=== PATIENT | male | born 1935 | race Hispanic/Latino ===

== ENCOUNTER 2016-12-17 20:24 | Inpatient (IN) | payer MEDICARE ==
[2016-12-17 20:24] VITALS: BMI 22.5
--- NOTE | 2016-12-17 21:39 | ED PDOC ---
Arrival/HPI - General Chief Complaint: Altered Mental Status Time Seen by Provider: 12/17/16 20:36 Historian: Patient - History of Present Illness Narrative History of Present Illness (Text): 12/17/16 21:37 Ronaldo Turpin is a 81 year old male, with a history of hypertension, CAD with 4 stents and hypothyroidism, presents to the emergency department complaining of 3 day duration of difficulty breathing and poor appetite. Sebastian any fever, chills, chest pain, nausea, vomiting, diarrhea, or any other complaints at this time. Time/Duration: < week (3 days ) Symptom Onset: Gradual Severity Level: Mild Activities at Onset: Light Past Medical History - Provider Review Nursing Documentation Reviewed: Yes - Infectious Disease Hx of Infectious Diseases: None - Tetanus Immunization Tetanus Immunization: Unknown, OTH - Cardiac Hx Cardiac Disorders: Yes ([place], CAD w/ stents) Hx Hypertension: Yes - Pulmonary Hx Chronic Obstructive Pulmonary Disease (COPD): Yes - Neurological Hx Neurological Disorder: No - HEENT Hx HEENT Disorder: Yes Hx Cataracts: Yes (R EYE) - Renal Hx Renal Disorder: No - Endocrine/Metabolic Hx Hypothyroidism: Yes - Hematological/Oncological Hx Blood Disorders: No - Integumentary Hx Dermatological Disorder: No - Musculoskeletal/Rheumatological Hx Falls: No - Gastrointestinal Hx Gastroesophageal Reflux: Yes - Genitourinary/Gynecological Hx Genitourinary Disorders: No - Psychiatric Hx Psychophysiologic Disorder: No Hx Substance Use: No - Past Surgical History Past Surgical History: No Previous - Surgical History Hx Cardiac Catheterization: Yes Hx Coronary Stent: Yes - Anesthesia Hx Anesthesia Reactions: No Hx Malignant Hyperthermia: No - Suicidal Assessment Feels Threatened In Home Enviroment: No Family/Social History - Physician Review Nursing Documentation Reviewed: Yes Family/Social History: No Known Family HX Smoking Status: Former Smoker Hx Alcohol Use: Yes Hx Substance Use: No Hx Substance Use Treatment: No Allergies/Home Meds Allergies/Adverse Reactions: Allergies No Known Allergies Allergy (Verified 08/26/15 14:43) Home Medications: Home Meds Medication Instructions Recorded Confirmed Unobtainable 12/18/16 12/18/16 Review of Systems - Physician Review All systems were reviewed & negative as marked: Yes - Review of Systems Constitutional: Normal. absent: Fatigue, Fevers Respiratory: SOB. absent: Cough, Sputum Cardiovascular: absent: Chest Pain, Palpitations Gastrointestinal: Appetite Changes (Poor appetite ). absent: Abdominal Pain, Diarrhea, Nausea, Vomiting Genitourinary Male: Normal Neurological: Normal. absent: Headache, Dizziness Psychiatric: Normal Physical Exam Vital Signs Reviewed: Yes Vital Signs Temp Pulse Resp BP Pulse Ox 12/18/16 00:48 79 24 139/58 L 97 12/18/16 00:25 86 30 H 108/57 L 92 L 12/18/16 00:08 88 22 102/57 L 88 L 12/17/16 23:52 81 23 108/57 L 88 L 12/17/16 23:37 69 30 H 102/67 92 L 12/17/16 23:22 66 34 H 93/56 L 92 L 12/17/16 23:07 65 34 H 112/63 96 12/17/16 22:57 67 30 H 115/61 95 12/17/16 22:48 65 28 H 100/50 L 96 12/17/16 21:48 83 24 122/79 91 L 12/17/16 20:48 98.1 F 82 18 129/58 L 99 Temperature: Afebrile Blood Pressure: Normal Pulse: Regular Respiratory Rate: Normal Appearance: Positive for: Well-Appearing, Non-Toxic, Comfortable Pain Distress: None Mental Status: Positive for: Alert and Oriented X 3 - Systems Exam Head: Present: Atraumatic, Normocephalic Pupils: Present: PERRL Extroacular Muscles: Present: EOMI Conjunctiva: Present: Normal Mouth: Present: Moist Mucous Membranes Respiratory/Chest: Present: Decreased Breath Sounds (Right lung ). No: Respiratory Distress, Accessory Muscle Use Cardiovascular: Present: Regular Rate and Rhythm, Normal S1, S2. No: Murmurs Abdomen: Present: Normal Bowel Sounds. No: Tenderness, Distention, Peritoneal Signs, Rebound, Guarding Upper Extremity: Present: Normal Inspection. No: Cyanosis, Edema Lower Extremity: Present: Normal Inspection. No: Edema Neurological: Present: GCS=15, CN II-XII Intact, Speech Normal, Motor Func Grossly Intact, Normal Sensory Function Skin: Present: Warm, Dry, Normal Color. No: Rashes Psychiatric: Present: Alert, Oriented x 3, Normal Insight, Normal Concentration Medical Decision Making ED Course and Treatment: 12/17/16 21:41 Impression: A 81 year old male who presents to the emergency department complaining of 3 day duration of shortness of breath and decreased appetite. Plan: -- EKG -- Labs, cardiac enzymes -- Chest X-ray -- Blood Culture -- Urine Culture -- Urinalysis -- Reassess and disposition Progress Notes: 12/17/16 22:05 Sinus Rhythm @ 67 bpm with AV dissociation and accelerated junctional rhythm. Septal infarct, age undetermined. PROCEDURE: INTUBATION Performed by the emergency provider Time: 23:00 Consent: Discussion of the risks, benefits, and alternatives to the procedure, along with informed consent was precluded by the urgency of the procedure and the patient condition. Indication: Hypercapnia; respiratory distress Medications: 10 mg Etomidate ETT Size: 8mm Confirmation: Cords directly visualized as tube passed, good bilateral breath sounds, positive CO2 detector color change, tube fogging, adequate chest rise, improving pulse oximetry reading, improved skin color, and absence of gastric sounds. ETT Secured: The cuff was inflated and the tube was secured appropriately at a distance of 23 cm at the lip. Post-Procedure: There were no immediate complications. CXR Confirmation: yes Chest X-ray post intubation shows ET tube above Sharon. 12/18/16 00:[address] 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 Accepts patient to ICU under hospitalist service. case d/w john for dr flores , case d/w center medical director 12/18/16 23:40 - Critical Care Critical Care Minutes: 45 minutes (management of respiratory failure) - Lab Interpretations Microbiology Results: Microbiology Results 12/17/16 22:30 Blood-Venous Blood Culture - Preliminary NO GROWTH AFTER 24 HOURS 12/17/16 21:52 Blood-Venous Blood Culture - Preliminary NO GROWTH AFTER 24 HOURS Lab Results: 12/17/16 21:52 12/17/16 21:52 Lab Results 12/17/16 23:29: pCO2 116 H*, pO2 91.0, HCO3 43.3 H*, ABG pH 7.18 L*, ABG Total CO2 46.9 H, ABG O2 Saturation 97.3, ABG O2 Content 17.4, ABG Base Excess 10.4 H , ABG Hemoglobin 13.1, ABG Carboxyhemoglobin 2.6 H, POC ABG HHb (Measured) 2.6, ABG Methemoglobin 0.9, ABG O2 Capacity 17.9, Hgb O2 Saturation 93.9 L, FiO2 35.0 12/17/16 21:52: Sodium 129 L, Chloride 76 L, Potassium 4.4, Carbon Dioxide 47 H D, Anion Gap 17, BUN 19, Creatinine 0.6, Est GFR ( Amer) > 60, Est GFR ( Non-Af Amer) > 60, Random Glucose 93, Calcium 8.7, Total Bilirubin 0.7, AST 20, ALT 26, Alkaline Phosphatase 66, Lactate Dehydrogenase 383, Total Creatine Kinase < 20 L, Troponin I 0.02 D, NT-Pro-B Natriuret Pep 3820 H, Total Protein 7.1, Albumin 3.4, Globulin 3.7, Albumin/Globulin Ratio 0.9 L 12/17/16 21:52: WBC 8.6, RBC 4.19, Hgb 13.5 L, Hct 42.2, MCV 100.7, MCH 32.2, MCHC 32.0, RDW 12.9, Plt Count 337, MPV 9.4, Gran % 84.0 H, Lymph % (Auto) 9.5 L , [place] % (Auto) 6.3 H, Eos % (Auto) 0.1 L, Baso % (Auto) 0.1, Gran # 7.18 H, Lymph # 0.8 L, [place] # 0.5, Eos # 0.0, Baso # 0.01 12/17/16 21:20: pCO2 96 H*, pO2 79.0 L, HCO3 47.2 H*, ABG pH 7.30 L, ABG Total CO2 50.1 H, ABG O2 Saturation 96.0, ABG Base Excess 15.9 H, ABG Potassium 3.4 L , Sodium 132.0, Chloride 88.0 L, Glucose 90, Lactate 0.7, FiO2 32.0, Arterial Blood Potassium 3.4 L I have reviewed the lab results: Yes - RAD Interpretation Radiology Orders: 12/17/16 20:58 CHEST PORTABLE [RAD] Stat 12/17/16 23:56 CHEST PORTABLE [RAD] Stat Parent Partner: ED Physician - EKG Interpretation Interpreted by ED Physician: Yes Type: 12 lead EKG - Medication Orders Current Medication Orders: Albuterol/Ipratropium (Duoneb 3 Mg/0.5 Mg (3 Ml) Ud) 3 ml IH Q2H PRN PRN Reason: Shortness of Breath Last Admin: 12/18/16 13:18 Dose: 3 ml Aspirin (Aspirin Chewable) 81 mg PO DAILY [facility] Last Admin: 12/18/16 11:50 Dose: Not Given Non-Admin Reason: NPO Atorvastatin Calcium (Lipitor) 40 mg PO DIN [facility] Last Admin: 12/18/16 18:49 Dose: 40 mg Clopidogrel Bisulfate (Plavix) 75 mg PO DAILY [facility] Last Admin: 12/18/16 11:51 Dose: Not Given Non-Admin Reason: NPO Heparin Sodium (Porcine) (Heparin) 5,000 units SC Q12 [facility] PRN Reason: Protocol Last Admin: 12/18/16 21:44 Dose: 5,000 units Ceftriaxone Sodium (Rocephin 1 Gram Ivpb) 1 gm in 100 mls @ 100 mls/hr IVPB DAILY [facility] PRN Reason: Protocol Last Admin: 12/18/16 11:49 Dose: 100 mls/hr Levofloxacin/Dextrose (Levaquin 750mg) 750 mg in 150 mls @ 100 mls/hr IVPB DAILY [facility] Last Admin: 12/18/16 11:48 Dose: 100 mls/hr Dexmedetomidine HCl (Precedex 4 Mcg/Ml (100 Ml)) 400 mcg in 100 mls @ 3.35 mls/ hr IV .Q24H PRN; Protocol; 0.2 MCG/KG/HR PRN Reason: Sedation Last Titration: 12/18/16 08:36 Dose: 0 mcg/kg/hr, 0 mls/hr Levothyroxine Sodium (Synthroid) 100 mcg IVP DAILY [facility] Last Admin: 12/18/16 11:48 Dose: 100 mcg Methylprednisolone (Solu-Medrol) 40 mg IVP Q8 [facility] Last Admin: 12/18/16 21:43 Dose: 40 mg Pantoprazole Sodium (Protonix Inj) 40 mg IVP DAILY [facility] Last Admin: 12/18/16 11:48 Dose: 40 mg Potassium Phos/Sodium Phos (Neutra-Phos) 2 pkt PO Q12 [facility] Last Admin: 12/18/16 21:44 Dose: 2 pkt Discontinued Medications Albuterol/Ipratropium (Duoneb 3 Mg/0.5 Mg (3 Ml) Ud) 3 ml IH Q15M [facility] Stop: 12/17/16 22:31 Last Admin: 12/17/16 22:30 Dose: 3 ml Etomidate (Amidate) Confirm Administered Dose 20 mg IV .STK-MED ONE Stop: 12/17/16 23:44 Last Admin: 12/18/16 00:13 Dose: Etomidate (Amidate) 10 mg IV STAT STA Stop: 12/18/16 00:06 Last Admin: 12/18/16 00:13 Dose: 10 mg Furosemide (Lasix) 20 mg IVP ONCE ONE Stop: 12/18/16 00:44 Furosemide (Lasix) 20 mg IVP STAT STA Stop: 12/18/16 01:08 Last Admin: 12/18/16 03:28 Dose: 20 mg Methylprednisolone (Solu-Medrol) 125 mg IVP ONCE ONE Stop: 12/17/16 22:00 Last Admin: 12/17/16 22:07 Dose: 125 mg - Scribe Statement The provider has reviewed the documentation as recorded by the Gustavo Huffman Provider Attestation: Provider Scribe Attestation: All medical record entries made by the Gustavo were at my direction and personally dictated by me. I have reviewed the chart and agree that the record accurately reflects my personal performance of the history, physical exam, medical decision making, and the department course for this patient. I have also personally directed, reviewed, and agree with the discharge instructions and disposition. Disposition/Present on Arrival - Present on Arrival Any Indicators Present on Arrival: No History of DVT/PE: No History of Uncontrolled Diabetes: No Urinary Catheter: No History of Decub. Ulcer: No History Surgical Site Infection Following: None - Disposition Have Diagnosis and Disposition been Completed?: Yes Diagnosis: Respiratory failure with hypercapnia Disposition: HOSPITALIZED Disposition Time: 00:55 Condition: SERIOUS
[2016-12-17 21:43] LABS: ARTERIAL BLOOD GAS PCO2 96 mm/Hg (35-45); ARTERIAL BLOOD GAS TCO2 50.1 mmol.L (22-28)
[2016-12-17 21:48] LABS: ARTERIAL BLOOD GAS HCO3 47.2 mmol/L (21-28)
[2016-12-17] MEDS: Albuterol-Ipratrop 3 mg / 0.5 (3 ml) UD IH SCH ×3 (22:09→22:30)
[2016-12-17 22:10] LABS: BASO # 0.01 K/mm3 (0.0-2.0); BASO % 0.1 % (0.0-3.0); EOS % 0.1 % (1.5-5.0); GRAN # 7.18 (1.4-6.5); HEMOGLOBIN 13.5 gm/dL (14.0-18.0); LYMPH # 0.8 (1.2-3.4); LYMPH % 9.5 % (22.0-35.0); MEAN CELL VOLUME 100.7 fL (80.0-105.0); MEAN CORPUSCULAR HEMOGLOBIN 32.2 pg (25.0-35.0); MEAN PLATELET VOLUME 9.4 fl (7.0-11.0); MONO # 0.5 (0.1-0.6); MONO % 6.3 % (1.0-6.0); PLATELET COUNT 337 10^3/uL (120.0-450.0); RBC 4.19 10^6/uL (3.5-6.1); RED CELL DISTRIBUTION WIDTH 12.9 % (11.5-14.5); WHITE BLOOD COUNT 8.6 10^3/ul (4.5-11.0)
[2016-12-17 22:26] LABS: ALB/GLOB RATIO 0.9 (1.1-1.8); ALBUMIN 3.4 g/dL (3.0-4.8); ALT/SGPT 26 U/L (7-56); AST/SGOT 20 U/L (15-59); BLOOD UREA NITROGEN 19 mg/dL (7-21); CALCIUM 8.7 mg/dL (8.4-10.5); GFR AFRICAN-AMERICAN > 60; GFR NON-AFRICAN AMERICAN > 60
[2016-12-17 22:34] LABS: B-TYPE NATRIURETIC PEPTIDE 3820 pg/mL (0-450); TROPONIN I 0.02 ng/mL
[2016-12-17 23:36] LABS: ARTERIAL BLOOD GAS HEMOGLOBIN 13.1 g/dL (11.7-17.4); ARTERIAL BLOOD GAS O2 CAPACITY 17.9 mL/dl (16-24); ARTERIAL BLOOD GAS O2 CONTENT 17.4 ML/dl (15-23); ARTERIAL BLOOD GAS O2 SAT 97.3 % (95-98); ARTERIAL BLOOD GAS TCO2 46.9 mmol.L (22-28)
[2016-12-17] MEDS ORDERED: Etomidate 20 mg/10ml Inj IV ONE (23:43)
[2016-12-17] MEDS ORDERED: Propofol 10 mg/ml 1,000 MG/100 ML VIAL IV PRN (23:58)
[2016-12-18] MEDS ORDERED: Etomidate 20 mg/10ml Inj IV STA (00:05)
[2016-12-18 00:14] LABS: ARTERIAL BLOOD GAS HCO3 43.3 mmol/L (21-28); ARTERIAL BLOOD GAS PCO2 116 mm/Hg (35-45); ARTERIAL BLOOD GAS PH 7.18 (7.35-7.45)
[2016-12-18] MEDS ORDERED: Dexmedetomidine HCl 4mcg/ml 400 MCG/100 ML BOTTLE IV PRN (00:43)
--- NOTE | 2016-12-18 01:05 | CP.PCM.CON ---
<David Guerrero - Last Filed: 12/18/16 00:59> History of Present Illness - History of Present Illness History of Present Illness: ICU Consult Note for Dr. Live 81 y/o M with PMH of CHF, CAD s/p stent placement on plavix, COPD, hypothyroidism, and HLD presents to the the ED on 12/17/16 for progressive SOB. Information gathered in HPI from prior medical charts as patient was intubated prior to exam. Pt arrived at ED complaining of 3 day history of shortness of breath and decreased appetite. Pt became progressively more short of breath in the emergency department was subsequently intubated to protect his airway. ROS unavailable at this time secondary to acuity of the patient's condition. PMH: CHF, CAD, COPD, hypothyroidism, HLD Surgical Hx: PCI with stent placement, thoracentesis Family Hx: HTN Social Hx: Chronic tobacco and alcohol use. No illicit drugs. Allergies: NKDA Medications: As per prior record, unable to verify at this time. Review of Systems - Review of Systems Systems not reviewed;Unavailable: Intubated Past Patient History - Infectious Disease Hx of Infectious Diseases: None - Tetanus Immunizations Tetanus Immunization: Unknown, OTH - Past Social History Smoking Status: Former Smoker - CARDIAC Hx Cardiac Disorders: Yes ([place], CAD w/ stents) Hx Hypertension: Yes - PULMONARY Hx Chronic Obstructive Pulmonary Disease (COPD): Yes - NEUROLOGICAL Hx Neurological Disorder: No - HEENT Hx HEENT Problems: Yes Hx Cataracts: Yes (R EYE) - RENAL Hx Chronic Kidney Disease: No - ENDOCRINE/METABOLIC Hx Hypothyroidism: Yes - HEMATOLOGICAL/ONCOLOGICAL Hx Blood Disorders: No - INTEGUMENTARY Hx Dermatological Problems: No - MUSCULOSKELETAL/RHEUMATOLOGICAL Hx Falls: No - GASTROINTESTINAL Hx Gastroesophageal Reflux: Yes - GENITOURINARY/GYNECOLOGICAL Hx Genitourinary Disorders: No - PSYCHIATRIC Hx Psychophysiologic Disorder: No Hx Substance Use: No - SURGICAL HISTORY Hx Cardiac Catheterization: Yes Hx Coronary Stent: Yes - ANESTHESIA Hx Anesthesia Reactions: No Hx Malignant Hyperthermia: No Meds Allergies/Adverse Reactions: Allergies Allergy/AdvReac Type Severity Reaction Status Date / Time No Known Allergies Allergy Verified 08/26/15 14:43 - Medications Medications: Current Medications Albuterol/Ipratropium (Duoneb 3 Mg/0.5 Mg (3 Ml) Ud) 3 ml IH Q2H PRN PRN Reason: Shortness of Breath Aspirin (Aspirin Chewable) 81 mg PO DAILY [facility] Atorvastatin Calcium (Lipitor) 40 mg PO DIN [facility] Clopidogrel Bisulfate (Plavix) 75 mg PO DAILY [facility] Furosemide (Lasix) 20 mg IVP ONCE ONE Stop: 12/18/16 00:44 Propofol (Diprivan) 1,000 mg in 100 mls @ 2.01 mls/hr IV .Q24H PRN; Protocol; 5 MCG/KG/MIN PRN Reason: TITRATE PER MD ORDER Dexmedetomidine HCl (Precedex 4 Mcg/Ml (100 Ml)) 400 mcg in 100 mls @ 3.35 mls/ hr IV .Q24H PRN; Protocol; 0.2 MCG/KG/HR PRN Reason: Sedation Levofloxacin/Dextrose (Levaquin 500mg) 500 mg in 100 mls @ 100 mls/hr IVPB DAILY [facility] Ceftriaxone Sodium (Rocephin 1 Gram Ivpb) 1 gm in 100 mls @ 100 mls/hr IVPB DAILY [facility] PRN Reason: Protocol Levothyroxine Sodium (Synthroid) 100 mcg IVP DAILY [facility] Methylprednisolone (Solu-Medrol) 40 mg IVP Q8 [facility] Physical Exam - Constitutional Appears: Toxic, In Acute Distress - Head Exam Head Exam: ATRAUMATIC, NORMAL INSPECTION, NORMOCEPHALIC - Eye Exam Eye Exam: PERRL - ENT Exam ENT Exam: Mucous Membranes Moist, Normal Exam - Neck Exam Neck exam: Positive for: Normal Inspection. Negative for: Lymphadenopathy - Respiratory Exam Respiratory Exam: Decreased Breath Sounds (b/l ), Rhonchi (B/l bases) Additional comments: Intubated - Cardiovascular Exam Cardiovascular Exam: Tachycardia, +S1, +S2 - GI/Abdominal Exam GI & Abdominal Exam: Normal Bowel Sounds, Soft. absent: Organomegaly, Tenderness - Extremities Exam Extremities exam: Positive for: pedal edema (+1 pitting edema b/l) - Neurological Exam Additional comments: Intubated, not sedated - Skin Skin Exam: Intact, Normal Color, Warm Results - Vital Signs Recent Vital Signs: Last Vital Signs Temp 98.1 F 12/17/16 20:48 Pulse 79 12/18/16 00:48 Resp 24 12/18/16 00:48 BP 139/58 L 12/18/16 00:48 Pulse Ox 97 12/18/16 00:48 - Labs Result Diagrams: 12/17/16 21:52 12/17/16 21:52 Labs: Laboratory Results - last 24 hr 12/17/16 12/17/16 12/17/16 21:20 21:52 21:52 WBC 8.6 RBC 4.19 Hgb 13.5 L Hct 42.2 MCV 100.7 MCH 32.2 MCHC 32.0 RDW 12.9 Plt Count 337 MPV 9.4 Gran % 84.0 H Lymph % (Auto) 9.5 L [place] % (Auto) 6.3 H Eos % (Auto) 0.1 L Baso % (Auto) 0.1 Gran # 7.18 H Lymph # 0.8 L [place] # 0.5 Eos # 0.0 Baso # 0.01 pCO2 96 H* pO2 79.0 L HCO3 47.2 H* ABG pH 7.30 L ABG Total CO2 50.1 H ABG O2 Saturation 96.0 ABG O2 Content ABG Base Excess 15.9 H ABG Hemoglobin ABG Carboxyhemoglobin POC ABG HHb (Measured) ABG Methemoglobin ABG O2 Capacity ABG Potassium 3.4 L Hgb O2 Saturation Sodium 132.0 129 L Chloride 88.0 L 76 L Glucose 90 Lactate 0.7 FiO2 32.0 Potassium 4.4 Carbon Dioxide 47 H D Anion Gap 17 BUN 19 Creatinine 0.6 Est GFR ( Amer) > 60 Est GFR (Non-Af Amer) > 60 Random Glucose 93 Calcium 8.7 Total Bilirubin 0.7 AST 20 ALT 26 Alkaline Phosphatase 66 Lactate Dehydrogenase 383 Total Creatine Kinase < 20 L Troponin I 0.02 D NT-Pro-B Natriuret Pep 3820 H Total Protein 7.1 Albumin 3.4 Globulin 3.7 Albumin/Globulin Ratio 0.9 L Arterial Blood Potassium 3.4 L 12/17/16 23:29 WBC RBC Hgb Hct MCV MCH MCHC RDW Plt Count MPV Gran % Lymph % (Auto) [place] % (Auto) Eos % (Auto) Baso % (Auto) Gran # Lymph # [place] # Eos # Baso # pCO2 116 H* pO2 91.0 HCO3 43.3 H* ABG pH 7.18 L* ABG Total CO2 46.9 H ABG O2 Saturation 97.3 ABG O2 Content 17.4 ABG Base Excess 10.4 H ABG Hemoglobin 13.1 ABG Carboxyhemoglobin 2.6 H POC ABG HHb (Measured) 2.6 ABG Methemoglobin 0.9 ABG O2 Capacity 17.9 ABG Potassium Hgb O2 Saturation 93.9 L Sodium Chloride Glucose Lactate FiO2 35.0 Potassium Carbon Dioxide Anion Gap BUN Creatinine Est GFR ( Amer) Est GFR (Non-Af Amer) Random Glucose Calcium Total Bilirubin AST ALT Alkaline Phosphatase Lactate Dehydrogenase Total Creatine Kinase Troponin I NT-Pro-B Natriuret Pep Total Protein Albumin Globulin Albumin/Globulin Ratio Arterial Blood Potassium Assessment & Plan - Assessment and Plan (Free Text) Plan: 81 y/o M with PMH of CHF with EF of 63% in 08/2015, CAD s/p stent placement on plavix, COPD, hypothyroidism, and HLD admitted for acute hypercapnic respiratory failure likely secondary to cardiogenic pulmonary edema. Patient will remain intubated in the ICU. Chest x-ray appears to show pulmonary edema along with right sided pleural effusion, which may be chronic. Will order a Chest CT to further evaluate effuision/infiltrate. In addition, patient will be given one dose of lasix and have BP reevaluated before continuing with further diuresis. He will also receive empiric treatment for CAP. We will monitor patient closely. Neuro: Intubated, sedated on Precedex Neurochecks q4h Cardio: Echocardiogram ordered Trend troponins Cardiology consulted, Dr. Sandoval Lasix 20 mg IV given once, will continue based upon BP Strict I's and O's Hemodynamically stable Maintain MAP > 65 Pulm: Intubated. PRVC - PEEP: 0, O2: 60%, TV: 450, R: [address] ordered ABG in AM Rocephin and Levaquin for CAP Solumedrol 40 mg IV q8h Maintain O2 sat > 90% GI: Protonix for PUD prophylaxis Endo: Maintain euglycemia TSH ordered Nephro: Maintain euvolemia Replenish electrolytes as needed [place] placed Heme/ID: Procalcitonin ordered Rocephin and Levaquin for CAP Maintain normothermia Seen, reviewed, and discussed with attending Yolanda, PGY-2 <Torito Live Q - Last Filed: 12/18/16 02:06> Meds - Medications Medications: Current Medications Albuterol/Ipratropium (Duoneb 3 Mg/0.5 Mg (3 Ml) Ud) 3 ml IH Q2H PRN PRN Reason: Shortness of Breath Aspirin (Aspirin Chewable) 81 mg PO DAILY [facility] Atorvastatin Calcium (Lipitor) 40 mg PO DIN [facility] Clopidogrel Bisulfate (Plavix) 75 mg PO DAILY [facility] Heparin Sodium (Porcine) (Heparin) 5,000 units SC Q12 [facility] PRN Reason: Protocol Ceftriaxone Sodium (Rocephin 1 Gram Ivpb) 1 gm in 100 mls @ 100 mls/hr IVPB DAILY [facility] PRN Reason: Protocol Levofloxacin/Dextrose (Levaquin 750mg) 750 mg in 150 mls @ 100 mls/hr IVPB DAILY [facility] Dexmedetomidine HCl (Precedex 4 Mcg/Ml (100 Ml)) 400 mcg in 100 mls @ 3.35 mls/ hr IV .Q24H PRN; Protocol; 0.2 MCG/KG/HR PRN Reason: Sedation Levothyroxine Sodium (Synthroid) 100 mcg IVP DAILY [facility] Methylprednisolone (Solu-Medrol) 40 mg IVP Q8 [facility] Pantoprazole Sodium (Protonix Inj) 40 mg IVP DAILY [facility] Results - Vital Signs Recent Vital Signs: Last Vital Signs Temp 98.1 F 12/17/16 20:48 Pulse 83 12/18/16 01:00 Resp 25 H 12/18/16 01:00 BP 93/73 L 12/18/16 01:00 Pulse Ox 96 12/18/16 01:00 - Labs Result Diagrams: 12/17/16 21:52 12/17/16 21:52 Attending/Attestation - Attestation I have personally seen and examined this patient.: Yes I have fully participated in the care of the patient.: Yes I have reviewed all pertinent clinical information: Yes Notes (Text): 12/18/16 01:55 I agree with the above mentioned note by the resident with the addition/ exception of the followin81 y/o male with PMHx known CAD s/p Stents, COPD, ?CHF, hypothyroid, anemia who presented with a 3 day history of worsening shortness of breath. Patient was treated in the ED with nebulizers and solumedrol with no improvement, subsequently even tried on Bipap and worsened so he was intubated in the ED. Patient was unable to provide any history so most was obtained through discussion with the ED staff and the medical record. Patient appears to show bilateral pulomary edema along with a chronic appearing right middle/lower lobe effusion. I'm unable to rule out a consolidative/infiltrative process under the effusion at this time, so he will undergo a noncontrast CT of the Chest to further evaluate his pulmonary disease process. He will be managed in the ICU for acute hypercapnic respiratory failure, acute systolic heart failure +/- Community Acquired Pneumonia. Case discussed in detail with Dr. Booth in the ED All labs and imaging available thus far has been reviewed personally total time of care: 45 mins
[2016-12-18 02:16] LABS: PH,URINE 6.5 (4.7-8.0); URINE BILIRUBIN NEGATIVE (NEGATIVE); URINE BLOOD TRACE-INTACT (NEGATIVE); URINE GLUCOSE (UA) NEGATIVE (NEGATIVE); URINE LEUKOCYTE ESTERASE NEGATIVE Leu/uL (NEGATIVE); URINE NITRATE NEGATIVE (NEGATIVE); URINE PROTEIN NEGATIVE mg/dL (<30 mg/dL)
[2016-12-18 02:17] LABS: URINE APPEARANCE SL CLOUDY (CLEAR); URINE COLOR YELLOW (YELLOW)
[2016-12-18 02:43] LABS: ARTERIAL BLOOD GAS HCO3 37.2 mmol/L (21-28); ARTERIAL BLOOD GAS HEMOGLOBIN 12.7 g/dL (11.7-17.4); ARTERIAL BLOOD GAS O2 CAPACITY 17.9 mL/dl (16-24); ARTERIAL BLOOD GAS O2 CONTENT 17.8 ML/dl (15-23); ARTERIAL BLOOD GAS O2 SAT 99.3 % (95-98); ARTERIAL BLOOD GAS PCO2 37 mm/Hg (35-45); ARTERIAL BLOOD GAS TCO2 38.3 mmol.L (22-28)
[2016-12-18] MEDS: Dexmedetomidine HCl 4mcg/ml 400 MCG/100 ML BOTTLE IV PRN ×2 (03:04→05:56)
[2016-12-18 03:10] LABS: ARTERIAL BLOOD GAS PH 7.61 (7.35-7.45)
[2016-12-18 03:28] LABS: URINE EPITHELIAL CELLS 0 - 2 /hpf (0-5); URINE HYALINE CAST 0 - 2 /hpf; URINE RBC 0 - 2 /hpf (0-2); URINE WBC 0 - 2 /hpf (0-6)
[2016-12-18 04:40] LABS: ALB/GLOB RATIO 0.9 (1.1-1.8); ALBUMIN 3.7 g/dL (3.0-4.8); ALT/SGPT 29 U/L (7-56); AST/SGOT 43 U/L (15-59); BLOOD UREA NITROGEN 20 mg/dL (7-21); CALCIUM 8.9 mg/dL (8.4-10.5); GFR AFRICAN-AMERICAN > 60; GFR NON-AFRICAN AMERICAN > 60; MAGNESIUM 1.7 mg/dL (1.7-2.2)
[2016-12-18 04:41] LABS: HEMOGLOBIN 14.2 gm/dL (14.0-18.0); MEAN CELL VOLUME 97.5 fL (80.0-105.0); MEAN CORPUSCULAR HEMOGLOBIN 32.3 pg (25.0-35.0); MEAN CORPUSCULAR HGB CONC 33.2 g/dl (31.0-37.0); MEAN PLATELET VOLUME 9.4 fl (7.0-11.0); RBC 4.39 10^6/uL (3.5-6.1); RED CELL DISTRIBUTION WIDTH 12.7 % (11.5-14.5); WHITE BLOOD COUNT 6.8 10^3/ul (4.5-11.0)
[2016-12-18 05:01] LABS: TROPONIN I 0.03 ng/mL
[2016-12-18] MEDS: MethylPREDNISolone 40 mg Vial IVP SCH ×3 (05:21→21:43)
[2016-12-18 06:17] LABS: ARTERIAL BLOOD GAS HEMOGLOBIN 14.2 g/dL (11.7-17.4); ARTERIAL BLOOD GAS O2 CAPACITY 19.5 mL/dl (16-24); ARTERIAL BLOOD GAS O2 CONTENT 19.4 ML/dl (15-23); ARTERIAL BLOOD GAS O2 SAT 99.3 % (95-98); ARTERIAL BLOOD GAS PCO2 44 mm/Hg (35-45); ARTERIAL BLOOD GAS TCO2 45.6 mmol.L (22-28)
[2016-12-18 07:08] LABS: ARTERIAL BLOOD GAS PH 7.61 (7.35-7.45)
[2016-12-18 07:09] LABS: ARTERIAL BLOOD GAS HCO3 44.2 mmol/L (21-28)
--- NOTE | 2016-12-18 07:43 | RAD ---
HISTORY: post intubation COMPARISON: 12/17/2016 FINDINGS: LUNGS: The bibasilar pleural-parenchymal opacity are similar appearing pleural-parenchymal thickening with with small pleural effusions. Bilateral hyperaeration -background COPD inferred. Probable cystic bilateral emphysematous changes mid lung zone. Interval insertion endotracheal tube- tip 3.5 cm from anderson. PLEURA: Small bilateral pleural effusions. No pneumothorax apparent. CARDIOVASCULAR: Normal. OSSEOUS STRUCTURES: Inferior thoraco lumbar spondylosis. Bilateral shoulder arthrosis VISUALIZED UPPER ABDOMEN: Normal. OTHER FINDINGS: None. IMPRESSION: Interval insertion of endotracheal tube tip satisfactory. Bilateral hyperaeration -background emphysema/ COPD inferred. The bilateral inferolateral pleural parenchymal opacities right greater than left are similar. Small bilateral pleural effusions with prior for carotic and/or discoid atelectatic -like bands projecting over small areas of the passive consolidation/atelectasis inferred. Follow up advised
[2016-12-18] MEDS: Albuterol-Ipratrop 3 mg / 0.5 (3 ml) UD IH PRN ×2 (08:04→13:18)
--- NOTE | 2016-12-18 08:11 | RAD ---
HISTORY: sob COMPARISON: 12/02/2015 FINDINGS: LUNGS: Bibasilar infero lateral pleural-parenchymal opacity with overlying thin stranding. At minimal inferolateral pleural thickening reaction with small right pleural effusion is inferred. Concomitant atelectatic a compressive atelectasis with or without patchy infiltrates at both bases (right greater than left is possible. The prior inferred small air-fluid levels small hydro thorax findings is less conspicuous cyst may be due to less upright positioning on the current exam under some partial resolution/partial clearing of fluid. Bilateral hyperaeration background COPD emphysema inferred. PLEURA: No pneumothorax apparent. Other findings as above CARDIOVASCULAR: Mild cardiomegaly OSSEOUS STRUCTURES: Generalized osteopenia, thoracic spondylosis and arthrosis-both shoulders VISUALIZED UPPER ABDOMEN: Normal. OTHER FINDINGS: None. IMPRESSION: Bibasilar inferolateral pleural parenchymal opacities. Small bi basilar pleural effusions - right greater than left. Bibasilar compressive atelectasis patchy infiltrates possible as before. Currently slightly less suggestion of air-fluid levels .
--- NOTE | 2016-12-18 08:54 | CT ---
PROCEDURE: CT Chest without contrast HISTORY: Evaluation of effusion/infiltrate COMPARISON: 08/22/2015 TECHNIQUE: Contiguous axial images were obtained through the chest without intravenous contrast enhancement. Sagittal and coronal reconstructions were performed. This CT exam was performed using one or more of the following dose reduction techniques: Automated exposure control, adjustment of the mA and/or kV according to patient size, and/or use of iterative reconstruction technique. FINDINGS: LUNGS: Bilateral dependent pleural effusions right greater than left with passive compressive atelectatic changes are similar appearing since 08/22/2015 These compressive atelectatic changes also have nodular morphology - nodular atelectasis nodular infiltrates are consistent with this. Neoplastic changes cannot be excluded: Nevertheless no change is appreciated. Prone and/or imaging may help clear this area and may not be possible in this patient. Bilateral lung hyperaeration consistent with COPD MEDIASTINUM: Unremarkable thoracic aorta. No aneurysm. Coronary artery calcifications Mild cardiomegaly. No pericardial effusion.Main pulmonary artery unremarkable. No vascular congestion. No lymphadenopathy. PLEURA: Bibasilar pleural effusions as detailed above. . The size of the right pleural effusion is slightly smaller than before. The small left pleural effusion is similar appear No pneumothorax. BONES: Thoracic spondylosis. No lytic lesions UPPER ABDOMEN: Large hiatal hernia re- suggested OTHER FINDINGS: Endotracheal tube approximately 3 cm from the anderson IMPRESSION: Bibasilar pleural effusions right slightly smaller than before. Dependent bibasilar passive compressive consolidation (atelectasis and/or infiltrates.) No interval change since 08/22/2015 here suggested. Given the nodularity to the consolidation, underlying neoplastic change cannot be entirely excluded. However this is believe dless likely given the stability suggested
[2016-12-18] MEDS ORDERED: levoFLOXacin 500 mg in D5W 500 MG/100 ML BAG IVPB SCH (10:00)
[2016-12-18] MEDS ORDERED: Potassium Chloride 40 mEq/30 ml LIQ UD PO SCH (10:15)
[2016-12-18 10:50] LABS: ALB/GLOB RATIO 0.9 (1.1-1.8); ALBUMIN 3.3 g/dL (3.0-4.8); ALT/SGPT 29 U/L (7-56); AST/SGOT 41 U/L (15-59); BLOOD UREA NITROGEN 22 mg/dL (7-21); CALCIUM 8.5 mg/dL (8.4-10.5); GFR AFRICAN-AMERICAN > 60; GFR NON-AFRICAN AMERICAN > 60
[2016-12-18 11:02] LABS: TROPONIN I 0.02 ng/mL
[2016-12-18] MEDS: Levothyroxine 100 mcg (0.1 mg) Inj IVP SCH (11:48)
[2016-12-18] MEDS: levoFLOXacin 750 mg in D5W 750 MG/150 ML BAG IVPB SCH (11:48)
[2016-12-18] MEDS: cefTRIAXone 1 gm 1 GM/100 ML BAG IVPB SCH (11:49)
[2016-12-18] MEDS: Potassium & Sodium Phosphate PO SCH ×2 (11:51→21:44)
--- NOTE | 2016-12-18 12:33 | CARD ---
APPROVED REPORT EKG Measurement Heart [id number] <Conclusion> Sinus rhythm significant artifacts Septal infarct, age undetermined Abnormal ECG
--- NOTE | 2016-12-18 13:18 | CP.PCM.PN ---
<PEDRO HERNADEZ - Last Filed: 12/18/16 15:04> Subjective - Date & Time of Evaluation Date of Evaluation: 12/18/16 Time of Evaluation: 10:30 - Subjective Subjective: PGY1 ICU Progress Note: Pt seen and examined at bedside. Pt admitted to ICU overnight for acute hypercapneic respiratory failure 2/2 likely cardiogenic pulmonary edema and COPD exacerbation. Pt intubated while examined this AM, but alert, awake, follows commands. Objective - Vital Signs/Intake and Output Vital Signs (last 24 hours): Temp Pulse Resp BP Pulse Ox 99 F 79 15 91/47 L 100 12/18/16 08:33 12/18/16 10:03 12/18/16 08:33 12/18/16 08:53 12/18/16 08:53 Intake and Output: 12/18/16 12/18/16 06:59 18:59 Intake Total 200 0 Output Total 1500 Balance -1300 0 - Medications Medications: Current Medications Albuterol/Ipratropium (Duoneb 3 Mg/0.5 Mg (3 Ml) Ud) 3 ml IH Q2H PRN PRN Reason: Shortness of Breath Last Admin: 12/18/16 08:04 Dose: 3 ml Aspirin (Aspirin Chewable) 81 mg PO DAILY [facility] Last Admin: 12/18/16 11:50 Dose: Not Given Atorvastatin Calcium (Lipitor) 40 mg PO DIN [facility] Clopidogrel Bisulfate (Plavix) 75 mg PO DAILY [facility] Last Admin: 12/18/16 11:51 Dose: Not Given Heparin Sodium (Porcine) (Heparin) 5,000 units SC Q12 [facility] PRN Reason: Protocol Last Admin: 12/18/16 11:51 Dose: 5,000 units Ceftriaxone Sodium (Rocephin 1 Gram Ivpb) 1 gm in 100 mls @ 100 mls/hr IVPB DAILY [facility] PRN Reason: Protocol Last Admin: 12/18/16 11:49 Dose: 100 mls/hr Levofloxacin/Dextrose (Levaquin 750mg) 750 mg in 150 mls @ 100 mls/hr IVPB DAILY [facility] Last Admin: 12/18/16 11:48 Dose: 100 mls/hr Dexmedetomidine HCl (Precedex 4 Mcg/Ml (100 Ml)) 400 mcg in 100 mls @ 3.35 mls/ hr IV .Q24H PRN; Protocol; 0.2 MCG/KG/HR PRN Reason: Sedation Last Titration: 12/18/16 08:36 Dose: 0 mcg/kg/hr, 0 mls/hr Levothyroxine Sodium (Synthroid) 100 mcg IVP DAILY [facility] Last Admin: 12/18/16 11:48 Dose: 100 mcg Methylprednisolone (Solu-Medrol) 40 mg IVP Q8 [facility] Last Admin: 12/18/16 05:21 Dose: 40 mg Pantoprazole Sodium (Protonix Inj) 40 mg IVP DAILY [facility] Last Admin: 12/18/16 11:48 Dose: 40 mg Potassium Phos/Sodium Phos (Neutra-Phos) 2 pkt PO Q12 [facility] Last Admin: 12/18/16 11:51 Dose: Not Given - Labs Labs: 12/18/16 04:15 12/18/16 10:38 - Constitutional Appears: No Acute Distress - Head Exam Head Exam: ATRAUMATIC, NORMOCEPHALIC - Eye Exam Eye Exam: PERRL - ENT Exam ENT Exam: Mucous Membranes Moist - Respiratory Exam Additional comments: Coarse breath sounds b/l. - Cardiovascular Exam Cardiovascular Exam: RRR, +S1, +S2. absent: Gallop, Rubs, Murmur - GI/Abdominal Exam GI & Abdominal Exam: Soft, Normal Bowel Sounds. absent: Distended, Tenderness - Extremities Exam Extremities Exam: absent: Calf Tenderness, Pedal Edema - Neurological Exam Neurological Exam: Alert, Awake - Skin Skin Exam: Dry, Intact, Normal Color, Warm Assessment and Plan - Assessment and Plan (Free Text) Assessment: 81M with PMH CHF with EF 60% (from echo 1 year ago), COPD, CAD, admitted to ICU for acute hypercapneic respiratory failure 2/2 cardiogenic pulmonary edema and COPD exacerbation. Pt intubated overnight, with improving hypercapnea, pt extubated to bipap this AM, s/p 40mg IV lasix, c/w methylprednisolone 40 q 8 and duonebs prn, c/w rocephin and levaquin for CAP coverage. Plan: Neuro: s/p intubation to bipap 10/5, 30% FiO2, RR12, TV 236, saturating well. off precedex and propofol. Pt alert, awake Neurochecks q4h Cont to monitor. Cardio: F/u Echocardiogram. Last echo 1 year ago shows EF60%. troponins neg x2. F/u Cardiology consult, Dr. Sandoval s/p Lasix 20 mg IV, will continue based upon BP Strict I's and O's Hemodynamically stable Maintain MAP > 65 Pulm: s/p extubation. on bipap 10/5, 30% fiO2, TV 236, Rate 12, saturating well, will wean off to NC Chest CT shows large left sided pleural effusion, some on the right as well. left sided infiltrate, nodularity seen as well - neoplastic? ABG in AM Rocephin and Levaquin D2 for CAP COPD exacerbation: Solumedrol 40 mg IV q8h, duonebs prn Maintain O2 sat > 88% GI: Protonix for PUD prophylaxis Pt on bipap. if weaned to NC, will do bedside swallow. Endo: Maintain euglycemia TSH ordered Nephro: Maintain euvolemia Replenish electrolytes as needed. Hyponatremia Na 127, will obtain hyponatremia workup: FeNa, urine lytes. [place] in place Heme/ID: Procalcitonin <0.05. CT chest shows L sided infiltrate. C/w Rocephin and Levaquin for CAP Maintain normothermia Seen, reviewed, and discussed with PGY2 and attending, Dr. Rodriguez. Pedro Hernadez, PGY1 <Jennifer RANDOLPH,[facility] - Last Filed: 12/18/16 15:23> Objective - Vital Signs/Intake and Output Vital Signs (last 24 hours): Temp Pulse Resp BP Pulse Ox 99 F 89 31 H 91/61 L 97 12/18/16 08:33 12/18/16 13:50 12/18/16 13:50 12/18/16 13:39 12/18/16 13:50 Intake and Output: 12/18/16 12/18/16 06:59 18:59 Intake Total 200 0 Output Total 1500 Balance -1300 0 - Medications Medications: Current Medications Albuterol/Ipratropium (Duoneb 3 Mg/0.5 Mg (3 Ml) Ud) 3 ml IH Q2H PRN PRN Reason: Shortness of Breath Last Admin: 12/18/16 13:18 Dose: 3 ml Aspirin (Aspirin Chewable) 81 mg PO DAILY [facility] Last Admin: 12/18/16 11:50 Dose: Not Given Atorvastatin Calcium (Lipitor) 40 mg PO DIN [facility] Clopidogrel Bisulfate (Plavix) 75 mg PO DAILY [facility] Last Admin: 12/18/16 11:51 Dose: Not Given Heparin Sodium (Porcine) (Heparin) 5,000 units SC Q12 [facility] PRN Reason: Protocol Last Admin: 12/18/16 11:51 Dose: 5,000 units Ceftriaxone Sodium (Rocephin 1 Gram Ivpb) 1 gm in 100 mls @ 100 mls/hr IVPB DAILY [facility] PRN Reason: Protocol Last Admin: 12/18/16 11:49 Dose: 100 mls/hr Levofloxacin/Dextrose (Levaquin 750mg) 750 mg in 150 mls @ 100 mls/hr IVPB DAILY [facility] Last Admin: 12/18/16 11:48 Dose: 100 mls/hr Dexmedetomidine HCl (Precedex 4 Mcg/Ml (100 Ml)) 400 mcg in 100 mls @ 3.35 mls/ hr IV .Q24H PRN; Protocol; 0.2 MCG/KG/HR PRN Reason: Sedation Last Titration: 12/18/16 08:36 Dose: 0 mcg/kg/hr, 0 mls/hr Levothyroxine Sodium (Synthroid) 100 mcg IVP DAILY [facility] Last Admin: 12/18/16 11:48 Dose: 100 mcg Methylprednisolone (Solu-Medrol) 40 mg IVP Q8 [facility] Last Admin: 12/18/16 05:21 Dose: 40 mg Pantoprazole Sodium (Protonix Inj) 40 mg IVP DAILY [facility] Last Admin: 12/18/16 11:48 Dose: 40 mg Potassium Phos/Sodium Phos (Neutra-Phos) 2 pkt PO Q12 [facility] Last Admin: 12/18/16 11:51 Dose: Not Given - Labs Labs: 12/18/16 04:15 12/18/16 10:38 Attending/Attestation - Attestation I have personally seen and examined this patient.: Yes I have fully participated in the care of the patient.: Yes I have reviewed all pertinent clinical information, including history, physical exam and plan: Yes Notes (Text): 12/18/16 15:20 81 y/o M w/ Hypercarbic Respiratory failure Intubated yesterday, passed SBT trial this a.m on Precedex. Extubated to BIPAP doing well. Lung exam WNL. No distress. Will transition to NC as tolerated to keep o2 sat > 88% Continue with Nebulizers, Solumedrol and chest PT Lasix given x1 yesterday 1500 cc urine output yesterday . PVC improved on CXR. ECHO ordered. dvt p heparin sq tid PPI cc time 65 min
--- NOTE | 2016-12-18 14:40 | CP.PCM.HP ---
Addendum entered and electronically signed by James Kirk DO 12/20/16 07:48: Patient was seen and examined and case was discussed at length with Dr. Mendoza. Patient under ICU management, intubated, PRVC, 400/15/5/35%. Acute on chronic respiratory acidosis. Discussed with ICU team. James Kirk D.O. PGY-2 Original Note: <CINDY MENDOZA - Last Filed: 12/18/16 14:33> History of Present Illness - History of Present Illness History of Present Illness: Cindy Mendoza DO PGY1 - Internal Medicine H&P - Dedousis/Adaniel Service CC: SOB HPI: 81 yo M with PMH of CHF, CAD s/p stents, COPD, hypothyroidism, and HLD presented [place] [facility] [place] for SOB and decreased appetite for the past three days. Information was gathered from prior medical charts and ED notes because patient was intubated prior to encounter. In the ED, he became hypercapneic and fell into respiratory distress. He was intubated and admitted to the ICU. ROS unavailable at this time. Patient remains intubated, but is arousable, responsive, and obeys commands. Spoke to patient's son over the phone, who said he would bring the list of medications he takes at home later in the day. PMH: CHF, COPD, CAD, HLD, hypothyroidism PSH: PCI with stenting, thoracentesis FHx: HTN Soc: Chronic tobacco and alcohol use. No illicits All: NKDA Meds: As per prior record, unable to verify at this time, patient's son bringing list today Present on Admission - Present on Admission Any Indicators Present on Admission: No Review of Systems - Review of Systems Systems not reviewed;Unavailable: Intubated Past Patient History - Infectious Disease Hx of Infectious Diseases: None - Tetanus Immunizations Tetanus Immunization: Unknown, OTH - Past Social History Smoking Status: Former Smoker - CARDIAC Hx Cardiac Disorders: Yes (ME, CAD w/ stents) Hx Hypertension: Yes - PULMONARY Hx Chronic Obstructive Pulmonary Disease (COPD): Yes - NEUROLOGICAL Hx Neurological Disorder: No - HEENT Hx HEENT Problems: Yes Hx Cataracts: Yes (R EYE) - RENAL Hx Chronic Kidney Disease: No - ENDOCRINE/METABOLIC Hx Hypothyroidism: Yes - HEMATOLOGICAL/ONCOLOGICAL Hx Blood Disorders: No - INTEGUMENTARY Hx Dermatological Problems: No - MUSCULOSKELETAL/RHEUMATOLOGICAL Hx Falls: No - GASTROINTESTINAL Hx Gastroesophageal Reflux: Yes - GENITOURINARY/GYNECOLOGICAL Hx Genitourinary Disorders: No - PSYCHIATRIC Hx Psychophysiologic Disorder: No - SURGICAL HISTORY Hx Surgeries: Yes Hx Cardiac Catheterization: Yes Hx Coronary Stent: Yes - ANESTHESIA Hx Anesthesia Reactions: No Hx Malignant Hyperthermia: No Meds Allergies/Adverse Reactions: Allergies Allergy/AdvReac Type Severity Reaction Status Date / Time No Known Allergies Allergy Verified 08/26/15 14:43 Physical Exam - Constitutional Appears: Non-toxic Additional comments: Intubated in the ICU, arousable on holding Precedex drip - Head Exam Head Exam: ATRAUMATIC, NORMOCEPHALIC - Eye Exam Eye Exam: EOMI, PERRL - Neck Exam Neck exam: Positive for: Normal Inspection - Respiratory Exam Respiratory Exam: Rhonchi (diffuse. On ventilator) - Cardiovascular Exam Cardiovascular Exam: RRR, +S1, +S2 - GI/Abdominal Exam GI & Abdominal Exam: Normal Bowel Sounds, Soft - Extremities Exam Extremities exam: Positive for: normal inspection. Negative for: pedal edema - Neurological Exam Additional comments: Arousable. PERRL. 5/5 muscle strength b/l UE and LE. Intact sensation throughout. - Psychiatric Exam Additional comments: Unable to assess - Skin Skin Exam: Dry, Intact Results - Vital Signs Recent Vital Signs: Last Vital Signs Temp 99 F 12/18/16 08:33 Pulse 89 12/18/16 13:50 Resp 31 H 12/18/16 13:50 BP 91/61 L 12/18/16 13:39 Pulse Ox 97 12/18/16 13:50 - Labs Result Diagrams: 12/18/16 04:15 12/18/16 10:38 Labs: Laboratory Results - last 24 hr 12/18/16 12/18/16 12/18/16 01:46 02:36 04:15 WBC RBC Hgb Hct MCV MCH MCHC RDW Plt Count MPV pCO2 37 pO2 241.0 H HCO3 37.2 H ABG pH 7.61 H* ABG Total CO2 38.3 H ABG O2 Saturation 99.3 H ABG O2 Content 17.8 ABG Base Excess 14.7 H ABG Hemoglobin 12.7 ABG Carboxyhemoglobin 1.5 POC ABG HHb (Measured) 0.7 ABG Methemoglobin 1.1 ABG O2 Capacity 17.9 Hgb O2 Saturation 96.8 FiO2 60.0 Sodium Potassium Chloride Carbon Dioxide Anion Gap BUN Creatinine Est GFR ( Amer) Est GFR (Non-Af Amer) Random Glucose Calcium Phosphorus Magnesium Total Bilirubin AST ALT Alkaline Phosphatase Troponin I Total Protein Albumin Globulin Albumin/Globulin Ratio Procalcitonin TSH 3rd Generation 0.21 L Urine Color Yellow Urine Appearance Sl cloudy Urine pH 6.5 Ur Specific [place] 1.015 Urine Protein Negative Urine Glucose (UA) Negative Urine Ketones Trace H Urine Blood Trace-intact H Urine Nitrate Negative Urine Bilirubin Negative Urine Urobilinogen 1.0 H Ur Leukocyte Esterase Negative Urine RBC 0 - 2 Urine WBC 0 - 2 Ur Epithelial Cells 0 - 2 Hyaline Casts 0 - 2 12/18/16 12/18/16 12/18/16 04:15 04:15 04:15 WBC 6.8 D RBC 4.39 Hgb 14.2 Hct 42.8 MCV 97.5 MCH 32.3 MCHC 33.2 RDW 12.7 Plt Count 294 MPV 9.4 pCO2 pO2 HCO3 ABG pH ABG Total CO2 ABG O2 Saturation ABG O2 Content ABG Base Excess ABG Hemoglobin ABG Carboxyhemoglobin POC ABG HHb (Measured) ABG Methemoglobin ABG O2 Capacity Hgb O2 Saturation FiO2 Sodium 127 L Potassium 3.2 L Chloride 78 L Carbon Dioxide 39 H Anion Gap 13 BUN 20 Creatinine 0.7 Est GFR ( Amer) > 60 Est GFR (Non-Af Amer) > 60 Random Glucose 116 H Calcium 8.9 Phosphorus 1.9 L Magnesium 1.7 Total Bilirubin 1.3 AST 43 ALT 29 Alkaline Phosphatase 75 Troponin I 0.03 D Total Protein 7.6 Albumin 3.7 Globulin 3.9 Albumin/Globulin Ratio 0.9 L Procalcitonin < 0.05 L TSH 3rd Generation Urine Color Urine Appearance Urine pH Ur Specific [place] Urine Protein Urine Glucose (UA) Urine Ketones Urine Blood Urine Nitrate Urine Bilirubin Urine Urobilinogen Ur Leukocyte Esterase Urine RBC Urine WBC Ur Epithelial Cells Hyaline Casts 12/18/16 12/18/16 06:12 10:38 WBC RBC Hgb Hct MCV MCH MCHC RDW Plt Count MPV pCO2 44 pO2 111.0 H HCO3 44.2 H* ABG pH 7.61 H* ABG Total CO2 45.6 H ABG O2 Saturation 99.3 H ABG O2 Content 19.4 ABG Base Excess 20.3 H ABG Hemoglobin 14.2 ABG Carboxyhemoglobin 1.8 H POC ABG HHb (Measured) 0.7 ABG Methemoglobin 1.0 ABG O2 Capacity 19.5 Hgb O2 Saturation 96.5 FiO2 35.0 Sodium 130 L Potassium 3.5 L Chloride 79 L Carbon Dioxide 46 H Anion Gap 9 L BUN 22 H Creatinine 0.8 Est GFR ( Amer) > 60 Est GFR (Non-Af Amer) > 60 Random Glucose 120 H Calcium 8.5 Phosphorus Magnesium Total Bilirubin 0.8 AST 41 ALT 29 Alkaline Phosphatase 62 Troponin I 0.02 D Total Protein 6.9 Albumin 3.3 Globulin 3.5 Albumin/Globulin Ratio 0.9 L Procalcitonin TSH 3rd Generation Urine Color Urine Appearance Urine pH Ur Specific [place] Urine Protein Urine Glucose (UA) Urine Ketones Urine Blood Urine Nitrate Urine Bilirubin Urine Urobilinogen Ur Leukocyte Esterase Urine RBC Urine WBC Ur Epithelial Cells Hyaline Casts Assessment & Plan - Assessment and Plan (Free Text) Assessment: 81 yo M with PMH of CAD s/p stents, CHF, COPD, hypothyroidism, and HLD, admitted to the ICU for hypercapneic respiratory failure, likely secondary to cardiogenic pulmonary edema vs COPD exacerbation vs CAP. Currently intubated. Plan: 1. 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 Chest CT significant for the same things, and appears relatively unchanged since chest CT on 08/22/2015. - Recieved Lasix in ED - Solumedrol 40mg IVP Q8 - Duoneb 3mg/0.5ml Q2 PRN - Levaquin 750 MG IV QD, Rocephin 1gm QD for empiric treatment of CAP - On Precedex 4 mcg/ml IV for sedation - Daily weaning trials - Under ICU care 2. Hypophosphatemia - Phosphate 1.9 this AM - Replete with Nutraphos 2 packets Q12, recheck in tomorrow AM 3. Hx of CAD s/p stents - Continue Plavix - Continue ASA 4. Hx of HLD - Continue Lipitor 40mg PD QD 5. Hypothyroidism - Continue Synthroid 100mcg daily GI/DVT Ppx - Protonix 40mg IV, Heparin 5,000U SQ Patient seen, discussed, and reviewed with senior resident and attending. <EvelynLeonard - Last Filed: 12/23/16 17:17> Results - Vital Signs Recent Vital Signs: Last Vital Signs Temp 97.9 F 12/23/16 12:00 Pulse 88 12/23/16 14:00 Resp 16 12/23/16 12:00 BP 114/63 12/23/16 13:30 Pulse Ox 96 12/23/16 00:01 - Labs Result Diagrams: 12/23/16 06:00 12/23/16 05:30 Labs: Laboratory Results - last 24 hr 12/23/16 12/23/16 05:30 06:00 WBC 10.6 RBC 3.84 Hgb 12.5 L Hct 39.6 L MCV 103.1 MCH 32.6 MCHC 31.6 RDW 13.5 Plt Count 260 MPV 9.9 Sodium 133 Potassium 5.2 H Chloride 84 L Carbon Dioxide 47 H Anion Gap 7 L BUN 34 H Creatinine 0.7 Est GFR ( Amer) > 60 Est GFR (Non-Af Amer) > 60 Random Glucose 113 H Calcium 8.4 Phosphorus 2.7 Magnesium 2.2 Total Bilirubin 0.6 AST 60 H ALT 91 H Alkaline Phosphatase 62 Total Protein 6.1 Albumin 2.9 L Globulin 3.2 Albumin/Globulin Ratio 0.9 L Attending/Attestation - Attestation I have personally seen and examined this patient.: Yes I have fully participated in the care of the patient.: Yes I have reviewed all pertinent clinical information: Yes Notes (Text): 12/23/16 17:17 Medical record note made by the resident after discussion with my direction and input after the patient was personally seen and examined by me. I have reviewed the chart and agree that the record accurately reflects by personal performance of the history, physical exam, data review, and medical decision-making, in the course for the patient. I have also personally directed the plan of care.
--- NOTE | 2016-12-18 16:54 | CARD ---
APPROVED REPORT EXAM: Two-dimensional and M-mode echocardiogram with Doppler and color Doppler. INDICATION LVFX 2D DIMENSIONS Left Atrium (2D)4.7 (1.6-4.0cm)IVSd0.9 (0.7-1.1cm) LVDd4.0 (3.9-5.9cm)PWd0.9 (0.7-1.1cm) LVDs2.9 (2.5-4.0cm)FS (%) 27.7 % LVEF (%)54.4 (>50%) M-Mode DIMENSIONS Aortic Root3.20 (2.2-3.7cm)Aortic Cusp Exc.1.50 (1.5-2.0cm) Aortic Valve AoV Peak Gijonnsm986.0cm/Myke Peak GR.11mmHgLVOT Peak Reajlouh279.0cm/s LVOT VTI19.50cm Mitral Valve MV E Acndtwdm87.7cm/sMV A Sobfnrlc69.0cm/sE/A ratio0.7 TDI Lateral E' Peak V8.58cm/sMedial E' Peak V4.58cm/sE/Lateral E'6.8 E/Medial E'12.8 Pulmonary Valve PV Peak Whgyivuu26.2cm/sPV Peak Grad.1mmHg Tricuspid Valve TR Peak Hfgvggfg494ym/sRAP [id number] Peak Gr.30mmHg [id number] LEFT VENTRICLE The left ventricle is normal size. There is normal left ventricular wall thickness. The left ventricular function is normal. The left ventricular ejection fraction is within the normal range. There is normal LV segmental wall motion. Transmitral Doppler flow pattern is Grade I-abnormal relaxation pattern. RIGHT VENTRICLE The right ventricle is normal size. There is normal right ventricular wall thickness. The right ventricular systolic function is normal. ATRIA The left atrium is mildly dilated. The right atrium is mildly dilated. AORTIC VALVE The aortic valve is moderately sclerotic. No aortic regurgitation is present. There is no aortic valvular stenosis. MITRAL VALVE The mitral valve is moderately thickened. Mitral regurgitation is mild. The mitral regurgitant jet is eccentrically directed. TRICUSPID VALVE There is mild tricuspid regurgitation. There is mild pulmonary hypertension. GREAT VESSELS The aortic root displays moderate sclerocalcific changes of the aortic root. The IVC is normal in size and collapses >50% with inspiration. PERICARDIAL EFFUSION There is no pericardial effusion. <Conclusion> The left ventricle is normal size. There is normal left ventricular wall thickness. The left ventricular function is normal. The left ventricular ejection fraction is within the normal range. There is normal LV segmental wall motion. Transmitral Doppler flow pattern is Grade I-abnormal relaxation pattern. Mitral regurgitation is mild. There is mild tricuspid regurgitation. There is mild pulmonary hypertension.
--- NOTE | 2016-12-19 00:09 | CON ---
PULMONARY CONSULTATION ICU Bed 5. HISTORY OF PRESENT ILLNESS: This 81-year-old gentleman was admitted to the emergency room with shortness of breath. On arrival to the emergency room, he was intubated to protect his airway and give him adequate ventilation and oxygenation. Past history includes congestive heart failure and coronary artery disease. He has had a cardiac stent placed in the past and he is on Plavix. He also has a past history of COPD. It is unknown if he is taking medications for this at this time. He has hypothyroidism as well. The patient is intubated in the intensive care unit, awaiting further evaluation and treatment. Further history includes a 3-day progressive shortness of breath with decreased appetite. He was intubated and now he is admitted to the CCU. PAST HISTORY: As above. 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 FAMILY HISTORY: Hypertension. SOCIAL HISTORY: Chronic tobacco use, chronic alcohol use, no illicit drugs. Travel history, unknown. ALLERGIES: NO KNOWN ALLERGIES. HOME MEDICATIONS: Unclear at this time. We will discuss with family and friends who are at the bedside to obtain further information. REVIEW OF SYSTEMS: Has been gleaned from the chart. The patient has been unable to answer any questions due to his intubated state. I am not aware of his mental status at all at this time, but gleaned from the chart shows a history of COPD, cardiac disease, FL, coronary artery disease, stent placement, history of hypertension, smoker, cataract surgery in the right eye, hypothyroidism, GERD. All other systems negative. MEDICATIONS: Include albuterol and ipratropium as necessary, aspirin, Lipitor, Plavix and Lasix. PHYSICAL EXAMINATION: GENERAL: The patient is in bed, in the intensive care unit, resting comfortably, in sink with the respirator. Discussed with outside solar sales consultant and respiratory therapist. They are contemplating extubation later today. VITAL SIGNS: Show pulse of 76, blood pressure of 91/47, O2 saturation of 100%. HEENT: Eyes PERRLA. EOMs full. RESP: Breath sounds decreased throughout. Scattered rales and wheezes. GI: Soft. Bowel sounds are normoactive without organomegaly. CARDIOVASCULAR: Regular rhythm. S1 and S2 without murmur, gallop or rub. EXTREMITIES: Revealed trace edema. No Hipolito sign. NEUROLOGICAL: No focal findings. SKIN: Intact. No rash or excoriations. Lymphadenopathy is not palpated in the supraclavicular notch nor in the cervical, inguinal, or axillary areas. LABORATORY STUDIES: Show a white count of 8,000, hemoglobin of 13, hematocrit 42, platelet count 337. Sodium of 129, potassium 4.4, BUN is 19, creatinine 0.6, blood sugar of 93. EKG: Sinus tachycardia, nonspecific ST T-wave changes. Arterial blood gas on admission, pH 7.18, PCO2 47, PO2 of 91. CLINICAL IMPRESSION: 1. Bilateral infiltrates. 2. Chronic obstructive pulmonary disease with atelectasis 3. Bilateral parenchymal masses. 4. Respiratory insufficiency. 5. Respiratory failure. 6. Smoking history. 7. Emphysema, cannot exclude underlying pulmonary infections. 8. Congestive heart failure/early pulmonary edema. PLAN: Continue bronchodilators, corticosteroids. The patient would benefit from anticholinergics. Once the patient is extubated, we will need to discuss with him the possibility of further diagnostic workup including thoracentesis, PET scan, possible biopsy of pleural based masses. He has pulmonary vascular congestion, which seems to be resolving with the use of Lasix. We will follow closely with you and decide on the need for further intervention based on his clinical status. Aaron Su MD MTDD
--- NOTE | 2016-12-19 02:03 | CON ---
CARDIOLOGY CONSULTATION DATE OF CONSULTATION: 12/18/2016 HISTORY OF PRESENT ILLNESS: The patient is an 81-year-old male who presented with respiratory failure. Patient was intubated, and family extubated this morning. PAST MEDICAL HISTORY: Notable for severe COPD. In addition, the patient has an old inferior wall myocardial infarction. Cardiac catheterization in 2012 revealed triple vessels disease with left main coronary artery disease. The patient never went for coronary artery bypass surgery. The patient currently states he has not smoked recently. His past medical history as well as medications is otherwise limited. PHYSICAL EXAMINATION: VITAL SIGNS: Blood pressure is 91/47 and heart rate is in the 80s. NECK: Negative JVD. LUNGS: Decreased breath sounds without rales. HEART: Regular S1 and S2. EXTREMITIES: Without edema. DIAGNOSTIC DATA: EKG shows nonspecific ST-T changes. LABORATORY DATA: The hemoglobin is 14.2. Chemistries and troponin are negative x3. The ProBNP was 3820. BUN is 22 and creatinine is 0.8. IMPRESSION: 1. Status post respiratory failure. 2. Exacerbation of chronic obstructive pulmonary disease. 3. No evidence of acute coronary syndrome. 4. History of an old inferior wall myocardial infraction. 5. History of triple vessels coronary artery disease as well as left main coronary artery disease. Given these findings, we will continue his routine post-extubation care. We will order an echocardiogram to reevaluate his LV function. Scottie Sandoval MD
[2016-12-19] MEDS: MethylPREDNISolone 40 mg Vial IVP SCH (05:26)
[2016-12-19 07:48] LABS: ALBUMIN 3.5 g/dL (3.0-4.8); ALT/SGPT 31 U/L (7-56); AST/SGOT 34 U/L (15-59); BLOOD UREA NITROGEN 25 mg/dL (7-21); CALCIUM 8.4 mg/dL (8.4-10.5); GFR AFRICAN-AMERICAN > 60; GFR NON-AFRICAN AMERICAN > 60
[2016-12-19] MEDS: Albuterol-Ipratrop 3 mg / 0.5 (3 ml) UD IH PRN (07:49)
[2016-12-19 08:13] LABS: HEMOGLOBIN 13.3 gm/dL (14.0-18.0); MEAN CELL VOLUME 100.5 fL (80.0-105.0); MEAN CORPUSCULAR HEMOGLOBIN 31.8 pg (25.0-35.0); MEAN CORPUSCULAR HGB CONC 31.7 g/dl (31.0-37.0); MEAN PLATELET VOLUME 9.5 fl (7.0-11.0); RBC 4.18 10^6/uL (3.5-6.1); RED CELL DISTRIBUTION WIDTH 12.9 % (11.5-14.5)
[2016-12-19] MEDS: levoFLOXacin 750 mg in D5W 750 MG/150 ML BAG IVPB SCH (09:01)
[2016-12-19] MEDS: cefTRIAXone 1 gm 1 GM/100 ML BAG IVPB SCH (09:02)
[2016-12-19] MEDS: Potassium & Sodium Phosphate PO SCH ×2 (09:02→21:56)
[2016-12-19] MEDS: Levothyroxine 100 mcg (0.1 mg) Inj IVP SCH (09:03)
[2016-12-19] MEDS ORDERED: Levalbuterol 0.63 MG/3 ML Inhal Soln UD IH PRN (10:49)
[2016-12-19] MEDS: Levalbuterol 0.63 MG/3 ML Inhal Soln UD IH SCH ×2 (11:10→20:05)
--- NOTE | 2016-12-19 12:13 | PN ---
DATE: 12/19/2016 SUBJECTIVE: The patient is sitting up in bed and his breathing is stable. No shortness of breath noted. No chest pain noted. PHYSICAL EXAMINATION VITAL SIGNS: Blood pressure 110/56, the heart rate is 100 to 110, sinus tachycardia. NECK: Negative JVD. LUNGS: Decreased breath sounds bilaterally. HEART: Reveals S1 and S2. EXTREMITIES: Without edema. LABORATORY DATA: The hemoglobin is 13.3. Chemistries; BUN and creatinine unremarkable. Troponins are negative x3. Echocardiogram reveals good LV function with mild pulmonary hypertension. IMPRESSION: 1. Status post respiratory failure. 2. Severe chronic obstructive pulmonary disease. 3. Mild pulmonary hypertension. 4. Persevered LV function. 5. History of multivessel PTCA and stent including a left main stenting. PLAN: Given these findings, the patient is hemodynamically doing well. His respiratory status is stable post extubation. I have discussed with the patient about the need for followup and not avoiding reevaluation for his cardiac status. Once his lungs are better, we will consider an outpatient stress test, which can be done as an outpatient. Scottie Sandoval MD
--- NOTE | 2016-12-19 14:18 | CP.PCM.PN ---
<MARICARMENMINOO GAMBOA - Last Filed: 12/19/16 14:15> Subjective - Date & Time of Evaluation Date of Evaluation: 12/19/16 Time of Evaluation: 09:30 - Subjective Subjective: ICU PGY1 Progress Note: Pt seen and examined at bedside. No events overnight. Pt saturated well on NC and tolerated liquid diet well. Denies sob, cp, cough, palpitations, h/a, n/v/d/ f/c. Objective - Vital Signs/Intake and Output Vital Signs (last 24 hours): Temp Pulse Resp BP Pulse Ox 97.8 F 81 20 92/47 L 97 12/19/16 12:02 12/19/16 12:02 12/19/16 12:02 12/19/16 12:02 12/19/16 12:02 Intake and Output: 12/19/16 12/19/16 06:59 18:59 Intake Total 150 640 Output Total 350 Balance -200 640 - Medications Medications: Current Medications Aspirin (Aspirin Chewable) 81 mg PO DAILY [facility] Last Admin: 12/19/16 09:01 Dose: 81 mg Atorvastatin Calcium (Lipitor) 40 mg PO DIN [facility] Last Admin: 12/18/16 18:49 Dose: 40 mg Clopidogrel Bisulfate (Plavix) 75 mg PO DAILY [facility] Last Admin: 12/19/16 09:02 Dose: 75 mg Heparin Sodium (Porcine) (Heparin) 5,000 units SC Q12 [facility] PRN Reason: Protocol Last Admin: 12/19/16 09:01 Dose: 5,000 units Ceftriaxone Sodium (Rocephin 1 Gram Ivpb) 1 gm in 100 mls @ 100 mls/hr IVPB DAILY [facility] PRN Reason: Protocol Last Admin: 12/19/16 09:02 Dose: 100 mls/hr Levofloxacin/Dextrose (Levaquin 750mg) 750 mg in 150 mls @ 100 mls/hr IVPB DAILY [facility] Last Admin: 12/19/16 09:01 Dose: 100 mls/hr Dexmedetomidine HCl (Precedex 4 Mcg/Ml (100 Ml)) 400 mcg in 100 mls @ 3.35 mls/ hr IV .Q24H PRN; Protocol; 0.2 MCG/KG/HR PRN Reason: Sedation Last Titration: 12/18/16 08:36 Dose: 0 mcg/kg/hr, 0 mls/hr Levalbuterol HCl (Xopenex) 0.63 mg IH Q3 PRN PRN Reason: Shortness of Breath Levalbuterol HCl (Xopenex) 0.63 mg IH Q6 [facility] Last Admin: 12/19/16 11:10 Dose: 0.63 mg Levothyroxine Sodium (Synthroid) 100 mcg IVP DAILY [facility] Last Admin: 12/19/16 09:03 Dose: 100 mcg Methylprednisolone (Solu-Medrol) 60 mg IVP Q8 [facility] Last Admin: 12/19/16 13:47 Dose: 60 mg Metoprolol Tartrate (Lopressor) 25 mg PO BID [facility] Last Admin: 12/19/16 10:39 Dose: 25 mg Pantoprazole Sodium (Protonix Inj) 40 mg IVP DAILY [facility] Last Admin: 12/19/16 09:02 Dose: 40 mg Potassium Phos/Sodium Phos (Neutra-Phos) 2 pkt PO Q12 [facility] Last Admin: 12/19/16 09:02 Dose: 2 pkt - Labs Labs: 12/19/16 07:30 12/19/16 07:30 - Constitutional Appears: No Acute Distress - Head Exam Head Exam: ATRAUMATIC, NORMOCEPHALIC - Eye Exam Eye Exam: PERRL - ENT Exam ENT Exam: Mucous Membranes Moist - Respiratory Exam Respiratory Exam: Clear to Ausculation Bilateral, NORMAL BREATHING PATTERN - Cardiovascular Exam Cardiovascular Exam: RRR, +S1, +S2. absent: Gallop, Rubs, Murmur - GI/Abdominal Exam GI & Abdominal Exam: Soft, Normal Bowel Sounds. absent: Distended, Tenderness - Extremities Exam Extremities Exam: absent: Calf Tenderness, Pedal Edema - Neurological Exam Neurological Exam: Alert, Awake, Oriented x3 - Psychiatric Exam Psychiatric exam: Normal Mood - Skin Skin Exam: Dry, Intact, Warm Assessment and Plan - Assessment and Plan (Free Text) Assessment: 81M with PMH CHF with EF 60% (from echo 1 year ago), COPD, CAD, admitted to ICU for acute hypercarbic respiratory failure 2/2 cardiogenic pulmonary edema and COPD exacerbation. Pt s/p extubation, on NC, receiving methylprednisolone 40 q 8 and duonebs prn, rocephin and levaquin for CAP coverage. Pt afebrile, mildly tachycardic, leukocytosis 14 today, will monitor. Restarted on anti-home HTN and home COPD meds. Will downgrade to tele. Plan: Neuro: s/p extubation to bipap to NC today, saturating well, no resp distress/ accessory muscle use. off precedex and propofol. Pt alert, awake. oriented x2 Cont to monitor. Cardio: Echocardiogram 12/18 shows EF 54%, no valvular dz. Last echo 1 year ago shows EF60%. troponins neg x2. F/u Cardiology consult, Dr. Sandoval s/p Lasix 40 mg IV on admission Strict I's and O's Hemodynamically stable Maintain MAP > 65 Pulm: s/p extubation. weaned off to NC Chest CT shows large left sided pleural effusion, some on the right as well. left sided infiltrate, nodularity seen as well - neoplastic? Rocephin and Levaquin D3 for CAP COPD exacerbation: Solumedrol 40 mg IV q8h, duonebs prn Maintain O2 sat > 88% GI: Protonix for PUD prophylaxis tolerating liquid diet well. Endo: Maintain euglycemia TSH 0.21 Nephro: Maintain euvolemia Replenish electrolytes as needed. FeNa 0%, likely prerenal - hypovolemia vs CHF. [place] in place Heme/ID: Procalcitonin <0.05. CT chest shows L sided infiltrate. C/w Rocephin and Levaquin for CAP Maintain normothermia Dispo: Downgrade to tele. Seen, reviewed, and discussed with PGY2 and attending, Dr. Rodriguez. Minoo Edwards, PGY1 <Jennifer RANDOLPH,[facility] - Last Filed: 12/19/16 16:55> Objective - Vital Signs/Intake and Output Vital Signs (last 24 hours): Temp Pulse Resp BP Pulse Ox 97.9 F 90 22 100/52 L 100 12/19/16 16:00 12/19/16 16:10 12/19/16 16:00 12/19/16 13:17 12/19/16 16:10 Intake and Output: 12/19/16 12/19/16 06:59 18:59 Intake Total 150 640 Output Total 350 Balance -200 640 - Medications Medications: Current Medications Arformoterol Tartrate (Brovana) 15 mcg IH [id number] [facility] Aspirin (Aspirin Chewable) 81 mg PO DAILY [facility] Last Admin: 12/19/16 09:01 Dose: 81 mg Atorvastatin Calcium (Lipitor) 40 mg PO DIN [facility] Last Admin: 12/18/16 18:49 Dose: 40 mg Budesonide (Pulmicort Respules) 0.5 mg IH [id number] [facility] Clopidogrel Bisulfate (Plavix) 75 mg PO DAILY [facility] Last Admin: 12/19/16 09:02 Dose: 75 mg Heparin Sodium (Porcine) (Heparin) 5,000 units SC Q12 [facility] PRN Reason: Protocol Last Admin: 12/19/16 09:01 Dose: 5,000 units Ceftriaxone Sodium (Rocephin 1 Gram Ivpb) 1 gm in 100 mls @ 100 mls/hr IVPB DAILY [facility] PRN Reason: Protocol Last Admin: 12/19/16 09:02 Dose: 100 mls/hr Levofloxacin/Dextrose (Levaquin 750mg) 750 mg in 150 mls @ 100 mls/hr IVPB DAILY [facility] Last Admin: 12/19/16 09:01 Dose: 100 mls/hr Levalbuterol HCl (Xopenex) 0.63 mg IH Q3 PRN PRN Reason: Shortness of Breath Levalbuterol HCl (Xopenex) 0.63 mg IH Q6 [facility] Last Admin: 12/19/16 11:10 Dose: 0.63 mg Levothyroxine Sodium (Synthroid) 100 mcg IVP DAILY [facility] Last Admin: 12/19/16 09:03 Dose: 100 mcg Methylprednisolone (Solu-Medrol) 60 mg IVP Q8 [facility] Last Admin: 12/19/16 13:47 Dose: 60 mg Metoprolol Tartrate (Lopressor) 25 mg PO BID [facility] Last Admin: 12/19/16 10:39 Dose: 25 mg Pantoprazole Sodium (Protonix Inj) 40 mg IVP DAILY [facility] Last Admin: 12/19/16 09:02 Dose: 40 mg Potassium Phos/Sodium Phos (Neutra-Phos) 2 pkt PO Q12 [facility] Last Admin: 12/19/16 09:02 Dose: 2 pkt - Labs Labs: 12/19/16 07:30 12/19/16 07:30 Attending/Attestation - Attestation I have personally seen and examined this patient.: Yes I have fully participated in the care of the patient.: Yes I have reviewed all pertinent clinical information, including history, physical exam and plan: Yes Notes (Text): 12/19/16 16:53 81 y/o M w/ Likely COPD exacerbation with mild PVC S/P Extubation and diuresis On COPD treatment w/ Steroids and B eta agonists prn. Oxygen to keep sat> 90% HTn medication to restart. Diet restarted. PT/OT needed DVT P heparin sq tid cc time 45 min
--- NOTE | 2016-12-19 17:50 | CP.PCM.PN ---
Subjective - Date & Time of Evaluation Date of Evaluation: 12/19/16 Time of Evaluation: 06:45 - Subjective Subjective: Cindy Mendoza DO PGY1 - Internal Medicine Progress Note - Adore/Evelyn Service Patient seen and examined at bedside in the ICU. Patient was comfortable on 2L O2 by nasal cannula. Patient reports that his SOB is somewhat improved, but that he is still fatigued. He denies any CP, cough, DUTTA, F/C, abdominal pain, dizziness, confusion. Objective - Vital Signs/Intake and Output Vital Signs (last 24 hours): Temp Pulse Resp BP Pulse Ox 97.9 F 93 H 22 106/59 L 100 12/19/16 16:00 12/19/16 17:04 12/19/16 16:00 12/19/16 17:04 12/19/16 16:10 Intake and Output: 12/19/16 12/19/16 06:59 18:59 Intake Total 150 640 Output Total 350 Balance -200 640 - Medications Medications: Current Medications Arformoterol Tartrate (Brovana) 15 mcg IH [id number] [facility] Aspirin (Aspirin Chewable) 81 mg PO DAILY [facility] Last Admin: 12/19/16 09:01 Dose: 81 mg Atorvastatin Calcium (Lipitor) 40 mg PO DIN [facility] Last Admin: 12/19/16 16:54 Dose: 40 mg Budesonide (Pulmicort Respules) 0.5 mg IH [id number] [facility] Clopidogrel Bisulfate (Plavix) 75 mg PO DAILY [facility] Last Admin: 12/19/16 09:02 Dose: 75 mg Heparin Sodium (Porcine) (Heparin) 5,000 units SC Q12 [facility] PRN Reason: Protocol Last Admin: 12/19/16 09:01 Dose: 5,000 units Ceftriaxone Sodium (Rocephin 1 Gram Ivpb) 1 gm in 100 mls @ 100 mls/hr IVPB DAILY [facility] PRN Reason: Protocol Last Admin: 12/19/16 09:02 Dose: 100 mls/hr Levofloxacin/Dextrose (Levaquin 750mg) 750 mg in 150 mls @ 100 mls/hr IVPB DAILY [facility] Last Admin: 12/19/16 09:01 Dose: 100 mls/hr Levalbuterol HCl (Xopenex) 0.63 mg IH Q3 PRN PRN Reason: Shortness of Breath Levalbuterol HCl (Xopenex) 0.63 mg IH Q6 [facility] Last Admin: 12/19/16 11:10 Dose: 0.63 mg Levothyroxine Sodium (Synthroid) 100 mcg IVP DAILY [facility] Last Admin: 12/19/16 09:03 Dose: 100 mcg Methylprednisolone (Solu-Medrol) 60 mg IVP Q8 [facility] Last Admin: 12/19/16 13:47 Dose: 60 mg Metoprolol Tartrate (Lopressor) 25 mg PO BID [facility] Last Admin: 12/19/16 17:04 Dose: 25 mg Pantoprazole Sodium (Protonix Inj) 40 mg IVP DAILY [facility] Last Admin: 12/19/16 09:02 Dose: 40 mg Potassium Phos/Sodium Phos (Neutra-Phos) 2 pkt PO Q12 [facility] Last Admin: 12/19/16 09:02 Dose: 2 pkt - Labs Labs: 12/19/16 07:30 12/19/16 07:30 - Constitutional Appears: Non-toxic, No Acute Distress, Chronically Ill - Head Exam Head Exam: ATRAUMATIC, NORMOCEPHALIC - Eye Exam Eye Exam: EOMI, Normal appearance - ENT Exam ENT Exam: Mucous Membranes Moist - Neck Exam Neck Exam: Normal Inspection - Respiratory Exam Respiratory Exam: absent: Accessory Muscle Use, Rhonchi Additional comments: Decreased breath sounds b/l lower lung fagan - Cardiovascular Exam Cardiovascular Exam: RRR, +S1, +S2 - GI/Abdominal Exam GI & Abdominal Exam: Soft. absent: Guarding, Rigid, Tenderness - Extremities Exam Extremities Exam: Normal Inspection. absent: Calf Tenderness, Pedal Edema - Neurological Exam Neurological Exam: Alert, Awake, Oriented x3 - Psychiatric Exam Psychiatric exam: Normal Affect, Normal Mood - Skin Skin Exam: Dry, Intact Assessment and Plan - Assessment and Plan (Free Text) Assessment: 81 yo M with PMH of CAD s/p stents, CHF, COPD, hypothyroidism, and HLD, admitted to the ICU for hypercapneic respiratory failure, likely secondary to cardiogenic pulmonary edema vs COPD exacerbation vs CAP. Plan: 1. Dyspnea, improving - 2/2 cardiogenic pulmonary edema vs COPD exacerbation vs CAP - Extubated yesterday, then weaned off BIPAP, now on 2L O2 by nasal cannula - On admission, CXR significant for bibasilar pleural effusions, patchy infiltrates, and compressive atalectasis. Chest CT significant for the same things, and appears relatively unchanged since chest CT on 08/22/2015. - Patient was tachycardic on exam, d/c duoneb, start Xopenex, start metoprolol, and increase solumedrol - Solumedrol increased to 60mg IVP Q8 - Xopenex q6 [facility], and q3 PRN - Metoprolol 25mg PO BID - Levaquin 750 MG IV QD, Rocephin 1gm QD for empiric treatment of CAP - Under ICU care, likely transfer to tele today 2. Hypophosphatemia - Phosphate 1.9 yesteday - Replete with Nutraphos 2 packets Q12, recheck in tomorrow AM 3. Hx of CAD s/p stents - Continue Plavix - Continue ASA 4. Hx of HLD - Continue Lipitor 40mg PD QD 5. Hypothyroidism - Continue Synthroid 100mcg daily GI/DVT Ppx - Protonix 40mg IV, Heparin 5,000U SQ Patient seen, discussed, and reviewed with senior resident and attending.
[2016-12-19] MEDS: Budesonide 0.5 mg/2 ml Inhal Susp UD IH SCH (20:00)
[2016-12-19] MEDS: Arformoterol 15 mcg/2 ml Inh Sol IH SCH (20:00)
[2016-12-20] MEDS: Levalbuterol 0.63 MG/3 ML Inhal Soln UD IH SCH ×4 (02:09→20:27)
[2016-12-20] MEDS: Levothyroxine 200 MCG TAB PO SCH (05:37)
[2016-12-20] MEDS: Pantoprazole 40 mg EC Tab PO SCH (05:37)
[2016-12-20 07:21] LABS: HEMOGLOBIN 12.6 gm/dL (14.0-18.0); MEAN CELL VOLUME 99.8 fL (80.0-105.0); MEAN CORPUSCULAR HEMOGLOBIN 31.4 pg (25.0-35.0); MEAN CORPUSCULAR HGB CONC 31.5 g/dl (31.0-37.0); MEAN PLATELET VOLUME 9.6 fl (7.0-11.0); RBC 4.01 10^6/uL (3.5-6.1); RED CELL DISTRIBUTION WIDTH 12.9 % (11.5-14.5); WHITE BLOOD COUNT 14.4 10^3/ul (4.5-11.0)
[2016-12-20] MEDS: Budesonide 0.5 mg/2 ml Inhal Susp UD IH SCH ×2 (07:43→20:27)
[2016-12-20] MEDS: Arformoterol 15 mcg/2 ml Inh Sol IH SCH ×2 (07:43→20:26)
[2016-12-20 07:47] LABS: ALBUMIN 3.2 g/dL (3.0-4.8); ALT/SGPT 40 U/L (7-56); AST/SGOT 45 U/L (15-59); BLOOD UREA NITROGEN 32 mg/dL (7-21); CALCIUM 8.4 mg/dL (8.4-10.5); GFR AFRICAN-AMERICAN > 60; GFR NON-AFRICAN AMERICAN > 60
--- NOTE | 2016-12-20 08:16 | PN ---
PULMONARY PROGRESS NOTE: DATE: 12/19/2016 SUBJECTIVE: The patient was seen and examined in intensive care unit. He is receiving inhalation therapy with DuoNeb and he is on nasal cannula extubated. He is on double antibiotics with Levaquin and Rocephin as well as Solu-Medrol. PHYSICAL EXAMINATION VITAL SIGNS: On today's examination; his temperature is 98, pulse is 110, respirations are 22, pulse oximetry is 97 on nasal cannula, and blood pressure is 110/56. NECK: Supple with no jugular vein distention. CHEST: Symmetrical. HEART: S1 and S2. No S3. Regular. LUNGS: Markedly diminished breath sounds at both lung bases with some dullness at both lung bases for percussion. GASTROINTESTINAL: Soft and nontender. No organomegaly. EXTREMITIES: Within normal limits SKIN: Dry; intact LABORATORY DATA: I reviewed his today's lab work; his WBC is elevated at 14.0 and hemoglobin of 13.3. Sodium 132, potassium 4.0, chloride is slightly low at 79. ASSESSMENT 1. Respiratory Failure 2. Hypoxia 3. COPD Exacerabation 4. Pneumonia PLAN: Continue with current treatment plan. Discussed patient's current condition with ICU team. Radiology and bloodwork as indicated. Patient's condition is guarded. Will continue to follow this patient closely. Josh Hernandez MD [facility]ENTER[facility]
[2016-12-20] MEDS: cefTRIAXone 1 gm 1 GM/100 ML BAG IVPB SCH (09:23)
[2016-12-20] MEDS: levoFLOXacin 750 mg in D5W 750 MG/150 ML BAG IVPB SCH (09:23)
[2016-12-20] MEDS: Potassium & Sodium Phosphate PO SCH (09:24)
--- NOTE | 2016-12-20 10:56 | PN ---
CARDIOLOGY FOLLOWUP DATE OF FOLLOWUP: 12/20/2016 SUBJECTIVE: The patient's breathing is much improved. PHYSICAL EXAMINATION: VITAL SIGNS: Blood pressure is 108/36 and the heart rate is approximately 100. NECK: Negative JVD. LUNGS: Without rales. HEART: With S1 and S2. EXTREMITIES: Without edema. LABORATORY DATA: Hemoglobin is 12.6 and a white count of 14.4. BUN and creatinine is 32 and 0.8. IMPRESSION: 1. Status post respiratory failure. 2. Exacerbation of chronic obstructive pulmonary disease. 3. Stable angina. 4. A multivessel percutaneous transluminal coronary angioplasty in the past including a left main stent. 5. Dyspnea, which is markedly improved. PLAN: Given these findings, the patient needs to remain on aspirin and Plavix. The patient can be transferred to telemetry. Scottie Sandoval MD
--- NOTE | 2016-12-20 14:53 | CP.PCM.PN ---
Addendum entered and electronically signed by James Kirk DO 12/23/16 13:21: Patient was seen and examined and case was discussed at length with Dr. Almonte. Patient symptomatically much better. Breathing improved on higher dose steroids. On abx. Likely downgrade today. James Kirk D.O. PGY-2 Original Note: <CINDY ALMONTE - Last Filed: 12/20/16 16:10> Subjective - Date & Time of Evaluation Date of Evaluation: 12/20/16 Time of Evaluation: 06:45 - Subjective Subjective: Cindy Almonte DO PGY1 - Internal Medicine Progress Note - Dedousis/Adaniel Service Patient seen and examined at bedside in the ICU. Patient was comfortable on 2L O2 by nasal cannula. He reports that his SOB is significantly improved. He denies any CP, cough, DUTTA, F/C, abdominal pain, dizziness, confusion. Objective - Vital Signs/Intake and Output Vital Signs (last 24 hours): Temp Pulse Resp BP Pulse Ox 97.7 F 116 H 22 113/65 98 12/20/16 00:01 12/20/16 09:25 12/20/16 05:50 12/20/16 09:25 12/20/16 05:50 Intake and Output: 12/20/16 12/20/16 06:59 18:59 Intake Total 200 Output Total 250 Balance -50 - Medications Medications: Current Medications Arformoterol Tartrate (Brovana) 15 mcg IH [id number] [facility] Last Admin: 12/20/16 07:43 Dose: 15 mcg Aspirin (Aspirin Chewable) 81 mg PO DAILY [facility] Last Admin: 12/20/16 09:22 Dose: 81 mg Atorvastatin Calcium (Lipitor) 40 mg PO DIN [facility] Last Admin: 12/19/16 16:54 Dose: 40 mg Budesonide (Pulmicort Respules) 0.5 mg IH [id number] [facility] Last Admin: 12/20/16 07:43 Dose: 0.5 mg Clopidogrel Bisulfate (Plavix) 75 mg PO DAILY [facility] Last Admin: 12/20/16 09:24 Dose: 75 mg Heparin Sodium (Porcine) (Heparin) 5,000 units SC Q12 [facility] PRN Reason: Protocol Last Admin: 12/20/16 09:22 Dose: 5,000 units Ceftriaxone Sodium (Rocephin 1 Gram Ivpb) 1 gm in 100 mls @ 100 mls/hr IVPB DAILY [facility] PRN Reason: Protocol Last Admin: 12/20/16 09:23 Dose: 100 mls/hr Levofloxacin/Dextrose (Levaquin 750mg) 750 mg in 150 mls @ 100 mls/hr IVPB DAILY [facility] Last Admin: 12/20/16 09:23 Dose: 100 mls/hr Levalbuterol HCl (Xopenex) 0.63 mg IH Q3 PRN PRN Reason: Shortness of Breath Levalbuterol HCl (Xopenex) 0.63 mg IH [id number] [facility] Last Admin: 12/20/16 13:06 Dose: 0.63 mg Levothyroxine Sodium (Synthroid) 200 mcg PO 0600 [facility] Last Admin: 12/20/16 05:37 Dose: 200 mcg Methylprednisolone (Solu-Medrol) 60 mg IVP Q8 [facility] Last Admin: 12/20/16 05:43 Dose: 60 mg Metoprolol Tartrate (Lopressor) 25 mg PO BID [facility] Last Admin: 12/20/16 09:25 Dose: 25 mg Pantoprazole Sodium (Protonix Ec Tab) 40 mg PO 0600 [facility] Last Admin: 12/20/16 05:37 Dose: 40 mg Potassium Phos/Sodium Phos (Neutra-Phos) 2 pkt PO Q12 [facility] Last Admin: 12/20/16 09:24 Dose: 2 pkt - Labs Labs: 12/20/16 05:30 12/20/16 05:20 - Constitutional Appears: Non-toxic, No Acute Distress, Chronically Ill - Head Exam Head Exam: ATRAUMATIC, NORMOCEPHALIC - Eye Exam Eye Exam: EOMI, Normal appearance - ENT Exam ENT Exam: Mucous Membranes Moist - Neck Exam Neck Exam: Normal Inspection. absent: Lymphadenopathy, Meningismus, Thyromegaly - Respiratory Exam Respiratory Exam: absent: Rales, Rhonchi, Wheezes Additional comments: Decreased breath sounds BL lower lobes, R>L - Cardiovascular Exam Cardiovascular Exam: RRR, +S1, +S2 - GI/Abdominal Exam GI & Abdominal Exam: Soft. absent: Tenderness - Extremities Exam Extremities Exam: Normal Inspection. absent: Calf Tenderness, Pedal Edema - Neurological Exam Neurological Exam: Alert, Awake, Oriented x3 Additional comments: Moving all extremities - Psychiatric Exam Psychiatric exam: Normal Affect, Normal Mood - Skin Skin Exam: Dry, Intact Assessment and Plan - Assessment and Plan (Free Text) Assessment: 81 yo M with PMH of CAD s/p stents, CHF, COPD, hypothyroidism, and HLD, admitted to the ICU for hypercapneic respiratory failure, likely secondary to cardiogenic pulmonary edema vs COPD exacerbation vs CAP. Plan: 1. Dyspnea, improving - 2/2 cardiogenic pulmonary edema vs COPD exacerbation vs CAP - On admission, CXR significant for bibasilar pleural effusions, patchy infiltrates, and compressive atalectasis. Chest CT significant for the same things, and appears relatively unchanged since chest CT on 08/22/2015. - Remains on 2L O2 by nasal cannula - Continue Xopenex, metoprolol, and solumedrol - Continue Levaquin 750 MG IV QD, Rocephin 1gm QD for empiric treatment of CAP - Remains under ICU care, likely transfer to tele today 2. Hypophosphatemia - Improved - Phosphate improved - Stop Nutraphos 3. Hx of CAD s/p stents - Continue Plavix - Continue ASA 4. Hx of HLD - Continue Lipitor 40mg PD QD 5. Hypothyroidism - Continue Synthroid 100mcg daily GI/DVT Ppx - Protonix 40mg IV, Heparin 5,000U SQ Patient seen, discussed, and reviewed with senior resident and attending. <Leonard Rivas - Last Filed: 12/23/16 17:33> Objective - Vital Signs/Intake and Output Vital Signs (last 24 hours): Temp Pulse Resp BP Pulse Ox 97.9 F 88 16 114/63 96 12/23/16 12:00 12/23/16 14:00 12/23/16 12:00 12/23/16 13:30 12/23/16 00:01 Intake and Output: 12/23/16 12/23/16 06:59 18:59 Intake Total 3580 956 Output Total 1440 650 Balance 2140 306 - Medications Medications: Current Medications Arformoterol Tartrate (Brovana) 15 mcg IH [id number] [facility] Last Admin: 12/23/16 08:16 Dose: 15 mcg Aspirin (Aspirin Chewable) 81 mg PO DAILY [facility] Last Admin: 12/23/16 09:22 Dose: 81 mg Atorvastatin Calcium (Lipitor) 40 mg PO DIN [facility] Last Admin: 07/23/17 18:29 Dose: 40 mg Budesonide (Pulmicort Respules) 0.5 mg IH [id number] [facility] Last Admin: 12/23/16 08:16 Dose: 0.5 mg Clopidogrel Bisulfate (Plavix) 75 mg PO DAILY [facility] Last Admin: 12/23/16 09:22 Dose: 75 mg Heparin Sodium (Porcine) (Heparin) 5,000 units SC Q12 [facility] PRN Reason: Protocol Last Admin: 12/23/16 09:22 Dose: 5,000 units Levofloxacin/Dextrose (Levaquin 750mg) 750 mg in 150 mls @ 100 mls/hr IVPB DAILY [facility] Last Admin: 12/23/16 09:23 Dose: 100 mls/hr Ipratropium [place] (Atrovent) 0.5 mg IH Q3H PRN PRN Reason: Shortness of Breath Ipratropium [place] (Atrovent) 0.5 mg IH [id number] [facility] Last Admin: 12/23/16 13:37 Dose: 0.5 mg Levalbuterol HCl (Xopenex) 0.63 mg IH [id number] PRN PRN Reason: Shortness of Breath Last Admin: 12/21/16 13:42 Dose: 0.63 mg Levothyroxine Sodium (Synthroid) 200 mcg PO 0600 [facility] Last Admin: 12/23/16 05:54 Dose: 200 mcg Methylprednisolone (Solu-Medrol) 40 mg IVP 0600,1800 [facility] Last Admin: 12/23/16 05:54 Dose: 40 mg Metoprolol Tartrate (Lopressor) 25 mg PO TID [facility] Last Admin: 12/23/16 13:30 Dose: 25 mg Mupirocin (Bactroban Ointment) 0 gm NS BID [facility] Stop: 12/27/16 18:01 Last Admin: 12/23/16 11:12 Dose: 1 applic Nystatin (Nystatin Oral Susp) 5 ml PO QID [facility] Last Admin: 12/23/16 13:30 Dose: 5 ml - Labs Labs: 12/23/16 06:00 12/23/16 05:30 Attending/Attestation - Attestation I have personally seen and examined this patient.: Yes I have fully participated in the care of the patient.: Yes I have reviewed all pertinent clinical information, including history, physical exam and plan: Yes Notes (Text): 12/23/16 17:33 Medical record note made by the resident after discussion with my direction and input after the patient was personally seen and examined by me. I have reviewed the chart and agree that the record accurately reflects by personal performance of the history, physical exam, data review, and medical decision-making, in the course for the patient. I have also personally directed the plan of care.
--- NOTE | 2016-12-20 15:47 | PN ---
DATE: 12/19/2016 SUBJECTIVE: The patient is doing markedly better since he was admitted to the hospital. He has since been extubated, placed on nasal cannula. He is still using inhaled bronchodilators and he is doing quite well. He is able to converse easily without any significant dyspnea. He is actually joking and feels markedly better. The patient has been slated to go to telemetry this morning, but there are no beds available. He is sitting patiently waiting in ICU. PHYSICAL EXAMINATION: GENERAL: The patient is awake and alert, resting on the chair. No complaints. VITAL SIGNS: Stable. HEENT: Normocephalic. PERRLA. EOM is full. CARDIOVASCULAR: Regular rhythm. S1 and S2 without murmur, gallop, or rub. LUNGS: Scattered rhonchi throughout both lung fagan. No wheezes are appreciated. ABDOMEN: Soft. Bowel sounds are normoactive without mass, guarding, rebound. EXTREMITIES: No clubbing, cyanosis, or edema. NEUROLOGIC: No focal findings. SKIN: Intact. LABORATORY DATA: New laboratory tests are not available. There has been no blood gas since extubation 2 days ago. The patient is doing better and should be repeated along with an x-ray prior to discharge. Complete review of the CT of the chest was done. There are bilateral pleural effusions with mass like densities noted at both bases, 2 or 3 on the right and 1 on the left. It is not clear whether this represents neoplasm or not when the patient has been fully diuresed. It would be important to repeat the CT of the chest and perhaps move on to a PET-CT and possible biopsy of these areas if they fail to resolve. Keep in mind, however, that there is a possibility that this represents pseudo-tumor from pulmonary effusion and congestive heart failure, which is present on the CAT scan of the chest. CLINICAL IMPRESSION: 1. Bilateral atelectasis, bilateral effusions, bilateral nodules and poor infiltrates. 2. Chronic obstructive pulmonary disease with atelectasis. 3. Possible parenchymal masses. 4. Respiratory insufficiency. 5. Status post respiratory failure. 6. Continued smoking history. 7. Chronic obstructive pulmonary disease with air trapping. 8. Congestive heart failure with cephalization of the blood vessels and Regulo B lines with the presence of bilateral pleural effusion. PLAN: The patient must be diuresed to the maximum. Once he is diuresed, ENGINEERING LABORATORY TECHNICIAN x-ray should be done to look for the presence of effusions and the pulmonary vascular congestion. If these continue to exist, cardiology will intervene further to see if further fluids can be removed. If pleural effusions are there solely then we can certainly offer a diagnostic and therapeutic thoracentesis to make sure that the fluid is removed for diagnostic tests as well as for therapeutic means by relieving the amount of subpleural atelectasis. We would continue his inhaled bronchodilators, corticosteroids and anticholinergics. Smoking cessation is [place] at this time, especially in view of his COPD and possible lung masses. When out of the ICU, we will try to institute additional therapy for him and attempt to make him understand the need for smoking cessation. We will follow him closely on the floor and we will probably need to do further invasive tests once followup treatment and scans are completed. Aaron Su MD
[2016-12-21] MEDS: Levothyroxine 200 MCG TAB PO SCH (05:54)
[2016-12-21] MEDS: Pantoprazole 40 mg EC Tab PO SCH (05:54)
[2016-12-21] MEDS: MethylPREDNISolone 40 mg Vial IVP SCH ×2 (05:54→17:14)
[2016-12-21 07:23] LABS: MEAN CELL VOLUME 103.2 fL (80.0-105.0); MEAN CORPUSCULAR HEMOGLOBIN 32.3 pg (25.0-35.0); MEAN CORPUSCULAR HGB CONC 31.3 g/dl (31.0-37.0); MEAN PLATELET VOLUME 9.5 fl (7.0-11.0); RBC 4.03 10^6/uL (3.5-6.1); RED CELL DISTRIBUTION WIDTH 12.9 % (11.5-14.5)
[2016-12-21] MEDS: Arformoterol 15 mcg/2 ml Inh Sol IH SCH ×2 (07:40→19:55)
[2016-12-21] MEDS: Budesonide 0.5 mg/2 ml Inhal Susp UD IH SCH ×2 (07:41→19:55)
[2016-12-21] MEDS: Levalbuterol 0.63 MG/3 ML Inhal Soln UD IH SCH (07:42)
[2016-12-21 08:08] LABS: ALB/GLOB RATIO 0.9 (1.1-1.8); ALBUMIN 3.1 g/dL (3.0-4.8); ALT/SGPT 46 U/L (7-56); AST/SGOT 44 U/L (15-59); BLOOD UREA NITROGEN 31 mg/dL (7-21); CALCIUM 8.6 mg/dL (8.4-10.5); GFR AFRICAN-AMERICAN > 60; GFR NON-AFRICAN AMERICAN > 60
[2016-12-21] MEDS ORDERED: Ipratropium 0.02% Inhal Soln (0.5 mg/2.5 ml) UD IH PRN (09:38)
[2016-12-21] MEDS: levoFLOXacin 750 mg in D5W 750 MG/150 ML BAG IVPB SCH (09:39)
--- NOTE | 2016-12-21 11:31 | CP.PCM.PN ---
<Zafar Raphael - Last Filed: 12/21/16 18:21> Subjective - Date & Time of Evaluation Date of Evaluation: 12/21/16 Time of Evaluation: 11:28 - Subjective Subjective: Medicine progress note for Dr. Avitia/Dr. Rivas service - Zafar Raphael PGY2 Patient seen and examined at bedside this morning. No acute overnight events reported however per nursing, he had 3 episodes of afib after 7am this morning. Call put out to cardiology, Dr. Cevallos who is covering for Dr. Sandoval today. He is aware and will provide further recs. Otherwise, patient was complaining of mild hand tremors that he reports weren't present when he was first admitted. He denies chest pain, palpitations and states that his breathing has improved since admission. Denies abdominal pain, nausea, vomiting. Objective - Vital Signs/Intake and Output Vital Signs (last 24 hours): Temp Pulse Resp BP Pulse Ox 97.6 F 80 20 109/62 95 12/21/16 06:00 12/21/16 10:00 12/21/16 06:00 12/21/16 09:41 12/21/16 06:00 Intake and Output: 12/21/16 12/21/16 06:59 18:59 Intake Total 30 Output Total 0 Balance 30 - Medications Medications: Current Medications Arformoterol Tartrate (Brovana) 15 mcg IH [id number] [facility] Last Admin: 12/21/16 07:40 Dose: 15 mcg Aspirin (Aspirin Chewable) 81 mg PO DAILY [facility] Last Admin: 12/21/16 09:39 Dose: 81 mg Atorvastatin Calcium (Lipitor) 40 mg PO DIN [facility] Last Admin: 12/20/16 17:18 Dose: 40 mg Budesonide (Pulmicort Respules) 0.5 mg IH [id number] [facility] Last Admin: 12/21/16 07:41 Dose: 0.5 mg Clopidogrel Bisulfate (Plavix) 75 mg PO DAILY [facility] Last Admin: 12/21/16 09:39 Dose: 75 mg Heparin Sodium (Porcine) (Heparin) 5,000 units SC Q12 [facility] PRN Reason: Protocol Last Admin: 12/21/16 09:40 Dose: 5,000 units Levofloxacin/Dextrose (Levaquin 750mg) 750 mg in 150 mls @ 100 mls/hr IVPB DAILY [facility] Last Admin: 12/21/16 09:39 Dose: 100 mls/hr Ipratropium [place] (Atrovent) 0.5 mg IH Q3H PRN PRN Reason: Shortness of Breath Ipratropium [place] (Atrovent) 0.5 mg IH [id number] [facility] Levalbuterol HCl (Xopenex) 0.63 mg IH Q3 PRN PRN Reason: Shortness of Breath Levalbuterol HCl (Xopenex) 0.63 mg IH [id number] [facility] Last Admin: 12/21/16 07:42 Dose: 0.63 mg Levothyroxine Sodium (Synthroid) 200 mcg PO 0600 [facility] Last Admin: 12/21/16 05:54 Dose: 200 mcg Methylprednisolone (Solu-Medrol) 40 mg IVP 0600,1800 [facility] Last Admin: 12/21/16 05:54 Dose: 40 mg Metoprolol Tartrate (Lopressor) 25 mg PO BID [facility] Last Admin: 12/21/16 09:41 Dose: 25 mg Pantoprazole Sodium (Protonix Ec Tab) 40 mg PO 0600 [facility] Last Admin: 12/21/16 05:54 Dose: 40 mg - Labs Labs: 12/21/16 07:12 12/21/16 07:12 - Constitutional Appears: No Acute Distress - Head Exam Head Exam: ATRAUMATIC, NORMAL INSPECTION, NORMOCEPHALIC - Eye Exam Eye Exam: EOMI, PERRL - ENT Exam ENT Exam: Mucous Membranes Moist - Neck Exam Neck Exam: Normal Inspection - Respiratory Exam Respiratory Exam: Wheezes. absent: Rales, Rhonchi - Cardiovascular Exam Cardiovascular Exam: +S1, +S2. absent: Gallop, Rubs - GI/Abdominal Exam GI & Abdominal Exam: Soft. absent: Distended, Firm, Guarding, Rigid, Tenderness , Rebound - Neurological Exam Neurological Exam: Alert, Awake, Oriented x3 - Psychiatric Exam Psychiatric exam: Normal Affect, Normal Mood - Skin Skin Exam: Dry, Intact, Normal Color, Warm Assessment and Plan - Assessment and Plan (Free Text) Plan: 81 yo M with PMH of CAD s/p stents, CHF (LVEF 54%), COPD, hypothyroidism and HLD admitted for hypercapneic respiratory failure likely secondary to COPD exacerbation 1. COPD exacerbation -O2 supplementation to maintain SaO2 ~90-92%; currently on 2LNC and tolerating well -Will continue with levaquin 750mg IV daily; discontinued rocephin -Continue with xopenex/atrovent PRN and ANAMARIA -Continue with pulmicort/brovana as ordered -Will continue to taper steroids as indicated; currently on solumedrol 40mg q12h -CXR reviewed; revealed bibasilar pleural effusions, patchy infiltrates, and compressive atalectasis -CT Chest reviewed; please refer to full report -Pulmonology consulted - Dr. Heaton/Dr. Su - recs appreciated; patient may require diagnostic/therapeutic thoracentesis for evaluation of pleural fluid -Cardiology consulted - Dr. Sandoval; recs appreciated -Echocardiogram reviewed; LVEF 54%, revealed pulmonary HTN, TR/MR -Blood culture/Urine culture negative -afebrile, leukocytosis of 14 however likely secondary to steroids 2. CAD -Continue ASA/Plavix/Lipitor -Metoprolol increased to 25mg PO TID due to 3 episodes of afib this morning per cardiology recommendations -Cardiology recs appreciated -Echo reviewed 3. Hyperlipidemia -Continue lipitor 4. Hypothyroidism -Continue synthroid 5. GI/DVT Prophylaxis -Protonix/Heparin SC Patient seen, discussed and reviewed with attending, Dr. Rivas <Leonard Rivas - Last Filed: 12/23/16 17:21> Objective - Vital Signs/Intake and Output Vital Signs (last 24 hours): Temp Pulse Resp BP Pulse Ox 97.9 F 88 16 114/63 96 12/23/16 12:00 12/23/16 14:00 12/23/16 12:00 12/23/16 13:30 12/23/16 00:01 Intake and Output: 12/23/16 12/23/16 06:59 18:59 Intake Total 3580 956 Output Total 1440 650 Balance 2140 306 - Medications Medications: Current Medications Arformoterol Tartrate (Brovana) 15 mcg IH [id number] [facility] Last Admin: 12/23/16 08:16 Dose: 15 mcg Aspirin (Aspirin Chewable) 81 mg PO DAILY [facility] Last Admin: 12/23/16 09:22 Dose: 81 mg Atorvastatin Calcium (Lipitor) 40 mg PO DIN [facility] Last Admin: 12/22/16 18:29 Dose: 40 mg Budesonide (Pulmicort Respules) 0.5 mg IH [id number] [facility] Last Admin: 12/23/16 08:16 Dose: 0.5 mg Clopidogrel Bisulfate (Plavix) 75 mg PO DAILY [facility] Last Admin: 12/23/16 09:22 Dose: 75 mg Heparin Sodium (Porcine) (Heparin) 5,000 units SC Q12 [facility] PRN Reason: Protocol Last Admin: 12/23/16 09:22 Dose: 5,000 units Levofloxacin/Dextrose (Levaquin 750mg) 750 mg in 150 mls @ 100 mls/hr IVPB DAILY [facility] Last Admin: 12/23/16 09:23 Dose: 100 mls/hr Ipratropium [place] (Atrovent) 0.5 mg IH Q3H PRN PRN Reason: Shortness of Breath Ipratropium [place] (Atrovent) 0.5 mg IH [id number] [facility] Last Admin: 12/23/16 13:37 Dose: 0.5 mg Levalbuterol HCl (Xopenex) 0.63 mg IH [id number] PRN PRN Reason: Shortness of Breath Last Admin: 12/21/16 13:42 Dose: 0.63 mg Levothyroxine Sodium (Synthroid) 200 mcg PO 0600 [facility] Last Admin: 12/23/16 05:54 Dose: 200 mcg Methylprednisolone (Solu-Medrol) 40 mg IVP 0600,1800 [facility] Last Admin: 12/23/16 05:54 Dose: 40 mg Metoprolol Tartrate (Lopressor) 25 mg PO TID [facility] Last Admin: 12/23/16 13:30 Dose: 25 mg Mupirocin (Bactroban Ointment) 0 gm NS BID [facility] Stop: 12/27/16 18:01 Last Admin: 12/23/16 11:12 Dose: 1 applic Nystatin (Nystatin Oral Susp) 5 ml PO QID [facility] Last Admin: 12/23/16 13:30 Dose: 5 ml - Labs Labs: 12/23/16 06:00 12/23/16 05:30 Attending/Attestation - Attestation I have personally seen and examined this patient.: Yes I have fully participated in the care of the patient.: Yes I have reviewed all pertinent clinical information, including history, physical exam and plan: Yes Notes (Text): 12/23/16 17:21 Medical record note made by the resident after discussion with my direction and input after the patient was personally seen and examined by me. I have reviewed the chart and agree that the record accurately reflects by personal performance of the history, physical exam, data review, and medical decision-making, in the course for the patient. I have also personally directed the plan of care.
[2016-12-21] MEDS ORDERED: Levalbuterol 0.63 MG/3 ML Inhal Soln UD IH PRN (11:40)
[2016-12-21] MEDS ORDERED: Sodium Chloride 0.9% 1,000 ML IV SCH (11:45)
[2016-12-21] MEDS: Ipratropium 0.02% Inhal Soln (0.5 mg/2.5 ml) UD IH SCH ×2 (13:42→19:55)
--- NOTE | 2016-12-21 13:44 | PN ---
DATE OF SERVICE: 12/21/2016 SUBJECTIVE: The patient was seen on examine at bedside. He is out of Intensive Care Unit. He is currently on telemetry. He is receiving inhalations with Brovana and added budesonide. He is on Solu-Medrol 40 mg every 12 hours. He also has Xopenex as an emergency inhalation. He continues on double antibiotics with Rocephin and Levaquin. PHYSICAL EXAMINATION GENERAL: He is awake and resting. VITAL SIGNS: Temperature is 97.6, pulse 86, respirations 20, pulse oximetry is 95 on nasal canula, and blood pressure 95/55. HEENT: Within normal limits. LUNGS: Scattered rales and rhonchi throughout the both lung fagan. No wheezing. CARDIOVASCULAR: Regular rhythm. S1 and S2. GASTROINTESTINAL: Abdomen is soft and nontender with no organomegaly. EXTREMITIES: No clubbing, cyanosis, or edema. NEUROLOGIC: No focal findings. SKIN: Intact. LABORATORY DATA: I reviewed today's laboratory data. His WBC is still elevated at 14.0, hemoglobin of 13. Sodium 133, potassium 4. IMAGING DATA: X-rays were reported as normal yesterday. CT chest was reviewed that showed bilateral pleural effusions, which has to both lung bases. This is unclear neoplasm of accumulation versus loculated effusion. After continued diuresis and treatment with antibiotic, CT will be repeated. ASSESSMENT: 1. Bilateral atelectasis with bilateral effusions and possible lung nodules. 2. Obstructive pulmonary disease. 3. Respiratory insufficiency. 4. Status post respiratory failure. 5. Continued smoking history. 6. Congestive heart failure. PLAN: The patient continued with double antibiotics. He is being on diuretics. The pleural effusion should be followed to resolution. Repeat assessment of pathology of both lung bases to rule out lung masses will be undertaken. Smoking cessation was discussed with the patient. Will continue to follow closely. Josh Hernandez MD MTDD
--- NOTE | 2016-12-21 15:32 | PN ---
DATE: 12/21/2016 COVERING DOCTOR: Scottie Sandoval MD REASON FOR CONSULTATION: History of coronary artery disease, multi-vessels PTCA in the past stent to left main status post respiratory failure status post intubated. SUBJECTIVE: The patient denied any chest pain or shortness of breath. OBJECTIVE GENERAL: The Patient is lying flat, not in any acute distress. VITAL SIGNS: Temperature afebrile, heart rate 84, blood pressure 109/62. HEENT: PERRLA intact. NECK: Supple. No carotid bruits. No thyromegaly. LUNGS: Chest clear to auscultation. HEART: S1 and S2 regular. ABDOMEN: Soft and nontender. Clubbing and cyanosis negative. LABORATORY DATA: Blood workup as follows: WBC 14, hemoglobin 13, hematocrit 41.6, platelet count 290. Chemistries show sodium 130, potassium 4.0, *------*, CO2 of 48, BUN 31, and creatinine 0.6. Troponin 0.02 negative. Telemetry shows normal sinus tach. The Patient had an echocardiography done on 12/18/2016 and that shows normal LV function, mild mitral regurgitation, mild tricuspid regurgitation, mild pulmonary hypertension. IMPRESSION: Paroxysmal atrial fibrillation status post respiratory failure, exacerbation, chronic obstructive pulmonary disease, status post extubated, coronary artery disease, multi-vessels percutaneous transluminal coronary angioplasty including stent, hypotension, tachycardia, intravascular volume depleted, hypochloremia, contraction alkalosis. RECOMMENDATION: We will hold Lasix now given IV fluid. DC Xopenex started with p.r.n. Increase metoprolol to 25 mg 3 times a day. Continue aspirin, Plavix. Transfer care to Dr. Sandoval on Friday. We will follow with you. Thank you Dr. Sandoval/ *------*for the opportunity of taking care of your patient Ronaldo Turpin. Gerald Cevallos MD
[2016-12-22] MEDS: Ipratropium 0.02% Inhal Soln (0.5 mg/2.5 ml) UD IH SCH ×4 (01:00→19:39)
[2016-12-22] MEDS: Pantoprazole 40 mg EC Tab PO SCH (05:46)
[2016-12-22] MEDS: MethylPREDNISolone 40 mg Vial IVP SCH ×2 (05:46→18:29)
[2016-12-22] MEDS: Levothyroxine 200 MCG TAB PO SCH (05:46)
[2016-12-22 07:22] LABS: HEMOGLOBIN 11.7 gm/dL (14.0-18.0); MEAN CORPUSCULAR HEMOGLOBIN 31.9 pg (25.0-35.0); MEAN PLATELET VOLUME 9.5 fl (7.0-11.0); RBC 3.67 10^6/uL (3.5-6.1); RED CELL DISTRIBUTION WIDTH 13.3 % (11.5-14.5); WHITE BLOOD COUNT 13.2 10^3/ul (4.5-11.0)
[2016-12-22] MEDS: Arformoterol 15 mcg/2 ml Inh Sol IH SCH ×2 (07:29→19:39)
[2016-12-22] MEDS: Budesonide 0.5 mg/2 ml Inhal Susp UD IH SCH ×2 (07:29→19:39)
[2016-12-22 07:43] LABS: ALB/GLOB RATIO 0.9 (1.1-1.8); ALBUMIN 2.7 g/dL (3.0-4.8); ALT/SGPT 58 U/L (7-56); AST/SGOT 40 U/L (15-59); BLOOD UREA NITROGEN 35 mg/dL (7-21); GFR AFRICAN-AMERICAN > 60; GFR NON-AFRICAN AMERICAN > 60
[2016-12-22 08:56] LABS: CALCIUM 8.2 mg/dL (8.4-10.5)
[2016-12-22] MEDS: levoFLOXacin 750 mg in D5W 750 MG/150 ML BAG IVPB SCH (10:03)
[2016-12-22] MEDS ORDERED: Sodium Chloride 0.9% 1,000 ML IV SCH (11:00)
--- NOTE | 2016-12-22 11:32 | CARD ---
APPROVED REPORT EKG Measurement Heart [id number] <Conclusion> Atrial fibrillation T wave abnormality, consider lateral ischemia or digitalis effect Abnormal ECG
--- NOTE | 2016-12-22 13:06 | PN ---
PULMONARY PROGRESS NOTE DATE: 12/22/2016 SUBJECTIVE: The patient was seen and examined at bedside. He is currently on nasal cannula. He is not in respiratory distress, speaking in full sentences and eating breakfast. He is receiving inhalation therapy with Brovana and budesonide. He is still on Solu-Medrol 40 mg twice a day as well as antibiotic coverage with Levaquin. PHYSICAL EXAMINATION: VITAL SIGNS: As follows: Temperature 98.1, pulse 88, respirations 18, pulse oximetry is 97% on nasal cannula, blood pressure is 107/63. HEENT: Within normal limits. NECK: Supple with no jugular vein distentions. CHEST: Symmetrical. CARDIOVASCULAR: S1 and S2. No S3. Irregular. PULMONARY: Diminished breath sounds at both bases, with crackles at both bases, and dullness to percussion. GI: Abdomen is soft and nontender. No organomegaly. SKIN: Clear with no cyanosis, no skin rashes. EXTREMITIES: No edema. NEUROLOGIC: No focal deficits. LABORATORY DATA: I reviewed today his lab work. His sodium is 132, potassium 4.7, chloride 85. Slightly elevated liver function test. WBC is slightly improved to 13.2, hemoglobin of 11.7. ASSESSMENT: 1. Status post respiratory failure. 2. Exacerbation of severe chronic obstructive pulmonary disease. 3. Bilateral pleural effusions. 4. Bilateral atelectasis. PLAN: We will continue his current administration of Brovana and budesonide. Duoneb will be given as an emergency p.r.n. inhalations. The steroids can start to be tapered. Antibiotic coverage would continue and mainstay in his diuretic therapy to try and reduce or eliminate the pleural effusions. Josh Hernandez MD MTDD
--- NOTE | 2016-12-22 13:15 | PN ---
DATE: 12/22/2016 COVERING DOCTOR: Scottie Sandoval MD REASON FOR CONSULTATION: History of coronary artery disease, multi-vessels PTCA in the past Including left main stent, respiratory failure, intubated, of paroxysmal atrial fibrillation. SUBJECTIVE: The patient denied any chest pain or shortness of breath, lying flat on the bed. OBJECTIVE ON PHYSICAL EXAMINATION VITAL SIGNS: Temperature afebrile, heart 87, blood pressure 107/63. HEENT: PERRLA. Extraocular muscles are intact. NECK: Supple. No carotid bruit. No thyromegaly. CHEST: Clear to auscultation. HEART: S1 and S2 regular. ABDOMEN: Soft. EXTREMITIES: Clubbing and cyanosis negative. LABORATORY DATA: Blood workup as follows: WBC 13.8, hemoglobin 8.7, hematocrit 37.8, platelet count of 253. Chemistry shows sodium 130, potassium 4.7, chloride 85 , carbon dioxide 47, anion gap of 5, BUN 35, creatinine is 0.6. Protein 5.7, albumin 2.7, albumin-globulin ratio 0.9. IMPRESSION: Protein-calorie malnutrition, was not present on admission, anemia, leukocytosis status post respiratory failure intubated, paroxysmal atrial fibrillation, fluid behind sinus tachycardia yesterday, contraction alkalosis, hypertension. tachycardic secondary to over diuresed, history of coronary artery disease with multi-vessels percutaneous transluminal coronary angioplasty including left main, hypotensive secondary to intravascular volume depleted, tachycardia secondary to intravascular volume depleted, contraction alkalosis. RECOMMENDATION: We will continue to hold Lasix, give gentle hydration, increase metoprolol to 25 mg t.i.d. Continue aspirin, Plavix. We will transfer care tomorrow to Dr. Scottie Sandoval. Thank you for providing me the opportunity in taking care of Dyana Higgins. We will follow with you. Increase nutrition support, we will put Ensure pudding. Gerald Cevallos MD
--- NOTE | 2016-12-22 14:40 | CP.PCM.PN ---
Addendum entered and electronically signed by Tien Klein DO 12/22/16 20:12: Patient seen and examined with Dr. Almonte. Agree with his exam and plan. 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 Original Note: <CINDY ALMONTE - Last Filed: 12/22/16 18:31> Subjective - Date & Time of Evaluation Date of Evaluation: 12/22/16 Time of Evaluation: 06:45 - Subjective Subjective: Cindy Almonte DO PGY1 - Internal Medicine Progress Note - Dedmaria teresa/Evelyn Service Patient seen and examined at bedside. Patient was comfortable on 2L O2 by nasal cannula. He reports that his SOB is significantly improved, tremor is improved since yesterday. He denies any CP, palpitations, cough, DUTTA, F/C, abdominal pain , dizziness, confusion. He is also complaining of a "fuzzy feeling" in his throat, but denies dysphagia, odynophagia, dysphonia, dyspnea. Objective - Vital Signs/Intake and Output Vital Signs (last 24 hours): Temp Pulse Resp BP Pulse Ox 99 F 88 20 89/64 L 96 12/22/16 12:00 12/22/16 14:20 12/22/16 12:00 12/22/16 14:20 12/22/16 10:35 Intake and Output: 12/22/16 12/22/16 06:59 18:59 Intake Total 150 Balance 150 - Medications Medications: Current Medications Arformoterol Tartrate (Brovana) 15 mcg IH [id number] [facility] Last Admin: 12/22/16 07:29 Dose: 15 mcg Aspirin (Aspirin Chewable) 81 mg PO DAILY [facility] Last Admin: 12/22/16 10:04 Dose: 81 mg Atorvastatin Calcium (Lipitor) 40 mg PO DIN [facility] Last Admin: 12/21/16 17:14 Dose: 40 mg Budesonide (Pulmicort Respules) 0.5 mg IH [id number] [facility] Last Admin: 12/22/16 07:29 Dose: 0.5 mg Clopidogrel Bisulfate (Plavix) 75 mg PO DAILY [facility] Last Admin: 12/22/16 10:04 Dose: 75 mg Heparin Sodium (Porcine) (Heparin) 5,000 units SC Q12 ANAMARIA PRN Reason: Protocol Last Admin: 12/22/16 10:03 Dose: 5,000 units Levofloxacin/Dextrose (Levaquin 750mg) 750 mg in 150 mls @ 100 mls/hr IVPB DAILY [facility] Last Admin: 12/22/16 10:03 Dose: 100 mls/hr Sodium Chloride (Sodium Chloride 0.9%) 1,000 mls @ 50 mls/hr IV .Q20H [facility] Stop: 12/22/16 20:00 Last Admin: 12/22/16 12:01 Dose: 50 mls/hr Ipratropium Cascade (Atrovent) 0.5 mg IH Q3H PRN PRN Reason: Shortness of Breath Ipratropium Cascade (Atrovent) 0.5 mg IH [id number] [facility] Last Admin: 12/22/16 13:26 Dose: 0.5 mg Levalbuterol HCl (Xopenex) 0.63 mg IH [id number] PRN PRN Reason: Shortness of Breath Last Admin: 12/21/16 13:42 Dose: 0.63 mg Levothyroxine Sodium (Synthroid) 200 mcg PO 0600 [facility] Last Admin: 12/22/16 05:46 Dose: 200 mcg Methylprednisolone (Solu-Medrol) 40 mg IVP 0600,1800 [facility] Last Admin: 12/22/16 05:46 Dose: 40 mg Metoprolol Tartrate (Lopressor) 25 mg PO TID [facility] Last Admin: 12/22/16 14:20 Dose: Not Given Pantoprazole Sodium (Protonix Ec Tab) 40 mg PO 0600 [facility] Last Admin: 12/22/16 05:46 Dose: 40 mg - Labs Labs: 12/22/16 07:00 12/22/16 07:00 - Constitutional Appears: Non-toxic, No Acute Distress - Head Exam Head Exam: ATRAUMATIC, NORMOCEPHALIC - Eye Exam Eye Exam: EOMI, Normal appearance - ENT Exam ENT Exam: Mucous Membranes Moist Additional comments: Oral leukoplakia. Cerumen impaction b/l - Neck Exam Neck Exam: absent: Lymphadenopathy, Thyromegaly - Respiratory Exam Respiratory Exam: Clear to Ausculation Bilateral. absent: Rales, Rhonchi, Wheezes Additional comments: Decreased breathing sounds b/l lower lung fagan - Cardiovascular Exam Cardiovascular Exam: RRR, +S1, +S2 - GI/Abdominal Exam GI & Abdominal Exam: Soft, Normal Bowel Sounds. absent: Tenderness - Extremities Exam Extremities Exam: Normal Inspection. absent: Calf Tenderness, Pedal Edema - Neurological Exam Neurological Exam: Alert, Awake, Oriented x3 - Psychiatric Exam Psychiatric exam: Normal Affect, Normal Mood - Skin Skin Exam: Dry, Intact Assessment and Plan - Assessment and Plan (Free Text) Assessment: 81 yo M with PMH of CAD s/p stents, CHF (LVEF 54%), COPD, hypothyroidism and HLD admitted for hypercapneic respiratory failure likely secondary to COPD exacerbation Plan: 1. COPD exacerbation - Previously dyspneic, now improved - O2 supplementation to maintain SaO2 ~90-92%; currently on 2LNC and tolerating well - Continue levaquin 750mg IV daily - Continue xopenex/atrovent PRN and ANAMARIA, and pulmicort/brovana as ordered - Continue solumedrol 40mg q12h - CXR reviewed; revealed bibasilar pleural effusions, patchy infiltrates, and compressive atalectasis - CT Chest reviewed; please refer to full report - Pulmonology consulted - Dr. Heaton/Dr. Su, all recs appreciated; patient may require diagnostic/therapeutic thoracentesis for evaluation of pleural fluid - Cardiology consulted (Jaime), all recs appreciated - Echocardiogram reviewed; LVEF 54%, revealed pulmonary HTN, TR/MR - Blood culture/Urine culture negative - Afebrile, leukocytosis of 13.2, decreasing, likely secondary to steroids 2. Hx of CAD - Continue ASA/Plavix/Lipitor - Continue metoprolol 25mg PO TID - Cardiology recs appreciated - Echo reviewed 3. Hyperlipidemia - Continue lipitor 4. Hypothyroidism - Continue synthroid 5. Globus - Likely 2/2 to oral candidiasis 2/2 high dose steroids - Throat culture ordered to r/o bacterial infection - Start Nystatin S/S after throat culture obtained GI/DVT Prophylaxis - Protonix/Heparin SC Patient seen, discussed and reviewed with attending, Dr. Rivas <Leonard Rivas - Last Filed: 12/23/16 17:26> Objective - Vital Signs/Intake and Output Vital Signs (last 24 hours): Temp Pulse Resp BP Pulse Ox 97.9 F 88 16 114/63 96 12/23/16 12:00 12/23/16 14:00 12/23/16 12:00 12/23/16 13:30 12/23/16 00:01 Intake and Output: 12/23/16 12/23/16 06:59 18:59 Intake Total 3580 956 Output Total 1440 650 Balance 2140 306 - Medications Medications: Current Medications Arformoterol Tartrate (Brovana) 15 mcg IH [id number] [facility] Last Admin: 12/23/16 08:16 Dose: 15 mcg Aspirin (Aspirin Chewable) 81 mg PO DAILY [facility] Last Admin: 12/23/16 09:22 Dose: 81 mg Atorvastatin Calcium (Lipitor) 40 mg PO DIN [facility] Last Admin: 12/22/16 18:29 Dose: 40 mg Budesonide (Pulmicort Respules) 0.5 mg IH [id number] [facility] Last Admin: 12/23/16 08:16 Dose: 0.5 mg Clopidogrel Bisulfate (Plavix) 75 mg PO DAILY [facility] Last Admin: 12/23/16 09:22 Dose: 75 mg Heparin Sodium (Porcine) (Heparin) 5,000 units SC Q12 [facility] PRN Reason: Protocol Last Admin: 12/23/16 09:22 Dose: 5,000 units Levofloxacin/Dextrose (Levaquin 750mg) 750 mg in 150 mls @ 100 mls/hr IVPB DAILY [facility] Last Admin: 12/23/16 09:23 Dose: 100 mls/hr Ipratropium Cascade (Atrovent) 0.5 mg IH Q3H PRN PRN Reason: Shortness of Breath Ipratropium Cascade (Atrovent) 0.5 mg IH [id number] [facility] Last Admin: 12/23/16 13:37 Dose: 0.5 mg Levalbuterol HCl (Xopenex) 0.63 mg IH [id number] PRN PRN Reason: Shortness of Breath Last Admin: 12/21/16 13:42 Dose: 0.63 mg Levothyroxine Sodium (Synthroid) 200 mcg PO 0600 [facility] Last Admin: 12/23/16 05:54 Dose: 200 mcg Methylprednisolone (Solu-Medrol) 40 mg IVP 0600,1800 [facility] Last Admin: 12/23/16 05:54 Dose: 40 mg Metoprolol Tartrate (Lopressor) 25 mg PO TID [facility] Last Admin: 12/23/16 13:30 Dose: 25 mg Mupirocin (Bactroban Ointment) 0 gm NS BID [facility] Stop: 12/27/16 18:01 Last Admin: 12/23/16 11:12 Dose: 1 applic Nystatin (Nystatin Oral Susp) 5 ml PO QID [facility] Last Admin: 12/23/16 13:30 Dose: 5 ml - Labs Labs: 12/23/16 06:00 12/23/16 05:30 Attending/Attestation - Attestation I have personally seen and examined this patient.: Yes I have fully participated in the care of the patient.: Yes I have reviewed all pertinent clinical information, including history, physical exam and plan: Yes Notes (Text): 12/23/16 17:26 Medical record note made by the resident after discussion with my direction and input after the patient was personally seen and examined by me. I have reviewed the chart and agree that the record accurately reflects by personal performance of the history, physical exam, data review, and medical decision-making, in the course for the patient. I have also personally directed the plan of care.
[2016-12-22] MEDS: Nystatin 100,000 Units/ml Oral Susp 5 ml UD PO SCH (21:03)
[2016-12-23] MEDS: Ipratropium 0.02% Inhal Soln (0.5 mg/2.5 ml) UD IH SCH ×3 (01:44→13:37)
[2016-12-23] MEDS: Pantoprazole 40 mg EC Tab PO SCH (05:53)
[2016-12-23] MEDS: Levothyroxine 200 MCG TAB PO SCH (05:54)
[2016-12-23] MEDS: MethylPREDNISolone 40 mg Vial IVP SCH ×2 (05:54→17:26)
[2016-12-23 06:44] LABS: ALB/GLOB RATIO 0.9 (1.1-1.8); ALBUMIN 2.9 g/dL (3.0-4.8); ALT/SGPT 91 U/L (7-56); AST/SGOT 60 U/L (15-59); BLOOD UREA NITROGEN 34 mg/dL (7-21); CALCIUM 8.4 mg/dL (8.4-10.5); GFR AFRICAN-AMERICAN > 60; GFR NON-AFRICAN AMERICAN > 60; MAGNESIUM 2.2 mg/dL (1.7-2.2)
[2016-12-23] MEDS: Budesonide 0.5 mg/2 ml Inhal Susp UD IH SCH (08:16)
[2016-12-23] MEDS: Arformoterol 15 mcg/2 ml Inh Sol IH SCH (08:16)
[2016-12-23] MEDS: levoFLOXacin 750 mg in D5W 750 MG/150 ML BAG IVPB SCH (09:23)
[2016-12-23] MEDS: Nystatin 100,000 Units/ml Oral Susp 5 ml UD PO SCH ×3 (09:26→17:26)
[2016-12-23 09:30] LABS: HEMOGLOBIN 12.5 gm/dL (14.0-18.0); MEAN CELL VOLUME 103.1 fL (80.0-105.0); MEAN CORPUSCULAR HEMOGLOBIN 32.6 pg (25.0-35.0); MEAN CORPUSCULAR HGB CONC 31.6 g/dl (31.0-37.0); MEAN PLATELET VOLUME 9.9 fl (7.0-11.0); RBC 3.84 10^6/uL (3.5-6.1); RED CELL DISTRIBUTION WIDTH 13.5 % (11.5-14.5); WHITE BLOOD COUNT 10.6 10^3/ul (4.5-11.0)
--- NOTE | 2016-12-23 10:04 | PN ---
CARDIOLOGY FOLLOWUP DATE: 12/23/2016 SUBJECTIVE: The patient's hypotension is now resolved. PHYSICAL EXAMINATION: VITAL SIGNS: Blood pressure is 120/82, heart rate is in the 90s. NECK: Negative JVD. LUNGS: Decreased breath sounds bilaterally. HEART: Reveal S1 and S2. EXTREMITIES: Without edema. LABORATORY DATA: Hemoglobin is 11.7. Chemistries: BUN and creatinine is 34 and 0.7 with a potassium of 5.2. IMPRESSION 1. Transient hypotension secondary to hypovolemia secondary to Lasix. 2. Multivessel coronary artery disease including left main with multivessel percutaneous transluminal coronary angioplasty and stent and left main stenting. 3. Exacerbation of chronic obstructive pulmonary disease. 4. Resolution of dyspnea. 5. Hypercholesterolemia. 6. Pulmonary retention ASSESSMENT AND PLAN: Given these findings, the patient has been working with physical therapy. The patient would benefit from a period of TCU physical therapy given his weakness and minimal ambulation. Scottie Sandoval MD
--- NOTE | 2016-12-23 11:13 | PN ---
DATE: 12/23/2016 SUBJECTIVE: The patient appears comfortable at rest. He is not short of breath. PHYSICAL EXAMINATION VITAL SIGNS: Temperature is 98.3, pulse is 92, respirations 18 to 20, blood pressure 109/64, oxygen saturation on room air is 96%. HEENT: Normocephalic, atraumatic. NECK: No JVD. CARDIOVASCULAR: Systolic ejection murmur at the lower left sternal border. No S3 gallop. LUNGS: Decreased breath sounds at the bases. Minimal rhonchi. No wheezing. EXTREMITIES: Mild edema. No cyanosis, no clubbing. Calves are nontender to palpation. GI: Abdomen is soft, nontender, nondistended. Bowel sounds are positive. SKIN: No acute rash. NEUROLOGIC: Limited at the present time. IMPRESSION: 1. Status post respiratory failure. 2. Advanced chronic obstructive pulmonary disease. 3. Chronic pleural effusions. 4. Bibasilar atelectasis. PLAN: The patient appears comfortable this morning. He is not short of breath at rest. He states, he is feeling much better overall. Oxygen saturation on room this morning is 96%. On physical exam, there is only mild bronchospasm noted. I will continue the current nebulizer treatments and low-dose intravenous steroids for now. The patient remains on antibiotic therapy. Input by cardiology is noted. Repeat a.m. labs are pending. Clinical status of the patient has significantly improved overall. I will discuss the above with the attending physician. Kris Heaton MD MTDD
--- NOTE | 2016-12-23 17:35 | CP.PCM.DIS ---
Provider - Provider Date of Admission: 12/18/16 00:05 Attending physician: Oswald Avitia MD Primary care physician: Oswald Avitia MD Consults: Cardio: Jaime Pulm: Florina Time Spent in preparation of Discharge (in minutes): 55 Diagnosis - Discharge Diagnosis (1) Respiratory failure with hypercapnia Status: Acute Priority: High (2) Dysphagia Status: Acute Priority: Medium (3) Pleural effusion Status: Chronic Priority: Medium Hospital Course - Lab Results Lab Results: Micro Results 12/22/16 18:30 Throat Group A Strep Throat Culture - Preliminary No growth. 12/18/16 02:30 Nose MRSA Culture (Admit) - Final MRSA DETECTED 12/18/16 01:44 Urine,Clean Catch Urine Culture - Final No Growth (<1,000 CFU/ML) Most Recent Lab Values WBC 10.6 10^3/ul (4.5-11.0) 12/23/16 06:00 RBC 3.84 10^6/uL (3.5-6.1) 12/23/16 06:00 Hgb 12.5 gm/dL (14.0-18.0) L 12/23/16 06:00 Hct 39.6 % (42.0-52.0) L 12/23/16 06:00 MCV 103.1 fL (80.0-105.0) 12/23/16 06:00 MCH 32.6 pg (25.0-35.0) 12/23/16 06:00 MCHC 31.6 g/dl (31.0-37.0) 12/23/16 06:00 RDW 13.5 % (11.5-14.5) 12/23/16 06:00 Plt Count 260 10^3/uL (120.0-450.0) 12/23/16 06:00 MPV 9.9 fl (7.0-11.0) 12/23/16 06:00 Gran % 84.0 % (50.0-68.0) H 12/17/16 21:52 Lymph % (Auto) 9.5 % (22.0-35.0) L 12/17/16 21:52 [place] % (Auto) 6.3 % (1.0-6.0) H 12/17/16 21:52 Eos % (Auto) 0.1 % (1.5-5.0) L 12/17/16 21:52 Baso % (Auto) 0.1 % (0.0-3.0) 12/17/16 21:52 Gran # 7.18 (1.4-6.5) H 12/17/16 21:52 Lymph # 0.8 (1.2-3.4) L 12/17/16 21:52 [place] # 0.5 (0.1-0.6) 12/17/16 21:52 Eos # 0.0 (0.0-0.7) 12/17/16 21:52 Baso # 0.01 K/mm3 (0.0-2.0) 12/17/16 21:52 pCO2 44 mm/Hg (35-45) 12/18/16 06:12 pO2 111.0 mm/Hg (80-100) H 12/18/16 06:12 HCO3 44.2 mmol/L (21-28) H* 12/18/16 06:12 ABG pH 7.61 (7.35-7.45) H* 12/18/16 06:12 ABG Total CO2 45.6 mmol.L (22-28) H 12/18/16 06:12 ABG O2 Saturation 99.3 % (95-98) H 12/18/16 06:12 ABG O2 Content 19.4 ML/dl (15-23) 12/18/16 06:12 ABG Base Excess 20.3 mmol/L (-2.0-3.0) H 12/18/16 06:12 ABG Hemoglobin 14.2 g/dL (11.7-17.4) 12/18/16 06:12 ABG Carboxyhemoglobin 1.8 % (0.5-1.5) H 12/18/16 06:12 POC ABG HHb (Measured) 0.7 % (0-5) 12/18/16 06:12 ABG Methemoglobin 1.0 % (0.0-3.0) 12/18/16 06:12 ABG O2 Capacity 19.5 mL/dl (16-24) 12/18/16 06:12 ABG Potassium 3.4 mmol/L (3.6-5.2) L 12/17/16 21:20 Hgb O2 Saturation 96.5 % (95.0-98.0) 12/18/16 06:12 Sodium 132.0 mmol/L (132-148) 12/17/16 21:20 Chloride 88.0 mmol/L (98-107) L 12/17/16 21:20 Glucose 90 mg/dl (75-110) 12/17/16 21:20 Lactate 0.7 mmol/L (0.7-2.1) 12/17/16 21:20 FiO2 35.0 % 12/18/16 06:12 Sodium 133 mmol/L (132-148) 12/23/16 05:30 Potassium 5.2 mmol/L (3.6-5.0) H 12/23/16 05:30 Chloride 84 mmol/L (98-107) L 12/23/16 05:30 Carbon Dioxide 47 mmol/L (21-33) H 12/23/16 05:30 Anion Gap 7 (10-20) L 12/23/16 05:30 BUN 34 mg/dL (7-21) H 12/23/16 05:30 Creatinine 0.7 mg/dL (0.5-1.4) 12/23/16 05:30 Est GFR ( Amer) > 60 12/23/16 05:30 Est GFR (Non-Af Amer) > 60 12/23/16 05:30 Random Glucose 113 mg/dL (70-110) H 12/23/16 05:30 Calcium 8.4 mg/dL (8.4-10.5) 12/23/16 05:30 Phosphorus 2.7 mg/dL (2.5-4.5) 12/23/16 05:30 Magnesium 2.2 mg/dL (1.7-2.2) 12/23/16 05:30 Total Bilirubin 0.6 mg/dL (0.2-1.3) 12/23/16 05:30 AST 60 U/L (15-59) H 12/23/16 05:30 ALT 91 U/L (7-56) H 12/23/16 05:30 Alkaline Phosphatase 62 U/L (38-133) 12/23/16 05:30 Lactate Dehydrogenase 383 U/L (333-699) 12/17/16 21:52 Total Creatine Kinase < 20 U/L (35-230) L 12/17/16 21:52 Troponin I 0.02 ng/mL D 12/18/16 10:38 NT-Pro-B Natriuret Pep 3820 pg/mL (0-450) H 12/17/16 21:52 Total Protein 6.1 g/dL (5.8-8.3) 12/23/16 05:30 Albumin 2.9 g/dL (3.0-4.8) L 12/23/16 05:30 Globulin 3.2 gm/dL 12/23/16 05:30 Albumin/Globulin Ratio 0.9 (1.1-1.8) L 12/23/16 05:30 Procalcitonin < 0.05 NG/ML (0.19-0.49) L 12/18/16 04:15 TSH 3rd Generation 0.21 mIU/mL (0.46-4.68) L 12/18/16 04:15 Arterial Blood Potassium 3.4 mmol/L (3.6-5.2) L 12/17/16 21:20 Urine Color Yellow (YELLOW) 12/18/16 01:46 Urine Appearance Sl cloudy (CLEAR) 12/18/16 01:46 Urine pH 6.5 (4.7-8.0) 12/18/16 01:46 Ur Specific [place] 1.015 (1.005-1.035) 12/18/16 01:46 Urine Protein Negative mg/dL (<30 mg/dL) 12/18/16 01:46 Urine Glucose (UA) Negative mg/dL (NEGATIVE) 12/18/16 01:46 Urine Ketones Trace mg/dL (NEGATIVE) H 12/18/16 01:46 Urine Blood Trace-intact (NEGATIVE) H 12/18/16 01:46 Urine Nitrate Negative (NEGATIVE) 12/18/16 01:46 Urine Bilirubin Negative (NEGATIVE) 12/18/16 01:46 Urine Urobilinogen 1.0 E.U./dL (<1 E.U./dL) H 12/18/16 01:46 Ur Leukocyte Esterase Negative Melissa/uL (NEGATIVE) 12/18/16 01:46 Urine RBC 0 - 2 /hpf (0-2) 12/18/16 01:46 Urine WBC 0 - 2 /hpf (0-6) 12/18/16 01:46 Ur Epithelial Cells 0 - 2 /hpf (0-5) 12/18/16 01:46 Hyaline Casts 0 - 2 /hpf 12/18/16 01:46 Ur Random Creatinine 107 mg/dL 12/18/16 17:00 Ur Random Sodium 6 meq/L 12/18/16 17:00 Ur Random Potassium 42.4 meq/L 12/18/16 17:00 - Hospital Course Hospital Course: 81YO M with PMH of CAD s/p stents, CHF (LVEF 54%), COPD, hypothyroidism and HLD initially presented to [facility] for SOB and decreased appetite and ultimately admitted for hypercapneic respiratory failure likely secondary to COPD exacerbation. He was admitted to ICU and intubated. The following day, his acid- base status improved, he was extubated and was maintained on BIPAP. On day 3, BIPAP was discontinued and he remained comfortable on 2L O2 by nasal cannula. He was also receiving inhaled and IV steroids, in addition to MORTEZA breathing treatments. He was tachycardic on exam, so Duonebs decreased and instead started on LABA and increased steroids. This improved his tachycardia, and he remained comfortable on O2 by nasal cannula, at which point he was downgraded to Tele/Obs. In order to avoid bronchospasm and hypotension, metoprolol was decreased. But the following morning, he had three episodes of afib, so metoprolol was increased to TID. On day 5, he was also complaining of increasing tremors in his hands, which was deemed due to the high dose steroids. His tremor improved after decreasing solumedrol to 40mg Q8 (from 60 Q8 ). Yesterday, his SOB and tremors continued to improve, but he was complaining of a "fuzzy" feeling in his throat, so a throat culture was ordered, and he was started on nystatin S/S for oral candidiasis, based on the symptoms and leukoplakia seen on exam, presumed 2/2 to high dose and inhaled steroids. Today, he is no longer complaining of SOB, though he was on RA and the nasal cannula was draped around his neck, rather than in his nares. He endorses a normal appetite, and denies CP, palpitations, F/C, N/V/D/C, abdominal pain, DUTTA, focal weakness or numbness. He generally feels somewhat weak. Cardiology and pulmonology were consulted early in his admission, and today recommended physical rehabilitation. Plan of care was discussed, and all questions were answered to patient's satisfaction, and he was discharged to TCU for rehabilitation of weakness and deconditioning. Discharge Exam - Head Exam Head Exam: ATRAUMATIC, NORMOCEPHALIC - Eye Exam Eye Exam: EOMI, Normal appearance - ENT Exam ENT Exam: Mucous Membranes Moist Additional comments: Leukoplakia, improving since yesterday - Respiratory Exam Respiratory Exam: NORMAL BREATHING PATTERN. absent: Rales, Rhonchi, Wheezes Additional comments: Mildly decreased breath sounds bibasilar - Cardiovascular Exam Cardiovascular Exam: RRR, +S1, +S2 - GI/Abdominal Exam GI & Abdominal Exam: Normal Bowel Sounds, Soft. absent: Tenderness - Extremities Exam Extremities exam: normal inspection - Neurological Exam Neurological exam: Alert, Oriented x3 - Psychiatric Exam Psychiatric exam: Normal Affect, Normal Mood - Skin Skin Exam: Dry, Intact Discharge Plan - Follow Up Plan Condition: SERIOUS Disposition: REHAB FACILITY/REHAB UNIT Instructions: Pleural Effusion (DC), Endotracheal Tube (GEN) Additional Instructions: 1. Follow up with rehab in TCU 2. Continue all medications as prescribed 3. Follow up with PCP after discharge from TCU Referrals: Oswald Avitia MD [Primary Care Provider] -
[2016-12-23 18:14] VITALS: BP 103/59; PULSE 89; RESP 17; TEMP 98.2; O2SAT 100
== END 2016-12-23 19:25 | DRG 208 ==
LOC: ED 20:24 → ERH 12-18 00:05 → CCU 12-18 02:30 → 2RNO 12-20 21:35
PROVIDERS: ADMIT Internal Medicine; ATTEND Internal Medicine
PROC: 5A1935Z Respiratory Ventilation, Less than 24 Consecutive Hours (ICD-10-PCS; principal; 2016-12-18)
PROC: 0BH17EZ Insertion of Endotracheal Airway into Trachea, Via Natural or Artificial Opening (ICD-10-PCS; 2016-12-18)
PROC: 5A09357 Assistance with Respiratory Ventilation, Less than 24 Consecutive Hours, Continuous Positive Airway Pressure (ICD-10-PCS; 2016-12-18)
PROC: 3E0F7GC Introduction of Other Therapeutic Substance into Respiratory Tract, Via Natural or Artificial Opening (ICD-10-PCS; 2016-12-18)
DX: J96.02 Acute respiratory failure with hypercapnia (principal); I50.21 Acute systolic (congestive) heart failure; J44.1 Chronic obstructive pulmonary disease with (acute) exacerbation; E87.3 Alkalosis; B37.0 Candidal stomatitis; I27.2 Other secondary pulmonary hypertension; I48.0 Paroxysmal atrial fibrillation; E86.1 Hypovolemia; J98.11 Atelectasis; E83.39 Other disorders of phosphorus metabolism; D64.9 Anemia, unspecified; I11.0 Hypertensive heart disease with heart failure; E03.9 Hypothyroidism, unspecified; I25.118 Atherosclerotic heart disease of native coronary artery with other forms of angina pectoris; E78.5 Hyperlipidemia, unspecified; K21.9 Gastro-esophageal reflux disease without esophagitis; F45.8 Other somatoform disorders; T38.0X5A Adverse effect of glucocorticoids and synthetic analogues, initial encounter; E78.00 Pure hypercholesterolemia, unspecified; T50.1X5A Adverse effect of loop [high-ceiling] diuretics, initial encounter; R13.10 Dysphagia, unspecified; F17.210 Nicotine dependence, cigarettes, uncomplicated; I25.2 Old myocardial infarction; Z79.02 Long term (current) use of antithrombotics/antiplatelets; Z95.5 Presence of coronary angioplasty implant and graft

== ENCOUNTER 2016-12-23 19:29 | Inpatient (IN) | payer OTHER, MEDICARE ==
[2016-12-23] MEDS ORDERED: Ipratropium 0.02% Inhal Soln (0.5 mg/2.5 ml) UD IH PRN (20:04)
[2016-12-23] MEDS ORDERED: Levalbuterol 0.63 MG/3 ML Inhal Soln UD IH PRN (20:20)
[2016-12-23] MEDS: Budesonide 0.5 mg/2 ml Inhal Susp UD IH SCH (20:31)
[2016-12-23] MEDS: Arformoterol 15 mcg/2 ml Inh Sol IH SCH (20:31)
[2016-12-23] MEDS: MethylPREDNISolone 40 mg Vial IVP SCH (21:43)
[2016-12-23] MEDS: Nystatin 100,000 Units/ml Oral Susp 5 ml UD PO SCH (21:43)
[2016-12-23] MEDS ORDERED: Pneumococcal 23-Valent Vaccine IM ONE (22:49)
[2016-12-24] MEDS: Ipratropium 0.02% Inhal Soln (0.5 mg/2.5 ml) UD IH SCH ×4 (01:57→20:35)
[2016-12-24] MEDS: MethylPREDNISolone 40 mg Vial IVP SCH ×3 (05:53→21:56)
[2016-12-24] MEDS: Levothyroxine 200 MCG TAB PO SCH (05:53)
[2016-12-24] MEDS: levoFLOXacin 750 mg in D5W 750 MG/150 ML BAG IVPB SCH (05:54)
[2016-12-24] MEDS ORDERED: levoFLOXacin 750 mg in D5W 150 ML BAG IVPB SCH (06:00)
[2016-12-24 07:30] LABS: GRAN # 8.81 (1.4-6.5); GRAN % 94.4 % (50.0-68.0); HEMOGLOBIN 11.8 gm/dL (14.0-18.0); LYMPH # 0.2 (1.2-3.4); LYMPH % 1.9 % (22.0-35.0); MEAN CELL VOLUME 102.1 fL (80.0-105.0); MEAN CORPUSCULAR HEMOGLOBIN 31.5 pg (25.0-35.0); MEAN CORPUSCULAR HGB CONC 30.8 g/dl (31.0-37.0); MEAN PLATELET VOLUME 9.7 fl (7.0-11.0); MONO # 0.4 (0.1-0.6); MONO % 3.7 % (1.0-6.0); PLATELET COUNT 225 10^3/uL (120.0-450.0); RBC 3.75 10^6/uL (3.5-6.1); RED CELL DISTRIBUTION WIDTH 13.4 % (11.5-14.5); WHITE BLOOD COUNT 9.3 10^3/ul (4.5-11.0)
[2016-12-24 07:46] LABS: ALB/GLOB RATIO 0.9 (1.1-1.8); ALBUMIN 2.6 g/dL (3.0-4.8); ALT/SGPT 88 U/L (7-56); AST/SGOT 45 U/L (15-59); BLOOD UREA NITROGEN 37 mg/dL (7-21); CALCIUM 7.8 mg/dL (8.4-10.5); GFR AFRICAN-AMERICAN > 60; GFR NON-AFRICAN AMERICAN > 60
[2016-12-24] MEDS: Arformoterol 15 mcg/2 ml Inh Sol IH SCH ×2 (08:26→20:35)
[2016-12-24] MEDS: Budesonide 0.5 mg/2 ml Inhal Susp UD IH SCH ×2 (08:27→20:35)
[2016-12-24] MEDS: Nystatin 100,000 Units/ml Oral Susp 5 ml UD PO SCH ×4 (10:00→21:56)
[2016-12-24] MEDS ORDERED: Sodium Chloride 0.9% 250 ML IV SCH (11:09)
--- NOTE | 2016-12-24 13:02 | PN ---
CARDIOLOGY FOLLOWUP DATE: 12/24/2016 SUBJECTIVE: The patient is in the TCU. His breathing is much better. His hypotension has resolved since we stopped the Lasix. PHYSICAL EXAMINATION: VITAL SIGNS: Blood pressure varies between 111 and 102 systolic, heart rate is in the 80s. NECK: Negative JVD. LUNGS: No rales noted. HEART: Reveal S1 and S2. EXTREMITIES: Without edema. LABORATORY DATA: Hemoglobin is 11.8. Chemistries: BUN is 37, creatinine is 0.6, potassium is 5.6. IMPRESSION 1. Status post exacerbation of chronic obstructive pulmonary disease. 2. Coronary artery disease. 3. Stable angina. 4. Status post dyspnea. 5. Hypercholesterolemia. PLAN: Given these findings, we will continue monitor his blood pressure. We will recheck his potassium in the morning. Scottie Sandoval MD
--- NOTE | 2016-12-24 13:13 | PN ---
DATE: 12/24/2016 SUBJECTIVE: The patient appears comfortable this morning. He is not short of breath at rest. PHYSICAL EXAMINATION: VITAL SIGNS: Temperature is 98.3, pulse is 68, respirations 18, blood pressure 111/69, oxygen saturation on nasal cannula is 100%. HEENT: Normocephalic, atraumatic. NECK: No JVD. CARDIOVASCULAR: Systolic ejection murmur at the lower left sternal border. No S3 gallop. LUNGS: Decreased breath sounds at the bases. Minimal/less rhonchi. No wheezing. EXTREMITIES: Mild edema. No cyanosis. No clubbing. Calves are nontender to palpation. GASTROINTESTINAL: Abdomen is soft, nontender, and nondistended. Bowel sounds are positive. SKIN: No acute rash. NEUROLOGIC: Limited at the present time. IMPRESSION: 1. Status post respiratory failure. 2. Advanced chronic obstructive pulmonary disease. 3. Chronic bilateral pleural effusions. 4. Bibasilar atelectasis. PLAN: The patient appears comfortable this morning. He is not short of breath at rest. He does state he is feeling much better overall. Oxygen saturation on nasal cannula is now 100%. On physical exam, there is less bronchospasm noted. I will continue the current nebulizer treatments and decrease the intravenous steroids this morning. The patient also remains on antibiotic therapy. The patient is now on the transitional unit, where he will participate with physical therapy. The patient's clinical status is certainly improved overall. However, his future prognosis does remain guarded. I will discuss the above Dr. Avitia. Kirs Heaton MD MTDBisi
[2016-12-24 16:17] LABS: BLOOD UREA NITROGEN 33 mg/dL (7-21); CALCIUM 7.9 mg/dL (8.4-10.5); GFR AFRICAN-AMERICAN > 60; GFR NON-AFRICAN AMERICAN > 60
--- NOTE | 2016-12-24 19:52 | CP.PCM.HP ---
History of Present Illness - History of Present Illness History of Present Illness: Cindy Mendoza DO PGY1 - Internal Medicine H&P - Adore/Evelyn Service CC: Deconditioning and weakness HPI: 81 yo M with a PMH of CAD s/p stents, CHF (LVEF 54%), COPD, hypothyroidism and HLD presents to the TCU for deconditioning and weakness after discharge from med/surg inpatient floors, where he was admitted for hypercapneic respiratory failure likely secondary to COPD exacerbation. Today, he denies SOB or CP. He continues to complain of a mild resting tremor, but it is improved since yesterday. Cardiology and pulmonology are already consulted and seeing him , all recs appreciated. PMH: CHF, COPD, CAD, HLD, hypothyroidism PSH: PCI with stenting, thoracentesis FHx: HTN Soc: Chronic tobacco and alcohol use. No illicits All: NKDA Meds: Please see MAR Present on Admission - Present on Admission Any Indicators Present on Admission: No Past Patient History - Infectious Disease Hx of Infectious Diseases: None - Tetanus Immunizations Tetanus Immunization: Unknown, OTH - Past Social History Smoking Status: Former Smoker - CARDIAC Hx Cardiac Disorders: Yes (M.I. with stents) Hx Hypertension: Yes - PULMONARY Hx Chronic Obstructive Pulmonary Disease (COPD): Yes - NEUROLOGICAL Hx Neurological Disorder: No - HEENT Hx HEENT Problems: Yes Hx Cataracts: Yes (R EYE) - RENAL Hx Chronic Kidney Disease: No - ENDOCRINE/METABOLIC Hx Hypothyroidism: Yes - HEMATOLOGICAL/ONCOLOGICAL Hx Blood Disorders: No - INTEGUMENTARY Hx Dermatological Problems: No - MUSCULOSKELETAL/RHEUMATOLOGICAL Hx Falls: Yes - GASTROINTESTINAL Hx Gastrointestinal Disorders: Yes (POOR APPETITE,H/O DYSPHAGIA DUE TO THRUSH) - GENITOURINARY/GYNECOLOGICAL Hx Genitourinary Disorders: No Hx Reproductive Disorders: No - PSYCHIATRIC Hx Psychophysiologic Disorder: No Hx Substance Use: No - SURGICAL HISTORY Hx Cardiac Catheterization: Yes Hx Coronary Stent: Yes - ANESTHESIA Hx Anesthesia Reactions: No Hx Malignant Hyperthermia: No Meds Allergies/Adverse Reactions: Allergies Allergy/AdvReac Type Severity Reaction Status Date / Time No Known Allergies Allergy Verified 12/23/16 20:24 Physical Exam - Constitutional Appears: Non-toxic, No Acute Distress, Chronically Ill - Head Exam Head Exam: ATRAUMATIC, NORMOCEPHALIC - Eye Exam Eye Exam: EOMI, Normal appearance Pupil Exam: PERRL - ENT Exam ENT Exam: Mucous Membranes Moist - Respiratory Exam Respiratory Exam: Clear to Auscultation Bilateral. absent: Rales, Rhonchi, Wheezes - Cardiovascular Exam Cardiovascular Exam: RRR, +S1, +S2 - GI/Abdominal Exam GI & Abdominal Exam: Normal Bowel Sounds, Soft. absent: Tenderness - Extremities Exam Extremities exam: Positive for: normal inspection. Negative for: calf tenderness, pedal edema Additional comments: Mild tremor at rest. - Neurological Exam Neurological exam: Alert, Oriented x3 Additional comments: Mild tremor in hands, forearms, and jaw at rest. Tremor dissapears with any intentional movements. - Psychiatric Exam Psychiatric exam: Normal Affect, Normal Mood - Skin Skin Exam: Dry, Intact Results - Vital Signs Recent Vital Signs: Last Vital Signs Temp 98.3 F 12/23/16 20:00 Pulse 72 12/24/16 13:31 Resp 20 12/24/16 10:19 BP 118/72 12/24/16 13:31 Pulse Ox 99 12/24/16 10:19 - Labs Result Diagrams: 12/24/16 07:00 12/24/16 15:50 Labs: Laboratory Results - last 24 hr 12/24/16 12/24/16 12/24/16 07:00 07:00 15:50 WBC 9.3 RBC 3.75 Hgb 11.8 L Hct 38.3 L MCV 102.1 MCH 31.5 MCHC 30.8 L RDW 13.4 Plt Count 225 MPV 9.7 Gran % 94.4 H Lymph % (Auto) 1.9 L Shoshone % (Auto) 3.7 Eos % (Auto) 0.0 L Baso % (Auto) 0.0 Gran # 8.81 H Lymph # 0.2 L Shoshone # 0.4 Eos # 0.0 Baso # 0.00 Sodium 132 129 L Potassium 5.6 H* 4.8 Chloride 85 L 83 L Carbon Dioxide 47 H 44 H Anion Gap 6 L 11 BUN 37 H 33 H Creatinine 0.6 0.7 Est GFR ( Amer) > 60 > 60 Est GFR (Non-Af Amer) > 60 > 60 Random Glucose 119 H 213 H Calcium 7.8 L 7.9 L Total Bilirubin 0.6 AST 45 ALT 88 H Alkaline Phosphatase 51 Total Protein 5.5 L Albumin 2.6 L Globulin 2.9 Albumin/Globulin Ratio 0.9 L Assessment & Plan - Assessment and Plan (Free Text) Assessment: 81 yo M with PMH of CAD s/p stents, CHF (LVEF 54%), COPD, hypothyroidism and HLD admitted for hypercapneic respiratory failure likely secondary to COPD exacerbation Plan: 1. Deconditioning and weakness - Daily physical therapy, strengthening exercises 2. COPD exacerbation - Previously dyspneic, now improved - O2 supplementation to maintain SaO2 ~90-92%; currently on 2LNC and tolerating well - Continue levaquin 750mg IV daily - Continue xopenex/atrovent PRN and ANAMARIA, and pulmicort/brovana as ordered - Decrease Solu-Medrol to 30mg IV Q12 - CXR reviewed; revealed bibasilar pleural effusions, patchy infiltrates, and compressive atalectasis - CT Chest reviewed; please refer to full report - Pulmonology consulted - Dr. Heaton/Dr. Su, all recs appreciated; patient may require diagnostic/therapeutic thoracentesis for evaluation of pleural fluid - Cardiology consulted (Jaime), all recs appreciated - Echocardiogram reviewed; LVEF 54%, revealed pulmonary HTN, TR/MR - Blood culture/Urine culture negative - Afebrile, leukocytosis of 13.2, decreasing, likely secondary to steroids 3. Hx of CAD - Continue ASA/Plavix/Lipitor - Continue metoprolol 25mg PO TID - Cardiology recs appreciated - Echo reviewed 4. Hyperlipidemia - Continue lipitor 5. Hypothyroidism - Continue synthroid 6. Globus - Likely 2/2 to oral candidiasis 2/2 high dose steroids - Throat culture pending - Continue Nystatin s/s GI/DVT Prophylaxis - Protonix/Heparin SC Patient seen, discussed and reviewed with attending
[2016-12-25] MEDS: levoFLOXacin 750 mg in D5W 750 MG/150 ML BAG IVPB SCH (05:55)
[2016-12-25] MEDS: Levothyroxine 200 MCG TAB PO SCH (05:56)
[2016-12-25] MEDS: Ipratropium 0.02% Inhal Soln (0.5 mg/2.5 ml) UD IH SCH ×4 (06:11→20:14)
[2016-12-25] MEDS: Arformoterol 15 mcg/2 ml Inh Sol IH SCH ×2 (07:19→20:15)
[2016-12-25] MEDS: Budesonide 0.5 mg/2 ml Inhal Susp UD IH SCH ×2 (07:20→20:15)
[2016-12-25 07:53] LABS: HEMOGLOBIN 11.5 gm/dL (14.0-18.0); MEAN CELL VOLUME 101.1 fL (80.0-105.0); MEAN CORPUSCULAR HGB CONC 30.7 g/dl (31.0-37.0); MEAN PLATELET VOLUME 9.7 fl (7.0-11.0); PLATELET COUNT 218 10^3/uL (120.0-450.0); RBC 3.71 10^6/uL (3.5-6.1); RED CELL DISTRIBUTION WIDTH 13.3 % (11.5-14.5); WHITE BLOOD COUNT 9.5 10^3/ul (4.5-11.0)
[2016-12-25 08:22] LABS: ALBUMIN 2.5 g/dL (3.0-4.8); ALT/SGPT 124 U/L (7-56); AST/SGOT 53 U/L (15-59); BLOOD UREA NITROGEN 31 mg/dL (7-21); GFR AFRICAN-AMERICAN > 60; GFR NON-AFRICAN AMERICAN > 60
--- NOTE | 2016-12-25 09:00 | PN ---
DATE: 12/25/2016 SUBJECTIVE: The patient appears comfortable this morning. He is not short of breath at rest. PHYSICAL EXAMINATION VITAL SIGNS: Temperature is 98.4, pulse is 88, respirations 18, blood pressure 123/65. Oxygen saturation on nasal cannula is 99%. HEENT: Normocephalic, atraumatic. NECK: No JVD. CARDIOVASCULAR: Systolic ejection murmur at the lower left sternal border. No S3 gallop. LUNGS: Decreased breath sounds at the bases. very minimal rhonchi. No wheezing. EXTREMITIES: Positive edema. No cyanosis, no clubbing. Calves are nontender to palpation. GASTROINTESTINAL: Abdomen is soft, nontender, nondistended. Bowel sounds are positive. SKIN: No acute rash. NEUROLOGIC: Limited at the present time. IMPRESSION: 1. Status post respiratory failure. 2. Advanced chronic obstructive pulmonary disease. 3. Chronic bilateral pleural effusions. 4. Bibasilar atelectasis. PLAN: The patient appears more comfortable this morning. He is not short of breath at rest. He states he is feeling much better overall. Oxygen saturation on nasal cannula is now 99%. On physical exam, no significant bronchospasm is noted. I will continue the current nebulizer treatments and decrease the intravenous steroids this morning. The patient is advised to increase his activity as tolerated. Clinical status of the patient is significantly improved. However, the overall status/prognosis for this elderly patient-- with multiple medical problems-- remains very guarded. All are aware. I will discuss the above with Dr. Avitia. Kris Heaton MD MTDBisi
[2016-12-25 09:08] LABS: EOSINOPHIL 1 % (0.0-3.0); LYMPHOCYTE 3 % (22.0-35.0); MONOCYTE 2 % (1.0-6.0); NEUTROPHIL 94 % (50.0-70.0); PLATELET ESTIMATE NORMAL (NORMAL)
[2016-12-25] MEDS: Nystatin 100,000 Units/ml Oral Susp 5 ml UD PO SCH ×4 (10:09→21:34)
[2016-12-25] MEDS: MethylPREDNISolone 40 mg Vial IVP SCH ×2 (10:10→21:35)
[2016-12-26] MEDS: Ipratropium 0.02% Inhal Soln (0.5 mg/2.5 ml) UD IH SCH ×4 (01:05→20:12)
[2016-12-26] MEDS: levoFLOXacin 750 mg in D5W 750 MG/150 ML BAG IVPB SCH (05:38)
[2016-12-26] MEDS: Levothyroxine 200 MCG TAB PO SCH (05:39)
[2016-12-26 05:55] LABS: GRAN # 11.76 (1.4-6.5); GRAN % 90.4 % (50.0-68.0); HEMOGLOBIN 10.3 gm/dL (14.0-18.0); LYMPH # 0.6 (1.2-3.4); LYMPH % 4.5 % (22.0-35.0); MEAN PLATELET VOLUME 9.8 fl (7.0-11.0); MONO # 0.7 (0.1-0.6); MONO % 5.1 % (1.0-6.0); PLATELET COUNT 245 10^3/uL (120.0-450.0); RBC 3.32 10^6/uL (3.5-6.1); RED CELL DISTRIBUTION WIDTH 13.4 % (11.5-14.5)
[2016-12-26 06:06] LABS: ALBUMIN 2.8 g/dL (3.0-4.8); ALT/SGPT 126 U/L (7-56); AST/SGOT 56 U/L (15-59); BLOOD UREA NITROGEN 63 mg/dL (7-21); CALCIUM 8.2 mg/dL (8.4-10.5); GFR AFRICAN-AMERICAN > 60; GFR NON-AFRICAN AMERICAN > 60
[2016-12-26 06:21] LABS: ALB/GLOB RATIO 1.1 (1.1-1.8)
[2016-12-26] MEDS: Arformoterol 15 mcg/2 ml Inh Sol IH SCH ×2 (07:17→20:09)
[2016-12-26] MEDS: Budesonide 0.5 mg/2 ml Inhal Susp UD IH SCH ×2 (07:18→20:10)
--- NOTE | 2016-12-26 07:29 | PN ---
SUBJECTIVE: The patient feels comfortable this morning. He is not short of breath at rest. PHYSICAL EXAMINATION VITAL SIGNS: Temperature is 97.6, pulse 95, respirations 18, blood pressure 121/75. Oxygen saturation on nasal cannula is 98%. HEENT: Normocephalic and atraumatic. No JVD. CARDIOVASCULAR: Systolic ejection murmur at the lower left sternal border. No S3 gallop. LUNGS: Decreased breath sounds at the bases. Minimal/less rhonchi. No wheezing. EXTREMITIES: Positive for edema. No cyanosis or clubbing. Calves are nontender to palpation. GASTROINTESTINAL: Abdomen is soft, nontender, and nondistended. Bowel sounds are positive. SKIN: No acute rash. NEUROLOGIC: Limited at the present time. IMPRESSION: 1. Status post respiratory failure. 2. Advanced chronic obstructive pulmonary disease. 3. Chronic bilateral pleural effusions. 4. Bibasilar atelectasis. PLAN: The patient appears very comfortable this morning. He is not short of breath at rest. He states he is feeling much better overall. Oxygen saturation on nasal cannula is 98%. On physical exam, his bronchospasm continues to slowly resolve. I will continue the current nebulizer treatments and low-dose intravenous steroids for now. Steroid dosage has been decreased the past few days. I would the continue with the Cardiology evaluation. Input by Dr. Sandoval as noted. Clinical status of the patient is certainly improved. However, the overall status/prognosis for this patient remains very guarded. All are aware. I will discuss the above with Dr. Avitia. Kris Heaton MD MTDD
[2016-12-26] MEDS ORDERED: Lidocaine 2% Jelly (Uro-Jet) TOP ONE (07:34)
[2016-12-26] MEDS ORDERED: Sodium Chloride 0.9% 250 ML IV SCH (09:26)
[2016-12-26] MEDS: Nystatin 100,000 Units/ml Oral Susp 5 ml UD PO SCH ×4 (09:51→21:54)
[2016-12-26] MEDS: MethylPREDNISolone 40 mg Vial IVP SCH ×2 (09:51→21:55)
[2016-12-26 10:02] LABS: ARTERIAL BLOOD GAS O2 CAPACITY 13.7 mL/dl (16-24); ARTERIAL BLOOD GAS O2 CONTENT 13.1 ML/dl (15-23); ARTERIAL BLOOD GAS O2 SAT 95.9 % (95-98); ARTERIAL BLOOD GAS PH 7.38 (7.35-7.45); ARTERIAL BLOOD GAS TCO2 46.7 mmol.L (22-28)
[2016-12-26 10:04] LABS: ARTERIAL BLOOD GAS PCO2 75 mm/Hg (35-45)
[2016-12-26 10:05] LABS: ARTERIAL BLOOD GAS HCO3 44.4 mmol/L (21-28)
[2016-12-26 10:28] LABS: % IRON SATURATION 77 % (20-55); IRON 139 ug/dL (45-180); TOTAL IRON BINDING CAPACITY 182 ug/dL (261-462)
--- NOTE | 2016-12-26 11:02 | CARD ---
APPROVED REPORT EKG Measurement Heart [id number] DC 110P3 [id number] <Conclusion> Sinus rhythm with sinus arrhythmia with short DC Possible Left atrial enlargement Nonspecific T wave abnormality Abnormal ECG
--- NOTE | 2016-12-26 13:12 | PN ---
DATE: 12/26/2016 SUBJECTIVE: The patient is comfortable, sitting in the chair. No shortness of breath noted. PHYSICAL EXAMINATION VITAL SIGNS: Blood pressure 121/65, heart rate is in the 90s. NECK: Negative JVD. LUNGS: Without rales. HEART: S1 and S2. EXTREMITIES: Without edema. LABORATORY DATA: His hemoglobin is 10.3. Chemistries; glucose is 119. IMPRESSION: 1. Status post respiratory failure. 2. Status post exacerbation of chronic obstructive pulmonary disease. 3. Coronary artery disease. 4. Stable angina. 5. Hypercholesteremia. PLAN: Given these findings, the patient is doing well. I agree with the trial of holding the nasal O2. We will off oxygen. Scottie Sandoval MD
[2016-12-26] MEDS: POLYETHYLENE GLYCOL 3350 17 GM/Dose PACKET PO SCH (14:26)
--- NOTE | 2016-12-26 16:21 | CP.PCM.PN ---
Subjective - Date & Time of Evaluation Date of Evaluation: 12/26/16 Time of Evaluation: 06:45 - Subjective Subjective: Cindy Mendoza DO PGY1 - Internal Medicine Progress Note - Adore/Evelyn Service Patient seen and examined at bedside. No acute events reported overnight. Patient no longer experiencing any shortness of breath while on 2L O2 by nasal cannula. Speaking and breathing comfortably. Is complaining of constipation. Feels as though he is benifitting from the daily PT and exercise. Denies any CP , palpitations, abdominal pain, N/V/D, fever or chills. Objective - Vital Signs/Intake and Output Vital Signs (last 24 hours): Temp Pulse Resp BP Pulse Ox 98.4 F 103 H 20 112/63 97 12/26/16 10:00 12/26/16 14:30 12/26/16 10:00 12/26/16 14:30 12/26/16 10:00 - Medications Medications: Current Medications Arformoterol Tartrate (Brovana) 15 mcg IH [id number] COUNT INCLUDES THE [facility] PRN Reason: Protocol Last Admin: 12/26/16 07:17 Dose: 15 mcg Aspirin (Aspirin Chewable) 81 mg PO 0800 COUNT INCLUDES THE [facility] Last Admin: 12/26/16 08:12 Dose: 81 mg Atorvastatin Calcium (Lipitor) 40 mg PO DIN COUNT INCLUDES THE [facility] Last Admin: 12/25/16 17:12 Dose: 40 mg Budesonide (Pulmicort Respules) 0.5 mg IH [id number] COUNT INCLUDES THE [facility] Last Admin: 12/26/16 07:18 Dose: 0.5 mg Clopidogrel Bisulfate (Plavix) 75 mg PO 0800 COUNT INCLUDES THE [facility] Last Admin: 12/26/16 08:12 Dose: 75 mg Heparin Sodium (Porcine) (Heparin) 5,000 units SC 0600,1800 COUNT INCLUDES THE [facility] PRN Reason: Protocol Last Admin: 12/26/16 05:38 Dose: 5,000 units Levofloxacin/Dextrose (Levaquin 750mg) 750 mg in 150 mls @ 300 mls/hr IVPB 0600 COUNT INCLUDES THE [facility] Last Admin: 12/26/16 05:38 Dose: 300 mls/hr Sodium Chloride (Sodium Chloride 0.9%) 250 mls @ 100 mls/hr IV .Q2H30M COUNT INCLUDES THE [facility] Ipratropium Cropsey (Atrovent) 0.5 mg IH Q3 PRN PRN Reason: Shortness of Breath Ipratropium Cropsey (Atrovent) 0.5 mg IH [id number] COUNT INCLUDES THE [facility] Last Admin: 12/26/16 13:01 Dose: 0.5 mg Levalbuterol HCl (Xopenex) 0.63 mg IH [id number] PRN PRN Reason: Shortness of Breath Levothyroxine Sodium (Synthroid) 200 mcg PO 0600 COUNT INCLUDES THE [facility] Last Admin: 12/26/16 05:39 Dose: 200 mcg Methylprednisolone (Solu-Medrol) 20 mg IVP Q12 COUNT INCLUDES THE [facility] Last Admin: 12/26/16 09:51 Dose: 20 mg Metoprolol Tartrate (Lopressor) 25 mg PO 0600,1400,2200 COUNT INCLUDES THE [facility] Last Admin: 12/26/16 14:30 Dose: 25 mg Mupirocin (Bactroban Ointment) 0 gm TOP BID COUNT INCLUDES THE [facility] Last Admin: 12/26/16 11:33 Dose: 1 applic Nystatin (Nystatin Oral Susp) 5 ml PO QID COUNT INCLUDES THE [facility] Last Admin: 12/26/16 14:26 Dose: 5 ml Polyethylene Glycol (Miralax) 17 gm PO DAILY COUNT INCLUDES THE [facility] Last Admin: 12/26/16 14:26 Dose: 17 gm - Labs Labs: 12/26/16 05:25 12/26/16 05:25 - Constitutional Appears: Non-toxic, No Acute Distress, Chronically Ill - Head Exam Head Exam: ATRAUMATIC, NORMOCEPHALIC - Eye Exam Eye Exam: EOMI, Normal appearance, PERRL - ENT Exam ENT Exam: Mucous Membranes Moist - Respiratory Exam Respiratory Exam: Decreased Breath Sounds, Clear to Ausculation Bilateral - Cardiovascular Exam Cardiovascular Exam: RRR, +S1, +S2 - GI/Abdominal Exam GI & Abdominal Exam: Soft, Normal Bowel Sounds. absent: Tenderness - Extremities Exam Extremities Exam: Normal Inspection. absent: Calf Tenderness, Pedal Edema - Neurological Exam Neurological Exam: Alert, Awake, Oriented x3 - Psychiatric Exam Psychiatric exam: Normal Affect, Normal Mood - Skin Skin Exam: Dry, Intact Assessment and Plan - Assessment and Plan (Free Text) Assessment: 81 yo M with PMH of CAD s/p stents, CHF (LVEF 54%), COPD, hypothyroidism and HLD admitted for hypercapneic respiratory failure likely secondary to COPD exacerbation Plan: 1. Deconditioning and weakness - Continue daily physical therapy, strengthening exercises 2. COPD exacerbation - Previously dyspneic, now improved - O2 supplementation to maintain SaO2 ~90-92%; currently on 2LNC and tolerating well - Continue levaquin 750mg IV daily - Continue xopenex/atrovent PRN and ANAMARIA, and pulmicort/brovana as ordered - Decrease Solu-Medrol to 20mg IV Q12 - Pulmonology consulted - Dr. Heaton/Dr. Su, all recs appreciated - Cardiology consulted (Jaime), all recs appreciated - Echocardiogram reviewed; LVEF 54%, revealed pulmonary HTN, TR/MR - Blood culture/Urine culture negative - Afebrile, vital signs stable, but leukocytosis of 13, increased again today, possibly secondary to steroids vs worsening infection. Will continue to monitor clinically and recheck CBC tomorrow - Repeat ABG on RA show respiratory acidosis with appropriate and adequate compensatory metabolic alkalosis 3. Anemia - Patient has baseline low Hgb, but today dropped from 11.5 to 10.3 - Workup started including iron studies, folate, B12, and stool for occult blood - Recheck CBC tomorrow 4. Hyperkalemia - Had a transient episode of hyperkalemia 2 days ago, which improved after a 250ml NS bolus, increased again today to 5.7 - EKG shows NSR with sinus arrhythmia, short VT, and nonspecific T-wave abnormality - Given 250ml NS bolus. Will continue to monitor and recheck CMP in AM 5. Constipation - Patient is having difficulty moving his bowels for the past few days - Start Miralax daily 6. Hx of CAD - Continue ASA/Plavix/Lipitor - Continue metoprolol 25mg PO TID - Cardiology recs appreciated - Echo reviewed 7. Hyperlipidemia - Continue lipitor 8. Hypothyroidism - Continue synthroid 9. Globus - Likely 2/2 to oral candidiasis 2/2 high dose steroids - Throat culture pending - Continue Nystatin s/s GI/DVT Prophylaxis - Protonix/Heparin SC Patient seen, discussed and reviewed with senior resident and attending
[2016-12-27 06:12] LABS: HEMOGLOBIN 9.1 gm/dL (14.0-18.0); MEAN CORPUSCULAR HGB CONC 31.3 g/dl (31.0-37.0); MEAN PLATELET VOLUME 9.7 fl (7.0-11.0); PLATELET COUNT 218 10^3/uL (120.0-450.0); RBC 2.94 10^6/uL (3.5-6.1); RED CELL DISTRIBUTION WIDTH 13.6 % (11.5-14.5); WHITE BLOOD COUNT 11.2 10^3/ul (4.5-11.0)
[2016-12-27 06:27] LABS: ALB/GLOB RATIO 1.1 (1.1-1.8); ALBUMIN 2.7 g/dL (3.0-4.8); ALT/SGPT 110 U/L (7-56); AST/SGOT 39 U/L (15-59); BLOOD UREA NITROGEN 41 mg/dL (7-21); GFR AFRICAN-AMERICAN > 60; GFR NON-AFRICAN AMERICAN > 60
[2016-12-27] MEDS: levoFLOXacin 750 mg in D5W 750 MG/150 ML BAG IVPB SCH (06:32)
[2016-12-27] MEDS: Levothyroxine 200 MCG TAB PO SCH (06:34)
--- NOTE | 2016-12-27 07:13 | PN ---
DATE: 12/27/2016 SUBJECTIVE: The patient appears very comfortable at rest. He is not short of breath. PHYSICAL EXAMINATION: VITAL SIGNS: Temperature is 98.0, pulse 98, respirations 18/20, blood pressure 110/53. Oxygen saturation on nasal cannula is 99%. HEENT: Normocephalic and atraumatic. NECK: No JVD. CARDIOVASCULAR: Systolic ejection murmur at the low left sternal border. No S3 gallop. LUNGS: Decreased breath sounds at the bases. Less rhonchi. No wheezing. EXTREMITIES: Positive for edema. No cyanosis, no clubbing. Calves are nontender to palpation. GI: Abdomen is soft, nontender, nondistended. Bowel sounds are positive. SKIN: No acute rash. NEUROLOGIC: Limited at the present time. IMPRESSION: 1. Status post respiratory failure. 2. Advanced chronic obstructive pulmonary disease. 3. Chronic bilateral pleural effusions. 4. Bibasilar atelectasis. PLAN: The patient appears very comfortable this morning. He is not short of breath at rest. He does state to feeling much better overall. Oxygen saturation on nasal cannula is now 99%. On physical exam, his bronchospasm continues to slowly resolve. I will continue with the current nebulizer treatments and change to oral steroids this morning. I would continue with the cardiology evaluation as per Dr. Sandoval. His input is noted. Clinical status of the patient has certainly improved, compared to the initial hospital status. However, again, the overall status/prognosis for this patient remains very guarded. All are aware. I will discuss the above with Dr. Avitia. Kris Heaton MD MTDD
[2016-12-27] MEDS: Ipratropium 0.02% Inhal Soln (0.5 mg/2.5 ml) UD IH SCH ×3 (07:15→20:08)
[2016-12-27] MEDS: Arformoterol 15 mcg/2 ml Inh Sol IH SCH ×2 (07:16→20:08)
[2016-12-27] MEDS: Budesonide 0.5 mg/2 ml Inhal Susp UD IH SCH ×2 (07:16→20:08)
[2016-12-27 07:52] LABS: LYMPHOCYTE 3 % (22.0-35.0); MONOCYTE 7 % (1.0-6.0); NEUTROPHIL 90 % (50.0-70.0); PLATELET ESTIMATE NORMAL (NORMAL)
[2016-12-27] MEDS: Nystatin 100,000 Units/ml Oral Susp 5 ml UD PO SCH ×4 (10:42→21:30)
[2016-12-27] MEDS: POLYETHYLENE GLYCOL 3350 17 GM/Dose PACKET PO SCH (10:43)
--- NOTE | 2016-12-27 16:05 | PN ---
DATE: 12/27/2016 SUBJECTIVE: The patient is in the TCU without shortness of breath. PHYSICAL EXAMINATION VITAL SIGNS: Blood pressure is 109/60, pulse oximetry is 99% on nasal O2, heart rate is in the 90s. NECK: Negative JVD. CARDIOPULMONARY: S1 and S2. LUNGS: Without rales. EXTREMITIES: Without edema. LABORATORY DATA: BUN and creatinine is 41 and 0.6. Hemoglobin is 9.1. IMPRESSION: 1. Exacerbation of chronic obstructive pulmonary disease. 2. Stable angina. 3. Coronary artery disease. 4. Prerenal azotemia. 5. Dyspnea, which has now resolved. PLAN: Given these findings, the patient is doing well. We will continue physical therapy. We will give a trial and re-measure pulse oximetry on room air. Scottie Sandoval MD
[2016-12-28] MEDS: Ipratropium 0.02% Inhal Soln (0.5 mg/2.5 ml) UD IH SCH ×4 (01:38→19:30)
[2016-12-28] MEDS: levoFLOXacin 750 mg in D5W 750 MG/150 ML BAG IVPB SCH (06:07)
[2016-12-28] MEDS: Levothyroxine 200 MCG TAB PO SCH (06:10)
[2016-12-28] MEDS: Budesonide 0.5 mg/2 ml Inhal Susp UD IH SCH ×2 (07:17→19:30)
[2016-12-28] MEDS: Arformoterol 15 mcg/2 ml Inh Sol IH SCH ×2 (07:17→19:30)
[2016-12-28 07:38] LABS: EOS % 0.1 % (1.5-5.0); GRAN # 8.91 (1.4-6.5); GRAN % 87.2 % (50.0-68.0); HEMOGLOBIN 8.1 gm/dL (14.0-18.0); LYMPH # 0.7 (1.2-3.4); MEAN CELL VOLUME 98.8 fL (80.0-105.0); MEAN CORPUSCULAR HEMOGLOBIN 31.4 pg (25.0-35.0); MEAN CORPUSCULAR HGB CONC 31.8 g/dl (31.0-37.0); MEAN PLATELET VOLUME 9.5 fl (7.0-11.0); MONO # 0.6 (0.1-0.6); MONO % 5.7 % (1.0-6.0); PLATELET COUNT 189 10^3/uL (120.0-450.0); RBC 2.58 10^6/uL (3.5-6.1); RED CELL DISTRIBUTION WIDTH 13.8 % (11.5-14.5); WHITE BLOOD COUNT 10.2 10^3/ul (4.5-11.0)
[2016-12-28 07:54] LABS: ALB/GLOB RATIO 1.1 (1.1-1.8); ALBUMIN 2.5 g/dL (3.0-4.8); ALT/SGPT 103 U/L (7-56); AST/SGOT 82 U/L (15-59); BLOOD UREA NITROGEN 29 mg/dL (7-21); CALCIUM 7.8 mg/dL (8.4-10.5); GFR AFRICAN-AMERICAN > 60; GFR NON-AFRICAN AMERICAN > 60
--- NOTE | 2016-12-28 09:52 | RAD ---
HISTORY: Short of breath COMPARISON: Portable chest 12/18/2016. TECHNIQUE: Chest PA and lateral FINDINGS: LUNGS: Patient appears to and extubated. Small right pleural effusion persist. None is seen the left. Bilateral basilar atelectasis or infiltrates are again identified greater the right than left. Air-fluid level from hiatal hernia is appreciated the midline to the left mediastinum. No pneumothorax. PLEURA: As per above CARDIOVASCULAR: Cardiac silhouette appears stable in size. No pulmonary vascular derangement. OSSEOUS STRUCTURES: Syndesmophytic thoracic spinal changes suggestive of possible ankylosing spondylitis VISUALIZED UPPER ABDOMEN: Normal. OTHER FINDINGS: None. IMPRESSION: Persistent bilateral basilar atelectasis or infiltrates with stable mild right pleural effusion. Resolution of left pleural effusion. Patient now extubated apparently.
[2016-12-28] MEDS: Nystatin 100,000 Units/ml Oral Susp 5 ml UD PO SCH ×4 (10:18→21:09)
[2016-12-28] MEDS: POLYETHYLENE GLYCOL 3350 17 GM/Dose PACKET PO SCH ×2 (10:19→17:10)
[2016-12-28 11:37] LABS: PH,URINE 7.5 (4.7-8.0); URINE BILIRUBIN NEGATIVE (NEGATIVE); URINE BLOOD NEGATIVE (NEGATIVE); URINE GLUCOSE (UA) NEGATIVE (NEGATIVE); URINE LEUKOCYTE ESTERASE NEGATIVE Leu/uL (NEGATIVE); URINE NITRATE NEGATIVE (NEGATIVE); URINE PROTEIN NEGATIVE mg/dL (<30 mg/dL)
[2016-12-28 11:39] LABS: URINE APPEARANCE CLEAR (CLEAR); URINE COLOR YELLOW (YELLOW)
--- NOTE | 2016-12-28 13:16 | CP.PCM.PN ---
<CINDY ALMONTE - Last Filed: 12/28/16 13:12> Subjective - Date & Time of Evaluation Date of Evaluation: 12/28/16 Time of Evaluation: 06:45 - Subjective Subjective: Cindy Almonte DO PGY1 - Internal Medicine Progress Note - Adore/Evelyn Service Patient seen and examined at bedside. No acute events reported overnight. Patient admits to some SOB while walking, especially when off O2. Based on ABG and H&P, patient was offered BiPAP, but he was not tolerating it and repeatedly refused. Still complaining of constipation. Feels as though he is benifitting from the daily PT and exercise. Denies any CP, palpitations, abdominal pain, N/V /D, fever or chills. Objective - Vital Signs/Intake and Output Vital Signs (last 24 hours): Temp Pulse Resp BP Pulse Ox 98.0 F 97 H 18 142/60 96 12/28/16 06:00 12/28/16 06:11 12/28/16 06:00 12/28/16 06:11 12/28/16 06:00 Intake and Output: 12/28/16 12/28/16 06:59 18:59 Intake Total 480 Output Total 600 Balance -120 - Medications Medications: Current Medications Arformoterol Tartrate (Brovana) 15 mcg IH [id number] [facility] PRN Reason: Protocol Last Admin: 12/28/16 07:17 Dose: 15 mcg Aspirin (Aspirin Chewable) 81 mg PO 0800 [facility] Last Admin: 12/28/16 08:17 Dose: 81 mg Atorvastatin Calcium (Lipitor) 40 mg PO DIN [facility] Last Admin: 12/27/16 17:41 Dose: 40 mg Budesonide (Pulmicort Respules) 0.5 mg IH [id number] [facility] Last Admin: 12/28/16 07:17 Dose: 0.5 mg Clopidogrel Bisulfate (Plavix) 75 mg PO 0800 [facility] Last Admin: 12/28/16 08:17 Dose: 75 mg Docusate Sodium (Colace) 100 mg PO BID [facility] Last Admin: 12/28/16 10:22 Dose: 100 mg Heparin Sodium (Porcine) (Heparin) 5,000 units SC 0600,1800 [facility] PRN Reason: Protocol Last Admin: 12/28/16 06:07 Dose: 5,000 units Levofloxacin/Dextrose (Levaquin 750mg) 750 mg in 150 mls @ 300 mls/hr IVPB 0600 [facility] Last Admin: 12/28/16 06:07 Dose: 300 mls/hr Sodium Chloride (Sodium Chloride 0.9%) 250 mls @ 100 mls/hr IV .Q2H30M [facility] Ipratropium [place] (Atrovent) 0.5 mg IH Q3 PRN PRN Reason: Shortness of Breath Ipratropium [place] (Atrovent) 0.5 mg IH [id number] [facility] Last Admin: 12/28/16 07:17 Dose: 0.5 mg Levalbuterol HCl (Xopenex) 0.63 mg IH [id number] PRN PRN Reason: Shortness of Breath Levothyroxine Sodium (Synthroid) 200 mcg PO 0600 [facility] Last Admin: 12/28/16 06:10 Dose: 200 mcg Metoprolol Tartrate (Lopressor) 25 mg PO 0600,1400,2200 [facility] Last Admin: 12/28/16 06:11 Dose: 25 mg Mupirocin (Bactroban Ointment) 0 gm TOP BID [facility] Last Admin: 12/28/16 10:32 Dose: 1 applic Nystatin (Nystatin Oral Susp) 5 ml PO QID [facility] Last Admin: 12/28/16 10:18 Dose: 5 ml Polyethylene Glycol (Miralax) 17 gm PO DAILY [facility] Last Admin: 12/28/16 10:19 Dose: 17 gm Prednisone (Prednisone Tab) 30 mg PO DAILY [facility] Last Admin: 12/28/16 10:18 Dose: 30 mg - Labs Labs: 12/28/16 07:00 12/28/16 07:00 - Constitutional Appears: Non-toxic, No Acute Distress, Chronically Ill - Head Exam Head Exam: ATRAUMATIC, NORMOCEPHALIC - Eye Exam Eye Exam: EOMI, Normal appearance Pupil Exam: PERRL - ENT Exam ENT Exam: Mucous Membranes Moist Additional comments: Poor dentition. Mostly edentulous. - Respiratory Exam Additional comments: Diffusely decreased breath sounds, virtually absent over RLL. Mild rales diffusely. Prolonged expiratory phase, and short inspiratory phase. On 2L O2 by nasal cannula - Cardiovascular Exam Cardiovascular Exam: RRR, +S1, +S2 - GI/Abdominal Exam GI & Abdominal Exam: Soft, Normal Bowel Sounds. absent: Tenderness - Rectal Exam Additional comments: Small stool on rectal exam. No deb blood. No hemorrhoids. Stool is brown. - Extremities Exam Extremities Exam: Pedal Edema Additional comments: 2+ pitting edema to upper tibia - Neurological Exam Neurological Exam: Alert, Awake, Oriented x3 - Psychiatric Exam Psychiatric exam: Normal Affect, Normal Mood Assessment and Plan - Assessment and Plan (Free Text) Assessment: 81 yo M with PMH of CAD s/p stents, CHF (LVEF 54%), COPD, hypothyroidism and HLD admitted for hypercapneic respiratory failure likely secondary to COPD exacerbation Plan: 1. Deconditioning and weakness - Continue daily physical therapy, strengthening exercises 2. COPD exacerbation - Previously dyspneic, now improved - Ronaldo has Chronic Respiratory Failure due to severe COPD. Patient has been having trouble tolerating the BiPAP and complains of symptoms parallel to breath stacking. Plan is to discontinue the use of the BiPAP as it has been proven insufficient, and instead order non-invasive ventilation to target volume control and reduce the elevated PCO2 levels that the patient has experienced on BiPAP, Without non-invasive ventilation, patient might endure additional hospital admissions or even a life threatening event. This plan has been discussed with the patient. - O2 supplementation to maintain SaO2 ~90-92%; currently on 2LNC - Continue levaquin 750mg IV daily - Continue xopenex/atrovent PRN and ANAMARIA, and pulmicort/brovana as ordered - Stopped Solu-Medrol - Continue prednisone 30mg daily per pulm - Pulmonology consulted - Dr. Heaton/Dr. Su, all recs appreciated - Cardiology consulted (Jaime), all recs appreciated - Blood culture/Urine culture negative - Afebrile, vital signs stable, leukocytosis resolved. - Repeat ABG on RA show respiratory acidosis with appropriate and adequate compensatory metabolic alkalosis 3. Anemia - Patient has baseline low Hgb, but today dropped to 8.1, has been dropping approximately 1 point per day for the past 4 days. - Iron studies indicate mixed acute iron deficiency and anemia of chronic disease. Folate and B12 WNL. Stool for occult blood negative. - Holding PO iron for now due to constipation - Ordered serum and urine immunofixation to rule out malignancy - Ordered Kennedi to rule out hemolysis - Ordered type and screen for possible transfusion if H/H continues to downtrend - Recheck CBC tomorrow 4. Hyperkalemia - improved - Improved after 5. Constipation - Patient is having difficulty moving his bowels for the past few days - Continue miralax BID daily, continue colace BID - Attempted manual disimpaction today, without success. Given glycerin suppository. - If still no BM tomorrow, will consider Mag Citrate 6. Hx of CAD - Continue ASA/Plavix/Lipitor - Continue metoprolol 25mg PO TID - Cardiology recs appreciated - Echo reviewed 7. Hyperlipidemia - Continue lipitor 8. Hypothyroidism - Continue synthroid GI/DVT Prophylaxis - Protonix/Heparin SC Patient seen, discussed and reviewed with and attending <Sylvester Moore - Last Filed: 12/28/16 16:05> Objective - Vital Signs/Intake and Output Vital Signs (last 24 hours): Temp Pulse Resp BP Pulse Ox 98.0 F 90 18 98/60 L 96 12/28/16 06:00 12/28/16 13:28 12/28/16 06:00 12/28/16 13:28 12/28/16 06:00 Intake and Output: 12/28/16 12/28/16 06:59 18:59 Intake Total 480 Output Total 600 Balance -120 - Medications Medications: Current Medications Arformoterol Tartrate (Brovana) 15 mcg IH [id number] [facility] PRN Reason: Protocol Last Admin: 12/28/16 07:17 Dose: 15 mcg Aspirin (Aspirin Chewable) 81 mg PO 0800 [facility] Last Admin: 12/28/16 08:17 Dose: 81 mg Atorvastatin Calcium (Lipitor) 40 mg PO DIN [facility] Last Admin: 12/27/16 17:41 Dose: 40 mg Budesonide (Pulmicort Respules) 0.5 mg IH [id number] [facility] Last Admin: 12/28/16 07:17 Dose: 0.5 mg Clopidogrel Bisulfate (Plavix) 75 mg PO 0800 [facility] Last Admin: 12/28/16 08:17 Dose: 75 mg Docusate Sodium (Colace) 100 mg PO BID [facility] Last Admin: 12/28/16 10:22 Dose: 100 mg Heparin Sodium (Porcine) (Heparin) 5,000 units SC 0600,1800 [facility] PRN Reason: Protocol Last Admin: 12/28/16 06:07 Dose: 5,000 units Levofloxacin/Dextrose (Levaquin 750mg) 750 mg in 150 mls @ 300 mls/hr IVPB 0600 [facility] Last Admin: 12/28/16 06:07 Dose: 300 mls/hr Sodium Chloride (Sodium Chloride 0.9%) 250 mls @ 100 mls/hr IV .Q2H30M [facility] Ipratropium [place] (Atrovent) 0.5 mg IH Q3 PRN PRN Reason: Shortness of Breath Ipratropium [place] (Atrovent) 0.5 mg IH [id number] [facility] Last Admin: 12/28/16 13:25 Dose: 0.5 mg Levalbuterol HCl (Xopenex) 0.63 mg IH [id number] PRN PRN Reason: Shortness of Breath Levothyroxine Sodium (Synthroid) 200 mcg PO 0600 [facility] Last Admin: 12/28/16 06:10 Dose: 200 mcg Metoprolol Tartrate (Lopressor) 25 mg PO 0600,1400,2200 [facility] Last Admin: 12/28/16 13:28 Dose: Not Given Mupirocin (Bactroban Ointment) 0 gm TOP BID [facility] Last Admin: 12/28/16 10:32 Dose: 1 applic Nystatin (Nystatin Oral Susp) 5 ml PO QID [facility] Last Admin: 12/28/16 13:29 Dose: 5 ml Polyethylene Glycol (Miralax) 17 gm PO BID [facility] Prednisone (Prednisone Tab) 30 mg PO DAILY [facility] Last Admin: 12/28/16 10:18 Dose: 30 mg - Labs Labs: 12/28/16 07:00 12/28/16 07:00 Assessment and Plan - Assessment and Plan (Free Text) Plan: went over labd\s meds orders discussed w/ nurse and resident cont w/ pt encouragement checking labs
[2016-12-29] MEDS: Ipratropium 0.02% Inhal Soln (0.5 mg/2.5 ml) UD IH SCH ×4 (02:07→19:27)
[2016-12-29] MEDS: Levothyroxine 200 MCG TAB PO SCH (05:56)
[2016-12-29] MEDS: levoFLOXacin 750 mg in D5W 750 MG/150 ML BAG IVPB SCH (05:57)
[2016-12-29 07:04] LABS: ALBUMIN 2.5 g/dL (3.0-4.8); ALT/SGPT 92 U/L (7-56); AST/SGOT 45 U/L (15-59); BILIRUBIN,DIRECT 0.2 mg/dL (0.0-0.4); BLOOD UREA NITROGEN 28 mg/dL (7-21); CALCIUM 7.8 mg/dL (8.4-10.5); GFR AFRICAN-AMERICAN > 60; GFR NON-AFRICAN AMERICAN > 60
[2016-12-29 07:11] LABS: EOS % 0.3 % (1.5-5.0); GRAN # 10.48 (1.4-6.5); GRAN % 88.6 % (50.0-68.0); LYMPH # 0.5 (1.2-3.4); LYMPH % 4.4 % (22.0-35.0); MEAN CELL VOLUME 97.6 fL (80.0-105.0); MEAN CORPUSCULAR HGB CONC 32.8 g/dl (31.0-37.0); MEAN PLATELET VOLUME 9.5 fl (7.0-11.0); MONO # 0.8 (0.1-0.6); MONO % 6.7 % (1.0-6.0); PLATELET COUNT 204 10^3/uL (120.0-450.0); RBC 2.47 10^6/uL (3.5-6.1); RED CELL DISTRIBUTION WIDTH 13.8 % (11.5-14.5); WHITE BLOOD COUNT 11.8 10^3/ul (4.5-11.0)
[2016-12-29 07:13] LABS: INR 1.1 (0.93-1.08); PARTIAL THROMBOPLASTIN TIME 37.1 Seconds (23.7-30.8); PROTHROMBIN TIME 11.9 Seconds (9.9-11.8)
[2016-12-29] MEDS: Budesonide 0.5 mg/2 ml Inhal Susp UD IH SCH ×2 (07:21→19:27)
[2016-12-29] MEDS: Arformoterol 15 mcg/2 ml Inh Sol IH SCH ×2 (07:21→19:27)
[2016-12-29 07:30] LABS: HEMOGLOBIN 7.9 gm/dL (14.0-18.0)
[2016-12-29] MEDS: Nystatin 100,000 Units/ml Oral Susp 5 ml UD PO SCH ×4 (11:19→21:10)
[2016-12-29] MEDS: Benzocaine 20% Cream(7 gm) MT PRN ×3 (11:55→22:43)
[2016-12-29] MEDS: POLYETHYLENE GLYCOL 3350 17 GM/Dose PACKET PO SCH ×2 (11:55→17:10)
--- NOTE | 2016-12-29 14:04 | PN ---
DATE: 12/29/2016 SUBJECTIVE: I saw him in the TCU for Dr. He is uncomfortable in bed. His teeth are very bad. He is looking for something for his gums and teeth is painful. He is also quite weak. Does not feeling well overall in general. He is trying to eat, but it is difficult. PHYSICAL EXAMINATION: VITAL SIGNS: 98 temperature, 97 pulse, 142/60 blood pressure, 18 respirations, 96% O2 sat on 2 liters nasal cannula. HEENT: Atraumatic and normocephalic. He has got bad teeth, gums are inflamed. I will get some Orgel, he like that idea. HEART: Regular rate. LUNGS: Decreased breath sounds, but clear to auscultation. ABDOMEN: Soft. EXTREMITIES: No edema, there are problems though. LABORATORY DATA: He has a negative stool for occult blood. I am going to redo another one of those. His white count is 7.8, his hemoglobin dropped to 7.9 and it was as high as 11.5, I am going to transfuse him 2 units packed red blood cells, hematocrit is 24.1, platelets of 204. He has a 130 sodium, potassium 4.4, BUN is 28, creatinine is 0.6, GFR is greater than 60, sugar is 91, calcium 7.8. Total bilirubin is 0.6, AST is 45, ALT is 92, alkaline phosphatase 66, total protein is 4.9. Urine is fairly clear. The occult blood for stool is negative. We are going to repeat another one. MEDICATIONS: Aspirin, Atrovent, Bactroban cream, Brovana, Colace, heparin subcutaneous, Lovenox, Levaquin IV, Lipitor, Lopressor, Miralax, Nystatin, Orajel, Plavix, prednisone, Pulmicort, IV fluids, Synthroid, and Xopenex. IMPRESSION: He has got consults with Cardiology, Pulmonary. Also there is one for GI for the hemoglobin being so low. I am going to transfuse him 2 units, check his labs tomorrow, encouragement with physical therapy, and diet and is here for chronic obstructive pulmonary disease, deconditioning, anemia. He will be transfused 2 units today. Sylvester Moore DO MTDD
--- NOTE | 2016-12-29 18:14 | CP.PCM.CON ---
<Miranda Delgado V - Last Filed: 12/29/16 18:15> History of Present Illness - History of Present Illness History of Present Illness: This 81-year-old patient with a possible medical history of coronary artery disease status post PCI CHF COPD hypothyroidism dyslipidemia was initially admitted to the medical surgical floor with respiratory failure secondary to COPD exacerbations patient today and admitted to TCU for deconditioning. Patient complaining of constipation did not move his bowels for the past 4 days sitter. Patient to denies any vomiting or abdominal pain GI consult was requested to evaluate Patient also found to be anemic with a slow drop in her hemoglobin it is now 7.9 mg on 12/25 it was 11.5 nearly 4 g drop in blood count. No obvious GI bleeding or melena Review of Systems - Review of Systems All systems: reviewed and no additional remarkable complaints except - Constitutional Constitutional: As Per HPI - EENT Eyes: As Per HPI Nose/Mouth/Throat: absent: Nasal Discharge, Hoarsness - Cardiovascular Cardiovascular: absent: Chest Pain, Palpitations - Respiratory Respiratory: absent: Cough, Hemoptysis - Gastrointestinal Gastrointestinal: absent: Abdominal Pain, Dysphagia, Nausea - Musculoskeletal Musculoskeletal: As Per HPI - Neurological Neurological: As Per HPI - Hematologic/Lymphatic Hematologic: absent: Easy Bleeding, Lymphadenopathy Past Patient History - Infectious Disease Hx of Infectious Diseases: None - Tetanus Immunizations Tetanus Immunization: Unknown, OTH - Past Social History Smoking Status: Former Smoker - CARDIAC Hx Cardiac Disorders: Yes (CAD; [place]; stent) Hx Congestive Heart Failure: Yes - PULMONARY Hx Chronic Obstructive Pulmonary Disease (COPD): Yes - NEUROLOGICAL Hx Neurological Disorder: No - HEENT Hx HEENT Problems: Yes Hx Cataracts: Yes (R EYE) - RENAL Hx Chronic Kidney Disease: No - ENDOCRINE/METABOLIC Hx Hypothyroidism: Yes - HEMATOLOGICAL/ONCOLOGICAL Hx Blood Disorders: No - INTEGUMENTARY Hx Dermatological Problems: No - MUSCULOSKELETAL/RHEUMATOLOGICAL Hx Falls: Yes - GASTROINTESTINAL Hx Gastrointestinal Disorders: Yes (POOR APPETITE,H/O DYSPHAGIA DUE TO THRUSH) - GENITOURINARY/GYNECOLOGICAL Hx Genitourinary Disorders: No Hx Reproductive Disorders: No - PSYCHIATRIC Hx Psychophysiologic Disorder: No Hx Substance Use: No - SURGICAL HISTORY Hx Cardiac Catheterization: Yes Hx Coronary Stent: Yes - ANESTHESIA Hx Anesthesia Reactions: No Hx Malignant Hyperthermia: No Meds Allergies/Adverse Reactions: Allergies Allergy/AdvReac Type Severity Reaction Status Date / Time No Known Allergies Allergy Verified 12/23/16 20:24 - Medications Medications: Current Medications Arformoterol Tartrate (Brovana) 15 mcg IH [id number] [facility] PRN Reason: Protocol Last Admin: 12/29/16 07:21 Dose: 15 mcg Aspirin (Aspirin Chewable) 81 mg PO 0800 [facility] Last Admin: 12/29/16 08:09 Dose: 81 mg Atorvastatin Calcium (Lipitor) 40 mg PO DIN [facility] Last Admin: 12/29/16 17:10 Dose: 40 mg Benzocaine (Orajel Pm Maximum Strength) 0 gm MT QID PRN PRN Reason: Pain, moderate (4-7) Last Admin: 12/29/16 17:11 Dose: 1 appl Budesonide (Pulmicort Respules) 0.5 mg IH [id number] [facility] Last Admin: 12/29/16 07:21 Dose: 0.5 mg Clopidogrel Bisulfate (Plavix) 75 mg PO 0800 [facility] Last Admin: 12/29/16 08:09 Dose: 75 mg Docusate Sodium (Colace) 100 mg PO BID [facility] Last Admin: 12/29/16 17:10 Dose: 100 mg Heparin Sodium (Porcine) (Heparin) 5,000 units SC 0600,1800 [facility] PRN Reason: Protocol Last Admin: 12/29/16 05:57 Dose: 5,000 units Levofloxacin/Dextrose (Levaquin 750mg) 750 mg in 150 mls @ 300 mls/hr IVPB 0600 [facility] Last Admin: 12/29/16 05:57 Dose: 300 mls/hr Sodium Chloride (Sodium Chloride 0.9%) 250 mls @ 100 mls/hr IV .Q2H30M [facility] Ipratropium [place] (Atrovent) 0.5 mg IH Q3 PRN PRN Reason: Shortness of Breath Ipratropium [place] (Atrovent) 0.5 mg IH [id number] [facility] Last Admin: 12/29/16 13:46 Dose: 0.5 mg Levalbuterol HCl (Xopenex) 0.63 mg IH [id number] PRN PRN Reason: Shortness of Breath Levothyroxine Sodium (Synthroid) 200 mcg PO 0600 [facility] Last Admin: 12/29/16 05:56 Dose: Not Given Metoprolol Tartrate (Lopressor) 25 mg PO 0600,1400,2200 [facility] Last Admin: 12/29/16 13:51 Dose: 25 mg Mupirocin (Bactroban Ointment) 0 gm TOP BID [facility] Last Admin: 12/29/16 17:11 Dose: 1 applic Nystatin (Nystatin Oral Susp) 5 ml PO QID [facility] Stop: 01/04/17 18:00 Last Admin: 12/29/16 17:09 Dose: 5 ml Polyethylene Glycol (Miralax) 17 gm PO BID [facility] Last Admin: 12/29/16 17:10 Dose: 17 gm Prednisone (Prednisone Tab) 30 mg PO DAILY [facility] Last Admin: 12/29/16 11:20 Dose: 30 mg Physical Exam - Constitutional Appears: No Acute Distress - Head Exam Head Exam: ATRAUMATIC, NORMOCEPHALIC - Eye Exam Eye Exam: EOMI, PERRL. absent: Scleral icterus - ENT Exam ENT Exam: Mucous Membranes Moist - Neck Exam Neck exam: Positive for: Normal Inspection. Negative for: Lymphadenopathy - Respiratory Exam Respiratory Exam: Clear to Auscultation Bilateral - Cardiovascular Exam Cardiovascular Exam: +S1, +S2. absent: JVD - GI/Abdominal Exam GI & Abdominal Exam: Normal Bowel Sounds, Soft. absent: Mass, Tenderness - Extremities Exam Extremities exam: Positive for: normal inspection. Negative for: calf tenderness - Neurological Exam Neurological exam: Alert, Oriented x3 Results - Vital Signs Recent Vital Signs: Last Vital Signs Temp 97.3 F L 12/29/16 15:28 Pulse 98 H 12/29/16 15:28 Resp 18 12/29/16 15:28 BP 110/64 12/29/16 15:28 Pulse Ox 96 12/28/16 06:00 - Labs Result Diagrams: 12/29/16 06:00 12/29/16 06:00 Labs: Laboratory Results - last 24 hr 12/28/16 12/29/16 12/29/16 12:30 06:00 06:00 WBC 11.8 H RBC 2.47 L Hgb 7.9 L Hct 24.1 L MCV 97.6 MCH 32.0 MCHC 32.8 RDW 13.8 Plt Count 204 MPV 9.5 Gran % 88.6 H Lymph % (Auto) 4.4 L [place] % (Auto) 6.7 H Eos % (Auto) 0.3 L Baso % (Auto) 0.0 Gran # 10.48 H Lymph # 0.5 L [place] # 0.8 H Eos # 0.0 Baso # 0.00 PT INR APTT Sodium 130 L Potassium 4.4 Chloride 87 L Carbon Dioxide 39 H Anion Gap 8 L BUN 28 H Creatinine 0.6 Est GFR ( Amer) > 60 Est GFR (Non-Af Amer) > 60 Random Glucose 91 Calcium 7.8 L Total Bilirubin 0.6 Direct Bilirubin 0.2 AST 45 ALT 92 H Alkaline Phosphatase 66 Total Protein 4.9 L Albumin 2.5 L Globulin 2.4 Albumin/Globulin Ratio 1.0 L Blood Type O POSITIVE Antibody Screen Negative NABILA, Poly Interpret Negative Crossmatch See Detail BBK History Checked No verified bt 12/29/16 06:00 WBC RBC Hgb Hct MCV MCH MCHC RDW Plt Count MPV Gran % Lymph % (Auto) [place] % (Auto) Eos % (Auto) Baso % (Auto) Gran # Lymph # [place] # Eos # Baso # PT 11.9 H INR 1.10 H APTT 37.1 H Sodium Potassium Chloride Carbon Dioxide Anion Gap BUN Creatinine Est GFR ( Amer) Est GFR (Non-Af Amer) Random Glucose Calcium Total Bilirubin Direct Bilirubin AST ALT Alkaline Phosphatase Total Protein Albumin Globulin Albumin/Globulin Ratio Blood Type Antibody Screen NABILA, Poly Interpret Crossmatch BBK History Checked Assessment & Plan - Assessment and Plan (Free Text) Assessment: This 81-year-old patient with a past medical history of coronary artery disease CHF COPD hypothyroidism, dyslipidemia admitted initially with hypercapnic respiratory failure secondary [facility] for deconditioning. 1.Constipation for 4 days rectal examination revealed a soft fecal impaction. Patient's been started on MiraLAX 2.History of anemia hemoglobin decreased to 7.9 it was 8.1. When the patient was hospitalized was 11.5. No obvious bright red blood per rectum or melena the differential diagnoses should include a occult GI blood loss. Patient has been on aspirin and Plavix and also on heparin Patient had iron studies done on 12/26 And the iron saturation was 77% B12 and folate levels are normal. Patient is also macrocytes taken anemia Would recommend repeat IN studies, reticulocyte count and consider hematology evaluation Would also request stool for occult blood, Would also request CT of the abdomen and pelvis with by mouth contrast Plan: 1. Close follow-up of the hemoglobin and hematocrit 2. Iron studies B12 and folate 3. Stool for occult blood 4. Empiric therapy with the PPI 5. CT of the abdomen and pelvis with by mouth contrast 6. Will increase her MiraLAX to 2-3 times a day still has good bowel movements will continue down to than once a day Thank you very much for allowing us to participate in the care of the patient will continue to closely follow up with his care and suggest further management based on the clinical course - Date & Time Date: 12/29/16 Time: 14:15 <Chelle Dodson - Last Filed: 01/03/17 11:46> Results - Vital Signs Recent Vital Signs: Last Vital Signs Temp 97.5 F L 01/02/17 06:00 Pulse 101 H 01/02/17 06:00 Resp 22 01/02/17 06:00 BP 132/72 01/02/17 06:00 Pulse Ox 98 01/02/17 06:00 - Labs Result Diagrams: 01/01/17 06:30 01/01/17 06:30 Labs: Laboratory Results - last 24 hr 01/01/17 01/01/17 01/01/17 06:21 11:40 16:07 POC Glucose (mg/dL) 96 108 85 01/01/17 21:29 POC Glucose (mg/dL) 159 H
[2016-12-30] MEDS: levoFLOXacin 750 mg in D5W 750 MG/150 ML BAG IVPB SCH (05:35)
[2016-12-30] MEDS: Levothyroxine 200 MCG TAB PO SCH (05:37)
[2016-12-30 07:07] LABS: EOS % 0.2 % (1.5-5.0); GRAN % 89.7 % (50.0-68.0); LYMPH # 0.4 (1.2-3.4); LYMPH % 3.5 % (22.0-35.0); MEAN CELL VOLUME 98.3 fL (80.0-105.0); MEAN CORPUSCULAR HGB CONC 32.6 g/dl (31.0-37.0); MEAN PLATELET VOLUME 9.6 fl (7.0-11.0); MONO # 0.8 (0.1-0.6); MONO % 6.6 % (1.0-6.0); PLATELET COUNT 205 10^3/uL (120.0-450.0); RBC 2.31 10^6/uL (3.5-6.1); RED CELL DISTRIBUTION WIDTH 14.3 % (11.5-14.5); WHITE BLOOD COUNT 11.9 10^3/ul (4.5-11.0)
[2016-12-30] MEDS: Budesonide 0.5 mg/2 ml Inhal Susp UD IH SCH ×2 (07:17→20:42)
[2016-12-30] MEDS: Arformoterol 15 mcg/2 ml Inh Sol IH SCH ×2 (07:17→20:42)
[2016-12-30] MEDS: Ipratropium 0.02% Inhal Soln (0.5 mg/2.5 ml) UD IH SCH ×3 (07:17→20:42)
[2016-12-30 07:20] LABS: % IRON SATURATION 18 % (20-55); IRON 35 ug/dL (45-180); TOTAL IRON BINDING CAPACITY 194 ug/dL (261-462)
[2016-12-30 07:22] LABS: ALBUMIN 2.5 g/dL (3.0-4.8); ALT/SGPT 76 U/L (7-56); AST/SGOT 33 U/L (15-59); BLOOD UREA NITROGEN 31 mg/dL (7-21); CALCIUM 7.9 mg/dL (8.4-10.5); GFR AFRICAN-AMERICAN > 60; GFR NON-AFRICAN AMERICAN > 60
[2016-12-30 07:33] LABS: HEMOGLOBIN 7.4 gm/dL (14.0-18.0)
[2016-12-30] MEDS: Benzocaine 20% Cream(7 gm) MT PRN (08:08)
--- NOTE | 2016-12-30 08:44 | PN ---
DATE: 12/30/2016 SUBJECTIVE: The patient appears comfortable this morning. He is not short of breath at rest. PHYSICAL EXAMINATION VITAL SIGNS: Temperature 97.3, pulse is 71, respirations 18, blood pressure 107/64. Oxygen saturation on nasal cannula is 96%. HEENT: Normocephalic, atraumatic. NECK: No JVD. CARDIOVASCULAR: Systolic ejection murmur at the lower left sternal border. No S3 gallop. LUNGS: Decreased breath sounds at the bases. minimal rhonchi. No wheezing. EXTREMITIES: Positive for edema. No cyanosis, no clubbing. Calves are nontender to palpation. GASTROINTESTINAL: Abdomen is soft, nontender, nondistended. Bowel sounds are positive. SKIN: No acute rash. NEUROLOGIC: Exam is limited at the present time. CURRENT LABORATORY DATA: Chest x-ray was done on 12/28/2016. The most recent film is improved, with resolution of the left pleural effusion. IMPRESSION: 1. Status post respiratory failure. 2. Advanced chronic obstructive pulmonary disease. 3. Chronic bilateral pleural effusions, 4. Bibasilar atelectasis. PLAN: The patient appears comfortable this morning. He is not short of breath at rest. He does state that he is feeling better overall. Oxygen saturation on nasal cannula is 96%. On physical exam, less bronchospasm is noted. I will continue the current nebulizer treatments and decrease the oral steroids this morning. I would continue the GI and cardiology evaluations. Inputs are noted. Clinical status of the patient is definitely improved, compare to the initial presentation. However, again, the overall status/prognosis for this elderly patient remains very guarded. I will discuss the above with Dr. Avitia. Kris Heaton MD MTDD
[2016-12-30] MEDS: POLYETHYLENE GLYCOL 3350 17 GM/Dose PACKET PO SCH ×2 (09:45→18:00)
[2016-12-30] MEDS: Nystatin 100,000 Units/ml Oral Susp 5 ml UD PO SCH ×4 (09:45→21:11)
[2016-12-30 12:40] LABS: FOLATE > 20.0 ng/mL
--- NOTE | 2016-12-30 13:07 | PN ---
ADDENDUM DATE: 12/30/2016 The patient has chronic respiratory failure due to severe chronic obstructive pulmonary disease. The patient has been having trouble tolerating the BiPAP and complaints of symptoms probable to breath stacking. PLAN: To discontinue the use of the BiPAP as it has proven insufficient and start noninvasive ventilation to target volume control and reduce the elevated pCO2 levels that the patient has been experiencing on BiPAP. Without noninvasive ventilation, the patient might endure additional hospital admissions or even a life threatening event. Plan has been discussed with the patient. Kris Heaton MD MTDD
--- NOTE | 2016-12-30 17:39 | CP.PCM.PN ---
Subjective - Date & Time of Evaluation Date of Evaluation: 12/30/16 Time of Evaluation: 09:00 - Subjective Subjective: Pt s/e bedside. No new complaints, denies f/ch/ortiz/dizziness/cp/n/v/d/abd pain. Pt states that he is no longer constipated. Pt does state that he is still sob. Objective - Vital Signs/Intake and Output Vital Signs (last 24 hours): Temp Pulse Resp BP Pulse Ox 98.5 F 98 H 20 113/60 98 12/30/16 10:00 12/30/16 14:26 12/30/16 10:00 12/30/16 14:26 12/30/16 10:00 Intake and Output: 12/30/16 12/30/16 06:59 18:59 Intake Total 0 Balance 0 - Medications Medications: Current Medications Arformoterol Tartrate (Brovana) 15 mcg IH [id number] [facility] PRN Reason: Protocol Last Admin: 12/30/16 07:17 Dose: 15 mcg Aspirin (Aspirin Chewable) 81 mg PO 0800 [facility] Last Admin: 12/30/16 08:08 Dose: Not Given Atorvastatin Calcium (Lipitor) 40 mg PO DIN [facility] Last Admin: 12/29/16 17:10 Dose: 40 mg Benzocaine (Orajel Pm Maximum Strength) 0 gm MT QID PRN PRN Reason: Pain, moderate (4-7) Last Admin: 12/30/16 08:08 Dose: 1 appl Budesonide (Pulmicort Respules) 0.5 mg IH [id number] [facility] Last Admin: 12/30/16 07:17 Dose: 0.5 mg Clopidogrel Bisulfate (Plavix) 75 mg PO 0800 [facility] Last Admin: 12/30/16 08:08 Dose: Not Given Docusate Sodium (Colace) 100 mg PO BID [facility] Last Admin: 12/30/16 09:45 Dose: 100 mg Famotidine (Pepcid) 40 mg PO HS [facility] Heparin Sodium (Porcine) (Heparin) 5,000 units SC 0600,1800 [facility] PRN Reason: Protocol Last Admin: 12/30/16 06:45 Dose: 5,000 units Sodium Chloride (Sodium Chloride 0.9%) 250 mls @ 100 mls/hr IV .Q2H30M [facility] Ipratropium [place] (Atrovent) 0.5 mg IH Q3 PRN PRN Reason: Shortness of Breath Ipratropium [place] (Atrovent) 0.5 mg IH [id number] [facility] Last Admin: 12/30/16 13:07 Dose: 0.5 mg Levalbuterol HCl (Xopenex) 0.63 mg IH [id number] PRN PRN Reason: Shortness of Breath Levothyroxine Sodium (Synthroid) 200 mcg PO 0600 [facility] Last Admin: 12/30/16 05:37 Dose: 200 mcg Metoprolol Tartrate (Lopressor) 25 mg PO 0600,1400,2200 [facility] Last Admin: 12/30/16 14:26 Dose: 25 mg Mupirocin (Bactroban Ointment) 0 gm TOP BID [facility] Last Admin: 12/30/16 09:45 Dose: Not Given Nystatin (Nystatin Oral Susp) 5 ml PO QID [facility] Stop: 01/04/17 18:00 Last Admin: 12/30/16 14:27 Dose: 5 ml Polyethylene Glycol (Miralax) 17 gm PO BID [facility] Last Admin: 12/30/16 09:45 Dose: 17 gm Prednisone (Prednisone Tab) 20 mg PO DAILY [facility] Last Admin: 12/30/16 09:46 Dose: 20 mg - Labs Labs: 12/30/16 06:45 12/30/16 06:45 PT 11.9 Seconds (9.9-11.8) H 12/29/16 06:00 INR 1.10 (0.93-1.08) H 12/29/16 06:00 APTT 37.1 Seconds (23.7-30.8) H 12/29/16 06:00 - Additional Findings Additional findings: Phys Exam: VS as below Constitutional: a&o x 4, nad Head and Neck: neck supple, no jvd, trachea midline, carotid midline, no cervical/head mass Eyes: ernie, nonicteric sclera, eom intact ENT: auditory acuity grossly intact, throat not congested, no nasal deformity Cardio: rrr, no m/r/g, no carotid bruit, nml s1, s2 Pulm: +decreased breath sounds on right; on oxygen; no accessory muscle use, ctab Abd: s/nt/nd, nbs x 4 q, no palpable masses Derm: no rashes, no ulcers, no lesions Extr: no edema, no cyanosis, no calf tenderness, no lesions, no varicosities Neuro: cn II-XII grossly intact, ue and le 5/5 muscle strength bilaterally, no los ue, le bilaterally and core Assessment and Plan - Assessment and Plan (Free Text) Assessment: 1. Deconditioning and weakness - Continue daily physical therapy, strengthening exercises 2. COPD exacerbation - Previously dyspneic, now improved History: - Ronaldo has Chronic Respiratory Failure due to severe COPD. Patient has been having trouble tolerating the BiPAP and complains of symptoms parallel to breath stacking. Plan is to discontinue the use of the BiPAP as it has been proven insufficient, and instead order non-invasive ventilation to target volume control and reduce the elevated PCO2 levels that the patient has experienced on BiPAP, Without non-invasive ventilation, patient might endure additional hospital admissions or even a life threatening event. This plan has been discussed with the patient. - Pulmonology consulted - Dr. Heaton/Dr. Su: May need thoracentesis - Cardiology consulted: Pt doing well - Afebrile, vital signs stable, leukocytosis resolved. - Blood culture/Urine culture negative - Repeat ABG on RA show respiratory acidosis with appropriate and adequate compensatory metabolic alkalosis - CXR: resolved L Pleural Effusion Current: - O2 supplementation to maintain SaO2 ~90-92%; currently on 2LNC - Continue levaquin 750mg IV daily - Continue xopenex/atrovent PRN and ANAMARIA, and pulmicort/brovana as ordered - Stopped Solu-Medrol - Continue prednisone 30mg daily per pulm 3. Anemia Current: - Clinical picture does not match anemia labs - Patient has baseline low Hgb, but today dropped to 7.4, has been dropping approximately 1 point per day for the past 4 days - 2 units of PRBC's ordered, 1 unit has been given. Awaiting second unit. - Iron studies indicate mixed acute iron deficiency and anemia of chronic disease. Folate and B12 WNL. Stool for occult blood negative 12/28, positive - Constipation resolved - may resume iron 12/30 - Kennedi to rule out hemolysis resulted - 12/30 - Type and Screen resulted - 12/30 - 2 U PRBC's ordered, 1 given, awaiting second - 12/30 - Ordered serum and urine immunofixation to rule out malignancy - f/u 4. Hyperkalemia - Resolved 5. Constipation - Resolved 6. Hx of CAD History: - Cardiology recs appreciated - Echo reviewed Current: - Continue ASA/Plavix/Lipitor - Continue metoprolol 25mg PO TID 7. Hyperlipidemia - Continue lipitor 8. Hypothyroidism - Continue synthroid GI/DVT Prophylaxis - Protonix/Heparin SC Fab Dodd DO, PGY-1 Reviewed case in detail with Dr. Rivas
--- NOTE | 2016-12-30 17:51 | PN ---
SUBJECTIVE: Seen and examined at the bedside. This morning, he is drinking the first bottle of oral contrast. No complaint of nausea, vomiting, or abdominal pain. He did have a bowl movement. Does report having bowel movement yesterday. No reports of any bleeding or discomfort. PHYSICAL EXAMINATION VITAL SIGNS: Temperature 98.5, blood pressure 81/46, pulse 84, respirations 20 and 98% on nasal canula. HEENT: Sclerae are anicteric. NECK: Supple. CARDIAC: S1 and S2. LUNGS: With decreased breath sounds. No rales or wheeze. ABDOMEN: With bowel sounds, soft. No tenderness on palpation. No rebound or guarding. ASSESSMENT: This is an 81-year-old male with a past medical history of congestive heart failure, chronic obstructive pulmonary disease, hypothyroidism, coronary artery disease, initially came with respiratory failure secondary to exacerbation of chronic obstructive pulmonary disease. The patient has constipation, found to have soft fecal impaction. He did have bowel movement yesterday. He was given MiraLax. The patient also with anemia. He is noted to have some iron deficiency, rule out any gastrointestinal bleed. The patient is on aspirin and Plavix as well as heparin. No active gastrointestinal bleed. The patient did have repeat iron studies this morning and the iron is 35,TIBC 194 and percent saturation is 18. B12 is okay at 880 and the folate is pending as well. PLAN: Follow up the patient's CT scan of abdomen and pelvis. The patient would benefit from an endoscopy. We will plan for this, spoke to regarding endoscopy. Transfuse as needed. We will put the patient on GI prophylaxis. He is on aspirin and Plavix, on stool softeners as well as MiraLax. He is also on heparin and prednisone. They will continue to follow closely. Monitor for any overt GI bleed. The patient was seen and case discussed with Dr. Delgado. IMANI Gutierrez
[2016-12-31] MEDS: Levothyroxine 200 MCG TAB PO SCH (05:23)
[2016-12-31] MEDS: Arformoterol 15 mcg/2 ml Inh Sol IH SCH ×2 (07:15→19:54)
[2016-12-31] MEDS: Ipratropium 0.02% Inhal Soln (0.5 mg/2.5 ml) UD IH SCH ×3 (07:15→19:54)
[2016-12-31] MEDS: Budesonide 0.5 mg/2 ml Inhal Susp UD IH SCH ×2 (07:16→19:54)
[2016-12-31] MEDS: Benzocaine 20% Cream(7 gm) MT PRN ×4 (08:14→22:04)
[2016-12-31 08:59] LABS: BASO # 0.01 K/mm3 (0.0-2.0); BASO % 0.1 % (0.0-3.0); EOS % 0.3 % (1.5-5.0); GRAN % 90.4 % (50.0-68.0); LYMPH # 0.5 (1.2-3.4); LYMPH % 4.8 % (22.0-35.0); MEAN CELL VOLUME 96.5 fL (80.0-105.0); MEAN CORPUSCULAR HEMOGLOBIN 30.9 pg (25.0-35.0); MEAN PLATELET VOLUME 9.6 fl (7.0-11.0); MONO # 0.5 (0.1-0.6); MONO % 4.4 % (1.0-6.0); PLATELET COUNT 183 10^3/uL (120.0-450.0); RBC 3.11 10^6/uL (3.5-6.1); RED CELL DISTRIBUTION WIDTH 15.9 % (11.5-14.5); WHITE BLOOD COUNT 11.1 10^3/ul (4.5-11.0)
[2016-12-31 09:01] LABS: HEMOGLOBIN 9.6 gm/dL (14.0-18.0)
[2016-12-31] MEDS: Iron Complex Polysacch 150mg Cap PO SCH (09:07)
[2016-12-31] MEDS: Nystatin 100,000 Units/ml Oral Susp 5 ml UD PO SCH ×4 (09:09→21:53)
[2016-12-31] MEDS: POLYETHYLENE GLYCOL 3350 17 GM/Dose PACKET PO SCH ×2 (09:09→17:02)
[2016-12-31 09:11] LABS: ALB/GLOB RATIO 1.1 (1.1-1.8); ALBUMIN 2.7 g/dL (3.0-4.8); ALT/SGPT 75 U/L (7-56); AST/SGOT 37 U/L (15-59); BLOOD UREA NITROGEN 23 mg/dL (7-21); GFR AFRICAN-AMERICAN > 60; GFR NON-AFRICAN AMERICAN > 60
--- NOTE | 2016-12-31 13:01 | CP.PCM.PN ---
Subjective - Date & Time of Evaluation Date of Evaluation: 12/31/16 Time of Evaluation: 09:45 - Subjective Subjective: S&E at bedside, had ct scan yesterday, report bilateral pleural effusion and severe constipation, the patient reports BM yesterday, no reports of overt GI bleed. Objective - Vital Signs/Intake and Output Vital Signs (last 24 hours): Temp Pulse Resp BP Pulse Ox 98.4 F 93 H 18 96/52 L 894 H 12/31/16 10:13 12/31/16 10:13 12/31/16 10:13 12/31/16 10:13 12/31/16 10:13 - Medications Medications: Current Medications Arformoterol Tartrate (Brovana) 15 mcg IH [id number] [facility] PRN Reason: Protocol Last Admin: 12/31/16 07:15 Dose: 15 mcg Aspirin (Aspirin Chewable) 81 mg PO 0800 [facility] Last Admin: 12/31/16 08:15 Dose: 81 mg Atorvastatin Calcium (Lipitor) 40 mg PO DIN [facility] Last Admin: 12/30/16 17:59 Dose: 40 mg Benzocaine (Orajel Pm Maximum Strength) 0 gm MT QID PRN PRN Reason: Pain, moderate (4-7) Last Admin: 12/31/16 12:27 Dose: 1 appl Budesonide (Pulmicort Respules) 0.5 mg IH [id number] [facility] Last Admin: 12/31/16 07:16 Dose: 0.5 mg Clopidogrel Bisulfate (Plavix) 75 mg PO 0800 [facility] Last Admin: 12/31/16 08:15 Dose: 75 mg Docusate Sodium (Colace) 100 mg PO BID [facility] Last Admin: 12/31/16 09:06 Dose: 100 mg Famotidine (Pepcid) 40 mg PO HS [facility] Last Admin: 12/30/16 21:11 Dose: 40 mg Heparin Sodium (Porcine) (Heparin) 5,000 units SC 0600,1800 [facility] PRN Reason: Protocol Last Admin: 12/31/16 05:22 Dose: 5,000 units Sodium Chloride (Sodium Chloride 0.9%) 250 mls @ 100 mls/hr IV .Q2H30M [facility] Ipratropium [place] (Atrovent) 0.5 mg IH Q3 PRN PRN Reason: Shortness of Breath Ipratropium [place] (Atrovent) 0.5 mg IH [id number] [facility] Last Admin: 12/31/16 07:15 Dose: 0.5 mg Levalbuterol HCl (Xopenex) 0.63 mg IH [id number] PRN PRN Reason: Shortness of Breath Levothyroxine Sodium (Synthroid) 200 mcg PO 0600 [facility] Last Admin: 12/31/16 05:23 Dose: 200 mcg Metoprolol Tartrate (Lopressor) 25 mg PO 0600,1400,2200 [facility] Last Admin: 12/31/16 05:26 Dose: Not Given Mupirocin (Bactroban Ointment) 0 gm TOP BID [facility] Last Admin: 12/31/16 09:06 Dose: 1 applic Nystatin (Nystatin Oral Susp) 5 ml PO QID [facility] Stop: 01/04/17 18:00 Last Admin: 12/31/16 09:09 Dose: 5 ml Polyethylene Glycol (Miralax) 17 gm PO BID [facility] Last Admin: 12/31/16 09:09 Dose: 17 gm Polysaccharide [place] Complex (Ferrex-150) 150 mg PO DAILY [facility] Last Admin: 12/31/16 09:07 Dose: 150 mg Prednisone (Prednisone Tab) 20 mg PO DAILY [facility] Last Admin: 12/31/16 09:09 Dose: 20 mg - Labs Labs: 12/31/16 08:30 12/31/16 08:30 PT 11.9 Seconds (9.9-11.8) H 12/29/16 06:00 INR 1.10 (0.93-1.08) H 12/29/16 06:00 APTT 37.1 Seconds (23.7-30.8) H 12/29/16 06:00 - Constitutional Appears: No Acute Distress - Head Exam Head Exam: NORMOCEPHALIC - Eye Exam Eye Exam: absent: Scleral icterus - ENT Exam ENT Exam: Mucous Membranes Moist - Neck Exam Neck Exam: Normal Inspection - Respiratory Exam Respiratory Exam: NORMAL BREATHING PATTERN. absent: Respiratory Distress - Cardiovascular Exam Cardiovascular Exam: +S1, +S2 - GI/Abdominal Exam GI & Abdominal Exam: Soft, Normal Bowel Sounds. absent: Guarding, Tenderness, Rebound - Extremities Exam Extremities Exam: absent: Calf Tenderness, Pedal Edema - Neurological Exam Neurological Exam: Alert, Awake, Oriented x3 - Skin Skin Exam: Dry, Warm Assessment and Plan - Assessment and Plan (Free Text) Assessment: ASSESSMENT: Anemia Constipation/fecal impaction Pleural Effusion Exacerbation COPD CAD Hypothyroidism PLAN: continue GI prophylaxsis monitor H/H and overt GI bleeding on Plavix, ASA, Heparin SQ on Prednisone had discussion with the son, who is also POA, Oswald Turpin ([phone]) regarding EGD , he states that he does not want any invasive procedures to be done. previous diet resumed The patient was seen and case discussed with Dr. Delgado. ADDENDUM: detail discussion with patient and son Oswald, daughter Marcia on the phone in the presence or the patient who is A/A/Ox3 regarding egd/colon for eval of anemia, fully explained purpose, risk,benefit and alternatives, they all agree to have procedure done with clear understanding of the risks. Consents obtained by Dr. Delgado. Witnessed by ANA Pacheco.
[2016-12-31] MEDS ORDERED: Peg-Electrolyte Oral Soln 4L (Golytely) PO ONE (16:00)
--- NOTE | 2016-12-31 20:42 | CP.PCM.PN ---
Subjective - Date & Time of Evaluation Date of Evaluation: 12/31/16 Time of Evaluation: 07:00 - Subjective Subjective: Mr. Turpin was s/e at bedside. No new complaints. He was amenable to get a colonoscopy to identify source of bleed. He tolerated the transfusion yesterday well. Patient has no further complaints today. Possible d/c tomorrow. Objective - Vital Signs/Intake and Output Vital Signs (last 24 hours): Temp Pulse Resp BP Pulse Ox 98.5 F 67 18 93/53 L 97 12/31/16 16:03 12/31/16 16:03 12/31/16 16:03 12/31/16 16:03 12/31/16 16:03 - Medications Medications: Current Medications Arformoterol Tartrate (Brovana) 15 mcg IH [id number] [facility] PRN Reason: Protocol Last Admin: 12/31/16 19:54 Dose: 15 mcg Aspirin (Aspirin Chewable) 81 mg PO 0800 [facility] Last Admin: 12/31/16 08:15 Dose: 81 mg Atorvastatin Calcium (Lipitor) 40 mg PO DIN [facility] Last Admin: 12/31/16 17:01 Dose: 40 mg Benzocaine (Orajel Pm Maximum Strength) 0 gm MT QID PRN PRN Reason: Pain, moderate (4-7) Last Admin: 12/31/16 16:54 Dose: 1 appl Budesonide (Pulmicort Respules) 0.5 mg IH [id number] [facility] Last Admin: 12/31/16 19:54 Dose: 0.5 mg Clopidogrel Bisulfate (Plavix) 75 mg PO 0800 [facility] Last Admin: 12/31/16 08:15 Dose: 75 mg Docusate Sodium (Colace) 100 mg PO BID [facility] Last Admin: 12/31/16 17:01 Dose: 100 mg Famotidine (Pepcid) 40 mg PO HS [facility] Last Admin: 12/30/16 21:11 Dose: 40 mg Heparin Sodium (Porcine) (Heparin) 5,000 units SC 0600,1800 [facility] PRN Reason: Protocol Last Admin: 12/31/16 17:08 Dose: 5,000 units Sodium Chloride (Sodium Chloride 0.9%) 250 mls @ 100 mls/hr IV .Q2H30M [facility] Ipratropium [place] (Atrovent) 0.5 mg IH Q3 PRN PRN Reason: Shortness of Breath Ipratropium [place] (Atrovent) 0.5 mg IH [id number] [facility] Last Admin: 12/31/16 19:54 Dose: 0.5 mg Levalbuterol HCl (Xopenex) 0.63 mg IH [id number] PRN PRN Reason: Shortness of Breath Levothyroxine Sodium (Synthroid) 200 mcg PO 0600 [facility] Last Admin: 12/31/16 05:23 Dose: 200 mcg Metoprolol Tartrate (Lopressor) 25 mg PO 0600,1400,2200 [facility] Last Admin: 12/31/16 13:33 Dose: Not Given Mupirocin (Bactroban Ointment) 0 gm TOP BID [facility] Last Admin: 12/31/16 17:01 Dose: 1 applic Nystatin (Nystatin Oral Susp) 5 ml PO QID [facility] Stop: 01/04/17 18:00 Last Admin: 12/31/16 17:02 Dose: 5 ml Polyethylene Glycol (Miralax) 17 gm PO BID [facility] Last Admin: 12/31/16 17:02 Dose: 17 gm Polysaccharide Iron Complex (Ferrex-150) 150 mg PO DAILY [facility] Last Admin: 12/31/16 09:07 Dose: 150 mg Prednisone (Prednisone Tab) 20 mg PO DAILY [facility] Last Admin: 12/31/16 09:09 Dose: 20 mg - Labs Labs: 12/31/16 08:30 12/31/16 08:30 PT 11.9 Seconds (9.9-11.8) H 12/29/16 06:00 INR 1.10 (0.93-1.08) H 12/29/16 06:00 APTT 32.7 Seconds (23.7-30.8) H 12/31/16 16:00 - Additional Findings Additional findings: Phys Exam: VS as below Constitutional: a&o x 4, nad Head and Neck: neck supple, no jvd, trachea midline, carotid midline, no cervical/head mass Eyes: ernie, nonicteric sclera, eom intact ENT: auditory acuity grossly intact, throat not congested, no nasal deformity Cardio: rrr, no m/r/g, no carotid bruit, nml s1, s2 Pulm: +decreased breath sounds on right; on oxygen; no accessory muscle use, ctab Abd: s/nt/nd, nbs x 4 q, no palpable masses Derm: no rashes, no ulcers, no lesions Extr: no edema, no cyanosis, no calf tenderness, no lesions, no varicosities Neuro: cn II-XII grossly intact, ue and le 5/5 muscle strength bilaterally, no los ue, le bilaterally and core Assessment and Plan - Assessment and Plan (Free Text) Assessment: 81 y/o M presented with COPD exacerbation, now discharged to TCU. 1. Deconditioning and weakness - Continue daily physical therapy, strengthening exercises 2. COPD exacerbation - Previously dyspneic, now improved History: - Patient has been having trouble tolerating the BiPAP and complains of symptoms parallel to breath stacking. Plan is to discontinue the use of the BiPAP as it has been proven insufficient, and instead order non-invasive ventilation to target volume control and reduce the elevated PCO2 levels that the patient has experienced on BiPAP, Without non-invasive ventilation, patient might endure additional hospital admissions or even a life threatening event. This plan has been discussed with the patient. - Pulmonology consulted - Dr. Heaton/Dr. Su: May need thoracentesis - Cardiology consulted: Pt doing well - Afebrile, vital signs stable, leukocytosis resolved. - Blood culture/Urine culture negative - Repeat ABG on RA show respiratory acidosis with appropriate and adequate compensatory metabolic alkalosis - CXR: resolved L Pleural Effusion Current: - O2 supplementation to maintain SaO2 ~90-92%; currently on 2LNC - Continue levaquin 750mg IV daily - Continue xopenex/atrovent PRN and ANAMARIA, and pulmicort/brovana as ordered - Stopped Solu-Medrol - Continue prednisone 30mg daily per pulm 3. Anemia History: - Clinical picture does not match anemia labs - Pt baseline low Hgb, but today dropped to 7.4, has been dropping approximately 1 point per day for the past 4 days - 2 units of PRBC's ordered, both units given. - Iron studies indicate mixed acute iron deficiency and anemia of chronic disease. Folate and B12 WNL. Stool for occult blood negative 12/28, positive - Constipation resolved - may resume iron 12/30 - Kennedi to rule out hemolysis resulted - 12/30 - Type and Screen resulted - 12/30 - 2 U PRBC's ordered, 1 given, awaiting second - 12/30 Current: - CT Abd to obtain source of bleed was negative - 12/31 - Ordered serum and urine immunofixation to rule out malignancy - f/u - GI c/s: Going to perform colonoscopy tomorrow, 01/01, to find source of bleed 4. Hyperkalemia - Resolved 5. Constipation - Resolved 6. Hx of CAD History: - Cardiology recs appreciated - Echo reviewed Current: - Continue ASA/Plavix/Lipitor - Continue metoprolol 25mg PO TID 7. Hyperlipidemia - Continue lipitor 8. Hypothyroidism - Continue synthroid GI/DVT Prophylaxis - Protonix/Heparin SC Fab Dodd DO, PGY-1 Reviewed case in detail with Dr. Avitia
[2017-01-01] MEDS: Ipratropium 0.02% Inhal Soln (0.5 mg/2.5 ml) UD IH SCH ×4 (02:25→20:44)
[2017-01-01] MEDS: Levothyroxine 200 MCG TAB PO SCH (05:11)
[2017-01-01] MEDS: Benzocaine 20% Cream(7 gm) MT PRN ×2 (05:16→17:10)
[2017-01-01] MEDS ORDERED: Levalbuterol 0.63 MG/3 ML Inhal Soln UD IH PRN (06:53)
[2017-01-01 07:03] LABS: BASO # 0.01 K/mm3 (0.0-2.0); BASO % 0.1 % (0.0-3.0); EOS # 0.1 (0.0-0.7); EOS % 0.8 % (1.5-5.0); GRAN # 7.08 (1.4-6.5); GRAN % 89.2 % (50.0-68.0); HEMOGLOBIN 8.6 gm/dL (14.0-18.0); LYMPH # 0.4 (1.2-3.4); LYMPH % 5.2 % (22.0-35.0); MEAN CELL VOLUME 97.1 fL (80.0-105.0); MEAN CORPUSCULAR HEMOGLOBIN 30.9 pg (25.0-35.0); MEAN CORPUSCULAR HGB CONC 31.9 g/dl (31.0-37.0); MEAN PLATELET VOLUME 9.1 fl (7.0-11.0); MONO # 0.4 (0.1-0.6); MONO % 4.7 % (1.0-6.0); PLATELET COUNT 186 10^3/uL (120.0-450.0); RBC 2.78 10^6/uL (3.5-6.1); RED CELL DISTRIBUTION WIDTH 15.7 % (11.5-14.5); WHITE BLOOD COUNT 7.9 10^3/ul (4.5-11.0)
[2017-01-01 07:04] LABS: INR 1.06 (0.93-1.08); PROTHROMBIN TIME 11.4 Seconds (9.9-11.8)
[2017-01-01 07:12] LABS: ALB/GLOB RATIO 0.9 (1.1-1.8); ALBUMIN 2.3 g/dL (3.0-4.8); ALT/SGPT 60 U/L (7-56); AST/SGOT 37 U/L (15-59); BLOOD UREA NITROGEN 18 mg/dL (7-21); CALCIUM 7.7 mg/dL (8.4-10.5); GFR AFRICAN-AMERICAN > 60; GFR NON-AFRICAN AMERICAN > 60
[2017-01-01] MEDS: Levalbuterol 0.63 MG/3 ML Inhal Soln UD IH SCH ×3 (07:30→20:44)
[2017-01-01] MEDS: Budesonide 0.5 mg/2 ml Inhal Susp UD IH SCH ×2 (07:30→20:44)
[2017-01-01] MEDS: Arformoterol 15 mcg/2 ml Inh Sol IH SCH ×2 (07:30→20:44)
--- NOTE | 2017-01-01 08:04 | PN ---
DATE: 01/01/2017 SUBJECTIVE: The patient appears comfortable this morning. He is not short of breath at rest. PHYSICAL EXAMINATION VITAL SIGNS: Temperature 98.2, pulse 80, respirations 18/20, blood pressure 93/58. Oxygen saturation on nasal cannula is 98%. HEENT: Normocephalic, atraumatic. NECK: No JVD. CARDIOVASCULAR: Systolic ejection murmur at the lower left sternal border. No S3 gallop. LUNGS: Decreased breath sounds at the bases. Minimal rhonchi. No wheezing. EXTREMITIES: Less edema. No cyanosis, no clubbing. Calves are nontender to palpation. GASTROINTESTINAL: Abdomen is soft, nontender, nondistended. Bowel sounds are positive. SKIN: No acute rash. NEUROLOGIC: Exam is limited at the present time. IMPRESSION: 1. Status post respiratory failure. 2. Advanced chronic obstructive pulmonary disease. 3. Chronic bilateral pleural effusions. 4. Bibasilar atelectasis. PLAN: The patient appears comfortable this morning. He is not short of breath at rest. He does complain of constipation. He also states he is feeling better overall. On physical exam, his bronchospasm is less. In addition, the oxygen saturation on nasal cannula is now 98%. I will continue with the current nebulizer treatments and current oral steroids for now. Inputs by cardiology and GI are noted. Clinical status of the patient is certainly improved-compared to the initial presentation. However, again, the patient's overall status/prognosis remains very guarded. All are aware. I will discuss the above with Dr. Avitia. Kris Heaton MD [email or web address]
[2017-01-01] MEDS: Iron Complex Polysacch 150mg Cap PO SCH (10:19)
[2017-01-01] MEDS: POLYETHYLENE GLYCOL 3350 17 GM/Dose PACKET PO SCH ×2 (10:20→17:08)
[2017-01-01] MEDS: Nystatin 100,000 Units/ml Oral Susp 5 ml UD PO SCH ×4 (10:20→21:41)
--- NOTE | 2017-01-01 12:20 | CP.PCM.PN ---
Subjective - Date & Time of Evaluation Date of Evaluation: 01/01/17 Time of Evaluation: 09:30 - Subjective Subjective: S&E at beside, no acute overnight events reported, Took some of Golytely but BM is still dark even after enema. Patient denies SOB, CP, N/V or abdominal pain. Objective - Vital Signs/Intake and Output Vital Signs (last 24 hours): Temp Pulse Resp BP Pulse Ox 98.4 F 79 20 88/53 L 98 01/01/17 10:00 01/01/17 10:00 01/01/17 10:00 01/01/17 10:00 01/01/17 10:00 Intake and Output: 01/01/17 01/01/17 06:59 18:59 Intake Total 0 Output Total 300 Balance -300 - Medications Medications: Current Medications Arformoterol Tartrate (Brovana) 15 mcg [facility] [id number] [facility] PRN Reason: Protocol Last Admin: 01/01/17 07:30 Dose: 15 mcg Aspirin (Aspirin Chewable) 81 mg PO 0800 [facility] Last Admin: 01/01/17 08:22 Dose: Not Given Atorvastatin Calcium (Lipitor) 40 mg PO DIN [facility] Last Admin: 12/31/16 17:01 Dose: 40 mg Benzocaine (Orajel Pm Maximum Strength) 0 gm MT QID PRN PRN Reason: Pain, moderate (4-7) Last Admin: 01/01/17 05:16 Dose: 1 appl Bisacodyl (Dulcolax) 10 mg PO ONCE ONE Stop: 01/01/17 17:01 Budesonide (Pulmicort Respules) 0.5 mg [facility] [id number] [facility] Last Admin: 01/01/17 07:30 Dose: 0.5 mg Clopidogrel Bisulfate (Plavix) 75 mg PO 0800 [facility] Last Admin: 01/01/17 08:22 Dose: Not Given Docusate Sodium (Colace) 100 mg PO BID [facility] Last Admin: 01/01/17 10:19 Dose: Not Given Famotidine (Pepcid) 40 mg PO HS [facility] Last Admin: 12/31/16 21:53 Dose: 40 mg Sodium Chloride (Sodium Chloride 0.9%) 250 mls @ 100 mls/hr IV .Q2H30M [facility] Ipratropium Potosi (Atrovent) 0.5 mg IH Q3 PRN PRN Reason: Shortness of Breath Ipratropium [place] (Atrovent) 0.5 mg IH [id number] [facility] Last Admin: 01/01/17 07:31 Dose: 0.5 mg Levalbuterol HCl (Xopenex) 0.63 mg IH [id number] [facility] Last Admin: 01/01/17 07:30 Dose: 0.63 mg Levalbuterol HCl (Xopenex) 0.63 mg IH Q2 PRN PRN Reason: Shortness of Breath Levothyroxine Sodium (Synthroid) 200 mcg PO 0600 [facility] Last Admin: 01/01/17 05:11 Dose: 200 mcg Magnesium Citrate (Citrate Of Mag) 300 ml PO ONCE ONE Stop: 01/01/17 14:01 Metoprolol Tartrate (Lopressor) 25 mg PO 0600,1400,2200 [facility] Last Admin: 01/01/17 05:11 Dose: 25 mg Mupirocin (Bactroban Ointment) 0 gm TOP BID [facility] Last Admin: 12/31/16 17:01 Dose: 1 applic Nystatin (Nystatin Oral Susp) 5 ml PO QID [facility] Stop: 01/04/17 18:00 Last Admin: 01/01/17 10:20 Dose: Not Given Polyethylene Glycol (Miralax) 17 gm PO BID [facility] Last Admin: 01/01/17 10:20 Dose: Not Given Polysaccharide Iron Complex (Ferrex-150) 150 mg PO DAILY [facility] Last Admin: 01/01/17 10:19 Dose: Not Given Prednisone (Prednisone Tab) 20 mg PO DAILY [facility] Last Admin: 01/01/17 10:20 Dose: Not Given - Labs Labs: 01/01/17 06:30 01/01/17 06:30 PT 11.4 Seconds (9.9-11.8) 01/01/17 06:30 INR 1.06 (0.93-1.08) 01/01/17 06:30 APTT 32.7 Seconds (23.7-30.8) H 12/31/16 16:00 - Constitutional Appears: No Acute Distress - Head Exam Head Exam: NORMOCEPHALIC - Eye Exam Eye Exam: Normal appearance. absent: Scleral icterus - ENT Exam ENT Exam: Mucous Membranes Moist - Neck Exam Neck Exam: Normal Inspection - Respiratory Exam Respiratory Exam: Decreased Breath Sounds, Rhonchi, NORMAL BREATHING PATTERN. absent: Wheezes, Respiratory Distress - Cardiovascular Exam Cardiovascular Exam: +S1, +S2 - GI/Abdominal Exam GI & Abdominal Exam: Soft, Normal Bowel Sounds. absent: Guarding, Tenderness, Rebound - Extremities Exam Extremities Exam: absent: Calf Tenderness, Pedal Edema - Neurological Exam Neurological Exam: Alert, Awake, Oriented x3 Assessment and Plan - Assessment and Plan (Free Text) Assessment: ASSESSMENT: Anemia Constipation/fecal impaction Pleural Effusion Exacerbation COPD CAD Hypothyroidism PLAN: will continue to prep pt for colonoscopy , reschedule for 01/02/17. resume clear liquid and give MG citrate and dulcolax tab, see orders NPO 12 midnight for procedure: egd/colon labs in am : bmp/cbc give am dose of aspirin today, hold plavix continue GI prophylaxsis monitor H/H and overt GI bleeding on Prednisone discuss with nursing staff and patient. The patient was seen and case discussed with Dr. Delgado.
[2017-01-01] MEDS ORDERED: Magnesium Citrate Oral SOL (300 ml) PO ONE (14:00)
[2017-01-01] MEDS ORDERED: Bisacodyl 5mg EC Tab PO ONE (17:00)
[2017-01-01] MEDS ORDERED: Bisacodyl 5mg EC Tab PO STA (21:37)
[2017-01-01] MEDS ORDERED: Magnesium Citrate Oral SOL (300 ml) PO STA (21:37)
[2017-01-02] MEDS: Ipratropium 0.02% Inhal Soln (0.5 mg/2.5 ml) UD IH SCH ×2 (01:08→07:33)
[2017-01-02] MEDS: Levalbuterol 0.63 MG/3 ML Inhal Soln UD IH SCH (01:09)
[2017-01-02] MEDS: Levothyroxine 200 MCG TAB PO SCH (05:18)
[2017-01-02 05:21] VITALS: BP 132/72; PULSE 101
[2017-01-02 06:04] VITALS: RESP 22; TEMP 97.5; O2SAT 98
[2017-01-02] MEDS: Arformoterol 15 mcg/2 ml Inh Sol IH SCH (07:34)
[2017-01-02] MEDS: Budesonide 0.5 mg/2 ml Inhal Susp UD IH SCH (07:34)
--- NOTE | 2017-01-02 09:19 | PN ---
DATE: 01/02/2017 SUBJECTIVE: The patient appears comfortable this morning. He is not short of breath at rest. PHYSICAL EXAMINATION: VITAL SIGNS: Temperature 97.5, pulse 88, respirations 18/20, blood pressure 132/72. Oxygen saturation on nasal cannula is 98%. HEENT: Normocephalic, atraumatic. NECK: No JVD. CARDIOVASCULAR: Systolic ejection murmur at the lower left sternal border. No S3 gallop. LUNGS: Decreased breath sounds at the bases. Less rhonchi. No wheezing. EXTREMITIES: Less edema. No cyanosis, no clubbing. Calves are nontender to palpation. GASTROINTESTINAL: Abdomen is soft, nontender, nondistended. Bowel sounds are positive. SKIN: No acute rash. NEUROLOGIC: Limited at the present time. IMPRESSION: 1. Status post respiratory failure. 2. Advanced chronic obstructive pulmonary disease. 3. Chronic bilateral pleural effusions. 4. Bibasilar atelectasis. PLAN: The patient appears comfortable this morning. He is not short of breath at rest. He does state to feeling better overall. On physical exam, there is only minimal bronchospasm noted. I will continue with the current nebulizer treatments and low-dose oral steroids for now. Input by GI is noted. The patient is for possible colonoscopy later today. Clinical status of the patient is certainly improved compared to last week. However, again, the overall status/prognosis for this elderly patient remains very guarded. All are aware. I will discuss the above with Dr. Avitia. Kris Heaton MD MTDD
[2017-01-02] MEDS ORDERED: Propofol 10 mg/ml Inj (20 ML) ONE (09:37)
[2017-01-02] MEDS ORDERED: ePHEDrine 50 mg/ml Inj ONE ×2 (10:01→10:37)
[2017-01-02] MEDS ORDERED: Sodium Chloride 0.9% 1,000 ML IV SCH (10:45)
[2017-01-02] MEDS ORDERED: Pantoprazole 40mg/100ml IVPB 40 MG/100 ML BAG IVPB SCH (10:45)
--- NOTE | 2017-01-02 11:43 | CP.PCM.PCO ---
Physician Communication Note - Physician Communication Note Physician Communication Note: s/p endo,see report, spoke to son Oswald and aware of findings and transfer .
== END 2017-01-02 08:40 | disposition short-term general hospital (02) | DRG 945 ==
LOC: TRCU 19:29
PROVIDERS: ADMIT Internal Medicine; ATTEND Internal Medicine
PROC: 3E0F7GC Introduction of Other Therapeutic Substance into Respiratory Tract, Via Natural or Artificial Opening (ICD-10-PCS; 2016-12-23)
PROC: F07Z9FZ Gait Training/Functional Ambulation Treatment using Assistive, Adaptive, Supportive or Protective Equipment (ICD-10-PCS; principal; 2016-12-24)
PROC: F08Z4FZ Home Management Treatment using Assistive, Adaptive, Supportive or Protective Equipment (ICD-10-PCS; 2016-12-25)
DX: R53.1 Weakness (principal); J44.1 Chronic obstructive pulmonary disease with (acute) exacerbation; J96.10 Chronic respiratory failure, unspecified whether with hypoxia or hypercapnia; B37.0 Candidal stomatitis; I50.9 Heart failure, unspecified; I11.0 Hypertensive heart disease with heart failure; E87.5 Hyperkalemia; J98.11 Atelectasis; E78.5 Hyperlipidemia, unspecified; E03.9 Hypothyroidism, unspecified; I25.118 Atherosclerotic heart disease of native coronary artery with other forms of angina pectoris; E78.00 Pure hypercholesterolemia, unspecified; D63.8 Anemia in other chronic diseases classified elsewhere; D50.9 Iron deficiency anemia, unspecified; K56.41 Fecal impaction; Z95.5 Presence of coronary angioplasty implant and graft; Z87.891 Personal history of nicotine dependence; Z79.02 Long term (current) use of antithrombotics/antiplatelets; Z79.82 Long term (current) use of aspirin

== ENCOUNTER 2017-01-02 08:40 | Inpatient (IN) | payer MEDICARE ==
[2017-01-01 08:26] VITALS: BMI 21.6
[2017-01-02] MEDS ORDERED: Sodium Chloride 0.9% 1,000 ML IV SCH (11:00)
--- NOTE | 2017-01-02 14:03 | CP.PCM.CON ---
History of Present Illness - History of Present Illness History of Present Illness: 81 y/o M who was seen while at his stay in TCU to have a drop in HGB with melena for a couple of days. The patient was transfused 1 unit of PRBC and was evaluated by GI via EGD today and found to have a large Esophageal ulcerations with bleeding that had to be controlled. The patient post op was stable in the PACU and without any distress. He is currently hemodynamically stable and will be transfered to the ICU for further monitoring. Review of Systems - Constitutional Constitutional: absent: As Per HPI, Anorexia, Chills, Daytime Sleepiness, Excessive Sweating, Fatigue, Fever, Frequent Falls, Headache, Increased Appetite , Lethargy, Malaise, Night Sweats, Snoring, Sleep Apnea, Weight Gain, Weight Loss, Weakness, Other - EENT Eyes: absent: As Per HPI, Blind Spots, Blurred Vision, Change in Vision, Decreased Night Vision, Diplopia, Discharge, Dry Eye, Exophthalmos, Floaters, Irritation, Itchy Eyes, Loss of Peripheral Vision, Pain, Photophobia, Requires Corrective Lenses, Sees Flashes, Spots in Vision, Tunnel Vision, Other Visual Disturbances, Loss of Vision, Other Ears: absent: As Per HPI, Decreased Hearing, Ear Discharge, Ear Pain, Tinnitus, Abnormal Hearing, Disequilibrium, Dizziness, Other Nose/Mouth/Throat: absent: As Per HPI, Epistaxis, Nasal Congestion, Nasal Discharge, Nasal Obstruction, Nasal Trauma, Nose Pain, Post Nasal Drip, Sinus Pain, Sinus Pressure, Bleeding Gums, Change in Voice, Dental Pain, Dry Mouth, Dysphagia, Halitosis, Hoarsness, Lip Swelling, Mouth Lesions, Mouth Pain, Odynophagia, Sore Throat, Throat Swelling, Tongue Swelling, Facial Pain, Neck Pain, Neck Mass, Other - Cardiovascular Cardiovascular: absent: As Per HPI, Acrocyanosis, Chest Pain, Chest Pain at Rest , Chest Pain with Activity, Claudication, Diaphoresis, Dyspnea, Dyspnea on Exertion, Edema, Irregular Heart Rhythm, Pain Radiating to Arm/Neck/Jaw, Leg Edema, Leg Ulcers, Lightheadedness, Orthopnea, Palpitations, Paroxysmal Nocturnal Dyspnea, Pedal Edema, Radiating Pain, Rapid Heart Rate, Slow Heart Rate, Syncope, Other - Respiratory Respiratory: absent: As Per HPI, Cough, Dyspnea, Hemoptysis, Dyspnea on Exertion , Wheezing, Snoring, Stridor, Pain on Inspiration, Chest Congestion, Excessive Mucous Production, Change in Mucous Color, Pain with Coughing, Other - Gastrointestinal Gastrointestinal: absent: As Per HPI, Abdominal Pain, Belching, Bloating, Change in Bowel Habits, Change in Stool Character, Coffee Ground Emesis, Constipation, Cramping, Diarrhea, Dyspepsia, Dysphagia, Early Satiety, Excessive Flatus, Fecal Incontinence, Heartburn, Hematemesis, Hematochezia, Loose Stools, Melena, Nausea, Odynophagia, Temesmus, Vomiting, Other - Genitourinary Genitourinary: absent: As Per HPI, Change in Urinary Stream, Difficulty Urinating, Dysuria, Flank Pain, Hematuria, Pyuria, Nocturia, Urinary Incontinence, Urinary Frequency, Urinary Hesitance, Urinary Urgency, Voiding Freq/Small Amts, Freq UTI, Hx Renal/Bladder Calculi, Hx /Renal Surgery, Bladder Distension, Other - Integumentary Integumentary: absent: As Per HPI, Acne, Alopecia, Bleeding Lesions, Change in Hair, Change in Nails, Change in Pigmentation, Changing Lesions, Dry Skin, Erythema, Furuncle, Hirsutism, Lesions, New Lesions, Non-Healing Lesions, Photosensitivity, Pruritus, Rash, Skin Pain, Skin Ulcer, Sores, Striae, Swelling , Unusual Bruising, Wounds, Jaundice, Other - Neurological Neurological: absent: As Per HPI, Abnormal Gait, Abnormal Hearing, Abnormal Movements, Abnormal Speech, Behavioral Changes, Burning Sensations, Confusion, Convulsions, Disequilibrium, Dizziness, Numbness, Focal Weakness, Frequent Falls , Headaches, Lack of Coordination, Loss of Vision, Memory Loss, Paresthesias, Radicular Pain, Restless Legs, Sensory Deficit, Syncope, Tingling, Tremor, Vertigo, Weakness, Other Visual Disturbances, Other Past Patient History - Infectious Disease Hx of Infectious Diseases: None - Tetanus Immunizations Tetanus Immunization: Unknown, OTH - Past Social History Smoking Status: Former Smoker - CARDIAC Hx Cardiac Disorders: Yes (cad,mi) Hx Congestive Heart Failure: Yes Hx Hypercholesterolemia: Yes Hx Hypertension: Yes Hx Pacemaker: No Hx Peripheral Edema: Yes (ble +1) Hx Peripheral Vascular Disease: Yes (cold feet) Other/Comment: cardiac rehab - PULMONARY Hx Respiratory Disorders: (resp failure) Hx Chronic Obstructive Pulmonary Disease (COPD): Yes Hx Pneumonia: Yes - NEUROLOGICAL Hx Neurological Disorder: No - HEENT Hx HEENT Problems: Yes Hx Cataracts: Yes (R EYE) Hx Difficulty Chewing: Yes (missing teeth) Other/Comment: left eye catarast extraction with lens replacement - RENAL Hx Chronic Kidney Disease: No - ENDOCRINE/METABOLIC Hx Hypothyroidism: Yes Other/Comment: thyroidectomy - HEMATOLOGICAL/ONCOLOGICAL Hx Blood Disorders: Yes (hepatitis 1963 pt doesn't know what kind) Hx Anemia: Yes (blood transfusion) - INTEGUMENTARY Hx Dermatological Problems: Yes Other/Comment: slight redness to both knees, 1cm round callous to right great toe, r great toenail small area black, eccymosis to r ihp, multiple puncture sites to lower abd from "blood thinner" injections, left hand eccymotis, right hand and lower arm eccymotic areas, red groin rash - MUSCULOSKELETAL/RHEUMATOLOGICAL Hx Musculoskeletal Disorders: Yes Hx Arthritis: Yes (knees and back) Hx Falls: Yes Hx Unsteady Gait: Yes (cane walker) - GASTROINTESTINAL Hx Gastrointestinal Disorders: Yes (POOR APPETITE,H/O DYSPHAGIA DUE TO THRUSH) HX Swallowing Problems: Yes Other/Comment: engo 09/04/15 dx esophagitis, hiatal hernia, yu lesions, gastric erosion. egd and colonoscopy 01/02/17 dx esophageal ulcerations with active bleeding, hiatal hernia, sigmoid polyp, redundant colon, diverticulosis, gi bleed - GENITOURINARY/GYNECOLOGICAL Hx Genitourinary Disorders: No - PSYCHIATRIC Hx Emotional Abuse: No Hx Physical Abuse: No - SURGICAL HISTORY Hx Surgeries: Yes (thoracentesis) Hx Cardiac Catheterization: Yes (ptca/stents) Hx Coronary Stent: Yes Hx Orthopedic Surgery: Yes (left knee) - ANESTHESIA Hx Anesthesia Reactions: No Hx Malignant Hyperthermia: No Meds Allergies/Adverse Reactions: Allergies Allergy/AdvReac Type Severity Reaction Status Date / Time No Known Allergies Allergy Verified 12/23/16 20:24 - Medications Medications: Current Medications Pantoprazole Sodium (Protonix Inj) 40 mg IVP DAILY ANAMARIA Physical Exam - Constitutional Appears: Well - Head Exam Head Exam: ATRAUMATIC - Eye Exam Eye Exam: EOMI, Normal appearance Pupil Exam: NORMAL ACCOMODATION - ENT Exam ENT Exam: Mucous Membranes Moist - Neck Exam Neck exam: Positive for: Normal Inspection - Respiratory Exam Respiratory Exam: Clear to Auscultation Bilateral, NORMAL BREATHING PATTERN - Cardiovascular Exam Cardiovascular Exam: REGULAR RHYTHM - GI/Abdominal Exam GI & Abdominal Exam: Normal Bowel Sounds, Soft - Extremities Exam Extremities exam: Positive for: normal inspection - Back Exam Back exam: NORMAL INSPECTION - Neurological Exam Neurological exam: Alert, CN II-XII Intact, Oriented x3 Results - Vital Signs Recent Vital Signs: Last Vital Signs Temp 98 F 01/02/17 11:40 Pulse 77 01/02/17 13:41 Resp 29 H 01/02/17 13:41 BP 94/49 L 01/02/17 13:33 Pulse Ox 88 L 01/02/17 13:33 Assessment & Plan - Assessment and Plan (Free Text) Assessment: 81 y/o M with new UGI Bleed s/p EGD and esophageal ulcerations . Hemostasis was achieved and extubated safely . Vitals are WNL. Was previously on Plavix which may have contributed to the bleed further with concern for possible food bolus. Placed on PPI, NPO. HGB to be drawn along with other labs.Monitor electrolytes . Hold all anticoagulation and SCD for DVT P. COPD HX , B-Agonist and Oxygen as needed to keep o2 sat > 88%. F/U w/ GI and monitor for further blood loss. cc time 45 min
[2017-01-02] MEDS ORDERED: Benzocaine 20% Cream(7 gm) MT PRN (14:16)
[2017-01-02] MEDS ORDERED: Levalbuterol 0.63 MG/3 ML Inhal Soln UD IH PRN (14:16)
[2017-01-02] MEDS ORDERED: Pneumococcal 23-Valent Vaccine IM ONE (14:20)
[2017-01-02 14:22] LABS: EOS % 0.5 % (1.5-5.0); GRAN # 6.72 (1.4-6.5); GRAN % 89.4 % (50.0-68.0); HEMOGLOBIN 9.7 gm/dL (14.0-18.0); LYMPH # 0.4 (1.2-3.4); LYMPH % 5.2 % (22.0-35.0); MEAN CORPUSCULAR HEMOGLOBIN 31.2 pg (25.0-35.0); MEAN CORPUSCULAR HGB CONC 31.2 g/dl (31.0-37.0); MEAN PLATELET VOLUME 9.1 fl (7.0-11.0); MONO # 0.4 (0.1-0.6); MONO % 4.9 % (1.0-6.0); PLATELET COUNT 185 10^3/uL (120.0-450.0); RBC 3.11 10^6/uL (3.5-6.1); RED CELL DISTRIBUTION WIDTH 15.4 % (11.5-14.5); WHITE BLOOD COUNT 7.5 10^3/ul (4.5-11.0)
[2017-01-02] MEDS: Ipratropium 0.02% Inhal Soln (0.5 mg/2.5 ml) UD IH SCH ×2 (14:25→20:05)
[2017-01-02 14:27] LABS: INR 1.02 (0.93-1.08)
[2017-01-02 14:28] LABS: ALBUMIN 2.6 g/dL (3.0-4.8); ALT/SGPT 60 U/L (7-56); AST/SGOT 37 U/L (15-59); BLOOD UREA NITROGEN 17 mg/dL (7-21); CALCIUM 7.3 mg/dL (8.4-10.5); GFR AFRICAN-AMERICAN > 60; GFR NON-AFRICAN AMERICAN > 60; MAGNESIUM 3.8 mg/dL (1.7-2.2)
--- NOTE | 2017-01-02 14:52 | RAD ---
HISTORY: Rhonchi on exam COMPARISON: 12/28/2016 FINDINGS: LUNGS: Right pleural effusion unchanged from prior examination. Opacity at right base may be due to dependent pleural fluid but cannot rule out infiltrate. No evidence of left pleural effusion. No pneumothorax. Previously evident hiatal hernia not clearly demonstrated. PLEURA: See above CARDIOVASCULAR: Normal. OSSEOUS STRUCTURES: No significant abnormalities. VISUALIZED UPPER ABDOMEN: Normal. OTHER FINDINGS: None. IMPRESSION: Right pleural effusion, unchanged. Cannot rule out right basilar infiltrate. Otherwise unremarkable.
[2017-01-02] MEDS: Dextrose 5%/0.45% NS 1,000 ML IV SCH ×2 (15:24→23:00)
[2017-01-02] MEDS ORDERED: Sodium Chloride 0.9% 1,000 ML IV STA (16:27)
[2017-01-02] MEDS: Arformoterol 15 mcg/2 ml Inh Sol IH SCH (20:04)
[2017-01-02] MEDS: Budesonide 0.5 mg/2 ml Inhal Susp UD IH SCH (20:05)
[2017-01-02 20:31] LABS: HEMOGLOBIN 8.7 gm/dL (14.0-18.0); MEAN CELL VOLUME 101.1 fL (80.0-105.0); MEAN CORPUSCULAR HEMOGLOBIN 31.4 pg (25.0-35.0); MEAN CORPUSCULAR HGB CONC 31.1 g/dl (31.0-37.0); MEAN PLATELET VOLUME 9.1 fl (7.0-11.0); RBC 2.77 10^6/uL (3.5-6.1); RED CELL DISTRIBUTION WIDTH 15.4 % (11.5-14.5); WHITE BLOOD COUNT 6.9 10^3/ul (4.5-11.0)
--- NOTE | 2017-01-02 22:09 | CP.PCM.HP ---
History of Present Illness - History of Present Illness History of Present Illness: 81 y/o M w/ a PMHx significant for COPD presented with a c/o upper GIB. Patient had been deconditioning in the TCU at [facility] [place], where his Hgb/HCT were found to decline and fall into critical ranges. Patient was transfused 2 units of blood on 12/31/16, and was then scheduled for an EGD and Colonoscopy for . EGD revealed bleeding ulcerations. Patient was then d/c'd from TCU and was admitted to the ICU. PMH: CHF, COPD, CAD, HLD, hypothyroidism PSH: PCI with stenting, thoracentesis FHx: HTN Soc: Chronic tobacco and alcohol use. No illicits All: NKDA Meds: Please see MAR Present on Admission - Present on Admission Any Indicators Present on Admission: No Review of Systems - Hematologic/Lymphatic Additional comments: ROS: Constitutional: pt denies fever, chills, generalized weakness ENT: pt denies dysphagia, otalgia, hearing deficit, rhinorrhea Eyes: pt denies sudden loss of vision, diplopia, blurred vision MSK: pt denies muscle stiffness, joint pain, extremity cramping Cardio: pt denies sob, heart murmur, cp Pulm: pt denies cough, hemoptysis, wheeze GI: pt denies loss of appetite, abdominal pain, constipation, melena, n/v/d : pt denies burning on urination, urinary frequency, hematuria, urinary urgency Neuro: pt denies paresis, paresthesia, dizziness, ortiz, numbness, tingling Derm: pt denies skin changes, lesions, nail changes Endo: pt denies intolerance to heat/cold, diaphoresis, night sweats, polydipsia Psych: pt denies anxiety, depression, mood changes Past Patient History - Infectious Disease Hx of Infectious Diseases: None - Tetanus Immunizations Tetanus Immunization: Unknown, OTH - Past Social History Smoking Status: Former Smoker - CARDIAC Hx Cardiac Disorders: Yes (cad,mi) Hx Congestive Heart Failure: Yes Hx Hypercholesterolemia: Yes Hx Hypertension: Yes Hx Pacemaker: No Hx Peripheral Edema: Yes (ble +1) Hx Peripheral Vascular Disease: Yes (cold feet) Other/Comment: cardiac rehab - PULMONARY Hx Respiratory Disorders: (resp failure) Hx Chronic Obstructive Pulmonary Disease (COPD): Yes Hx Pneumonia: Yes - NEUROLOGICAL Hx Neurological Disorder: No - HEENT Hx HEENT Problems: Yes Hx Cataracts: Yes (R EYE) Hx Difficulty Chewing: Yes (missing teeth) Other/Comment: left eye catarast extraction with lens replacement - RENAL Hx Chronic Kidney Disease: No - ENDOCRINE/METABOLIC Hx Hypothyroidism: Yes Other/Comment: thyroidectomy - HEMATOLOGICAL/ONCOLOGICAL Hx Blood Disorders: Yes (hepatitis 1963 pt doesn't know what kind) Hx Anemia: Yes (blood transfusion) - INTEGUMENTARY Hx Dermatological Problems: Yes Other/Comment: slight redness to both knees, 1cm round callous to right great toe, r great toenail small area black, eccymosis to r ihp, multiple puncture sites to lower abd from "blood thinner" injections, left hand eccymotis, right hand and lower arm eccymotic areas, red groin rash - MUSCULOSKELETAL/RHEUMATOLOGICAL Hx Musculoskeletal Disorders: Yes Hx Arthritis: Yes (knees and back) Hx Falls: Yes Hx Unsteady Gait: Yes (cane walker) - GASTROINTESTINAL Hx Gastrointestinal Disorders: Yes (POOR APPETITE,H/O DYSPHAGIA DUE TO THRUSH) HX Swallowing Problems: Yes Other/Comment: [place] 09/04/15 dx esophagitis, hiatal hernia, yu lesions, gastric erosion. egd and colonoscopy 01/02/17 dx esophageal ulcerations with active bleeding, hiatal hernia, sigmoid polyp, redundant colon, diverticulosis, gi bleed - GENITOURINARY/GYNECOLOGICAL Hx Genitourinary Disorders: No - PSYCHIATRIC Hx Emotional Abuse: No Hx Physical Abuse: No - SURGICAL HISTORY Hx Surgeries: Yes (thoracentesis) Hx Cardiac Catheterization: Yes (ptca/stents) Hx Coronary Stent: Yes Hx Orthopedic Surgery: Yes (left knee) - ANESTHESIA Hx Anesthesia Reactions: No Hx Malignant Hyperthermia: No Meds Allergies/Adverse Reactions: Allergies Allergy/AdvReac Type Severity Reaction Status Date / Time No Known Allergies Allergy Verified 12/23/16 20:24 Physical Exam - Additional Findings Additional findings: Phys Exam: VS as above Constitutional: a&o x 4, nad Head and Neck: neck supple, no jvd, trachea midline, carotid midline, no cervical/head mass Eyes: ernie, nonicteric sclera, eom intact ENT: auditory acuity grossly intact, throat not congested, no nasal deformity Cardio: rrr, no m/r/g, no carotid bruit, nml s1, s2 Pulm: +decreased breath sounds on right; on oxygen; no accessory muscle use, ctab Abd: s/nt/nd, nbs x 4 q, no palpable masses Derm: no rashes, no ulcers, no lesions Extr: no edema, no cyanosis, no calf tenderness, no lesions, no varicosities Neuro: cn II-XII grossly intact, ue and le 5/5 muscle strength bilaterally, no los ue, le bilaterally and core Results - Vital Signs Recent Vital Signs: Last Vital Signs Temp 98 F 01/02/17 13:55 Pulse 80 01/02/17 20:35 Resp 24 01/02/17 20:10 BP 88/53 L 01/02/17 20:03 Pulse Ox 88 L 01/02/17 20:20 - Labs Result Diagrams: 01/02/17 20:27 01/02/17 14:14 Labs: Laboratory Results - last 24 hr 01/02/17 01/02/17 01/02/17 14:14 14:14 14:14 WBC 7.5 RBC 3.11 L Hgb 9.7 L Hct 31.1 L MCV 100.0 MCH 31.2 MCHC 31.2 RDW 15.4 H Plt Count 185 MPV 9.1 Gran % 89.4 H Lymph % (Auto) 5.2 L Hitchcock % (Auto) 4.9 Eos % (Auto) 0.5 L Baso % (Auto) 0.0 Gran # 6.72 H Lymph # 0.4 L Hitchcock # 0.4 Eos # 0.0 Baso # 0.00 PT 11.0 INR 1.02 Sodium 136 Potassium 4.6 Chloride 86 L Carbon Dioxide 48 H Anion Gap 7 L BUN 17 Creatinine 0.6 Est GFR ( Amer) > 60 Est GFR (Non-Af Amer) > 60 Random Glucose 108 Calcium 7.3 L Magnesium 3.8 H Total Bilirubin 0.6 AST 37 ALT 60 H Alkaline Phosphatase 53 Total Protein 5.2 L Albumin 2.6 L Globulin 2.6 Albumin/Globulin Ratio 1.0 L 01/02/17 20:27 WBC 6.9 RBC 2.77 L Hgb 8.7 L Hct 28.0 L MCV 101.1 MCH 31.4 MCHC 31.1 RDW 15.4 H Plt Count 163 MPV 9.1 Gran % Lymph % (Auto) Hitchcock % (Auto) Eos % (Auto) Baso % (Auto) Gran # Lymph # Hitchcock # Eos # Baso # PT INR Sodium Potassium Chloride Carbon Dioxide Anion Gap BUN Creatinine Est GFR ( Amer) Est GFR (Non-Af Amer) Random Glucose Calcium Magnesium Total Bilirubin AST ALT Alkaline Phosphatase Total Protein Albumin Globulin Albumin/Globulin Ratio Assessment & Plan - Assessment and Plan (Free Text) Assessment: 81 M c/o decreasing hbg and hct 2/2 upper GIB - endoscopy showed bleeding esophageal ulcer Plan: 1.) Anemia 2/2 Upper GIB - 1 U PRBC's administered - Transfer to ICU for monitoring - Monitor CBC 2. Hx COPD - O2 supplementation to maintain SaO2 ~90-92%; currently on 2LNC - Xopenex/atrovent PRN and ANAMARIA, and pulmicort/brovana prn 3. Constipation - Dulcolax 4. Hx of CAD - Hold anticoagulation 2/2 bleed - Hold Lipitor 2/2 NPO - Hold metoprolol 25mg PO TID 2/2 NPO 5. Hyperlipidemia - Hold Lipitor 2/2 NPO 8. Hypothyroidism - Hold Synthroid 2/2 NPO GI/DVT Prophylaxis - Protonix/Heparin SC Fab Dodd DO, PGY-1 Reviewed case in detail with Dr. Avitia
[2017-01-03] MEDS: Ipratropium 0.02% Inhal Soln (0.5 mg/2.5 ml) UD IH SCH ×4 (03:58→20:16)
[2017-01-03] MEDS: Levothyroxine 175 MCG TAB PO SCH (05:50)
[2017-01-03] MEDS ORDERED: Levothyroxine 200 MCG TAB PO SCH (06:00)
[2017-01-03 06:51] LABS: EOS # 0.2 (0.0-0.7); EOS % 2.4 % (1.5-5.0); GRAN # 6.66 (1.4-6.5); GRAN % 87.4 % (50.0-68.0); HEMOGLOBIN 9.3 gm/dL (14.0-18.0); LYMPH # 0.4 (1.2-3.4); LYMPH % 4.9 % (22.0-35.0); MEAN CELL VOLUME 102.7 fL (80.0-105.0); MEAN CORPUSCULAR HEMOGLOBIN 31.1 pg (25.0-35.0); MEAN CORPUSCULAR HGB CONC 30.3 g/dl (31.0-37.0); MEAN PLATELET VOLUME 9.2 fl (7.0-11.0); MONO # 0.4 (0.1-0.6); MONO % 5.3 % (1.0-6.0); PLATELET COUNT 191 10^3/uL (120.0-450.0); RBC 2.99 10^6/uL (3.5-6.1); RED CELL DISTRIBUTION WIDTH 15.5 % (11.5-14.5); WHITE BLOOD COUNT 7.6 10^3/ul (4.5-11.0)
[2017-01-03 06:53] LABS: INR 1.03 (0.93-1.08); PROTHROMBIN TIME 11.1 Seconds (9.9-11.8)
[2017-01-03] MEDS: Arformoterol 15 mcg/2 ml Inh Sol IH SCH ×2 (07:25→20:17)
[2017-01-03] MEDS: Budesonide 0.5 mg/2 ml Inhal Susp UD IH SCH (07:26)
[2017-01-03 07:33] LABS: ALB/GLOB RATIO 1.1 (1.1-1.8); ALBUMIN 2.4 g/dL (3.0-4.8); ALT/SGPT 44 U/L (7-56); AST/SGOT 26 U/L (15-59); BLOOD UREA NITROGEN 13 mg/dL (7-21); CALCIUM 7.2 mg/dL (8.4-10.5); GFR AFRICAN-AMERICAN > 60; GFR NON-AFRICAN AMERICAN > 60
[2017-01-03] MEDS: Dextrose 5%/0.45% NS 1,000 ML IV SCH ×2 (09:10→18:35)
[2017-01-03] MEDS ORDERED: Non Formulary Medication (Simvastatin [Simvastatin] 40 MG) PO SCH (10:00)
--- NOTE | 2017-01-03 11:56 | CP.PCM.CON ---
<Chelle Dodson - Last Filed: 01/03/17 11:48> History of Present Illness - History of Present Illness History of Present Illness: patient was seen and examined at the bedside, the chart was reviewed. Request for consult is for anemia/GI bleed. HPI: This is an 81-year-old male with a past medical history of coronary artery disease on anticoagulant, anemia,originally consulted for constipation/fecal impaction. The patient hemoglobin was slowly declining and was on anticoagulant therapy. He underwent endoscopy for further evaluation of anemia and found to have multiple ulcers in the esophagus that were noted to be bleeding. He was transferred from TCU to ICU for further monitoring. He denies any nausea, vomiting, or abdominal pain. Been tolerating the clear liquid diet. No reports of any melena or bright red blood per rectum. He also underwent a colonoscopy and found to have a colon polyp but not removed as he was on anticoagulant. PMH: CHF, COPD, CAD, HLD, hypothyroidism PSH: PCI with stenting, thoracentesis FHx: HTN Soc: Chronic tobacco and alcohol use. No illicits All: NKDA Meds: reviewed as per nav CHAVES off plavix and asa ROS: systems reviewed with positive findings see HPI Past Patient History - Infectious Disease Hx of Infectious Diseases: None - Tetanus Immunizations Tetanus Immunization: Unknown, OTH - Past Social History Smoking Status: Former Smoker - CARDIAC Hx Cardiac Disorders: Yes (cad,mi) Hx Congestive Heart Failure: Yes Hx Hypercholesterolemia: Yes Hx Hypertension: Yes Hx Pacemaker: No Hx Peripheral Edema: Yes (ble +1) Hx Peripheral Vascular Disease: Yes (cold feet) Other/Comment: cardiac rehab - PULMONARY Hx Respiratory Disorders: (resp failure) Hx Chronic Obstructive Pulmonary Disease (COPD): Yes Hx Pneumonia: Yes - NEUROLOGICAL Hx Neurological Disorder: No - HEENT Hx HEENT Problems: Yes Hx Cataracts: Yes (R EYE) Hx Difficulty Chewing: Yes (missing teeth) Other/Comment: left eye catarast extraction with lens replacement - RENAL Hx Chronic Kidney Disease: No - ENDOCRINE/METABOLIC Hx Hypothyroidism: Yes Other/Comment: thyroidectomy - HEMATOLOGICAL/ONCOLOGICAL Hx Blood Disorders: Yes (hepatitis 1963 pt doesn't know what kind) Hx Anemia: Yes (blood transfusion) - INTEGUMENTARY Hx Dermatological Problems: Yes Other/Comment: slight redness to both knees, 1cm round callous to right great toe, r great toenail small area black, eccymosis to r ihp, multiple puncture sites to lower abd from "blood thinner" injections, left hand eccymotis, right hand and lower arm eccymotic areas, red groin rash - MUSCULOSKELETAL/RHEUMATOLOGICAL Hx Musculoskeletal Disorders: Yes Hx Arthritis: Yes (knees and back) Hx Falls: Yes Hx Unsteady Gait: Yes (cane walker) - GASTROINTESTINAL Hx Gastrointestinal Disorders: Yes (POOR APPETITE,H/O DYSPHAGIA DUE TO THRUSH) HX Swallowing Problems: Yes Other/Comment: [place] 09/04/15 dx esophagitis, hiatal hernia, yu lesions, gastric erosion. egd and colonoscopy 01/02/17 dx esophageal ulcerations with active bleeding, hiatal hernia, sigmoid polyp, redundant colon, diverticulosis, gi bleed - GENITOURINARY/GYNECOLOGICAL Hx Genitourinary Disorders: No - PSYCHIATRIC Hx Emotional Abuse: No Hx Physical Abuse: No - SURGICAL HISTORY Hx Surgeries: Yes (thoracentesis) Hx Cardiac Catheterization: Yes (ptca/stents) Hx Coronary Stent: Yes Hx Orthopedic Surgery: Yes (left knee) - ANESTHESIA Hx Anesthesia Reactions: No Hx Malignant Hyperthermia: No Meds Allergies/Adverse Reactions: Allergies Allergy/AdvReac Type Severity Reaction Status Date / Time No Known Allergies Allergy Verified 12/23/16 20:24 - Medications Medications: Current Medications Arformoterol Tartrate (Brovana) 15 mcg IH [id number] [facility] Last Admin: 01/03/17 07:25 Dose: 15 mcg Atorvastatin Calcium (Lipitor) 20 mg PO DIN [facility] Last Admin: 01/02/17 16:11 Dose: 20 mg Benzocaine (Orajel Pm Maximum Strength) 0 gm MT QID PRN PRN Reason: pain Last Admin: 01/02/17 15:25 Dose: 1 applic Budesonide (Pulmicort Respules) 0.5 mg IH [id number] [facility] Last Admin: 01/03/17 07:26 Dose: 0.5 mg Dextrose/Sodium Chloride (Dextrose 5%/0.45% Ns 1000 Ml) 1,000 mls @ 125 mls/hr IV .Q8H [facility] Last Admin: 01/03/17 09:10 Dose: 125 mls/hr Ipratropium [place] (Atrovent) 0.5 mg IH [id number] [facility] Last Admin: 01/03/17 07:25 Dose: 0.5 mg Levalbuterol HCl (Xopenex) 0.63 mg IH [id number] PRN PRN Reason: Shortness of Breath Levothyroxine Sodium (Synthroid) 175 mcg PO 0600 [facility] Last Admin: 01/03/17 05:50 Dose: 175 mcg Pantoprazole Sodium (Protonix Inj) 40 mg IVP Q12 [facility] Last Admin: 01/03/17 09:10 Dose: 40 mg Physical Exam - Constitutional Appears: No Acute Distress - Head Exam Head Exam: NORMOCEPHALIC - Eye Exam Eye Exam: Normal appearance. absent: Scleral icterus - ENT Exam ENT Exam: Mucous Membranes Moist - Neck Exam Neck exam: Positive for: Normal Inspection - Respiratory Exam Respiratory Exam: Rhonchi, NORMAL BREATHING PATTERN. absent: Wheezes, Respiratory Distress - Cardiovascular Exam Cardiovascular Exam: +S1, +S2 - GI/Abdominal Exam GI & Abdominal Exam: Normal Bowel Sounds, Soft. absent: Distended, Guarding, Rebound, Tenderness - Extremities Exam Extremities exam: Negative for: calf tenderness (scd), pedal edema - Neurological Exam Neurological exam: Alert, Oriented x3 - Skin Skin Exam: Dry, Warm Results - Vital Signs Recent Vital Signs: Last Vital Signs Temp 98.1 F 01/03/17 08:00 Pulse 107 H 01/03/17 09:20 Resp 34 H 01/03/17 09:20 BP 104/47 L 01/03/17 08:03 Pulse Ox 78 L 01/03/17 09:20 - Labs Result Diagrams: 01/03/17 05:35 01/03/17 05:35 Labs: Laboratory Results - last 24 hr 01/02/17 01/02/17 01/02/17 14:14 14:14 14:14 WBC 7.5 RBC 3.11 L Hgb 9.7 L Hct 31.1 L MCV 100.0 MCH 31.2 MCHC 31.2 RDW 15.4 H Plt Count 185 MPV 9.1 Gran % 89.4 H Lymph % (Auto) 5.2 L [place] % (Auto) 4.9 Eos % (Auto) 0.5 L Baso % (Auto) 0.0 Gran # 6.72 H Lymph # 0.4 L [place] # 0.4 Eos # 0.0 Baso # 0.00 PT 11.0 INR 1.02 APTT Sodium 136 Potassium 4.6 Chloride 86 L Carbon Dioxide 48 H Anion Gap 7 L BUN 17 Creatinine 0.6 Est GFR ( Amer) > 60 Est GFR (Non-Af Amer) > 60 Random Glucose 108 Calcium 7.3 L Magnesium 3.8 H Total Bilirubin 0.6 AST 37 ALT 60 H Alkaline Phosphatase 53 Total Protein 5.2 L Albumin 2.6 L Globulin 2.6 Albumin/Globulin Ratio 1.0 L 01/02/17 01/03/17 01/03/17 20:27 05:35 05:35 WBC 6.9 7.6 RBC 2.77 L 2.99 L Hgb 8.7 L 9.3 L Hct 28.0 L 30.7 L MCV 101.1 102.7 MCH 31.4 31.1 MCHC 31.1 30.3 L RDW 15.4 H 15.5 H Plt Count 163 191 MPV 9.1 9.2 Gran % 87.4 H Lymph % (Auto) 4.9 L [place] % (Auto) 5.3 Eos % (Auto) 2.4 Baso % (Auto) 0.0 Gran # 6.66 H Lymph # 0.4 L [place] # 0.4 Eos # 0.2 Baso # 0.00 PT 11.1 INR 1.03 APTT 32.0 H Sodium Potassium Chloride Carbon Dioxide Anion Gap BUN Creatinine Est GFR ( Amer) Est GFR (Non-Af Amer) Random Glucose Calcium Magnesium Total Bilirubin AST ALT Alkaline Phosphatase Total Protein Albumin Globulin Albumin/Globulin Ratio 01/03/17 05:35 WBC RBC Hgb Hct MCV MCH MCHC RDW Plt Count MPV Gran % Lymph % (Auto) [place] % (Auto) Eos % (Auto) Baso % (Auto) Gran # Lymph # [place] # Eos # Baso # PT INR APTT Sodium 134 Potassium 4.0 Chloride 88 L Carbon Dioxide 46 H Anion Gap 4 L BUN 13 Creatinine 0.5 Est GFR ( Amer) > 60 Est GFR (Non-Af Amer) > 60 Random Glucose 137 H Calcium 7.2 L Magnesium Total Bilirubin 0.5 AST 26 ALT 44 Alkaline Phosphatase 48 Total Protein 4.6 L Albumin 2.4 L Globulin 2.2 Albumin/Globulin Ratio 1.1 Assessment & Plan - Assessment and Plan (Free Text) Assessment: Assessment: Anemia Status post EGD/colon: Found esophageal ulcerations with bleeding, colon polyp not removed on anticoagulant COPD Coronary artery disease Status post fecal impaction Plan: Continue Protonix 40 every 12 Start Carafate liquid BIDadvance slowly Continue clear liquid diet, Continue to trend H and H and monitor for overt GI bleed Plavix and aspirin on hold SCD boots for DVT prophylaxis Will need repeat EGD to follow-up healing of ulcers 2 weeks' time Thank you for this consult and for allowing us to participate in patient's care , we will make further recommendation based on patient's clinical course. Seen and discussed with Dr. Delgado. <Miranda Delgado V - Last Filed: 01/03/17 23:38> Meds - Medications Medications: Current Medications Arformoterol Tartrate (Brovana) 15 mcg IH [id number] [facility] Last Admin: 01/03/17 20:17 Dose: Not Given Atorvastatin Calcium (Lipitor) 20 mg PO DIN [facility] Last Admin: 01/03/17 17:29 Dose: 20 mg Benzocaine (Orajel Pm Maximum Strength) 0 gm MT QID PRN PRN Reason: pain Last Admin: 01/02/17 15:25 Dose: 1 applic Budesonide (Pulmicort Respules) 0.5 mg IH [id number] [facility] Last Admin: 01/03/17 07:26 Dose: 0.5 mg Dextrose/Sodium Chloride (Dextrose 5%/0.45% Ns 1000 Ml) 1,000 mls @ 125 mls/hr IV .Q8H [facility] Last Admin: 01/03/17 18:35 Dose: 125 mls/hr Ipratropium [place] (Atrovent) 0.5 mg IH [id number] [facility] Last Admin: 01/03/17 20:16 Dose: Not Given Levalbuterol HCl (Xopenex) 0.63 mg IH [id number] PRN PRN Reason: Shortness of Breath Levothyroxine Sodium (Synthroid) 175 mcg PO 0600 [facility] Last Admin: 01/03/17 05:50 Dose: 175 mcg Pantoprazole Sodium (Protonix Inj) 40 mg IVP Q12 [facility] Last Admin: 01/03/17 21:36 Dose: 40 mg Sucralfate (Carafate Oral Susp) 1 gm PO 0600,1600 [facility] Last Admin: 01/03/17 17:29 Dose: 1 gm Results - Vital Signs Recent Vital Signs: Last Vital Signs Temp 98.1 F 01/03/17 08:00 Pulse 79 01/03/17 22:00 Resp 26 H 01/03/17 18:10 BP 97/55 L 01/03/17 18:03 Pulse Ox 85 L 01/03/17 18:10 - Labs Result Diagrams: 01/03/17 05:35 01/03/17 05:35 Labs: Laboratory Results - last 24 hr 01/03/17 01/03/17 01/03/17 05:35 05:35 05:35 WBC 7.6 RBC 2.99 L Hgb 9.3 L Hct 30.7 L MCV 102.7 MCH 31.1 MCHC 30.3 L RDW 15.5 H Plt Count 191 MPV 9.2 Gran % 87.4 H Lymph % (Auto) 4.9 L [place] % (Auto) 5.3 Eos % (Auto) 2.4 Baso % (Auto) 0.0 Gran # 6.66 H Lymph # 0.4 L [place] # 0.4 Eos # 0.2 Baso # 0.00 PT 11.1 INR 1.03 APTT 32.0 H Sodium 134 Potassium 4.0 Chloride 88 L Carbon Dioxide 46 H Anion Gap 4 L BUN 13 Creatinine 0.5 Est GFR ( Amer) > 60 Est GFR (Non-Af Amer) > 60 Random Glucose 137 H Calcium 7.2 L Total Bilirubin 0.5 AST 26 ALT 44 Alkaline Phosphatase 48 Total Protein 4.6 L Albumin 2.4 L Globulin 2.2 Albumin/Globulin Ratio 1.1 Attending/Attestation - Attestation I have personally seen and examined this patient.: Yes I have fully participated in the care of the patient.: Yes I have reviewed all pertinent clinical information: Yes Notes (Text): p
--- NOTE | 2017-01-03 15:29 | CP.PCM.PN ---
Subjective - Date & Time of Evaluation Date of Evaluation: 01/03/17 Time of Evaluation: 07:00 - Subjective Subjective: Pt s/e bedside. No new complaints - patient is feeling better than yesterday, but would like to go home. Pt denies fatigue, dizziness, sob, n/v/d, melena. Objective - Vital Signs/Intake and Output Vital Signs (last 24 hours): Temp Pulse Resp BP Pulse Ox 98.1 F 85 30 H 115/53 L 73 L 01/03/17 08:00 01/03/17 14:10 01/03/17 14:10 01/03/17 14:03 01/03/17 14:10 Intake and Output: 01/03/17 01/03/17 06:59 18:59 Intake Total 1500 Output Total 700 Balance 800 - Medications Medications: Current Medications Arformoterol Tartrate (Brovana) 15 mcg IH [id number] [facility] Last Admin: 01/03/17 07:25 Dose: 15 mcg Atorvastatin Calcium (Lipitor) 20 mg PO DIN [facility] Last Admin: 01/02/17 16:11 Dose: 20 mg Benzocaine (Orajel Pm Maximum Strength) 0 gm MT QID PRN PRN Reason: pain Last Admin: 01/02/17 15:25 Dose: 1 applic Budesonide (Pulmicort Respules) 0.5 mg IH [id number] [facility] Last Admin: 01/03/17 07:26 Dose: 0.5 mg Dextrose/Sodium Chloride (Dextrose 5%/0.45% Ns 1000 Ml) 1,000 mls @ 125 mls/hr IV .Q8H [facility] Last Admin: 01/03/17 09:10 Dose: 125 mls/hr Ipratropium [place] (Atrovent) 0.5 mg IH [id number] [facility] Last Admin: 01/03/17 13:39 Dose: 0.5 mg Levalbuterol HCl (Xopenex) 0.63 mg IH [id number] PRN PRN Reason: Shortness of Breath Levothyroxine Sodium (Synthroid) 175 mcg PO 0600 [facility] Last Admin: 01/03/17 05:50 Dose: 175 mcg Pantoprazole Sodium (Protonix Inj) 40 mg IVP Q12 [facility] Last Admin: 01/03/17 09:10 Dose: 40 mg Sucralfate (Carafate Oral Susp) 1 gm PO 0600,1600 ANAMARIA - Labs Labs: 01/03/17 05:35 01/03/17 05:35 PT 11.1 Seconds (9.9-11.8) 01/03/17 05:35 INR 1.03 (0.93-1.08) 01/03/17 05:35 APTT 32.0 Seconds (23.7-30.8) H 01/03/17 05:35 - Additional Findings Additional findings: VS as below Constitutional: a&o x 4, nad Head and Neck: neck supple, no jvd, trachea midline, carotid midline, no cervical/head mass Eyes: + Amblyopia/strabismus; ernie, nonicteric sclera, eom intact ENT: auditory acuity grossly intact, throat not congested, no nasal deformity Cardio: +AFib; rr, no m/r/g, no carotid bruit, nml s1, s2 Pulm: +Pt on oxygen; no accessory muscle use, equal nml breath sounds bilaterally, ctab Abd: s/nt/nd, nbs x 4 q, no palpable masses Derm: no rashes, no ulcers, no lesions Extr: no edema, no cyanosis, no calf tenderness, no lesions, no varicosities Neuro: negative babinski; cn II-XII grossly intact, ue and le 5/5 muscle strength bilaterally, no los ue, le bilaterally and core Assessment and Plan - Assessment and Plan (Free Text) Assessment: 81 M c/o decreasing hbg and hct 2/2 upper GIB - endoscopy showed bleeding esophageal ulcer Plan: 1.) Anemia 2/2 Upper GIB History: - EGD showed bleeding esophageal ulcers - 1 U PRBC's administered - Transfer to ICU for monitoring - Monitor CBC Current: - GI Recs - Continue Protonix 40 bid - Start Carafate liquid bid - Continue liquid diet - Hold ASA and Plavix - Repeat EGD in 2-3 weeks outpatient 2. Hx COPD - O2 supplementation to maintain SaO2 ~90-92%; currently on 2LNC - Xopenex/atrovent PRN and ANAMARIA, and pulmicort/brovana prn 3. Constipation - Dulcolax 4. Hx of CAD - Hold anticoagulation 2/2 bleed - Hold Lipitor 2/2 NPO - Hold metoprolol 25mg PO TID 2/2 NPO 5. Hyperlipidemia - Hold Lipitor 2/2 NPO 8. Hypothyroidism - Hold Synthroid 2/2 NPO GI/DVT Prophylaxis - Protonix/Heparin SC Fab Dodd DO, PGY-1 Reviewed case in detail with Dr. Avitia
--- NOTE | 2017-01-03 15:31 | CP.PCM.PN ---
<Sofi Madrid - Last Filed: 01/03/17 15:06> Subjective - Date & Time of Evaluation Date of Evaluation: 01/03/17 Time of Evaluation: 08:15 - Subjective Subjective: Pt seen and examined at bedside. No acute complaints at this time. No acute or adverse events overnight. Pt is maintaining HD stability. He is tolerating the clear liquid diet. No signs of active blood loss. Objective - Vital Signs/Intake and Output Vital Signs (last 24 hours): Temp Pulse Resp BP Pulse Ox 98.1 F 85 30 H 115/53 L 73 L 01/03/17 08:00 01/03/17 14:10 01/03/17 14:10 01/03/17 14:03 01/03/17 14:10 Intake and Output: 01/03/17 01/03/17 06:59 18:59 Intake Total 1500 Output Total 700 Balance 800 - Medications Medications: Current Medications Arformoterol Tartrate (Brovana) 15 mcg IH [id number] [facility] Last Admin: 01/03/17 07:25 Dose: 15 mcg Atorvastatin Calcium (Lipitor) 20 mg PO DIN [facility] Last Admin: 01/02/17 16:11 Dose: 20 mg Benzocaine (Orajel Pm Maximum Strength) 0 gm MT QID PRN PRN Reason: pain Last Admin: 01/02/17 15:25 Dose: 1 applic Budesonide (Pulmicort Respules) 0.5 mg IH [id number] [facility] Last Admin: 01/03/17 07:26 Dose: 0.5 mg Dextrose/Sodium Chloride (Dextrose 5%/0.45% Ns 1000 Ml) 1,000 mls @ 125 mls/hr IV .Q8H [facility] Last Admin: 01/03/17 09:10 Dose: 125 mls/hr Ipratropium [place] (Atrovent) 0.5 mg IH [id number] [facility] Last Admin: 01/03/17 13:39 Dose: 0.5 mg Levalbuterol HCl (Xopenex) 0.63 mg IH [id number] PRN PRN Reason: Shortness of Breath Levothyroxine Sodium (Synthroid) 175 mcg PO 0600 [facility] Last Admin: 01/03/17 05:50 Dose: 175 mcg Pantoprazole Sodium (Protonix Inj) 40 mg IVP Q12 [facility] Last Admin: 01/03/17 09:10 Dose: 40 mg Sucralfate (Carafate Oral Susp) 1 gm PO 0600,1600 [facility] - Labs Labs: 01/03/17 05:35 01/03/17 05:35 PT 11.1 Seconds (9.9-11.8) 01/03/17 05:35 INR 1.03 (0.93-1.08) 01/03/17 05:35 APTT 32.0 Seconds (23.7-30.8) H 01/03/17 05:35 - Constitutional Appears: No Acute Distress - Head Exam Head Exam: ATRAUMATIC, NORMAL INSPECTION, NORMOCEPHALIC - Eye Exam Eye Exam: EOMI, Normal appearance, PERRL Pupil Exam: NORMAL ACCOMODATION, PERRL - ENT Exam ENT Exam: Mucous Membranes Moist, Normal Exam - Respiratory Exam Respiratory Exam: Clear to Ausculation Bilateral, NORMAL BREATHING PATTERN - Cardiovascular Exam Cardiovascular Exam: REGULAR RHYTHM, +S1, +S2. absent: Murmur - GI/Abdominal Exam GI & Abdominal Exam: Soft, Normal Bowel Sounds. absent: Tenderness - Extremities Exam Extremities Exam: Full ROM, Normal Capillary Refill, Normal Inspection. absent : Joint Swelling, Pedal Edema - Neurological Exam Neurological Exam: Alert, Awake, CN II-XII Intact, Oriented x3 - Psychiatric Exam Psychiatric exam: Normal Affect, Normal Mood - Skin Skin Exam: Dry, Intact, Normal Color, Warm Assessment and Plan - Assessment and Plan (Free Text) Assessment: 81 M with COPD and CAD admitted to ICU Status post EGD/colonoscopy which found the pt to have esophageal ulcerations with bleeding for further monitoring and maintaining HD stability. Neuro: AAOx3 stable, mentating well moving extremities spontaneously Pulm: Hx COPD O2 supplementation to maintain SaO2 >88%; currently on 2LNC satting well Xopenex/atrovent PRN and ANAMARIA, and pulmicort/brovana prn CVS: HD Stable s/p EGD with hemostasis of bleeding esophageal ulcer holding plavix and asa continue to monitor GI: CLD Protonix ducolax for constipation GI, Dr. Delgado following will need repeat EGD to follow-up healing of ulcers 2 weeks' time. Start Carafate liquid BID advance slowly Renal: Stable continue to monitor renal fcn strict I&Os supplement elytes as needed Heme: H&H stable, continue to trend and monitor for signs of active bleeding continue to monitor Endo: maintain bg 140-180 synthroid DVT GI ppx reviewed Seen reviewed and discussed with attending <Prabhakar Rodriguez MD H - Last Filed: 01/03/17 16:00> Objective - Vital Signs/Intake and Output Vital Signs (last 24 hours): Temp Pulse Resp BP Pulse Ox 98.1 F 85 30 H 115/53 L 73 L 01/03/17 08:00 01/03/17 14:10 01/03/17 14:10 01/03/17 14:03 01/03/17 14:10 Intake and Output: 01/03/17 01/03/17 06:59 18:59 Intake Total 1500 Output Total 700 Balance 800 - Medications Medications: Current Medications Arformoterol Tartrate (Brovana) 15 mcg IH [id number] [facility] Last Admin: 01/03/17 07:25 Dose: 15 mcg Atorvastatin Calcium (Lipitor) 20 mg PO DIN [facility] Last Admin: 01/02/17 16:11 Dose: 20 mg Benzocaine (Orajel Pm Maximum Strength) 0 gm MT QID PRN PRN Reason: pain Last Admin: 01/02/17 15:25 Dose: 1 applic Budesonide (Pulmicort Respules) 0.5 mg IH [id number] [facility] Last Admin: 01/03/17 07:26 Dose: 0.5 mg Dextrose/Sodium Chloride (Dextrose 5%/0.45% Ns 1000 Ml) 1,000 mls @ 125 mls/hr IV .Q8H [facility] Last Admin: 01/03/17 09:10 Dose: 125 mls/hr Ipratropium [place] (Atrovent) 0.5 mg IH [id number] [facility] Last Admin: 01/03/17 13:39 Dose: 0.5 mg Levalbuterol HCl (Xopenex) 0.63 mg IH [id number] PRN PRN Reason: Shortness of Breath Levothyroxine Sodium (Synthroid) 175 mcg PO 0600 [facility] Last Admin: 01/03/17 05:50 Dose: 175 mcg Pantoprazole Sodium (Protonix Inj) 40 mg IVP Q12 [facility] Last Admin: 01/03/17 09:10 Dose: 40 mg Sucralfate (Carafate Oral Susp) 1 gm PO 0600,1600 [facility] - Labs Labs: 01/03/17 05:35 01/03/17 05:35 PT 11.1 Seconds (9.9-11.8) 01/03/17 05:35 INR 1.03 (0.93-1.08) 01/03/17 05:35 APTT 32.0 Seconds (23.7-30.8) H 01/03/17 05:35 Attending/Attestation - Attestation I have personally seen and examined this patient.: Yes I have fully participated in the care of the patient.: Yes I have reviewed all pertinent clinical information, including history, physical exam and plan: Yes Notes (Text): 01/03/17 15:55 81 y/o M w/ UGI bleed s/p EGD HGB stable w/o any further bleeding Continue PPI Diet advanced. May need to revaluate for ulcer status. Bp controll achieved. Will need to be evaluated for asprin and plavix at a future time for his cardiac risk. Primary team aware. dvt P SCD cc time 35 min
[2017-01-03] MEDS: Sucralfate 1 gm/10 ml Oral Susp UD PO SCH (17:29)
[2017-01-04] MEDS: Ipratropium 0.02% Inhal Soln (0.5 mg/2.5 ml) UD IH SCH ×4 (02:25→19:45)
[2017-01-04] MEDS: Dextrose 5%/0.45% NS 1,000 ML IV SCH ×2 (03:23→07:01)
[2017-01-04] MEDS: Sucralfate 1 gm/10 ml Oral Susp UD PO SCH ×2 (05:57→16:38)
[2017-01-04] MEDS: Levothyroxine 175 MCG TAB PO SCH (05:58)
[2017-01-04 07:35] LABS: EOS # 0.2 (0.0-0.7); EOS % 3.2 % (1.5-5.0); GRAN # 5.74 (1.4-6.5); GRAN % 84.2 % (50.0-68.0); HEMOGLOBIN 9.2 gm/dL (14.0-18.0); LYMPH # 0.5 (1.2-3.4); LYMPH % 6.7 % (22.0-35.0); MEAN CELL VOLUME 101.7 fL (80.0-105.0); MEAN CORPUSCULAR HEMOGLOBIN 31.1 pg (25.0-35.0); MEAN CORPUSCULAR HGB CONC 30.6 g/dl (31.0-37.0); MEAN PLATELET VOLUME 9.4 fl (7.0-11.0); MONO # 0.4 (0.1-0.6); MONO % 5.9 % (1.0-6.0); PLATELET COUNT 181 10^3/uL (120.0-450.0); RBC 2.96 10^6/uL (3.5-6.1); RED CELL DISTRIBUTION WIDTH 15.1 % (11.5-14.5); WHITE BLOOD COUNT 6.8 10^3/ul (4.5-11.0)
[2017-01-04 07:53] LABS: ALBUMIN 2.2 g/dL (3.0-4.8); ALT/SGPT 42 U/L (7-56); AST/SGOT 22 U/L (15-59); BLOOD UREA NITROGEN 8 mg/dL (7-21); CALCIUM 7.1 mg/dL (8.4-10.5); GFR AFRICAN-AMERICAN > 60; GFR NON-AFRICAN AMERICAN > 60
[2017-01-04] MEDS: Arformoterol 15 mcg/2 ml Inh Sol IH SCH ×2 (08:10→19:45)
[2017-01-04] MEDS: Budesonide 0.5 mg/2 ml Inhal Susp UD IH SCH ×2 (08:11→19:45)
--- NOTE | 2017-01-04 08:38 | PN ---
DATE: 01/04/2017 SUBJECTIVE: The patient appears comfortable this morning. He is not short of breath at rest. PHYSICAL EXAMINATION VITAL SIGNS: Temperature 98.0, pulse 86, respirations 18, blood pressure 102/55. Oxygen saturation on nasal cannula is 92%. HEENT: Normocephalic, atraumatic. NECK: No JVD. CARDIOVASCULAR: Systolic ejection murmur at the lower left sternal border. No S3 gallop. LUNGS: Decreased breath sounds at the bases, minimal rhonchi. No wheezing. EXTREMITIES: Mild edema. No cyanosis, no clubbing. Calves are nontender to palpation. GASTROINTESTINAL: Abdomen is soft, nontender, nondistended. Bowel sounds are positive. SKIN: No acute rash. NEUROLOGIC: Exam is limited at the present time. IMPRESSION: 1. Upper gastrointestinal bleeding, esophageal ulcers. 2. Status post respiratory failure. 3. Advanced chronic obstructive pulmonary disease. 4. Chronic bilateral pleural effusions. 5. Bibasilar atelectasis. PLAN: Events over the past 24 hours are noted. I did discuss the case with the nurse at length. The patient was transferred to the ICU--from the transitional unit--for upper GI bleeding. He then underwent an endoscopy, which showed bleeding esophageal ulcers. Input by GI is noted. On physical exam, there is only minimal bronchospasm noted. I will continue with the current nebulizer treatments and inhaled steroids for now. Clinical status of the patient is improved from a few days ago. However, again, the overall status/prognosis of this elderly patient-with multiple medical problems- remains very guarded. All are aware. I will discuss the above with Dr. Avitia. Kris Heaton MD [facility]
--- NOTE | 2017-01-04 10:16 | CP.PCM.PN ---
Subjective - Date & Time of Evaluation Date of Evaluation: 01/04/17 Time of Evaluation: 10:10 - Subjective Subjective: Medicine Progress Note Patient seen and examined at bedside. There were no acute overnight events as per nursing. Patient reports having some constipation, but denies CP, SOB, n/v/d , numbness/tingling, fever or chills. Objective - Vital Signs/Intake and Output Vital Signs (last 24 hours): Temp Pulse Resp BP Pulse Ox 98.0 F 86 18 102/55 L 92 L 01/04/17 06:00 01/04/17 06:00 01/04/17 06:00 01/04/17 06:00 01/04/17 06:00 Intake and Output: 01/04/17 01/04/17 06:59 18:59 Intake Total 1250 Balance 1250 - Medications Medications: Current Medications Arformoterol Tartrate (Brovana) 15 mcg IH [id number] [facility] Last Admin: 01/04/17 08:10 Dose: 15 mcg Atorvastatin Calcium (Lipitor) 20 mg PO DIN [facility] Last Admin: 01/03/17 17:29 Dose: 20 mg Benzocaine (Orajel Pm Maximum Strength) 0 gm MT QID PRN PRN Reason: pain Last Admin: 01/02/17 15:25 Dose: 1 applic Budesonide (Pulmicort Respules) 0.5 mg IH [id number] [facility] Last Admin: 01/04/17 08:11 Dose: 0.5 mg Dextrose/Sodium Chloride (Dextrose 5%/0.45% Ns 1000 Ml) 1,000 mls @ 125 mls/hr IV .Q8H [facility] Last Admin: 01/04/17 07:01 Dose: Not Given Ipratropium [place] (Atrovent) 0.5 mg IH [id number] [facility] Last Admin: 01/04/17 08:10 Dose: 0.5 mg Levalbuterol HCl (Xopenex) 0.63 mg IH [id number] PRN PRN Reason: Shortness of Breath Levothyroxine Sodium (Synthroid) 175 mcg PO 0600 [facility] Last Admin: 01/04/17 05:58 Dose: 175 mcg Pantoprazole Sodium (Protonix Inj) 40 mg IVP Q12 [facility] Last Admin: 01/03/17 21:36 Dose: 40 mg Polyethylene Glycol (Miralax) 17 gm PO DAILY [facility] Sucralfate (Carafate Oral Susp) 1 gm PO 0600,1600 [facility] Last Admin: 01/04/17 05:57 Dose: 1 gm - Labs Labs: 01/04/17 07:18 01/04/17 07:18 PT 11.1 Seconds (9.9-11.8) 01/03/17 05:35 INR 1.03 (0.93-1.08) 01/03/17 05:35 APTT 32.0 Seconds (23.7-30.8) H 01/03/17 05:35 - Constitutional Appears: No Acute Distress - Head Exam Head Exam: ATRAUMATIC, NORMAL INSPECTION, NORMOCEPHALIC - Eye Exam Eye Exam: Normal appearance, PERRL Pupil Exam: NORMAL ACCOMODATION - ENT Exam ENT Exam: Mucous Membranes Moist - Respiratory Exam Respiratory Exam: Clear to Ausculation Bilateral, NORMAL BREATHING PATTERN. absent: Rales, Rhonchi, Wheezes - Cardiovascular Exam Cardiovascular Exam: REGULAR RHYTHM, +S1, +S2. absent: Gallop, Rubs, Murmur - GI/Abdominal Exam GI & Abdominal Exam: Distended, Firm, Normal Bowel Sounds. absent: Guarding, Tenderness, Mass, Rebound - Extremities Exam Extremities Exam: Pedal Edema. absent: Calf Tenderness - Neurological Exam Neurological Exam: Alert, Awake, CN II-XII Intact, Oriented x3 - Psychiatric Exam Psychiatric exam: Normal Affect, Normal Mood - Skin Skin Exam: Dry, Normal Color, Warm Assessment and Plan - Assessment and Plan (Free Text) Assessment: This is an 81Y M with PMH CHF, CAD, COPD, hypothyroidism and HLD who was recently admitted for acute hypercapneic respiratory failure secondary to COPD exacerbation on 12/18/16 which has resolved and was transferred to TCU for further strengthening. Patient was found to be anemic in TCU and was transferred to ED for acute anemia secondary to upper GI bleed. Plan: 1. Anemia - Secondary to upper GI bleed - s/p 1U PRBC - GI consulted- recs appreciated - EGD showed LA Grade D esophagitis with oozing blood - Colonoscopy showed diverticulosis, but no overt signs of bleeding - GI recommended repeat EGD in 2 weeks - Continue PTX, Sucralfate - Clear liquid diet - NS@60 2. Hx of CAD - HAS-BLED score of 3 (Age>65, medications predispose to bleeding, and risk of bleeding) which correlates with high risk for bleeding - ASA and Plavix on Hold - Continue Lipitor - Heme consulted for anticoagulation recommendations 3. HTN - Continue Lopressor 4. COPD - Continue Atrovent, Brovana - Xopenex prn - Pulm recs appreciated 5. Hypothyroidism - Continue Synthroid 6. Constipation - Miralax and Colace - Will obtain Abd U/S GI ppx: Protonix DVT ppx: SCDs Dispo: Will follow up with Physical therapy and Heme recommendations. Case seen, discussed and reviewed with attending. Mino Plasencia PGY2
[2017-01-04] MEDS: POLYETHYLENE GLYCOL 3350 17 GM/Dose PACKET PO SCH (10:34)
--- NOTE | 2017-01-04 10:54 | CARD ---
APPROVED REPORT EKG Measurement Heart [id number] [id number] <Conclusion> Normal sinus rhythm STTW changes No change
[2017-01-04] MEDS: Sodium Chloride 0.9% 1,000 ML IV SCH (14:30)
[2017-01-04 17:25] VITALS: O2SAT 99
[2017-01-05] MEDS: Ipratropium 0.02% Inhal Soln (0.5 mg/2.5 ml) UD IH SCH ×4 (02:10→20:11)
[2017-01-05] MEDS: Levothyroxine 175 MCG TAB PO SCH (05:48)
[2017-01-05] MEDS: Sucralfate 1 gm/10 ml Oral Susp UD PO SCH ×2 (05:49→16:28)
[2017-01-05 07:01] LABS: EOS # 0.1 (0.0-0.7); EOS % 2.5 % (1.5-5.0); GRAN # 4.65 (1.4-6.5); GRAN % 84.4 % (50.0-68.0); HEMOGLOBIN 9.1 gm/dL (14.0-18.0); LYMPH # 0.3 (1.2-3.4); LYMPH % 5.8 % (22.0-35.0); MEAN CELL VOLUME 100.7 fL (80.0-105.0); MEAN CORPUSCULAR HEMOGLOBIN 31.6 pg (25.0-35.0); MEAN CORPUSCULAR HGB CONC 31.4 g/dl (31.0-37.0); MEAN PLATELET VOLUME 9.4 fl (7.0-11.0); MONO # 0.4 (0.1-0.6); MONO % 7.3 % (1.0-6.0); PLATELET COUNT 186 10^3/uL (120.0-450.0); RBC 2.88 10^6/uL (3.5-6.1); RED CELL DISTRIBUTION WIDTH 15.2 % (11.5-14.5); WHITE BLOOD COUNT 5.5 10^3/ul (4.5-11.0)
[2017-01-05 07:35] LABS: ALB/GLOB RATIO 0.9 (1.1-1.8); ALBUMIN 2.2 g/dL (3.0-4.8); ALT/SGPT 40 U/L (7-56); AST/SGOT 21 U/L (15-59); BLOOD UREA NITROGEN 8 mg/dL (7-21); CALCIUM 7.3 mg/dL (8.4-10.5); GFR AFRICAN-AMERICAN > 60; GFR NON-AFRICAN AMERICAN > 60
[2017-01-05] MEDS: Arformoterol 15 mcg/2 ml Inh Sol IH SCH ×2 (07:57→20:11)
[2017-01-05] MEDS: Budesonide 0.5 mg/2 ml Inhal Susp UD IH SCH ×2 (07:57→20:12)
--- NOTE | 2017-01-05 08:26 | CP.PCM.PN ---
Subjective - Date & Time of Evaluation Date of Evaluation: 01/05/17 Time of Evaluation: 08:37 - Subjective Subjective: Medicine Progress Note Patient seen and examined at bedside. As per nursing, patient had 2 episodes of SVT last night that resolved on their own. He was asymptomatic at the time. Patient reports having some constipation, but denies CP, SOB, n/v/d, numbness/ tingling, fever or chills. He says he feels better and would like to go home. Objective - Vital Signs/Intake and Output Vital Signs (last 24 hours): Temp Pulse Resp BP Pulse Ox 98.5 F 73 18 103/55 L 99 01/05/17 06:56 01/05/17 06:56 01/05/17 06:56 01/05/17 06:56 01/05/17 06:56 Intake and Output: 01/05/17 01/05/17 06:59 18:59 Intake Total 840 Balance 840 - Medications Medications: Current Medications Arformoterol Tartrate (Brovana) 15 mcg IH [id number] [facility] Last Admin: 01/05/17 07:57 Dose: 15 mcg Atorvastatin Calcium (Lipitor) 20 mg PO DIN [facility] Last Admin: 01/04/17 17:21 Dose: 20 mg Benzocaine (Orajel Pm Maximum Strength) 0 gm MT QID PRN PRN Reason: pain Last Admin: 01/02/17 15:25 Dose: 1 applic Budesonide (Pulmicort Respules) 0.5 mg IH [id number] [facility] Last Admin: 01/05/17 07:57 Dose: 0.5 mg Docusate Sodium (Colace) 100 mg PO DAILY [facility] Last Admin: 01/04/17 14:28 Dose: 100 mg Sodium Chloride (Sodium Chloride 0.9%) 1,000 mls @ 60 mls/hr IV .[id number] [facility] Last Admin: 01/04/17 14:30 Dose: 60 mls/hr Ipratropium [place] (Atrovent) 0.5 mg IH [id number] [facility] Last Admin: 01/05/17 07:57 Dose: 0.5 mg Levalbuterol HCl (Xopenex) 0.63 mg IH [id number] PRN PRN Reason: Shortness of Breath Last Admin: 01/04/17 19:45 Dose: 0.63 mg Levothyroxine Sodium (Synthroid) 175 mcg PO 0600 [facility] Last Admin: 01/05/17 05:48 Dose: 175 mcg Pantoprazole Sodium (Protonix Inj) 40 mg IVP Q12 [facility] Last Admin: 01/04/17 21:02 Dose: 40 mg Polyethylene Glycol (Miralax) 17 gm PO DAILY [facility] Last Admin: 01/04/17 10:34 Dose: 17 gm Sucralfate (Carafate Oral Susp) 1 gm PO 0600,1600 [facility] Last Admin: 01/05/17 05:49 Dose: 1 gm - Labs Labs: 01/05/17 06:15 01/05/17 06:15 PT 11.1 Seconds (9.9-11.8) 01/03/17 05:35 INR 1.03 (0.93-1.08) 01/03/17 05:35 APTT 32.0 Seconds (23.7-30.8) H 01/03/17 05:35 - Constitutional Appears: No Acute Distress - Head Exam Head Exam: ATRAUMATIC, NORMAL INSPECTION, NORMOCEPHALIC - Eye Exam Eye Exam: Normal appearance, PERRL Pupil Exam: NORMAL ACCOMODATION, PERRL - ENT Exam ENT Exam: Mucous Membranes Moist - Neck Exam Neck Exam: Full ROM - Respiratory Exam Respiratory Exam: Clear to Ausculation Bilateral, NORMAL BREATHING PATTERN. absent: Rales, Rhonchi, Wheezes - Cardiovascular Exam Cardiovascular Exam: REGULAR RHYTHM, +S1, +S2. absent: Gallop, Rubs, Murmur - GI/Abdominal Exam GI & Abdominal Exam: Distended, Firm, Normal Bowel Sounds. absent: Guarding, Rigid, Tenderness, Mass, Rebound - Extremities Exam Extremities Exam: Normal Inspection, Pedal Edema. absent: Calf Tenderness - Neurological Exam Neurological Exam: Alert, Awake, CN II-XII Intact - Psychiatric Exam Psychiatric exam: Normal Affect, Normal Mood - Skin Skin Exam: Dry, Normal Color, Warm Assessment and Plan - Assessment and Plan (Free Text) Assessment: This is an 81Y M with PMH CHF, CAD, COPD, hypothyroidism and HLD who was recently admitted for acute hypercapneic respiratory failure secondary to COPD exacerbation on 12/18/16 which has resolved and was transferred to TCU for further strengthening. Patient was found to be anemic in TCU and was transferred to ED for acute anemia secondary to upper GI bleed. Plan: 1. Anemia - Secondary to upper GI bleed - s/p 1U PRBC - GI consulted- recs appreciated - EGD showed LA Grade D esophagitis with oozing blood - Colonoscopy showed diverticulosis, but no overt signs of bleeding - GI recommended repeat EGD in 2 weeks - Continue PTX, Sucralfate - Full liquid diet - NS@60 2. SVT - Cardio consulted- Recs appreciated - TSH low on 12/18, will recheck TSH and T4 to r/o reversible causes of SVT - Continue to monitor on telemetry - Continue Lopressor 3. Hx of CAD - Lipitor - Continue to hold ASA and Plavix - HAS-BLED score of 3- high bleed risk - Heme consulted for anticoagulation recommendations 4. HTN - Lopressor 5. COPD - Atrovent, Brovana and Pulmicort - Xopenex prn 6. Hx of Hypothyroidism - Synthroid 7. Constipation - Increase frequency of Miralax and Colace - Abd U/S and flat plat plate XR to r/o obstruction GI ppx: Protonix DVT ppx: SCDs Dispo: Will follow up with Physical therapy and Heme recommendations. Case seen, discussed and reviewed with attending. Mino Plasencia PGY2
--- NOTE | 2017-01-05 08:30 | PN ---
DATE: 01/05/2017 SUBJECTIVE: The patient appears comfortable this morning. He is not short of breath at rest. PHYSICAL EXAMINATION: VITAL SIGNS: Temperature is 98.5, pulse is 73, respirations 18, blood pressure 103/55. Oxygen saturation on nasal cannula is 99%. HEENT: Normocephalic and atraumatic. NECK: No JVD. CARDIOVASCULAR: Systolic ejection murmur at the lower left sternal border. No S3 gallop. LUNGS: Decreased breath sounds at the bases. Minimal rhonchi. No wheezing. EXTREMITIES: Mild edema. No cyanosis, no clubbing. Calves are nontender to palpation. GI: Abdomen is soft, nontender, nondistended. Bowel sounds are positive. SKIN: No acute rash. NEUROLOGIC: Limited at the present time. IMPRESSION: 1. Upper gastrointestinal bleeding, esophageal ulcers. 2. Status post respiratory failure. 3. Advanced chronic obstructive pulmonary disease. 4. Chronic bilateral pleural effusions. 5. Bibasilar atelectasis. PLAN: The patient appears comfortable this morning. He is not short of breath at rest. He states he is feeling much better overall. Oxygen saturation on nasal cannula is now 99%. On physical exam, there is less bronchospasm overall. I will continue with the current nebulizer treatments and inhaled steroids for now. GI evaluation is ongoing. Repeat labs are pending. Clinical status of the patient has certainly improved-compared to a few days ago. However, again, the future status/prognosis for this elderly patient remains very guarded. All are aware. I will discuss the above with Dr. Avitia. Kris Heaton MD [facility]
[2017-01-05] MEDS: POLYETHYLENE GLYCOL 3350 17 GM/Dose PACKET PO SCH ×3 (09:54→18:13)
[2017-01-05] MEDS: Sodium Chloride 0.9% 1,000 ML IV SCH (09:54)
[2017-01-05 11:27] LABS: FREE T4 1.27 ng/dL (0.78-2.19)
--- NOTE | 2017-01-05 13:07 | US ---
HISTORY: distended abdomen COMPARISON: CT abdomen pelvis 12/30/2016 TECHNIQUE: Sonographic evaluation of the abdomen. FINDINGS: LIVER: Liver demonstrates mildly increased echogenicity, likely representing hepatic parenchymal disease or fatty infiltration. This limits evaluation for small masses. No focal large liver mass is identified. No intrahepatic biliary ductal dilatation is identified. . Portal vein is patent with normal hepatopetal flow. GALLBLADDER: The gallbladder is physiologically distended. No gallstones, gallbladder wall thickening, or pericholecystic fluid is identified.No sonographic Vega's sign was appreciated during the exam. COMMON BILE DUCT: Normal in caliber measuring 0.3 cm. PANCREAS: The visualized portions are unremarkable in echogenicity. The remainder of the pancreas is obscured by bowel gas. RIGHT KIDNEY: Measures 9.4cm. Unremarkable in echogenicity. No shadowing renal stone, cyst, or hydronephrosis is identified LEFT KIDNEY: Measures 10.2cm. Unremarkable in echogenicity. No shadowing renal stone, cyst, or hydronephrosis is identified SPLEEN: Measures 7.3cm. Suboptimally visualized and normal in size. AORTA: Not visualized due to overlying bowel gas. IVC: Visualized portions are unremarkable.. OTHER FINDINGS: Small volume perihepatic ascites. IMPRESSION: Mildly Echogenic liver, likely representing fatty infiltration or hepatic parenchymal disease. Small volume perihepatic ascites.
--- NOTE | 2017-01-05 13:08 | RAD ---
HISTORY: r/o obstruction COMPARISON: No prior. FINDINGS: BOWEL: Normal. No obstruction. No free air. BONES: Normal. OTHER FINDINGS: None. IMPRESSION: No active disease.
--- NOTE | 2017-01-05 16:44 | CP.PCM.CON ---
History of Present Illness - History of Present Illness History of Present Illness: Hematology COnsult Referred by Dr. Avitia for anemia HPI- Mr. Turpin is 81 y/o M with h/o CAD (s/p stent), CHF, HLD, Hypothyroid, COPD who was admitted with anemia and GI bleed (guaiac positive stools) He underwent EGD on 01/02 that showed grade D esophagitis with active oozing. Colonoscopy showed diverticulosis and 6 m sigmoid polyp. His Hb is mostly stable around 9 and no active bleeding noticed in hospital. He feels well otherwise, denies chest pain, shortness of breath. Denies bleeding elsewhere. Aspirin and Plavix have been held and plan is for repeat endoscopy in 2 weeks. FHx: HTN Soc: Chronic tobacco and alcohol use. No illicits Review of Systems - Review of Systems All systems: reviewed and no additional remarkable complaints except Review of Systems: weakness Past Patient History - Infectious Disease Hx of Infectious Diseases: None - Tetanus Immunizations Tetanus Immunization: Unknown, OTH - Past Social History Smoking Status: Former Smoker - CARDIAC Hx Cardiac Disorders: Yes (cad,mi) Hx Congestive Heart Failure: Yes Hx Hypercholesterolemia: Yes Hx Hypertension: Yes Hx Pacemaker: No Hx Peripheral Edema: Yes (ble +1) Hx Peripheral Vascular Disease: Yes (cold feet) Other/Comment: cardiac rehab - PULMONARY Hx Respiratory Disorders: (resp failure) Hx Chronic Obstructive Pulmonary Disease (COPD): Yes Hx Pneumonia: Yes - NEUROLOGICAL Hx Neurological Disorder: No - HEENT Hx HEENT Problems: Yes Hx Cataracts: Yes (R EYE) Hx Difficulty Chewing: Yes (missing teeth) Other/Comment: left eye catarast extraction with lens replacement - RENAL Hx Chronic Kidney Disease: No - ENDOCRINE/METABOLIC Hx Hypothyroidism: Yes Other/Comment: thyroidectomy - HEMATOLOGICAL/ONCOLOGICAL Hx Blood Disorders: Yes (hepatitis 1963 pt doesn't know what kind) Hx Anemia: Yes (blood transfusion) - INTEGUMENTARY Hx Dermatological Problems: Yes Other/Comment: slight redness to both knees, 1cm round callous to right great toe, r great toenail small area black, eccymosis to r ihp, multiple puncture sites to lower abd from "blood thinner" injections, left hand eccymotis, right hand and lower arm eccymotic areas, red groin rash - MUSCULOSKELETAL/RHEUMATOLOGICAL Hx Musculoskeletal Disorders: Yes Hx Arthritis: Yes (knees and back) Hx Falls: Yes Hx Unsteady Gait: Yes (cane walker) - GASTROINTESTINAL Hx Gastrointestinal Disorders: Yes (POOR APPETITE,H/O DYSPHAGIA DUE TO THRUSH) HX Swallowing Problems: Yes Other/Comment: [place] 09/04/15 dx esophagitis, hiatal hernia, yu lesions, gastric erosion. egd and colonoscopy 01/02/17 dx esophageal ulcerations with active bleeding, hiatal hernia, sigmoid polyp, redundant colon, diverticulosis, gi bleed - GENITOURINARY/GYNECOLOGICAL Hx Genitourinary Disorders: No - PSYCHIATRIC Hx Emotional Abuse: No Hx Physical Abuse: No - SURGICAL HISTORY Hx Surgeries: Yes (thoracentesis) Hx Cardiac Catheterization: Yes (ptca/stents) Hx Coronary Stent: Yes Hx Orthopedic Surgery: Yes (left knee) - ANESTHESIA Hx Anesthesia Reactions: No Hx Malignant Hyperthermia: No Meds Allergies/Adverse Reactions: Allergies Allergy/AdvReac Type Severity Reaction Status Date / Time No Known Allergies Allergy Verified 12/23/16 20:24 - Medications Medications: Current Medications Arformoterol Tartrate (Brovana) 15 mcg IH [id number] [facility] Last Admin: 01/05/17 07:57 Dose: 15 mcg Atorvastatin Calcium (Lipitor) 20 mg PO DIN [facility] Last Admin: 01/04/17 17:21 Dose: 20 mg Benzocaine (Orajel Pm Maximum Strength) 0 gm MT QID PRN PRN Reason: pain Last Admin: 01/02/17 15:25 Dose: 1 applic Budesonide (Pulmicort Respules) 0.5 mg IH [id number] [facility] Last Admin: 01/05/17 07:57 Dose: 0.5 mg Docusate Sodium (Colace) 100 mg PO TID [facility] Last Admin: 01/05/17 15:07 Dose: 100 mg Sodium Chloride (Sodium Chloride 0.9%) 1,000 mls @ 60 mls/hr IV .[id number] [facility] Last Admin: 01/05/17 09:54 Dose: 60 mls/hr Iron Sucrose 100 mg/ Sodium (Chloride) 105 mls @ 210 mls/hr IVPB DAILY [facility] Stop: 01/08/17 14:31 Ipratropium [place] (Atrovent) 0.5 mg IH [id number] [facility] Last Admin: 01/05/17 13:42 Dose: 0.5 mg Levalbuterol HCl (Xopenex) 0.63 mg IH [id number] PRN PRN Reason: Shortness of Breath Last Admin: 01/04/17 19:45 Dose: 0.63 mg Levothyroxine Sodium (Synthroid) 175 mcg PO 0600 [facility] Last Admin: 01/05/17 05:48 Dose: 175 mcg Metoprolol Tartrate (Lopressor) 25 mg PO BID [facility] Pantoprazole Sodium (Protonix Inj) 40 mg IVP Q12 [facility] Last Admin: 01/05/17 09:54 Dose: 40 mg Polyethylene Glycol (Miralax) 17 gm PO BID [facility] Last Admin: 01/05/17 09:54 Dose: 17 gm Sucralfate (Carafate Oral Susp) 1 gm PO 0600,1600 [facility] Last Admin: 01/05/17 05:49 Dose: 1 gm Physical Exam - Head Exam Head Exam: ATRAUMATIC, NORMAL INSPECTION - Eye Exam Eye Exam: EOMI, PERRL - ENT Exam ENT Exam: Mucous Membranes Moist - Neck Exam Neck exam: Negative for: Lymphadenopathy - Respiratory Exam Respiratory Exam: Clear to Auscultation Bilateral - Cardiovascular Exam Cardiovascular Exam: REGULAR RHYTHM - GI/Abdominal Exam GI & Abdominal Exam: Normal Bowel Sounds, Soft. absent: Organomegaly, Tenderness - Extremities Exam Extremities exam: Negative for: pedal edema - Neurological Exam Neurological exam: Alert, Oriented x3 Results - Vital Signs Recent Vital Signs: Last Vital Signs Temp 97.5 F L 01/05/17 12:00 Pulse 90 01/05/17 12:00 Resp 18 01/05/17 12:00 BP 120/65 01/05/17 12:00 Pulse Ox 99 01/05/17 06:56 - Labs Result Diagrams: 01/05/17 06:15 01/05/17 06:15 Labs: Laboratory Results - last 24 hr 01/05/17 01/05/17 01/05/17 06:15 06:15 07:30 WBC 5.5 RBC 2.88 L Hgb 9.1 L Hct 29.0 L MCV 100.7 MCH 31.6 MCHC 31.4 RDW 15.2 H Plt Count 186 MPV 9.4 Gran % 84.4 H Lymph % (Auto) 5.8 L [place] % (Auto) 7.3 H Eos % (Auto) 2.5 Baso % (Auto) 0.0 Gran # 4.65 Lymph # 0.3 L [place] # 0.4 Eos # 0.1 Baso # 0.00 Sodium 133 Potassium 4.0 Chloride 89 L Carbon Dioxide 42 H Anion Gap 6 L BUN 8 Creatinine 0.5 Est GFR ( Amer) > 60 Est GFR (Non-Af Amer) > 60 Random Glucose 83 Calcium 7.3 L Total Bilirubin 0.7 AST 21 ALT 40 Alkaline Phosphatase 57 Total Protein 4.7 L Albumin 2.2 L Globulin 2.5 Albumin/Globulin Ratio 0.9 L Free T4 1.27 TSH 3rd Generation 0.99 Assessment & Plan - Assessment and Plan (Free Text) Assessment: Esophagitis with GI bleed Iron def anemia Aspirin and Plavix are on hold as per GI. He may be at high risk for coronary event while off anti platelet therapy with risks of bleeding may be higher. Can consult cardiology for same and for modifications of other risk factors. Will start him on IV iron while in hospital and he can continue that as outpatient F/U with GI for repeat EGD. Can start ASA +/- Plavix once cleared by GI. Thank you for the consult Carlos Webb MD - Date & Time Date: 01/05/17 Time: 14:44
--- NOTE | 2017-01-05 22:19 | CP.PCM.PN ---
Subjective - Date & Time of Evaluation Date of Evaluation: 01/05/17 Time of Evaluation: 13:00 - Subjective Subjective: patient comfortable complaints of abdominal pain patient did receive suppository yesterday no bowel movements Objective - Vital Signs/Intake and Output Vital Signs (last 24 hours): Temp Pulse Resp BP Pulse Ox 98.1 F 92 H 18 108/57 L 99 01/05/17 16:50 01/05/17 18:13 01/05/17 16:50 01/05/17 18:13 01/05/17 06:56 Intake and Output: 01/05/17 01/06/17 18:59 06:59 Intake Total 720 Output Total 100 Balance 620 - Medications Medications: Current Medications Arformoterol Tartrate (Brovana) 15 mcg IH [id number] [facility] Last Admin: 01/05/17 20:11 Dose: 15 mcg Atorvastatin Calcium (Lipitor) 20 mg PO DIN [facility] Last Admin: 01/05/17 18:13 Dose: 20 mg Benzocaine (Orajel Pm Maximum Strength) 0 gm MT QID PRN PRN Reason: pain Last Admin: 01/02/17 15:25 Dose: 1 applic Budesonide (Pulmicort Respules) 0.5 mg IH [id number] [facility] Last Admin: 01/05/17 20:12 Dose: 0.5 mg Docusate Sodium (Colace) 100 mg PO TID [facility] Last Admin: 01/05/17 18:15 Dose: 100 mg Sodium Chloride (Sodium Chloride 0.9%) 1,000 mls @ 60 mls/hr IV .[id number] [facility] Last Admin: 01/05/17 09:54 Dose: 60 mls/hr Iron Sucrose 100 mg/ Sodium (Chloride) 105 mls @ 210 mls/hr IVPB DAILY [facility] Stop: 01/08/17 14:31 Last Admin: 01/05/17 16:28 Dose: 210 mls/hr Ipratropium [place] (Atrovent) 0.5 mg IH [id number] [facility] Last Admin: 01/05/17 20:11 Dose: 0.5 mg Levalbuterol HCl (Xopenex) 0.63 mg IH [id number] PRN PRN Reason: Shortness of Breath Last Admin: 01/04/17 19:45 Dose: 0.63 mg Levothyroxine Sodium (Synthroid) 175 mcg PO 0600 [facility] Last Admin: 01/05/17 05:48 Dose: 175 mcg Metoprolol Tartrate (Lopressor) 25 mg PO BID [facility] Last Admin: 01/05/17 18:13 Dose: 25 mg Pantoprazole Sodium (Protonix Inj) 40 mg IVP Q12 [facility] Last Admin: 01/05/17 09:54 Dose: 40 mg Polyethylene Glycol (Miralax) 17 gm PO BID [facility] Last Admin: 01/05/17 18:13 Dose: 17 gm Sucralfate (Carafate Oral Susp) 1 gm PO 0600,1600 [facility] Last Admin: 01/05/17 16:28 Dose: 1 gm - Labs Labs: 01/05/17 06:15 01/05/17 06:15 PT 11.1 Seconds (9.9-11.8) 01/03/17 05:35 INR 1.03 (0.93-1.08) 01/03/17 05:35 APTT 32.0 Seconds (23.7-30.8) H 01/03/17 05:35 - Head Exam Head Exam: ATRAUMATIC, NORMOCEPHALIC - Eye Exam Eye Exam: EOMI Pupil Exam: PERRL - ENT Exam ENT Exam: Mucous Membranes Moist, Normal External Ear Exam - Neck Exam Neck Exam: absent: Lymphadenopathy, Thyromegaly - Respiratory Exam Respiratory Exam: Rales. absent: Accessory Muscle Use, Rhonchi - Cardiovascular Exam Cardiovascular Exam: +S1, +S2. absent: JVD - GI/Abdominal Exam GI & Abdominal Exam: Soft, Mass. absent: Tenderness - Extremities Exam Extremities Exam: absent: Calf Tenderness, Pedal Edema - Neurological Exam Neurological Exam: Alert, Awake, Oriented x3 Assessment and Plan - Assessment and Plan (Free Text) Assessment: 1. Esophageal ulceration with the bleeding. Appears now stable. Endoscopy revealed a grade D esophagitis. Significant ulceration distally and circumferential suspicious of transient foreign body food bolus impaction cleared 2. Colonic polyp obvious source of her bleeding from colon 3. Anemia 4. Status post fecal impaction 5. Coronary artery disease status post PCI patient was on aspirin and Plavix which has been on hold 6. COPd 7. Abdominal distention.improved abdominal x-ray reviewed nonspecific gas pattern Plan: 1. Continue the high-dose PPI 2. Follow up of the hemoglobin and hematocrit 3. Patient is on clear liquid diet.and once diet to pured diet with assistance 4. Follow-up O abdominal x-ray 5. Repeat EGD in about a week's time to evaluate the healing of the esophageal ulceration and consider starting the patient on antiplatelet therapy patient requested a DNR/DNI status. I informedthe nursing staff and the resident to place the order
--- NOTE | 2017-01-06 01:31 | CON ---
CARDIOLOGY CONSULTATION REASON FOR CONSULTATION: Supraventricular tachycardia. HISTORY OF PRESENT ILLNESS: The patient is an 81-year-old male who was recently admitted to the ICU because of respiratory failure and was transferred to TCU where he developed GI bleeding. The patient was admitted following that to telemetry and was noted on the monitor to have paroxysmal atrial fibrillation and 1 run of supraventricular tachycardia. The patient denies any chest pain at this time and when I interviewed the patient himself, he initially asked me not to go again for intubation, and he requested to sign do not resuscitate order. Again, he denied chest pain or palpitation. SOCIAL HISTORY: The patient is a former smoker. MEDICATIONS: Atrovent inhaler every 6 hours, Brovana 15 mcg inhalation every 12 hours, Carafate 1 g p.o. twice a day, Colace 100 mg t.i.d., Lipitor 20 mg once a day, Protonix 40 mg tablets twice a day, normal saline 60 mL an hour, Synthroid 170 mcg daily, Xopenex inhaler every 6 hours. REVIEW OF SYSTEMS: No reports of hypertension, no reports of ventricular arrhythmia. Patient denies any chest pain. PHYSICAL EXAMINATION GENERAL: The patient is an elderly male, who does not appear to be in acute distress. VITAL SIGNS: Blood pressure 120/65, heart rate 90, temperature 97.5, respirations 18. HEENT: Pale conjunctivae. CHEST: Absent breath sounds over the bases. HEART: S1 and S2 regular. ABDOMEN: Soft. EXTREMITIES: 1+ pitting edema. LABORATORY DATA: Hemoglobin and hematocrit 9.1 and 29.0, white count and platelet count of 5.5 and 186,000. PTT 32.0, INR is 1.03. SMA-7: Sodium 133, potassium 4, chloride 89, CO2 of 42, glucose 83, BUN 8, creatinine 0.5. TSH level and free T4 are within normal limits. EKG 2 days ago revealed sinus rhythm with nonspecific ST-T wave changes. Echocardiographic study performed on the 16 of December revealed normal left ventricular wall thickness with ejection fraction, grade I abnormal relaxation pattern, mild pulmonary hypertension. The patient's most recent cardiac catheterization was in July 2014, where the cardiac catheterization revealed critical left main disease with triple vessel disease in the setting of recent acute IA with ejection fraction at 40%, and the patient was then recommended coronary artery bypass surgery, which apparently the patient did not undergo the surgery. Chest x-ray revealed mild cardiomegaly. ASSESSMENT: 1. Coronary artery disease with significant left main disease and 3-vessel coronary artery disease. 2. Paroxysmal atrial fibrillation as well as supraventricular reentrant tachycardia. 3. Recent gastrointestinal bleeding. 4. Status post respiratory failure. RECOMMENDATIONS: Continue current bronchodilators including Atrovent and Brovana as well as Lovenox. Continue Synthroid 170 mcg daily and Lipitor 20 mg once a day. Start Lopressor at 25 mg once a day. The patient is not a suitable candidate for anticoagulation in view of recent GI bleeding. Case was discussed with the PGY-1. TSH and free T4 were obtained, they are both within normal limits. Hawk Garcia MD
[2017-01-06] MEDS: Ipratropium 0.02% Inhal Soln (0.5 mg/2.5 ml) UD IH SCH ×3 (02:14→15:59)
[2017-01-06] MEDS: Sucralfate 1 gm/10 ml Oral Susp UD PO SCH ×2 (05:20→17:13)
[2017-01-06] MEDS: Sodium Chloride 0.9% 1,000 ML IV SCH (05:20)
[2017-01-06] MEDS: Levothyroxine 175 MCG TAB PO SCH (05:20)
[2017-01-06 06:05] LABS: EOS # 0.2 (0.0-0.7); EOS % 3.2 % (1.5-5.0); GRAN # 4.55 (1.4-6.5); GRAN % 81.6 % (50.0-68.0); HEMOGLOBIN 8.7 gm/dL (14.0-18.0); LYMPH # 0.4 (1.2-3.4); LYMPH % 7.5 % (22.0-35.0); MEAN CELL VOLUME 101.4 fL (80.0-105.0); MEAN CORPUSCULAR HEMOGLOBIN 31.4 pg (25.0-35.0); MEAN PLATELET VOLUME 9.2 fl (7.0-11.0); MONO # 0.4 (0.1-0.6); MONO % 7.7 % (1.0-6.0); PLATELET COUNT 184 10^3/uL (120.0-450.0); RBC 2.77 10^6/uL (3.5-6.1); RED CELL DISTRIBUTION WIDTH 15.4 % (11.5-14.5); WHITE BLOOD COUNT 5.6 10^3/ul (4.5-11.0)
[2017-01-06 06:18] LABS: ALB/GLOB RATIO 0.9 (1.1-1.8); ALBUMIN 2.1 g/dL (3.0-4.8); ALT/SGPT 39 U/L (7-56); AST/SGOT 28 U/L (15-59); BLOOD UREA NITROGEN 8 mg/dL (7-21); CALCIUM 7.4 mg/dL (8.4-10.5); GFR AFRICAN-AMERICAN > 60; GFR NON-AFRICAN AMERICAN > 60
--- NOTE | 2017-01-06 07:30 | PN ---
DATE: 01/06/2017 SUBJECTIVE: The patient appears comfortable this morning. He is not short of breath at rest. He appears very depressed this morning. PHYSICAL EXAMINATION: VITAL SIGNS: Temperature is 98.0, pulse is 74, respirations 18, blood pressure 108/57. Oxygen saturation on nasal cannula is 99%. HEENT: Normocephalic and atraumatic. NECK: No JVD. CARDIOVASCULAR: Systolic ejection murmur at the lower left sternal border. No S3 gallop. LUNGS: Decreased breath sounds at the bases. Minimal/less rhonchi. No wheezing. EXTREMITIES: Mild edema. No cyanosis, no clubbing. Calves are nontender to palpation. GI: Abdomen is soft, nontender, nondistended. Bowel sounds are positive. SKIN: No acute rash. NEUROLOGIC: Limited at the present time. IMPRESSION: 1. Upper gastrointestinal bleeding, esophageal ulcers. 2. Status post respiratory failure. 3. Advanced chronic obstructive pulmonary disease. 4. Chronic bilateral pleural effusions. 5. Bibasilar atelectasis. PLAN: The patient appears comfortable this morning. He is not short of breath at rest. He does state to feeling better, but appears more depressed this morning. On physical exam, no significant bronchospasm exists. In addition, there is no significant alveolar-arterial gradient. I would continue with the current nebulizer treatments and inhaled steroids for now.. GI evaluation is ongoing. Input by Dr. Delgado is noted. Clinical status of the patient has certainly improved-compared to last week. However, again, the overall status/prognosis for this patient remains very guarded at best. All are aware. I will discuss the above with Dr. Avitia. Kris Heaton MD MTDD
[2017-01-06] MEDS: Budesonide 0.5 mg/2 ml Inhal Susp UD IH SCH (07:44)
[2017-01-06] MEDS: Arformoterol 15 mcg/2 ml Inh Sol IH SCH (07:44)
[2017-01-06] MEDS ORDERED: Magnesium Citrate Oral SOL (300 ml) PO ONE (10:01)
[2017-01-06] MEDS: POLYETHYLENE GLYCOL 3350 17 GM/Dose PACKET PO SCH (10:42)
[2017-01-06 12:37] VITALS: RESP 19
[2017-01-06 18:31] VITALS: BP 96/53; PULSE 66; TEMP 97.1
--- NOTE | 2017-01-06 18:56 | CON ---
CARDIOLOGY FOLLOWUP DATE: 01/06/2017 HISTORY OF PRESENT ILLNESS: The patient is asymptomatic, but no longer wants any intervention. PHYSICAL EXAMINATION VITAL SIGNS: Blood pressure is 103/52, the heart rate is normal sinus rhythm in 80s. NECK: Negative JVD. LUNGS: Without rales. HEART: Reveal S1, S2. EXTREMITIES: Without edema. LABORATORY DATA: Hemoglobin 8.7. BUN and creatinine is 8 and 0.5 with potassium of 4.0. IMPRESSION: 1. Paroxysmal atrial fibrillation, which is now normal sinus rhythm. 2. Stable angina. 3. Multivessel coronary artery disease. 4. Status post percutaneous transluminal coronary angioplasty and stent to the left main artery and triple vessel disease percutaneous transluminal coronary angioplasty. 5. Chronic obstructive pulmonary disease. Given these findings, the patient wants no more interventions done. We will not anticoagulate as per the patient's wish. We will continue the beta blockers and better heart rate control. We will discontinue telemetry today as per patient's wish. Scottie Sandoval MD
--- NOTE | 2017-01-06 23:41 | CP.PCM.PN ---
Subjective - Date & Time of Evaluation Date of Evaluation: 01/04/17 Time of Evaluation: 15:30 - Subjective Subjective: patient on clear liquid diet. No complaints of abdominal pain. Discussed with the resident here earlier concerned about abdominal distention. Objective - Vital Signs/Intake and Output Vital Signs (last 24 hours): Temp Pulse Resp BP Pulse Ox 97 F L 96 H 16 129/72 99 01/04/17 17:25 01/04/17 18:00 01/04/17 17:25 01/04/17 17:25 01/04/17 17:25 Intake and Output: 01/04/17 01/05/17 18:59 06:59 Intake Total 540 Output Total 600 Balance -60 - Medications Medications: Current Medications Arformoterol Tartrate (Brovana) 15 mcg IH [id number] [facility] Last Admin: 01/04/17 19:45 Dose: 15 mcg Atorvastatin Calcium (Lipitor) 20 mg PO DIN [facility] Last Admin: 01/04/17 17:21 Dose: 20 mg Benzocaine (Orajel Pm Maximum Strength) 0 gm MT QID PRN PRN Reason: pain Last Admin: 01/02/17 15:25 Dose: 1 applic Budesonide (Pulmicort Respules) 0.5 mg IH [id number] [facility] Last Admin: 01/04/17 19:45 Dose: 0.5 mg Docusate Sodium (Colace) 100 mg PO DAILY [facility] Last Admin: 01/04/17 14:28 Dose: 100 mg Sodium Chloride (Sodium Chloride 0.9%) 1,000 mls @ 60 mls/hr IV .[id number] [facility] Last Admin: 01/04/17 14:30 Dose: 60 mls/hr Ipratropium [place] (Atrovent) 0.5 mg IH [id number] [facility] Last Admin: 01/04/17 19:45 Dose: 0.5 mg Levalbuterol HCl (Xopenex) 0.63 mg IH [id number] PRN PRN Reason: Shortness of Breath Last Admin: 01/04/17 19:45 Dose: 0.63 mg Levothyroxine Sodium (Synthroid) 175 mcg PO 0600 [facility] Last Admin: 01/04/17 05:58 Dose: 175 mcg Pantoprazole Sodium (Protonix Inj) 40 mg IVP Q12 [facility] Last Admin: 01/04/17 21:02 Dose: 40 mg Polyethylene Glycol (Miralax) 17 gm PO DAILY ANAMARIA Last Admin: 01/04/17 10:34 Dose: 17 gm Sucralfate (Carafate Oral Susp) 1 gm PO 0600,1600 [facility] Last Admin: 01/04/17 16:38 Dose: 1 gm - Labs Labs: 01/04/17 07:18 01/04/17 07:18 PT 11.1 Seconds (9.9-11.8) 01/03/17 05:35 INR 1.03 (0.93-1.08) 01/03/17 05:35 APTT 32.0 Seconds (23.7-30.8) H 01/03/17 05:35 - Constitutional Appears: No Acute Distress - Head Exam Head Exam: ATRAUMATIC, NORMOCEPHALIC - Eye Exam Eye Exam: EOMI, PERRL - ENT Exam ENT Exam: Mucous Membranes Moist - Neck Exam Neck Exam: absent: Lymphadenopathy, Thyromegaly - Respiratory Exam Respiratory Exam: Clear to Ausculation Bilateral, NORMAL BREATHING PATTERN. absent: Accessory Muscle Use - Cardiovascular Exam Cardiovascular Exam: +S1, +S2. absent: JVD - GI/Abdominal Exam GI & Abdominal Exam: Soft. absent: Tenderness, Mass - Extremities Exam Extremities Exam: absent: Pedal Edema, Tenderness - Neurological Exam Neurological Exam: Alert. absent: Oriented x3 Assessment and Plan - Assessment and Plan (Free Text) Assessment: 1. Esophageal ulceration with the bleeding. Appears now stable. Endoscopy revealed a grade D esophagitis. Significant ulceration distally and circumferential suspicious of transient foreign body food bolus impaction cleared 2. Colonic polyp obvious source of her bleeding from colon 3. Anemia 4. Status post fecal impaction 5. Coronary artery disease status post PCI patient was on aspirin and Plavix which has been on hold 6. COPd 7. Abdominal distention Plan: 1. Continue the high-dose PPI 2. Follow up of the hemoglobin and hematocrit 3. Patient is on clear liquid dietwe considered once into pured diet 4. Follow-up O abdominal x-ray 5. Repeat EGD in about a week's time to evaluate the healing of the esophageal ulceration and consider starting the patient on antiplatelet therapy
--- NOTE | 2017-01-07 15:16 | PN ---
DATE: SUBJECTIVE: The patient is resting comfortably in the TCU. PHYSICAL EXAMINATION: VITAL SIGNS: Blood pressure is 120/65, heart rate in the 80s. NECK: Negative JVD. LUNGS: Without rales. HEART: S1, S2. EXTREMITIES: Without edema. LABORATORY DATA: Hemoglobin is 8.8. Chemistries, BUN and creatinine unremarkable. IMPRESSION 1. Paroxysmal atrial fibrillation. 2. Stable angina. 3. Multivessel coronary artery disease with multivessel percutaneous transluminal coronary angioplasty and stent. 4. Chronic obstructive pulmonary disease. PLAN: Given these findings, the patient is not willing to take anticoagulation for his paroxysmal atrial fibrillation. We will continue his current medications which is controlling his heart rate well. Scottie Sandoval MD
== END 2017-01-06 18:58 | DRG 380 ==
LOC: ENDO 08:40 → CCU 12:03 → OBSVTOIN 01-03 14:55 → 2RNO 01-03 20:53
PROVIDERS: ADMIT Internal Medicine; ATTEND Internal Medicine
PROC: 3E0F7GC Introduction of Other Therapeutic Substance into Respiratory Tract, Via Natural or Artificial Opening (ICD-10-PCS; 2017-01-02)
PROC: 0DJD8ZZ Inspection of Lower Intestinal Tract, Via Natural or Artificial Opening Endoscopic (ICD-10-PCS; principal; 2017-01-02 09:00)
PROC: 0DJ08ZZ Inspection of Upper Intestinal Tract, Via Natural or Artificial Opening Endoscopic (ICD-10-PCS; 2017-01-02 09:00)
DX: K22.11 Ulcer of esophagus with bleeding (principal); K56.2 Volvulus; D62 Acute posthemorrhagic anemia; I48.0 Paroxysmal atrial fibrillation; I47.1 Supraventricular tachycardia; I50.9 Heart failure, unspecified; I11.0 Hypertensive heart disease with heart failure; J44.9 Chronic obstructive pulmonary disease, unspecified; J98.11 Atelectasis; K59.00 Constipation, unspecified; E78.5 Hyperlipidemia, unspecified; E03.9 Hypothyroidism, unspecified; K63.5 Polyp of colon; K57.30 Diverticulosis of large intestine without perforation or abscess without bleeding; I25.118 Atherosclerotic heart disease of native coronary artery with other forms of angina pectoris; K64.8 Other hemorrhoids; K29.50 Unspecified chronic gastritis without bleeding; D50.9 Iron deficiency anemia, unspecified; K44.9 Diaphragmatic hernia without obstruction or gangrene; Z95.5 Presence of coronary angioplasty implant and graft; Z87.891 Personal history of nicotine dependence

== ENCOUNTER 2017-01-06 19:44 | Inpatient (IN) | payer OTHER, MEDICARE ==
--- NOTE | 2017-01-06 23:48 | CP.PCM.HP ---
History of Present Illness - History of Present Illness History of Present Illness: 81 y/o M w/ a PMHx significant for COPD presented with a c/o upper GIB. Patient had been deconditioning in the TCU at [facility], where his Hgb/HCT were found to decline and fall into critical ranges. Patient was transfused 2 units of blood on 12/31/16, and was then scheduled for an EGD and Colonoscopy for . EGD revealed bleeding ulcerations. Patient was then d/c'd from TCU and was admitted to the ICU. Patient was stabilized, d/c'd from ICU, transferred to floors. He has now been admitted to TCU for deconditioning and to await colonoscopy and endoscopy from GI. PMH: CHF, COPD, CAD, HLD, hypothyroidism PSH: PCI with stenting, thoracentesis FHx: HTN Soc: Chronic tobacco and alcohol use. No illicits All: NKDA Meds: Please see MAR Present on Admission - Present on Admission Any Indicators Present on Admission: No Review of Systems - Hematologic/Lymphatic Additional comments: ROS: Constitutional: pt denies fever, chills, generalized weakness ENT: pt denies dysphagia, otalgia, hearing deficit, rhinorrhea Eyes: pt denies sudden loss of vision, diplopia, blurred vision MSK: pt denies muscle stiffness, joint pain, extremity cramping Cardio: pt denies sob, heart murmur, cp Pulm: pt denies cough, hemoptysis, wheeze GI: pt denies loss of appetite, abdominal pain, constipation, melena, n/v/d : pt denies burning on urination, urinary frequency, hematuria, urinary urgency Neuro: pt denies paresis, paresthesia, dizziness, ortiz, numbness, tingling Derm: pt denies skin changes, lesions, nail changes Endo: pt denies intolerance to heat/cold, diaphoresis, night sweats, polydipsia Psych: pt denies anxiety, depression, mood changes Past Patient History - Infectious Disease Hx of Infectious Diseases: None - Tetanus Immunizations Tetanus Immunization: Unknown, OTH - Past Social History Smoking Status: Former Smoker - CARDIAC Hx Cardiac Disorders: Yes (cad,mi) Hx Congestive Heart Failure: Yes Hx Hypercholesterolemia: Yes Hx Hypertension: Yes - PULMONARY Hx Chronic Obstructive Pulmonary Disease (COPD): Yes - NEUROLOGICAL Hx Neurological Disorder: No - HEENT Hx HEENT Problems: Yes Hx Cataracts: Yes (R EYE) Hx Difficulty Chewing: Yes (missing teeth) Other/Comment: left eye catarast extraction with lens replacement - RENAL Hx Chronic Kidney Disease: No - ENDOCRINE/METABOLIC Hx Hypothyroidism: Yes - HEMATOLOGICAL/ONCOLOGICAL Hx Blood Disorders: Yes (hepatitis 1963 pt doesn't know what kind) Hx Anemia: Yes (blood transfusion) - INTEGUMENTARY Hx Dermatological Problems: Yes Other/Comment: slight redness to both knees, 1cm round callous to right great toe, r great toenail small area black, eccymosis to r ihp, multiple puncture sites to lower abd from "blood thinner" injections, left hand eccymotis, right hand and lower arm eccymotic areas, red groin rash - MUSCULOSKELETAL/RHEUMATOLOGICAL Hx Arthritis: Yes (knees and back) - GASTROINTESTINAL Hx Gastrointestinal Disorders: Yes (POOR APPETITE,H/O DYSPHAGIA DUE TO THRUSH) HX Swallowing Problems: Yes Other/Comment: engo 09/04/15 dx esophagitis, hiatal hernia, yu lesions, gastric erosion. egd and colonoscopy 01/02/17 dx esophageal ulcerations with active bleeding, hiatal hernia, sigmoid polyp, redundant colon, diverticulosis, gi bleed - GENITOURINARY/GYNECOLOGICAL Hx Genitourinary Disorders: No - PSYCHIATRIC Hx Emotional Abuse: No Hx Physical Abuse: No - SURGICAL HISTORY Hx Surgeries: Yes (thoracentesis) Hx Cardiac Catheterization: Yes (ptca/stents) Hx Coronary Stent: Yes Hx Orthopedic Surgery: Yes (left knee) - ANESTHESIA Hx Anesthesia Reactions: No Hx Malignant Hyperthermia: No Meds Allergies/Adverse Reactions: Allergies Allergy/AdvReac Type Severity Reaction Status Date / Time No Known Allergies Allergy Verified 12/23/16 20:24 Physical Exam - Additional Findings Additional findings: Phys Exam: VS as above Constitutional: a&o x 4, nad Head and Neck: neck supple, no jvd, trachea midline, carotid midline, no cervical/head mass Eyes: ernie, nonicteric sclera, eom intact ENT: auditory acuity grossly intact, throat not congested, no nasal deformity Cardio: rrr, no m/r/g, no carotid bruit, nml s1, s2 Pulm: +decreased breath sounds on right; on oxygen; no accessory muscle use, ctab Abd: s/nt/nd, nbs x 4 q, no palpable masses Derm: no rashes, no ulcers, no lesions Extr: no edema, no cyanosis, no calf tenderness, no lesions, no varicosities Neuro: cn II-XII grossly intact, ue and le 5/5 muscle strength bilaterally, no los ue, le bilaterally and core Assessment & Plan - Assessment and Plan (Free Text) Assessment: 81 M c/o decreasing hbg and hct 2/2 upper GIB - endoscopy showed bleeding esophageal ulcer Plan: 1.) Anemia 2/2 Upper GIB - 1 U PRBC's administered - Monitor CBC - Transfer to TCU for deconditioning - F/u Colonoscopy/endoscopy from GI 2. Hx COPD - O2 supplementation to maintain SaO2 ~90-92%; currently on 2LNC - Xopenex/atrovent PRN and ANAMARIA, and pulmicort/brovana prn 3. Constipation - Dulcolax 4. Hx of CAD - Hold anticoagulation 2/2 bleed - Hold Lipitor 2/2 NPO - Hold metoprolol 25mg PO TID 2/2 NPO 5. Hyperlipidemia - Hold Lipitor 2/2 NPO 6. Hypothyroidism - Hold Synthroid 2/2 NPO GI/DVT Prophylaxis - Protonix/Heparin SC
[2017-01-07 01:43] VITALS: BMI 22.0
[2017-01-07] MEDS: Levothyroxine 200 MCG TAB PO SCH (05:48)
[2017-01-07 06:22] LABS: ALB/GLOB RATIO 0.9 (1.1-1.8); ALBUMIN 2.1 g/dL (3.0-4.8); ALT/SGPT 39 U/L (7-56); AST/SGOT 21 U/L (15-59); BLOOD UREA NITROGEN 9 mg/dL (7-21); CALCIUM 7.5 mg/dL (8.4-10.5); GFR AFRICAN-AMERICAN > 60; GFR NON-AFRICAN AMERICAN > 60
[2017-01-07 06:44] LABS: HEMOGLOBIN 8.8 g/dL (14.0-18.0); MEAN CELL VOLUME 100.7 fl (80.0-105.0); MEAN CORPUSCULAR HEMOGLOBIN 30.9 pg (25.0-35.0); MEAN CORPUSCULAR HGB CONC 30.7 g/dl (31.0-37.0); MEAN PLATELET VOLUME 9.3 fl (7.0-11.0); RBC 2.85 10^6/uL (3.5-6.1); RED CELL DISTRIBUTION WIDTH 15.3 % (11.5-14.5)
[2017-01-07] MEDS: Budesonide 0.5 mg/2 ml Inhal Susp UD IH SCH ×2 (07:40→20:44)
[2017-01-07] MEDS: Ipratropium 0.02% Inhal Soln (0.5 mg/2.5 ml) UD IH SCH ×3 (07:40→20:44)
[2017-01-07] MEDS: Arformoterol 15 mcg/2 ml Inh Sol IH SCH ×2 (07:40→20:44)
[2017-01-07] MEDS ORDERED: Arformoterol 15 mcg/2 ml Inh Sol IH SCH (08:00)
--- NOTE | 2017-01-07 08:28 | PN ---
PULMONARY NOTE DATE: 01/07/2017 SUBJECTIVE: The patient appears comfortable at rest. He is not short of breath. PHYSICAL EXAMINATION: VITAL SIGNS: Temperature 97.1, pulse 66, respirations 18, last blood pressure (noted in the chart) 96/53, and oxygen saturation on nasal cannula is 96%. HEENT: Normocephalic and atraumatic. NECK: No JVD. CARDIOVASCULAR: Systolic ejection murmur at the lower left sternal border. No S3 gallop. LUNGS: Decreased breath sounds at the bases. Minimal rhonchi. No wheezing. EXTREMITIES: Mild edema. No cyanosis, no clubbing. Calves are nontender to palpation. GI: Abdomen is soft, nontender, nondistended. Bowel sounds are positive. SKIN: No acute rash. NEUROLOGIC: Limited at the present time. IMPRESSION: 1. Upper gastrointestinal bleeding, esophageal ulcers. 2. Status post respiratory failure. 3. Advanced chronic obstructive pulmonary disease. 4. Chronic bilateral pleural effusions. 5. Bibasilar atelectasis. PLAN: The patient appears comfortable this morning. He is not short of breath at rest. He does state to feeling better overall. On physical exam, there is no significant bronchospasm noted. In addition, there is no significant alveolar-arterial gradient. I would continue with the current nebulizer treatments and inhaled steroids for now.. The patient is now on the transitional unit where he will participate with physical therapy. GI, Hematology and Cardiology evaluations are ordered. Again, the patient is significantly improved-compared to last week. However, the overall status/prognosis for this elderly patient - with multiple medical problems - remains very guarded at best. I will discuss the above with Dr. Avitia. Kris Heaton MD MTDD
[2017-01-07] MEDS: Nystatin 100,000 Units/ml Oral Susp 5 ml UD PO SCH ×4 (09:43→21:44)
[2017-01-07] MEDS ORDERED: Albumin Human 25% (12.5 gm/50 ml) IV ONE (11:13)
--- NOTE | 2017-01-07 13:21 | CP.PCM.PN ---
<YousifFab - Last Filed: 01/07/17 13:16> Subjective - Date & Time of Evaluation Date of Evaluation: 01/07/17 Time of Evaluation: 06:30 - Subjective Subjective: PT s/e bedside. Patient is complaining of R knee swelling. Ortho c/s. No further complaints. Objective - Vital Signs/Intake and Output Vital Signs (last 24 hours): Temp Pulse Resp BP Pulse Ox 98.7 F 80 18 115/70 96 01/07/17 10:47 01/07/17 10:47 01/07/17 10:47 01/07/17 10:47 01/07/17 10:47 - Medications Medications: Current Medications Arformoterol Tartrate (Brovana) 15 mcg IH [id number] [facility] Last Admin: 01/07/17 07:40 Dose: 15 mcg Atorvastatin Calcium (Lipitor) 20 mg PO DIN [facility] Budesonide (Pulmicort Respules) 0.5 mg IH [id number] [facility] Last Admin: 01/07/17 07:40 Dose: 0.5 mg Famotidine (Pepcid) 20 mg PO DAILY [facility] Last Admin: 01/07/17 09:43 Dose: 20 mg Furosemide (Lasix) 40 mg PO DAILY [facility] Last Admin: 01/07/17 09:42 Dose: 40 mg Ipratropium [place] (Atrovent) 0.5 mg IH [id number] [facility] Last Admin: 01/07/17 13:09 Dose: 0.5 mg Levothyroxine Sodium (Synthroid) 200 mcg PO 0600 [facility] Last Admin: 01/07/17 05:48 Dose: 200 mcg Metoprolol Tartrate (Lopressor) 25 mg PO BID [facility] Last Admin: 01/07/17 09:42 Dose: Not Given Nystatin (Nystatin Oral Susp) 5 ml PO QID [facility] Last Admin: 01/07/17 09:43 Dose: 5 ml - Labs Labs: 01/07/17 05:35 01/07/17 05:35 - Additional Findings Additional findings: Phys Exam: VS as above Constitutional: a&o x 4, nad Head and Neck: neck supple, no jvd, trachea midline, carotid midline, no cervical/head mass Eyes: ernie, nonicteric sclera, eom intact ENT: auditory acuity grossly intact, throat not congested, no nasal deformity Cardio: rrr, no m/r/g, no carotid bruit, nml s1, s2 Pulm: +decreased breath sounds on right; on oxygen; no accessory muscle use, ctab Abd: s/nt/nd, nbs x 4 q, no palpable masses Derm: no rashes, no ulcers, no lesions Extr: no edema, no cyanosis, no calf tenderness, no lesions, no varicosities Neuro: cn II-XII grossly intact, ue and le 5/5 muscle strength bilaterally, no los ue, le bilaterally and core Assessment and Plan - Assessment and Plan (Free Text) Assessment: 81 M c/o decreasing hbg and hct 2/2 upper GIB - endoscopy showed bleeding esophageal ulcer Plan: 1.) Anemia 2/2 Upper GIB - 1 U PRBC's administered - Monitor CBC - Transfer to TCU for deconditioning - F/u Colonoscopy/endoscopy from GI 2.) New R Knee swelling - Uric acid was high: 2.2 - Ortho c/s: Dr. Valderrama 3.) Hx COPD - O2 supplementation to maintain SaO2 ~90-92%; currently on 2LNC - Xopenex/atrovent PRN and ANAMARIA, and pulmicort/brovana prn 4.) Constipation - Dulcolax 5.) Hx of CAD - Hold anticoagulation 2/2 bleed - Hold Lipitor 2/2 NPO - Hold metoprolol 25mg PO TID 2/2 NPO 6.) Hyperlipidemia - Hold Lipitor 2/2 NPO 7.) Hypothyroidism - Hold Synthroid 2/2 NPO GI/DVT Prophylaxis - Protonix/Heparin SC <Oswald Avitia - Last Filed: 01/09/17 08:53> Objective - Vital Signs/Intake and Output Vital Signs (last 24 hours): Temp Pulse Resp BP Pulse Ox 98.2 F 81 18 88/59 L 95 01/08/17 12:36 01/08/17 12:36 01/08/17 12:36 01/08/17 18:00 01/08/17 12:36 - Medications Medications: Current Medications Arformoterol Tartrate (Brovana) 15 mcg IH [id number] [facility] Last Admin: 01/09/17 07:18 Dose: 15 mcg Atorvastatin Calcium (Lipitor) 20 mg PO DIN [facility] Last Admin: 01/07/17 17:26 Dose: 20 mg Budesonide (Pulmicort Respules) 0.5 mg IH [id number] [facility] Last Admin: 01/09/17 07:18 Dose: 0.5 mg Famotidine (Pepcid) 20 mg PO 0630 [facility] Last Admin: 01/09/17 05:44 Dose: 20 mg Furosemide (Lasix) 40 mg PO DAILY [facility] Last Admin: 01/08/17 18:00 Dose: Not Given Ipratropium [place] (Atrovent) 0.5 mg IH [id number] [facility] Last Admin: 01/09/17 07:18 Dose: 0.5 mg Levothyroxine Sodium (Synthroid) 200 mcg PO 0600 [facility] Last Admin: 01/09/17 05:44 Dose: 200 mcg Metoprolol Tartrate (Lopressor) 25 mg PO 0800,1800 [facility] Last Admin: 01/08/17 17:57 Dose: Not Given Nystatin (Nystatin Oral Susp) 5 ml PO QID [facility] Last Admin: 01/08/17 21:40 Dose: 5 ml Nystatin (Nystop Topical Powder) 0 gm TOP DAILY PRN PRN Reason: Itching / Pruritus - Labs Labs: 01/09/17 06:00 01/09/17 06:00 Attending/Attestation - Attestation I have personally seen and examined this patient.: Yes I have fully participated in the care of the patient.: Yes I have reviewed all pertinent clinical information, including history, physical exam and plan: Yes Notes (Text): 01/09/17 08:53 Medical record note made by the resident done after discussion with my direction and input after the patient was personally seen by me. I have reviewed the chart and agree that the record accurately reflects my personal history, physical, data review, decision making and course for the patient.
--- NOTE | 2017-01-07 16:29 | RAD ---
PROCEDURE: Right Knee Radiographs. HISTORY: PAIN COMPARISON: None. FINDINGS: BONES: Normal. No fracture. JOINTS: There is joint space narrowing in the medial compartment JOINT EFFUSION: None. OTHER FINDINGS: None. IMPRESSION: Joint space narrowing medial compartment
--- NOTE | 2017-01-07 22:12 | PN ---
DATE: 01/07/2017 REASON FOR CONSULTATION: Anemia. SUBJECTIVE: The patient is subjectively lying in bed, in no acute distress. He has no further shortness of breath. He was recently admitted with GI bleed. PHYSICAL EXAMINATION: VITAL SIGNS: Reveal a temperature of 97.1, pulse of 66, respiratory rate 18, and a blood pressure of 96/53, O2 sat is 96% on nasal cannula. HEAD AND NECK: Normocephalic, atraumatic. There is some pallor. No icterus is noted. NECK: Supple with no adenopathy. No JVD. No thyromegaly. LUNGS: Clear to auscultation bilaterally with no rhonchi except for bases that have decreased breath sounds. CARDIOVASCULAR: S1 and S2 are heard. The patient does have a systolic ejection murmur at the lower left sternal border. ABDOMEN: Positive bowel sounds, nontender, nondistended. EXTREMITIES: There is some mild edema but no clubbing or cyanosis. LABORATORY DATA: His labs today reveal a white count of 6.0, hemoglobin 8.8, hematocrit 28.7, and MCV of 100.7, platelet count of 201. Chemistries are within normal limits. There is no compromise in his renal function. His iron studies were also reviewed which are not revealing of any acute iron deficiency as well as B12 and folate levels are within normal limits. Serum protein electrophoresis was also conducted at this admission, and there is no evidence of any monoclonal spike. ASSESSMENT AND PLAN: Elderly male with known history of alcohol abuse, recent GI bleed, admitted with a markedly low hemoglobin, status post PRBC transfusion, consult now called for persistent anemia. He is awaiting GI workup tomorrow, would hold off on any IV iron at this point as his ferritin is over 600 which is likely from his known liver disease, may need further workup if count continues to decline but await GI workup at this point. Thank you for the consult. Pillo Bragg MD
[2017-01-08] MEDS: Ipratropium 0.02% Inhal Soln (0.5 mg/2.5 ml) UD IH SCH ×4 (02:38→21:20)
[2017-01-08] MEDS: Levothyroxine 200 MCG TAB PO SCH (05:42)
[2017-01-08 07:06] LABS: HEMOGLOBIN 8.6 g/dL (14.0-18.0); MEAN CELL VOLUME 101.4 fl (80.0-105.0); MEAN CORPUSCULAR HEMOGLOBIN 30.9 pg (25.0-35.0); MEAN CORPUSCULAR HGB CONC 30.5 g/dl (31.0-37.0); MEAN PLATELET VOLUME 9.5 fl (7.0-11.0); RBC 2.78 10^6/uL (3.5-6.1); RED CELL DISTRIBUTION WIDTH 15.3 % (11.5-14.5)
[2017-01-08 07:11] LABS: ALB/GLOB RATIO 0.9 (1.1-1.8); ALBUMIN 2.3 g/dL (3.0-4.8); ALT/SGPT 38 U/L (7-56); AST/SGOT 22 U/L (15-59); BLOOD UREA NITROGEN 11 mg/dL (7-21); CALCIUM 7.4 mg/dL (8.4-10.5); GFR AFRICAN-AMERICAN > 60; GFR NON-AFRICAN AMERICAN > 60; URIC ACID 2.4 mg/dL (3.5-8.5)
[2017-01-08] MEDS: Budesonide 0.5 mg/2 ml Inhal Susp UD IH SCH ×2 (07:28→21:20)
[2017-01-08] MEDS: Arformoterol 15 mcg/2 ml Inh Sol IH SCH ×2 (07:28→21:20)
[2017-01-08] MEDS ORDERED: Bupivacaine 0.5% Inj(30mL) IJ ONE (07:33)
[2017-01-08] MEDS ORDERED: MethylPREDNISolone Depo 40 mg/ml Inj IM ONE (07:33)
[2017-01-08] MEDS: Nystatin 100,000 Units/ml Oral Susp 5 ml UD PO SCH ×4 (09:58→21:40)
[2017-01-08] MEDS ORDERED: Sodium Chloride 0.9% 500 ML IV STA (10:17)
[2017-01-08] MEDS ORDERED: Nystatin 100,000 Units/gm Topical Pow(15 gm) TOP PRN (10:18)
--- NOTE | 2017-01-08 12:51 | RAD ---
HISTORY: r/o fluid overload COMPARISON: 01/02/2017 FINDINGS: LUNGS: No active pulmonary disease. PLEURA: Small bilateral pleural effusions. CARDIOVASCULAR: Mild cardiomegaly OSSEOUS STRUCTURES: No significant abnormalities. VISUALIZED UPPER ABDOMEN: Normal. OTHER FINDINGS: None. IMPRESSION: Small bilateral pleural effusions. Slight improvement on the right side
--- NOTE | 2017-01-08 13:04 | PN ---
SUBJECTIVE: Seen and examined at the bedside, earlier this morning. Denies nausea, vomiting, or abdominal pain. He reports he is moving his bowels. No reports of any overt GI bleed. Tolerating oral intake. No complaints of shortness of breath or chest pain. PHYSICAL EXAMINATION VITAL SIGNS: Today, temperature 98.5, blood pressure 89/47, pulse 72, respirations 18, and 100 on room air. HEENT: Sclera is anicteric. NECK: Supple. CARDIAC: S1 and S2. LUNGS: Lung sounds with decreased breath sounds at the bases. No rales or wheeze. ABDOMEN: Bowel sounds, soft, nondistended, nontender on palpation. EXTREMITIES: Mild edema. NEUROLOGIC: Awake, alert, and oriented. LABORATORY DATA: WBC is 5.0, H and H is 8.6 and 28.2, platelets is 216. Sodium is 133, K 4.0, BUN is 11, creatinine 0.5. Total bilirubin is 0.7, AST 22, ALT 38, alkaline phosphatase is 64. ASSESSMENT: This is an 81-year-old male with history of coronary artery disease, stents, status post chronic constipation, fecal impaction, here with chronic obstructive pulmonary disease. The patient with anemia, status post blood transfusion. He had endoscopy, colonoscopy, found to have esophageal ulcerations with bleeding. The patient does have colon polyp, it was not removed. The patient was on anticoagulants. PLAN: The patient is currently on Pepcid 20. Continue to monitor H and H and transfuse as necessary. He will need a repeat endoscopy in a week's time to evaluate healing of ulcers. Currently on heart healthy finely chopped food. The patient is currently off anticoagulants, he is going to be due for repeat endoscopy and then we can reassess with starting anticoagulants. Seen and discussed with Dr. Delgado. IMANI Gutierrez
--- NOTE | 2017-01-08 13:56 | CP.PCM.PN ---
Subjective - Date & Time of Evaluation Date of Evaluation: 01/08/17 Time of Evaluation: 07:00 - Subjective Subjective: PT s/e bedside. Ortho saw patient for R knee swelling and gave injection, pain is better. No further complaints. Objective - Vital Signs/Intake and Output Vital Signs (last 24 hours): Temp Pulse Resp BP Pulse Ox 98.2 F 81 18 89/47 L 95 01/08/17 12:36 01/08/17 12:36 01/08/17 12:36 01/08/17 12:36 01/08/17 12:36 - Medications Medications: Current Medications Arformoterol Tartrate (Brovana) 15 mcg IH [id number] [facility] Last Admin: 01/08/17 07:28 Dose: 15 mcg Atorvastatin Calcium (Lipitor) 20 mg PO DIN [facility] Last Admin: 01/07/17 17:26 Dose: 20 mg Budesonide (Pulmicort Respules) 0.5 mg IH [id number] [facility] Last Admin: 01/08/17 07:28 Dose: 0.5 mg Famotidine (Pepcid) 20 mg PO 0630 [facility] Last Admin: 01/08/17 05:43 Dose: 20 mg Furosemide (Lasix) 40 mg PO DAILY [facility] Last Admin: 01/07/17 09:42 Dose: 40 mg Ipratropium [place] (Atrovent) 0.5 mg IH [id number] [facility] Last Admin: 01/08/17 13:32 Dose: 0.5 mg Levothyroxine Sodium (Synthroid) 200 mcg PO 0600 [facility] Last Admin: 01/08/17 05:42 Dose: 200 mcg Metoprolol Tartrate (Lopressor) 25 mg PO 0800,1800 [facility] Last Admin: 01/08/17 09:57 Dose: Not Given Nystatin (Nystatin Oral Susp) 5 ml PO QID [facility] Last Admin: 01/08/17 09:58 Dose: 5 ml Nystatin (Nystop Topical Powder) 0 gm TOP DAILY PRN PRN Reason: Itching / Pruritus - Labs Labs: 01/08/17 06:00 01/08/17 06:00 - Additional Findings Additional findings: VS as above Constitutional: a&o x 4, nad Head and Neck: neck supple, no jvd, trachea midline, carotid midline, no cervical/head mass Eyes: ernie, nonicteric sclera, eom intact ENT: auditory acuity grossly intact, throat not congested, no nasal deformity Cardio: rrr, no m/r/g, no carotid bruit, nml s1, s2 Pulm: no accessory muscle use, equal nml breath sounds bilaterally, ctab Abd: s/nt/nd, nbs x 4 q, no palpable masses Derm: no rashes, no ulcers, no lesions Extr: no edema, no cyanosis, no calf tenderness, no lesions, no varicosities Neuro: cn II-XII grossly intact, ue and le 5/5 muscle strength bilaterally, no los ue, le bilaterally and core Assessment and Plan - Assessment and Plan (Free Text) Assessment: 81 M c/o decreasing hbg and hct 2/2 upper GIB - endoscopy showed bleeding esophageal ulcer Plan: 1.) Anemia 2/2 Upper GIB - 1 U PRBC's administered - Monitor CBC - Transfer to TCU for deconditioning - F/u Colonoscopy/endoscopy from GI before d/c 2.) New R Knee swelling - resolved - Uric acid was high: 2.2 - Ortho c/s: Dr. Valderrama gave injection today, 01/08 3.) Hx COPD - O2 supplementation to maintain SaO2 ~90-92%; currently on 2LNC - Xopenex/atrovent PRN and ANAMARIA, and pulmicort/brovana prn 4.) Constipation - Dulcolax 5.) Hx of CAD - Hold anticoagulation 2/2 bleed - Hold Lipitor 2/2 NPO - Hold metoprolol 25mg PO TID 2/2 NPO 6.) Hyperlipidemia - Hold Lipitor 2/2 NPO 7.) Hypothyroidism - Hold Synthroid 2/2 NPO GI/DVT Prophylaxis - Protonix/Heparin SC
[2017-01-09] MEDS: Ipratropium 0.02% Inhal Soln (0.5 mg/2.5 ml) UD IH SCH ×4 (01:42→20:21)
--- NOTE | 2017-01-09 05:13 | CON ---
ORTHOPEDIC CONSULTATION DATE: 01/08/2017 LOCATION: Room 321. HISTORY OF PRESENT ILLNESS: This is an 81-year-old male with extreme pain at the right knee. X-ray was ordered yesterday showing that he has medial joint line osteoarthritis with decreased medial joint space, mild effusion that d/n need aspiration. We injected his right knee with Depo-Medrone and Marcaine that should dry up his effusion and help his pain for the arthritis, so we could do physical therapy which will be ambulation with the walker and will strengthen his muscles with special exercises. He is a candidate for unicondylar knee replacement, but he is in no medical condition for that just yet, so follow the patient, treat him conservatively with periodic injunctions and if he is a candidate for Hyalgan injection that work good for this condition of medial joint line osteoarthritis. Kaushik Keith DO MTDB[facility]
[2017-01-09] MEDS: Levothyroxine 200 MCG TAB PO SCH (05:44)
[2017-01-09] MEDS: Arformoterol 15 mcg/2 ml Inh Sol IH SCH ×2 (07:18→20:21)
[2017-01-09] MEDS: Budesonide 0.5 mg/2 ml Inhal Susp UD IH SCH ×2 (07:18→20:21)
[2017-01-09 07:33] LABS: HEMOGLOBIN 8.6 g/dL (14.0-18.0); MEAN CELL VOLUME 98.9 fl (80.0-105.0); MEAN CORPUSCULAR HEMOGLOBIN 30.9 pg (25.0-35.0); MEAN CORPUSCULAR HGB CONC 31.3 g/dl (31.0-37.0); MEAN PLATELET VOLUME 9.9 fl (7.0-11.0); RBC 2.78 10^6/uL (3.5-6.1); RED CELL DISTRIBUTION WIDTH 15.2 % (11.5-14.5); WHITE BLOOD COUNT 6.3 10^3/ul (4.5-11.0)
[2017-01-09 07:46] LABS: ALBUMIN 2.6 g/dL (3.0-4.8); ALT/SGPT 36 U/L (7-56); AST/SGOT 21 U/L (15-59); BLOOD UREA NITROGEN 17 mg/dL (7-21); CALCIUM 7.7 mg/dL (8.4-10.5); GFR AFRICAN-AMERICAN > 60; GFR NON-AFRICAN AMERICAN > 60
[2017-01-09] MEDS: Nystatin 100,000 Units/ml Oral Susp 5 ml UD PO SCH ×4 (09:10→21:08)
--- NOTE | 2017-01-09 10:14 | PN ---
DATE: 01/09/2017 SUBJECTIVE: The patient appears comfortable this morning. He is not short of breath at rest. PHYSICAL EXAMINATION: VITAL SIGNS: Temperature 98.2, pulse 80, respirations 18, last blood pressure recorded 88/59. Oxygen saturation on room air is 95%. HEENT: Normocephalic and atraumatic. NECK: No JVD. CARDIOVASCULAR: Systolic ejection murmur at the lower left sternal border. No S3 gallop. LUNGS: Decreased breath sounds at the bases. Minimal rhonchi. No wheezing. EXTREMITIES: Mild edema. No cyanosis, no clubbing. Calves are nontender to palpation. GI: Abdomen is soft, nontender, and nondistended. Bowel sounds are positive. SKIN: No acute rash. NEUROLOGIC: Limited at the present time. PERTINENT LABORATORY DATA: Chest x-ray was repeated yesterday and reviewed. I did review the last chest x-ray and compared to the previous chest x-ray. Compared to the last chest x-ray, the most recent films shows a decrease in the right pleural effusion. Small pleural effusions remain. IMPRESSION: 1. Upper gastrointestinal bleeding, esophageal ulcers. 2. Status post respiratory failure. 3. Advanced chronic obstructive pulmonary disease. 4. Chronic bilateral pleural effusions. 5. Bibasilar atelectasis. PLAN: The patient appears comfortable this morning. He is not short of breath at rest. He does state to feeling better overall. On physical exam, no significant bronchospasm is noted. In addition, the oxygen saturation on room air is 95%. I would continue with the current nebulizer treatments and inhaled steroids for now. The patient did have a chest x-ray done yesterday. The X-ray is improved from the previous film. Inputs by oncology and GI are noted. Clinical status of the patient has certainly improved-compared to last week. However, again, the overall status/prognosis for this very elderly patient-with multiple medical problems-remains very guarded. All are aware. I will discuss the above with Dr. Avitia. Kris Heaton MD [facility]
--- NOTE | 2017-01-09 12:47 | CP.PCM.CON ---
History of Present Illness - History of Present Illness History of Present Illness: Palliative consult requested by Dr Hilda Powell Reason: Goals of care /advance care planning 81 year old male who presented with anemia while in TCU. He was discharged to acute services with upper GI bleed, he was transfused, stabilized and transferred back to [email or web address] for deconditioning/rehab.He will have f/u colonoscopy upon discharge for [facility] [[email or web address]] PMHx: COPD, CHF,CAD s/p stent, HLD, hypothyroidism. Family Hisoty: HTN. Social History: Former smoker, no alcohol or drug use. Lives with his son, Oswald. Advance Care Planning: The patient has an Advance Directive at home. He is DNR/ DNI. Review of Systems: A 14 point review of systems is negative. Past Patient History - Infectious Disease Hx of Infectious Diseases: None - Tetanus Immunizations Tetanus Immunization: Unknown, OTH - Past Social History Smoking Status: Former Smoker - CARDIAC Hx Cardiac Disorders: Yes Hx Congestive Heart Failure: Yes Hx Hypercholesterolemia: Yes - PULMONARY Hx Chronic Obstructive Pulmonary Disease (COPD): Yes - NEUROLOGICAL Hx Neurological Disorder: No - HEENT Hx HEENT Problems: Yes Hx Cataracts: Yes (R EYE) Hx Difficulty Chewing: Yes (missing teeth) Other/Comment: left eye catarast extraction with lens replacement - RENAL Hx Chronic Kidney Disease: No - ENDOCRINE/METABOLIC Hx Hypothyroidism: Yes - HEMATOLOGICAL/ONCOLOGICAL Hx Blood Disorders: Yes (hepatitis 1963 pt doesn't know what kind) Hx Anemia: Yes (blood transfusion) - INTEGUMENTARY Hx Dermatological Problems: Yes Other/Comment: slight redness to both knees, 1cm round callous to right great toe, r great toenail small area black, eccymosis to r ihp, multiple puncture sites to lower abd from "blood thinner" injections, left hand eccymotis, right hand and lower arm eccymotic areas, red groin rash - MUSCULOSKELETAL/RHEUMATOLOGICAL Hx Arthritis: Yes (knees, back) - GASTROINTESTINAL Hx Gastrointestinal Disorders: Yes (POOR APPETITE,H/O DYSPHAGIA DUE TO THRUSH) HX Swallowing Problems: Yes Other/Comment: engo 09/04/15 dx esophagitis, hiatal hernia, yu lesions, gastric erosion. egd and colonoscopy 01/02/17 dx esophageal ulcerations with active bleeding, hiatal hernia, sigmoid polyp, redundant colon, diverticulosis, gi bleed - GENITOURINARY/GYNECOLOGICAL Hx Genitourinary Disorders: No Hx Reproductive Disorders: No - PSYCHIATRIC Hx Emotional Abuse: No Hx Physical Abuse: No Hx Substance Use: Yes - SURGICAL HISTORY Hx Surgeries: Yes (thoracentesis) Hx Cardiac Catheterization: Yes (ptca/stents) Hx Coronary Stent: Yes Hx Orthopedic Surgery: Yes (left knee) - ANESTHESIA Hx Anesthesia Reactions: No Hx Malignant Hyperthermia: No Meds Allergies/Adverse Reactions: Allergies Allergy/AdvReac Type Severity Reaction Status Date / Time No Known Allergies Allergy Verified 01/08/17 08:29 - Medications Medications: Current Medications Arformoterol Tartrate (Brovana) 15 mcg IH [id number] [facility] Last Admin: 01/09/17 07:18 Dose: 15 mcg Atorvastatin Calcium (Lipitor) 20 mg PO DIN [facility] Last Admin: 01/07/17 17:26 Dose: 20 mg Budesonide (Pulmicort Respules) 0.5 mg IH [id number] [facility] Last Admin: 01/09/17 07:18 Dose: 0.5 mg Famotidine (Pepcid) 20 mg PO 0630 [facility] Last Admin: 01/09/17 05:44 Dose: 20 mg Furosemide (Lasix) 40 mg PO DAILY [facility] Last Admin: 01/09/17 09:09 Dose: 40 mg Ipratropium [place] (Atrovent) 0.5 mg IH [id number] [facility] Last Admin: 01/09/17 07:18 Dose: 0.5 mg Levothyroxine Sodium (Synthroid) 200 mcg PO 0600 [facility] Last Admin: 01/09/17 05:44 Dose: 200 mcg Metoprolol Tartrate (Lopressor) 25 mg PO 0800,1800 [facility] Last Admin: 01/09/17 09:09 Dose: 25 mg Nystatin (Nystatin Oral Susp) 5 ml PO QID [facility] Last Admin: 01/09/17 09:10 Dose: 5 ml Nystatin (Nystop Topical Powder) 0 gm TOP DAILY PRN PRN Reason: Itching / Pruritus Physical Exam - Constitutional Appears: No Acute Distress - Head Exam Head Exam: NORMAL INSPECTION - Eye Exam Eye Exam: Normal appearance, PERRL - ENT Exam ENT Exam: Mucous Membranes Moist, Normal Oropharynx - Neck Exam Neck exam: Positive for: Normal Inspection - Respiratory Exam Respiratory Exam: Clear to Auscultation Bilateral, NORMAL BREATHING PATTERN - Cardiovascular Exam Cardiovascular Exam: REGULAR RHYTHM, +S1, +S2 - Extremities Exam Extremities exam: Positive for: normal inspection, pedal pulses present - Back Exam Back exam: NORMAL INSPECTION - Neurological Exam Neurological exam: Alert, Oriented x3 - Skin Skin Exam: Dry, Warm - Additional Findings Additional findings: Palliative performance scale rating 50 % Results - Vital Signs Recent Vital Signs: Last Vital Signs Temp 98.2 F 01/08/17 12:36 Pulse 88 01/09/17 09:09 Resp 18 01/08/17 12:36 BP 116/68 01/09/17 09:09 Pulse Ox 95 01/08/17 12:36 - Labs Result Diagrams: 01/09/17 06:00 01/09/17 06:00 Labs: Laboratory Results - last 24 hr 01/09/17 01/09/17 01/09/17 05:13 06:00 06:00 WBC 6.3 D RBC 2.78 L Hgb 8.6 L Hct 27.5 L MCV 98.9 MCH 30.9 MCHC 31.3 RDW 15.2 H Plt Count 262 MPV 9.9 Sodium 131 L Potassium 4.5 Chloride 91 L Carbon Dioxide 38 H Anion Gap 7 L BUN 17 Creatinine 0.5 Est GFR ( Amer) > 60 Est GFR (Non-Af Amer) > 60 POC Glucose (mg/dL) 113 H Random Glucose 121 H Calcium 7.7 L Total Bilirubin 0.6 AST 21 ALT 36 Alkaline Phosphatase 65 Total Protein 5.2 L Albumin 2.6 L Globulin 2.7 Albumin/Globulin Ratio 1.0 L Assessment & Plan - Assessment and Plan (Free Text) Assessment: 81 year old male with history of COPD, CAD, GI bleed anemia who who was admitted to [facility] [[email or web address] for deconditioning. The patient is alert, oriented. He offers no complaints, is anxious to be discharged home. We met to discuss advance care planning. The patient states he has a Living Will at home. He states he does not want CPR/intubation, tube feedings. POLST explained in detail, questions answered. Patient is willing / and completed POLST. He named his son Oswald Turpin as health care surrogate. A copy of POLST is placed on patient chart. I also spoke with patient son, Oswald and explained that POLST had been completed.patientr son undertands and is agreeable to follow his father's wishes Time spent in goals of care discussion, advance care planning 40 minutes Plan: Advance Care Planning POLST; DNR/DNI
--- NOTE | 2017-01-09 18:03 | CP.PCM.PN ---
Subjective - Date & Time of Evaluation Date of Evaluation: 01/09/17 Time of Evaluation: 07:40 - Subjective Subjective: PT s/e bedside. No further complaints. Objective - Vital Signs/Intake and Output Vital Signs (last 24 hours): Temp Pulse Resp BP Pulse Ox 98.4 F 82 14 117/50 L 100 01/09/17 16:46 01/09/17 17:28 01/09/17 16:46 01/09/17 17:28 01/09/17 16:46 - Medications Medications: Current Medications Arformoterol Tartrate (Brovana) 15 mcg IH [id number] [facility] Last Admin: 01/09/17 07:18 Dose: 15 mcg Atorvastatin Calcium (Lipitor) 20 mg PO DIN [facility] Last Admin: 01/09/17 17:27 Dose: 20 mg Budesonide (Pulmicort Respules) 0.5 mg IH [id number] [facility] Last Admin: 01/09/17 07:18 Dose: 0.5 mg Famotidine (Pepcid) 20 mg PO 0630 [facility] Last Admin: 01/09/17 05:44 Dose: 20 mg Furosemide (Lasix) 40 mg PO DAILY [facility] Last Admin: 01/09/17 09:09 Dose: 40 mg Ipratropium [place] (Atrovent) 0.5 mg IH [id number] [facility] Last Admin: 01/09/17 13:26 Dose: 0.5 mg Levothyroxine Sodium (Synthroid) 200 mcg PO 0600 [facility] Last Admin: 01/09/17 05:44 Dose: 200 mcg Metoprolol Tartrate (Lopressor) 25 mg PO 0800,1800 [facility] Last Admin: 01/09/17 17:28 Dose: 25 mg Nystatin (Nystatin Oral Susp) 5 ml PO QID [facility] Last Admin: 01/09/17 17:29 Dose: 5 ml Nystatin (Nystop Topical Powder) 0 gm TOP DAILY PRN PRN Reason: Itching / Pruritus - Labs Labs: 01/09/17 06:00 01/09/17 06:00 - Additional Findings Additional findings: VS as above Constitutional: a&o x 4, nad Head and Neck: neck supple, no jvd, trachea midline, carotid midline, no cervical/head mass Eyes: ernie, nonicteric sclera, eom intact ENT: auditory acuity grossly intact, throat not congested, no nasal deformity Cardio: rrr, no m/r/g, no carotid bruit, nml s1, s2 Pulm: no accessory muscle use, equal nml breath sounds bilaterally, ctab Abd: s/nt/nd, nbs x 4 q, no palpable masses Derm: no rashes, no ulcers, no lesions Extr: no edema, no cyanosis, no calf tenderness, no lesions, no varicosities Neuro: cn II-XII grossly intact, ue and le 5/5 muscle strength bilaterally, no los ue, le bilaterally and core Assessment and Plan - Assessment and Plan (Free Text) Assessment: 81 M c/o decreasing hbg and hct 2/2 upper GIB - endoscopy showed bleeding esophageal ulcer Plan: 1.) Anemia 2/2 Upper GIB - 1 U PRBC's administered - Monitor CBC - Transfer to TCU for deconditioning - F/u Colonoscopy/endoscopy from GI before d/c 2.) New R Knee swelling - resolved - Uric acid was high: 2.2 - Ortho c/s: Dr. Valderrama gave injection yesterday, 01/08 3.) Hx COPD - O2 supplementation to maintain SaO2 ~90-92%; currently on 2LNC - Xopenex/atrovent PRN and ANAMARIA, and pulmicort/brovana prn 4.) Constipation - Dulcolax 5.) Hx of CAD - Hold anticoagulation 2/2 bleed - Hold Lipitor 2/2 NPO - Hold metoprolol 25mg PO TID 2/2 NPO 6.) Hyperlipidemia - Hold Lipitor 2/2 NPO 7.) Hypothyroidism - Hold Synthroid 2/2 NPO GI/DVT Prophylaxis - Protonix/Heparin SC
[2017-01-10] MEDS: Levothyroxine 200 MCG TAB PO SCH (05:34)
[2017-01-10 07:04] LABS: HEMOGLOBIN 8.5 g/dL (14.0-18.0); MEAN CELL VOLUME 99.6 fl (80.0-105.0); MEAN CORPUSCULAR HEMOGLOBIN 30.4 pg (25.0-35.0); MEAN CORPUSCULAR HGB CONC 30.5 g/dl (31.0-37.0); MEAN PLATELET VOLUME 9.2 fl (7.0-11.0); RBC 2.8 10^6/uL (3.5-6.1); RED CELL DISTRIBUTION WIDTH 15.5 % (11.5-14.5); WHITE BLOOD COUNT 5.2 10^3/ul (4.5-11.0)
[2017-01-10 07:24] LABS: ALB/GLOB RATIO 0.9 (1.1-1.8); ALBUMIN 2.4 g/dL (3.0-4.8); ALT/SGPT 39 U/L (7-56); AST/SGOT 23 U/L (15-59); BLOOD UREA NITROGEN 19 mg/dL (7-21); CALCIUM 7.7 mg/dL (8.4-10.5); GFR AFRICAN-AMERICAN > 60; GFR NON-AFRICAN AMERICAN > 60
[2017-01-10] MEDS: Budesonide 0.5 mg/2 ml Inhal Susp UD IH SCH ×2 (07:28→22:09)
[2017-01-10] MEDS: Ipratropium 0.02% Inhal Soln (0.5 mg/2.5 ml) UD IH SCH ×3 (07:28→22:11)
[2017-01-10] MEDS: Arformoterol 15 mcg/2 ml Inh Sol IH SCH ×2 (07:28→22:09)
--- NOTE | 2017-01-10 10:01 | CP.PCM.PN ---
Subjective - Date & Time of Evaluation Date of Evaluation: 01/10/17 Time of Evaluation: 08:55 - Subjective Subjective: Seen and examined at the bedside, chart was reviewed. Patient's out of bed to the chair tolerating oral intake. Denies nausea, vomiting, or abdominal pain. He did have bowel movement yesterday also feels that it was incomplete. Offered laxative but afraid that he will mess himself. Discussed giving at least stool softener and monitor output. No reports of overt GI bleed. Objective - Vital Signs/Intake and Output Vital Signs (last 24 hours): Temp Pulse Resp BP Pulse Ox 97.8 F 73 18 90/50 L 100 01/10/17 06:00 01/10/17 06:00 01/10/17 06:00 01/10/17 08:58 01/10/17 06:00 - Medications Medications: Current Medications Arformoterol Tartrate (Brovana) 15 mcg IH [id number] [facility] Last Admin: 01/10/17 07:28 Dose: 15 mcg Atorvastatin Calcium (Lipitor) 20 mg PO DIN [facility] Last Admin: 01/09/17 17:27 Dose: 20 mg Budesonide (Pulmicort Respules) 0.5 mg IH [id number] [facility] Last Admin: 01/10/17 07:28 Dose: 0.5 mg Docusate Sodium (Colace) 100 mg PO BID [facility] Famotidine (Pepcid) 20 mg PO 0630 [facility] Last Admin: 01/10/17 05:34 Dose: 20 mg Furosemide (Lasix) 40 mg PO DAILY [facility] Last Admin: 01/09/17 09:09 Dose: 40 mg Ipratropium [place] (Atrovent) 0.5 mg IH [id number] [facility] Last Admin: 01/10/17 07:28 Dose: 0.5 mg Levothyroxine Sodium (Synthroid) 200 mcg PO 0600 [facility] Last Admin: 01/10/17 05:34 Dose: 200 mcg Metoprolol Tartrate (Lopressor) 25 mg PO 0800,1800 [facility] Last Admin: 01/10/17 08:58 Dose: Not Given Nystatin (Nystatin Oral Susp) 5 ml PO QID [facility] Last Admin: 01/09/17 21:08 Dose: 5 ml Nystatin (Nystop Topical Powder) 0 gm TOP DAILY PRN PRN Reason: Itching / Pruritus - Labs Labs: 01/10/17 06:30 01/10/17 06:35 - Constitutional Appears: No Acute Distress - Head Exam Head Exam: NORMOCEPHALIC - Eye Exam Eye Exam: Normal appearance. absent: Scleral icterus - ENT Exam ENT Exam: Mucous Membranes Moist - Neck Exam Neck Exam: Normal Inspection - Respiratory Exam Respiratory Exam: Clear to Ausculation Bilateral, Rhonchi, NORMAL BREATHING PATTERN. absent: Wheezes, Respiratory Distress - Cardiovascular Exam Cardiovascular Exam: +S1, +S2 - GI/Abdominal Exam GI & Abdominal Exam: Soft, Normal Bowel Sounds. absent: Guarding, Tenderness, Rebound - Extremities Exam Extremities Exam: Pedal Edema. absent: Calf Tenderness - Neurological Exam Neurological Exam: Alert, Awake, Oriented x3 Assessment and Plan - Assessment and Plan (Free Text) Assessment: ASSESSMENT: anemia, status post blood transfusion Esophageal ulcerations with bleeding Colon polyp, not removed as patient was on anticoagulant Coronary artery disease status post stents Chronic constipation status post fecal impaction COPD PLAN: continue Pepcid 20 daily Monitor H&H and transfuse as necessary Continue heart healthy finely chopped food Currently off anticoagulant Started on Colace twice a day, monitor stools Will need repeat endoscopy follow-up healing of ulcerations and can reassess restarting anticoagulants,prior to discharge Seen and discussed with Dr. Delgado.
[2017-01-10] MEDS: Nystatin 100,000 Units/ml Oral Susp 5 ml UD PO SCH ×4 (10:37→21:09)
[2017-01-10] MEDS ORDERED: Albumin Human 25% (12.5 gm/50 ml) IV ONE (10:59)
--- NOTE | 2017-01-10 11:59 | PN ---
DATE: 01/10/2017 PULMONARY NOTE SUBJECTIVE: The patient appears comfortable this morning. He is not short of breath at rest. PHYSICAL EXAMINATION: VITAL SIGNS: Temperature is 98.4, pulse 82, respirations 14/16, blood pressure 170/50. Oxygen saturation on nasal cannula is 100%. HEENT: Normocephalic and atraumatic. NECK: No JVD. CARDIOVASCULAR: Systolic ejection murmur at the lower left sternal border. No S3 gallop. LUNGS: Decreased breath sounds at the bases. Minimal/less rhonchi. No wheezing. EXTREMITIES: Mild edema. No cyanosis, no clubbing. Calves are nontender to palpation. GASTROINTESTINAL: Abdomen is soft, nontender, and nondistended. Bowel sounds are positive. SKIN: No acute rash. NEUROLOGIC: Limited at the present time. IMPRESSION: 1. Upper gastrointestinal bleeding, esophageal ulcers. 2. Status post respiratory failure. 3. Advanced chronic obstructive pulmonary disease. 4. Chronic bilateral pleural effusions. 5. Bibasilar atelectasis. PLAN: The patient appears comfortable this morning. He is not short of breath at rest. He does state to feeling better overall. On physical exam, his bronchospasm continues to resolve. In addition, the oxygen saturation on nasal cannula is now 100%. I will continue with the current nebulizer treatments and inhaled steroids for now. Inputs by PERLA and Marcia Sena (palliative care) are noted. Clinical status of the patient has certainly improved - compared to last week. However, again, the overall status/prognosis for this patient remains very guarded at best. All are aware. I will discuss the above with Dr. Avitia. Kris Heaton MD
--- NOTE | 2017-01-10 19:33 | CP.PCM.PN ---
Subjective - Date & Time of Evaluation Date of Evaluation: 01/10/17 Time of Evaluation: 09:00 - Subjective Subjective: Pt s/e bedside; Per GI, patient had an incomplete BM yesterday, has been offered laxatives, but does not want to take them because does not want to soil himself. No overt bleeds. He is tolerating oral intake well. No other complaints. Objective - Vital Signs/Intake and Output Vital Signs (last 24 hours): Temp Pulse Resp BP Pulse Ox 98.7 F 79 20 87/63 L 100 01/10/17 10:00 01/10/17 10:00 01/10/17 10:00 01/10/17 18:00 01/10/17 10:00 - Medications Medications: Current Medications Arformoterol Tartrate (Brovana) 15 mcg IH [id number] [facility] Last Admin: 01/10/17 07:28 Dose: 15 mcg Atorvastatin Calcium (Lipitor) 20 mg PO DIN [facility] Last Admin: 01/10/17 19:02 Dose: Not Given Budesonide (Pulmicort Respules) 0.5 mg IH [id number] [facility] Last Admin: 01/10/17 07:28 Dose: 0.5 mg Docusate Sodium (Colace) 100 mg PO DAILY [facility] Famotidine (Pepcid) 20 mg PO 0630 [facility] Last Admin: 01/10/17 05:34 Dose: 20 mg Furosemide (Lasix) 40 mg PO DAILY [facility] Last Admin: 01/10/17 10:30 Dose: Not Given Iron Sucrose 100 mg/ Sodium (Chloride) 105 mls @ 210 mls/hr IVPB DAILY [facility] Last Admin: 01/10/17 14:07 Dose: 210 mls/hr Ipratropium [place] (Atrovent) 0.5 mg IH [id number] [facility] Last Admin: 01/10/17 13:24 Dose: 0.5 mg Levothyroxine Sodium (Synthroid) 200 mcg PO 0600 [facility] Last Admin: 01/10/17 05:34 Dose: 200 mcg Metoprolol Tartrate (Lopressor) 25 mg PO 0800,1800 [facility] Last Admin: 01/10/17 18:00 Dose: Not Given Nystatin (Nystatin Oral Susp) 5 ml PO QID [facility] Last Admin: 01/10/17 17:23 Dose: 5 ml Nystatin (Nystop Topical Powder) 0 gm TOP DAILY PRN PRN Reason: Itching / Pruritus - Labs Labs: 01/10/17 06:30 01/10/17 06:35 - Additional Findings Additional findings: VS as above Constitutional: a&o x 4, nad Head and Neck: neck supple, no jvd, trachea midline, carotid midline, no cervical/head mass Eyes: ernie, nonicteric sclera, eom intact ENT: auditory acuity grossly intact, throat not congested, no nasal deformity Cardio: rrr, no m/r/g, no carotid bruit, nml s1, s2 Pulm: no accessory muscle use, equal nml breath sounds bilaterally, ctab Abd: s/nt/nd, nbs x 4 q, no palpable masses Derm: no rashes, no ulcers, no lesions Extr: no edema, no cyanosis, no calf tenderness, no lesions, no varicosities Neuro: cn II-XII grossly intact, ue and le 5/5 muscle strength bilaterally, no los ue, le bilaterally and core Assessment and Plan - Assessment and Plan (Free Text) Assessment: 81 M c/o decreasing hbg and hct 2/2 upper GIB - endoscopy showed bleeding esophageal ulcer Plan: 1.) Anemia 2/2 Upper GIB - 1 U PRBC's administered - IV Iron - Monitor CBC - Transfer to TCU for deconditioning - F/u Colonoscopy/endoscopy from GI before d/c - F/u anticoagulation recs before d/c 2.) New R Knee swelling - resolved - Uric acid was low: 2.2 - Ortho c/s: Dr. Valderrama gave injection 01/08 3.) Hx COPD - O2 supplementation to maintain SaO2 ~90-92%; currently on 2LNC - Xopenex/atrovent PRN and ANAMARIA, and pulmicort/brovana prn 4.) Constipation - Dulcolax 5.) Hx of CAD - Hold anticoagulation 2/2 bleed - Hold Lipitor 2/2 NPO - Hold metoprolol 25mg PO TID 2/2 NPO 6.) Hyperlipidemia - Hold Lipitor 2/2 NPO 7.) Hypothyroidism - Hold Synthroid 2/2 NPO GI/DVT Prophylaxis - Protonix/Heparin SC Will need repeat endoscopy follow-up healing of ulcerations and can reassess restarting anticoagulants,prior to discharge
[2017-01-11] MEDS: Levothyroxine 200 MCG TAB PO SCH (05:34)
[2017-01-11 07:23] LABS: HEMOGLOBIN 8.3 g/dL (14.0-18.0); MEAN CELL VOLUME 98.9 fl (80.0-105.0); MEAN CORPUSCULAR HEMOGLOBIN 30.9 pg (25.0-35.0); MEAN CORPUSCULAR HGB CONC 31.2 g/dl (31.0-37.0); MEAN PLATELET VOLUME 9.2 fl (7.0-11.0); RBC 2.69 10^6/uL (3.5-6.1); RED CELL DISTRIBUTION WIDTH 15.6 % (11.5-14.5)
[2017-01-11 07:41] LABS: ALBUMIN 2.4 g/dL (3.0-4.8); ALT/SGPT 38 U/L (7-56); AST/SGOT 22 U/L (15-59); BLOOD UREA NITROGEN 17 mg/dL (7-21); CALCIUM 7.8 mg/dL (8.4-10.5); GFR AFRICAN-AMERICAN > 60; GFR NON-AFRICAN AMERICAN > 60
[2017-01-11] MEDS: Arformoterol 15 mcg/2 ml Inh Sol IH SCH ×2 (07:49→19:32)
[2017-01-11] MEDS: Ipratropium 0.02% Inhal Soln (0.5 mg/2.5 ml) UD IH SCH ×3 (07:51→19:32)
[2017-01-11] MEDS: Budesonide 0.5 mg/2 ml Inhal Susp UD IH SCH ×2 (07:51→19:33)
--- NOTE | 2017-01-11 08:17 | CP.PCM.PN ---
Subjective - Date & Time of Evaluation Date of Evaluation: 01/11/17 Time of Evaluation: 07:00 - Subjective Subjective: PGY2 Medicine note for Dr. Avitia Patient seen and examined at bedside in TCU. No acute events overnight as per nursing. Patient was sitting up in bed and had eaten breakfast. He reported no acute complaints of headache, dizziness, chest pain, palpitations, cough, abdominal pain, nausea, vomiting, bowel/bladder complaints, fever, and chills. He reports the swelling in his knees has slightly improved. He continues to become SOB when walking with physical therapy. He denies any blood in his urinestool and denies melanotic stool. He is to be transfused 1U PRBC this afternoon and consent is in chart; son was at bedside when obtaining consent. Patient is eager to go home. Objective - Vital Signs/Intake and Output Vital Signs (last 24 hours): Temp Pulse Resp BP Pulse Ox 98.5 F 82 16 100/55 L 99 01/11/17 06:00 01/11/17 06:00 01/11/17 06:00 01/11/17 07:36 01/11/17 06:00 - Medications Medications: Current Medications Arformoterol Tartrate (Brovana) 15 mcg IH [id number] [facility] Last Admin: 01/11/17 07:49 Dose: 15 mcg Atorvastatin Calcium (Lipitor) 20 mg PO DIN [facility] Last Admin: 01/10/17 19:02 Dose: Not Given Budesonide (Pulmicort Respules) 0.5 mg IH [id number] [facility] Last Admin: 01/11/17 07:51 Dose: 0.5 mg Docusate Sodium (Colace) 100 mg PO DAILY [facility] Famotidine (Pepcid) 20 mg PO 0630 [facility] Last Admin: 01/11/17 05:34 Dose: 20 mg Furosemide (Lasix) 40 mg PO DAILY [facility] Last Admin: 01/10/17 10:30 Dose: Not Given Iron Sucrose 100 mg/ Sodium (Chloride) 105 mls @ 210 mls/hr IVPB DAILY [facility] Last Admin: 01/10/17 14:07 Dose: 210 mls/hr Ipratropium [place] (Atrovent) 0.5 mg IH [id number] [facility] Last Admin: 01/11/17 07:51 Dose: 0.5 mg Levothyroxine Sodium (Synthroid) 200 mcg PO 0600 [facility] Last Admin: 01/11/17 05:34 Dose: 200 mcg Metoprolol Tartrate (Lopressor) 25 mg PO 0800,1800 [facility] Last Admin: 01/10/17 18:00 Dose: Not Given Nystatin (Nystatin Oral Susp) 5 ml PO QID [facility] Last Admin: 01/10/17 21:09 Dose: 5 ml Nystatin (Nystop Topical Powder) 0 gm TOP DAILY PRN PRN Reason: Itching / Pruritus - Labs Labs: 01/11/17 06:00 01/11/17 06:00 - Additional Findings Additional findings: VS as above Constitutional: a&o x 4, nad, cachectic, chronically ill Head and Neck: neck supple, no jvd, trachea midline, carotid midline, no cervical/head mass Eyes: ernie, nonicteric sclera, EOMI ENT: auditory acuity grossly intact, throat not congested, no nasal deformity Cardio: rrr, no m/r/g, no carotid bruit, nml s1, s2 Pulm: no accessory muscle use, decreased breath sounds bilaterally Abd: s/nt/nd, nbs x 4 q, no palpable masses Derm: no rashes, no ulcers, no lesions, dry Extremities: +2 b/l LE edema, no cyanosis, no calf tenderness, no lesions, no varicosities Neuro: cn II-XII grossly intact, ue and le 5/5 muscle strength bilaterally Assessment and Plan - Assessment and Plan (Free Text) Assessment: 81 M PMHx CAD, CHF, COPD, HLD, hypothyroidism, who was admitted for upper GI bleed- transferred to TCU for deconditioning Plan: Anemia 2/2 Upper GIB - H&H 8.3 and 26.6 - Iron: 35 TIBC: 194 %Sat: 18 Ferritin: 605 [id number]: 880 Folate: > 20 - Patient to be transfused 1U PRBC - Iron sucrose 100mg ivpb daily - Pepcid 20mg daily - Monitor CBC closely - Patient will need repeat endoscopy/colonoscopy prior to discharge - Patient off anticoagulation New R Knee swelling - resolved - likely secondary to medial joint line osteoarthritis of R knee - Uric acid: 2.2 - Ortho Dr. Keith injected depo-medrone and marcaine in R knee 01/08 recommended periodic injections and patient is a candidate for Hyalgan injections patient is a candidate for unicondylar knee replacement but is not a medically stable for procedure Oral thrush - Nystatin swish and swallow 5ml po qid Hx of CAD - Patient refusing anticoagulation despite extensive discussion of risks vs benefits - Continue current regimen Lipitor 20mg po hs Lopressor 25mg po bid Lasix 40mg po daily Hx COPD - O2 supplementation to maintain SaO2 ~90-92%; currently on 2LNC - Continue current regimen Brovana 15mcg inh q12 Pulmicort 0.5mg inh q12 Atroven 0.5mg inh q6 Hx of Hyperlipidemia - Continue Lipitor 20mg po hs - Heart healthy diet Hx of hypothyroidism - Synthroid 200mcg po daily Constipation - Colace 100mg po daily GI ppx: Pepcid 20mg po daily VTE ppx: c/i secondary to bleed; SCDs Diet: Heart healthy Disposition: continue conditioning and physical therapy during TCU stay Case discussed with Dr. Adore Ortiz PGY2
[2017-01-11] MEDS: Nystatin 100,000 Units/ml Oral Susp 5 ml UD PO SCH ×4 (09:14→21:32)
[2017-01-12] MEDS: Ipratropium 0.02% Inhal Soln (0.5 mg/2.5 ml) UD IH SCH ×5 (01:21→20:16)
[2017-01-12] MEDS: Levothyroxine 200 MCG TAB PO SCH (06:22)
[2017-01-12 07:00] LABS: BASO # 0.01 K/mm3 (0.0-2.0); BASO % 0.2 % (0.0-3.0); EOS # 0.4 (0.0-0.7); EOS % 9.9 % (1.5-5.0); GRAN # 3.05 (1.4-6.5); GRAN % 68.6 % (50.0-68.0); HEMOGLOBIN 9.1 g/dL (14.0-18.0); LYMPH # 0.5 (1.2-3.4); LYMPH % 12.1 % (22.0-35.0); MEAN CELL VOLUME 97.9 fl (80.0-105.0); MEAN CORPUSCULAR HEMOGLOBIN 31.2 pg (25.0-35.0); MEAN CORPUSCULAR HGB CONC 31.8 g/dl (31.0-37.0); MEAN PLATELET VOLUME 9.7 fl (7.0-11.0); MONO # 0.4 (0.1-0.6); MONO % 9.2 % (1.0-6.0); PLATELET COUNT 231 10^3/uL (120.0-450.0); RBC 2.92 10^6/uL (3.5-6.1); RED CELL DISTRIBUTION WIDTH 16.4 % (11.5-14.5); WHITE BLOOD COUNT 4.5 10^3/ul (4.5-11.0)
[2017-01-12 07:12] LABS: ALBUMIN 2.4 g/dL (3.0-4.8); ALT/SGPT 35 U/L (7-56); AST/SGOT 23 U/L (15-59); BLOOD UREA NITROGEN 13 mg/dL (7-21); CALCIUM 7.7 mg/dL (8.4-10.5); GFR AFRICAN-AMERICAN > 60; GFR NON-AFRICAN AMERICAN > 60; MAGNESIUM 1.9 mg/dL (1.7-2.2)
[2017-01-12] MEDS: Arformoterol 15 mcg/2 ml Inh Sol IH SCH ×2 (07:29→20:16)
[2017-01-12] MEDS: Budesonide 0.5 mg/2 ml Inhal Susp UD IH SCH ×2 (07:29→20:16)
[2017-01-12] MEDS: Nystatin 100,000 Units/ml Oral Susp 5 ml UD PO SCH ×4 (10:12→21:49)
--- NOTE | 2017-01-12 10:40 | CP.PCM.PN ---
Subjective - Date & Time of Evaluation Date of Evaluation: 01/11/17 Time of Evaluation: 13:30 - Subjective Subjective: this patient was seen yearly at receiving blood transfusion No melena, no bright red blood per rectum. Patient is tolerating pure diet Objective - Vital Signs/Intake and Output Vital Signs (last 24 hours): Temp Pulse Resp BP Pulse Ox 98.5 F 68 16 111/60 99 01/11/17 06:00 01/11/17 17:56 01/11/17 06:00 01/11/17 17:56 01/11/17 06:00 - Medications Medications: Current Medications Arformoterol Tartrate (Brovana) 15 mcg IH [id number] [facility] Last Admin: 01/11/17 19:32 Dose: 15 mcg Atorvastatin Calcium (Lipitor) 20 mg PO DIN [facility] Last Admin: 01/11/17 17:54 Dose: 20 mg Budesonide (Pulmicort Respules) 0.5 mg IH [id number] [facility] Last Admin: 01/11/17 19:33 Dose: 0.5 mg Docusate Sodium (Colace) 100 mg PO DAILY [facility] Last Admin: 01/11/17 09:14 Dose: 100 mg Famotidine (Pepcid) 20 mg PO 0630 [facility] Last Admin: 01/11/17 05:34 Dose: 20 mg Furosemide (Lasix) 40 mg PO DAILY [facility] Last Admin: 01/11/17 09:14 Dose: 40 mg Iron Sucrose 100 mg/ Sodium (Chloride) 105 mls @ 210 mls/hr IVPB DAILY [facility] Last Admin: 01/11/17 09:49 Dose: 210 mls/hr Ipratropium [place] (Atrovent) 0.5 mg IH [id number] [facility] Last Admin: 01/11/17 19:32 Dose: 0.5 mg Levothyroxine Sodium (Synthroid) 200 mcg PO 0600 [facility] Last Admin: 01/11/17 05:34 Dose: 200 mcg Metoprolol Tartrate (Lopressor) 25 mg PO 0800,1800 [facility] Last Admin: 01/11/17 17:56 Dose: 25 mg Nystatin (Nystatin Oral Susp) 5 ml PO QID [facility] Last Admin: 01/11/17 21:32 Dose: Not Given Nystatin (Nystop Topical Powder) 0 gm TOP DAILY PRN PRN Reason: Itching / Pruritus - Labs Labs: 01/11/17 06:00 01/11/17 06:00 - Constitutional Appears: Well, No Acute Distress - Head Exam Head Exam: NORMOCEPHALIC. absent: ATRAUMATIC - Eye Exam Eye Exam: EOMI, PERRL - ENT Exam ENT Exam: Mucous Membranes Moist - Neck Exam Neck Exam: absent: Lymphadenopathy, Tenderness - Respiratory Exam Respiratory Exam: absent: Accessory Muscle Use, Rhonchi, Wheezes - Cardiovascular Exam Cardiovascular Exam: +S1, +S2. absent: JVD - GI/Abdominal Exam GI & Abdominal Exam: Soft. absent: Tenderness, Mass - Extremities Exam Extremities Exam: Pedal Edema. absent: Calf Tenderness, Tenderness - Neurological Exam Neurological Exam: Alert, Awake, Oriented x3 Assessment and Plan - Assessment and Plan (Free Text) Assessment: 1. Anemia secondary to GI bleeding patient had 10 cm long grade D esophageal ulcerations. Presently on heart the finely chopped food on Protonix Would continue that.. Patient was found to have active oozing of blood from the esophageal ulceration at the time of endoscopy and stent at the antiplatelet therapy was stopped. Would benefit from upper GI endoscopy to evaluate the ulceration in view of this anemia and slight drop in blood count the plan was to continue to repeat the endoscopy in 2 weeks' time from the time of last endoscopy to evaluate ulceration. 2 resume in the antiplatelet therapy. Patient did have PCI of the LAD 2. Small colonic polyp not removed as the patient was on antiplatelet therapy 3. COPD recent hospitalization for COPD exenteration 4. Coronary artery disease status post a PCI of LAD Other comorbidities include a hypothyroidism severe constipation oon Colace
--- NOTE | 2017-01-12 14:13 | RAD ---
HISTORY: hx of hyponatremia/COPD COMPARISON: 01/08/2017. FINDINGS: LUNGS: Stable consolidative changes affecting both lower lobes right greater than left. PLEURA: Stable bilateral pleural effusions. CARDIOVASCULAR: No radiographic findings to suggest acute or significant cardiovascular disease. OSSEOUS STRUCTURES: No significant abnormalities. VISUALIZED UPPER ABDOMEN: Normal. OTHER FINDINGS: None. IMPRESSION: No significant interval change compared to the prior examination(s).
--- NOTE | 2017-01-12 15:35 | CP.PCM.PN ---
Subjective - Date & Time of Evaluation Date of Evaluation: 01/12/17 Time of Evaluation: 14:15 - Subjective Subjective: ppatient was feeling better and tolerating the diet. Received 1 unit of transfusion yesterday no complaints of abdominal pain Objective - Vital Signs/Intake and Output Vital Signs (last 24 hours): Temp Pulse Resp BP Pulse Ox 98.5 F 68 16 101/62 99 01/11/17 06:00 01/12/17 08:07 01/11/17 06:00 01/12/17 09:59 01/11/17 06:00 - Medications Medications: Current Medications Arformoterol Tartrate (Brovana) 15 mcg IH [id number] [facility] Last Admin: 01/12/17 07:29 Dose: 15 mcg Atorvastatin Calcium (Lipitor) 20 mg PO DIN [facility] Last Admin: 01/11/17 17:54 Dose: 20 mg Budesonide (Pulmicort Respules) 0.5 mg IH [id number] [facility] Last Admin: 01/12/17 07:29 Dose: 0.5 mg Docusate Sodium (Colace) 100 mg PO DAILY [facility] Last Admin: 01/12/17 09:58 Dose: 100 mg Famotidine (Pepcid) 20 mg PO 0630 [facility] Last Admin: 01/12/17 06:22 Dose: 20 mg Furosemide (Lasix) 40 mg PO DAILY [facility] Last Admin: 01/12/17 09:59 Dose: 40 mg Iron Sucrose 100 mg/ Sodium (Chloride) 105 mls @ 210 mls/hr IVPB DAILY [facility] Last Admin: 01/12/17 10:00 Dose: 210 mls/hr Ipratropium [place] (Atrovent) 0.5 mg IH [id number] [facility] Last Admin: 01/12/17 13:22 Dose: 0.5 mg Levothyroxine Sodium (Synthroid) 200 mcg PO 0600 [facility] Last Admin: 01/12/17 06:22 Dose: 200 mcg Metoprolol Tartrate (Lopressor) 25 mg PO 0800,1800 [facility] Last Admin: 01/12/17 08:07 Dose: Not Given Nystatin (Nystatin Oral Susp) 5 ml PO QID [facility] Last Admin: 01/12/17 14:19 Dose: 5 ml Nystatin (Nystop Topical Powder) 0 gm TOP DAILY PRN PRN Reason: Itching / Pruritus - Labs Labs: 01/12/17 06:00 01/12/17 06:00 - Constitutional Appears: Non-toxic, No Acute Distress - Head Exam Head Exam: ATRAUMATIC, NORMOCEPHALIC - Eye Exam Eye Exam: EOMI, PERRL - ENT Exam ENT Exam: Mucous Membranes Moist, Normal External Ear Exam - Neck Exam Neck Exam: Full ROM. absent: Lymphadenopathy - Respiratory Exam Respiratory Exam: absent: Accessory Muscle Use, Rales, Rhonchi - Cardiovascular Exam Cardiovascular Exam: +S1, +S2. absent: JVD - GI/Abdominal Exam GI & Abdominal Exam: Soft. absent: Tenderness, Mass - Extremities Exam Extremities Exam: absent: Calf Tenderness, Tenderness - Neurological Exam Neurological Exam: Alert, Oriented x3 Assessment and Plan - Assessment and Plan (Free Text) Assessment: 1. anemia status post 1 unit transfusion yesterday hemoglobin improved 2. History of esophageal ulceration grade D 10 cm long period off Plavix in view of his active bleeding at the time of endoscopy. Plan was to repeat an endoscopy in about 2-3 weeks' time. To resuming the Plavix if the hemoglobin remains stable 3. Small colon polyp not removed as the patient was on Plavix 4. COPD recent hospitalization for acceleration 5. Chronic constipation and redundant colon on Colace 6. Other comorbidities include hypothyroidism PLAN 1. Follow-up hemoglobin hematocrit 2. REVIEW THE MEDICATION LIST SHOWED ONLY PEPCID 20 MG DAILY. PATIENT HAS GRADE D ESOPHAGITIS /ULCERATIONS HE WOULD BENEFIT FROM A COMBINATION OF PPI AND H2B. WE'LL START THE PATIENT ON PROTONIX IN THE A.M. AND PEPCID AT NIGHTTIME AND ALSO WILL ADD cARAFATE TWICE DAILY TO OPTIMIZE HEALING. 3. Stool softeners to avoid constipation patient had a fecal impaction before 4. Discussed with the patient at length fully understood the plan. Patient mentioned to me that in the past he was once more than 3-4 weeks off the Plavix
[2017-01-12] MEDS ORDERED: Pantoprazole 40 mg EC Tab PO SCH (15:45)
--- NOTE | 2017-01-13 02:11 | PN ---
DATE: 01/12/2017 SUBJECTIVE: The patient was seen and examined with the medical claims manager in room 321, bed 1. The patient was seen sitting out of bed to chair. Overnight nurses notes were reviewed. No adverse event documented. PHYSICAL EXAMINATION GENERAL: Afebrile. VITAL SIGNS: T-max is afebrile, 98.5, pulse rate 68 to 76, blood pressure 111/60, 101/62, 100/55 yesterday, respirations 20, O2 saturation 100%. HEAD: Normocephalic and atraumatic. HEENT: Shows pinkish pale conjunctivae. Anicteric sclerae. No oropharyngeal lesion. NECK: No neck rigidity. CHEST: Kyphosis. LUNGS: Shows occasion rhonchi of upper lung fagan and questionable decreased breath sound that the bases, right more so than the left. ABDOMEN: Soft. Positive bowel sounds. GENITALIA: Male. RECTAL: Deferred. EXTREMITIES: Upper extremity shows no pitting edema, trace swelling of the lower extremities. MUSCULOSKELETAL: Shows a body mass index of 42. CODE STATUS: DNR and DNI. DIAGNOSTICS: WBC 4.5, hemoglobin 9.1, hematocrit 28.6, platelets 231, granulocytes 68% segs. Sodium 130, potassium 4.0, chloride 90, CO2 of 39, anion gap 5, BUN 13, creatinine 0.6, GFR greater than 60, glucose of 74, calcium 7.7, total protein 4.8, albumin 2.4. Chest x-ray done today shows bibasilar consolidation, right more than the left with some bilateral pleural effusion. IMPRESSION: 1. Deconditioning. 2. Gait dysfunction. 3. Contraction alkalosis with hyponatremia. 4. Status post packed red blood cell transfusion. 5. Anemia. 6. Esophageal ulceration, grade D. 7. Colon polyp. 8. Chronic constipation with redundant colon. 9. Hypotension. 10. Hyponatremia with contraction alkalosis probably secondary to diuretics. 11. Hypocalcemia. 12. Protein malnutrition. 13. Hyperbilirubinemia. 14. Normocytic anemia with granulocytosis. 15. Bibasilar consolidative changes, right more than the left with bilateral pleural effusion. 16. Anemia secondary to upper gastrointestinal bleeding. 17. Right knee osteoarthritis. 18. Oral thrush. 19. Chronic obstructive pulmonary disease. 20. Dyslipidemia. 21. Hypothyroidism. 22. Constipation. PLAN: At this time, the patient has been ordered repeat labs in the morning. Current consultation; gastroenterology, hematology, oncology, cardiology, palliative care, and orthopedics. The patient is on Atrovent nebulizer with Brovana nebulizer twice a day and Atrovent nebulizer every 6 hours, Colace 100 mg daily, Solu-Medrol 400 mg IV daily, Lasix 40 mg p.o. daily, which is presently on hold for contraction alkalosis and hypotension, Lipitor 20 mg daily, Lopressor 25 mg twice a day, nystatin 5 mL q.i.d., Pepcid 20 mg at bedtime, Protonix 40 mg daily, also Pulmicort nebulizer 0.5 mg/2 mL q. 12 hours, Synthroid 200 mcg daily. The patient has been ordered repeat labs. The patient's management regarding holding Lasix and monitoring the chemistry has been discussed with the patient's medical claims manager at length, which they acknowledge and understand. Dictated and electronically signed, not read. Signing off, Tom Werner MD
[2017-01-13] MEDS: Ipratropium 0.02% Inhal Soln (0.5 mg/2.5 ml) UD IH SCH ×3 (02:35→13:27)
[2017-01-13] MEDS: Levothyroxine 200 MCG TAB PO SCH (05:46)
[2017-01-13] MEDS ORDERED: Pantoprazole 40 mg EC Tab PO SCH (06:30)
[2017-01-13 07:16] LABS: HEMOGLOBIN 8.9 g/dL (14.0-18.0); MEAN CELL VOLUME 99.3 fl (80.0-105.0); MEAN CORPUSCULAR HEMOGLOBIN 30.8 pg (25.0-35.0); MEAN PLATELET VOLUME 9.2 fl (7.0-11.0); RBC 2.89 10^6/uL (3.5-6.1); RED CELL DISTRIBUTION WIDTH 16.1 % (11.5-14.5); WHITE BLOOD COUNT 4.5 10^3/ul (4.5-11.0)
[2017-01-13] MEDS: Budesonide 0.5 mg/2 ml Inhal Susp UD IH SCH (07:24)
[2017-01-13] MEDS: Arformoterol 15 mcg/2 ml Inh Sol IH SCH (07:24)
[2017-01-13 07:29] LABS: ALBUMIN 2.4 g/dL (3.0-4.8); ALT/SGPT 35 U/L (7-56); AST/SGOT 20 U/L (15-59); BLOOD UREA NITROGEN 15 mg/dL (7-21); CALCIUM 7.5 mg/dL (8.4-10.5); GFR AFRICAN-AMERICAN > 60; GFR NON-AFRICAN AMERICAN > 60
[2017-01-13] MEDS: Nystatin 100,000 Units/ml Oral Susp 5 ml UD PO SCH ×2 (09:44→13:17)
[2017-01-13 16:07] VITALS: BP 98/44; PULSE 94; RESP 20; TEMP 98.4; O2SAT 100
--- NOTE | 2017-01-13 20:37 | CP.PCM.DIS ---
Provider - Provider Date of Admission: 01/06/17 19:44 Attending physician: Oswald Avitia MD Primary care physician: Fab Dodd MD Consults: For this TCU Admission, the only Consults were: [facility] - Dr. Danny Marin - Dr. Barnes Time Spent in preparation of Discharge (in minutes): 45 Hospital Course - Lab Results Lab Results: Most Recent Lab Values WBC 4.5 10^3/ul (4.5-11.0) 01/13/17 06:00 RBC 2.89 10^6/uL (3.5-6.1) L 01/13/17 06:00 Hgb 8.9 g/dL (14.0-18.0) L 01/13/17 06:00 Hct 28.7 % (42.0-52.0) L 01/13/17 06:00 MCV 99.3 fl (80.0-105.0) 01/13/17 06:00 MCH 30.8 pg (25.0-35.0) 01/13/17 06:00 MCHC 31.0 g/dl (31.0-37.0) 01/13/17 06:00 RDW 16.1 % (11.5-14.5) H 01/13/17 06:00 Plt Count 261 10^3/uL (120.0-450.0) 01/13/17 06:00 MPV 9.2 fl (7.0-11.0) 01/13/17 06:00 Gran % 68.6 % (50.0-68.0) H 01/12/17 06:00 Lymph % (Auto) 12.1 % (22.0-35.0) L 01/12/17 06:00 Alexander % (Auto) 9.2 % (1.0-6.0) H 01/12/17 06:00 Eos % (Auto) 9.9 % (1.5-5.0) H 01/12/17 06:00 Baso % (Auto) 0.2 % (0.0-3.0) 01/12/17 06:00 Gran # 3.05 (1.4-6.5) 01/12/17 06:00 Lymph # 0.5 (1.2-3.4) L 01/12/17 06:00 Alexander # 0.4 (0.1-0.6) 01/12/17 06:00 Eos # 0.4 (0.0-0.7) 01/12/17 06:00 Baso # 0.01 K/mm3 (0.0-2.0) 01/12/17 06:00 Sodium 131 mmol/L (132-148) L 01/13/17 06:00 Potassium 4.5 mmol/L (3.6-5.0) 01/13/17 06:00 Chloride 89 mmol/L (95-110) L 01/13/17 06:00 Carbon Dioxide 39 mmol/L (21-33) H 01/13/17 06:00 Anion Gap 8 (10-20) L 01/13/17 06:00 BUN 15 mg/dL (7-21) 01/13/17 06:00 Creatinine 0.5 mg/dL (0.5-1.4) 01/13/17 06:00 Est GFR ( Amer) > 60 01/13/17 06:00 Est GFR (Non-Af Amer) > 60 01/13/17 06:00 POC Glucose (mg/dL) 113 mg/dL (65-110) H 01/09/17 05:13 Random Glucose 82 mg/dL (70-110) 01/13/17 06:00 Uric Acid 2.4 mg/dL (3.5-8.5) L 01/08/17 06:00 Calcium 7.5 mg/dL (8.4-10.5) L 01/13/17 06:00 Phosphorus 2.8 mg/dL (2.5-4.5) 01/12/17 06:00 Magnesium 1.9 mg/dL (1.7-2.2) 01/12/17 06:00 Total Bilirubin 0.7 mg/dL (0.2-1.3) 01/13/17 06:00 AST 20 U/L (15-59) 01/13/17 06:00 ALT 35 U/L (7-56) 01/13/17 06:00 Alkaline Phosphatase 57 U/L (38-133) 01/13/17 06:00 Total Protein 4.9 g/dL (5.8-8.3) L 01/13/17 06:00 Albumin 2.4 g/dL (3.0-4.8) L 01/13/17 06:00 Globulin 2.5 gm/dL 01/13/17 06:00 Albumin/Globulin Ratio 1.0 (1.1-1.8) L 01/13/17 06:00 Blood Type Cancelled 01/11/17 12:30 Antibody Screen Cancelled 01/11/17 12:30 Crossmatch See Detail 01/11/17 12:30 BBK History Checked Cancelled 01/11/17 12:30 - Hospital Course Hospital Course: 81 yo M with a PMH of CAD s/p stents, CHF (LVEF 54%), COPD, hypothyroidism and HLD presented to the TCU for deconditioning and weakness after discharge from med/surg inpatient floors, where he was admitted for hypercapneic respiratory failure likely secondary to COPD exacerbation. Throughout his stay in the TCU, Mr. Turpin progressively was weaned off of Oxygen until he was stable on nasal canula 2L. His hemoglobin and HCT then progressively started dropping. His Hgb got down to 7.1 and he was transfused with 2U of blood. GI was consulted and took him for an endoscopy and colonoscopy. Endoscopy showed bleeding esophageal ulcers, and he was recommended for immediate d/c from TCU to be admitted to ICU. Once Mr. Turpin was stabilized in the ICU, he was d/c'd to med/surg, where he recovered well. He was d/c'd to TCU, with plans for an EGD before he was discharged. In the TCU, Mr. Turpin once again became anemic and was given 1 U PRBC's on . When the case was d/w Dr. Delgado, Dr. Delgaod suggested to put the patient on 20 pepcid in the PM and 40 protonix in the AM, as well as giving him Iron. Dr. Delgado said that this was the treatment for the bleeding esophogeal ulcers, and that after a week of this therapy, Mr. Turpin should f/ u EGD with him in the office. The following imaging was done in the TCU: - Knee XR 01/07: For pain. Showed medial joint narrowing. Ortho gave an injection of steroids - CXR 01/12: To check for fluid overload. old pleural effusions were noted, and were noted to actually be improved. No acute fluid overload. Mr. Turpin's son was able to take him home. Case was dw DAYSI, who said that she will arrange for home care for Mr. Turpin. MR Turpin agreed to follow up, and was amenable to plan. Discharge Exam - Head Exam Head Exam: ATRAUMATIC, NORMOCEPHALIC - Additional Findings Additional findings: VS as above Constitutional: a&o x 4, nad Head and Neck: neck supple, no jvd, trachea midline, carotid midline, no cervical/head mass Eyes: ernie, nonicteric sclera, eom intact ENT: auditory acuity grossly intact, throat not congested, no nasal deformity Cardio: +Pansystolic Murmur; rrr, no r/g, no carotid bruit, nml s1, s2 Pulm: no accessory muscle use, equal nml breath sounds bilaterally, ctab Abd: s/nt/nd, nbs x 4 q, no palpable masses Derm: no rashes, no ulcers, no lesions Extr: no edema, no cyanosis, no calf tenderness, no lesions, no varicosities Neuro: cn II-XII grossly intact, ue and le 5/5 muscle strength bilaterally, no los ue, le bilaterally and core Discharge Plan - Discharge Medications Prescriptions: Famotidine [Pepcid] 20 mg PO HS #10 tab Iron Sucrose [Venofer] 100 mg PO DAILY #30 vial Pantoprazole [Protonix EC Tab] 40 mg PO 0630 #10 ect - Follow Up Plan Condition: GOOD Disposition: HOME/ ROUTINE Instructions: Heart Failure (DC), Diet for Ulcers and Gastritis (GEN), Fall Prevention for Older Adults (GEN), Pleural Effusion (DC), Anemia (DC) Additional Instructions: 1. PLEASE - f/u with Dr. Avitia in a week 2. Make sure you follow up with your blood counts! 3. Please make sure to f/u with Dr. Delgado from Gastroenterology to get an EGD 4. You have been discharged with 3 new medications - Take the venofer daily and discuss this with Dr. Delgado - Take the Protonix in the MORNING - everyday for 7 days - Take the Pepcid in the EVENING - every day for 7 days - Make sure when you see Dr. Delgado that you tell him you have been on this regimen 5 If symptoms of fatigue/dizziness/blurry vision or any other symptoms occur - please return to the ED! Referrals: Fab Dodd DO [Primary Care Provider] -
== END 2017-01-13 17:31 | disposition home or self-care (01) | DRG 945 ==
LOC: TRCU 19:44
PROVIDERS: ADMIT Internal Medicine; ATTEND Internal Medicine
PROC: F07Z9FZ Gait Training/Functional Ambulation Treatment using Assistive, Adaptive, Supportive or Protective Equipment (ICD-10-PCS; principal; 2017-01-08)
PROC: F07Z5FZ Bed Mobility Treatment using Assistive, Adaptive, Supportive or Protective Equipment (ICD-10-PCS; 2017-01-08)
PROC: F07L6ZZ Therapeutic Exercise Treatment of Musculoskeletal System - Lower Back / Lower Extremity (ICD-10-PCS; 2017-01-08)
PROC: 3E0U3BZ Introduction of Anesthetic Agent into Joints, Percutaneous Approach (ICD-10-PCS; 2017-01-08)
PROC: 3E0U33Z Introduction of Anti-inflammatory into Joints, Percutaneous Approach (ICD-10-PCS; 2017-01-08)
PROC: F08Z2ZZ Grooming/Personal Hygiene Treatment (ICD-10-PCS; 2017-01-09)
PROC: F08Z1FZ Dressing Techniques Treatment using Assistive, Adaptive, Supportive or Protective Equipment (ICD-10-PCS; 2017-01-09)
DX: R53.1 Weakness (principal); K22.11 Ulcer of esophagus with bleeding; E87.3 Alkalosis; E46 Unspecified protein-calorie malnutrition; B37.0 Candidal stomatitis; J98.11 Atelectasis; E87.1 Hypo-osmolality and hyponatremia; I11.0 Hypertensive heart disease with heart failure; I50.9 Heart failure, unspecified; E83.51 Hypocalcemia; J44.9 Chronic obstructive pulmonary disease, unspecified; E03.9 Hypothyroidism, unspecified; E78.5 Hyperlipidemia, unspecified; I25.10 Atherosclerotic heart disease of native coronary artery without angina pectoris; M17.11 Unilateral primary osteoarthritis, right knee; K57.90 Diverticulosis of intestine, part unspecified, without perforation or abscess without bleeding; K44.9 Diaphragmatic hernia without obstruction or gangrene; K20.9 Esophagitis, unspecified; D12.5 Benign neoplasm of sigmoid colon; D50.0 Iron deficiency anemia secondary to blood loss (chronic); K59.09 Other constipation; Z66 Do not resuscitate; K63.5 Polyp of colon; Z68.22 Body mass index [BMI] 22.0-22.9, adult; Z95.5 Presence of coronary angioplasty implant and graft; Z87.891 Personal history of nicotine dependence